=== PATIENT | male | born 1995 | race Hispanic/Latino ===

== ENCOUNTER 2017-12-03 02:24 | Emergency (ER) | payer SELFPAY ==
[2017-12-03] MEDS ORDERED: NA CHLORIDE 0.9% 1,000 ML ONE (02:48)
[2017-12-03 03:31] LABS: BUN Blood Urea Nitrogen 12 mg/dL (7-18); Bicarbonate 27 mmol/L (21-32); Glucose Level 95 mg/dL (74-106); Potassium 3.5 mmol/L (3.5-5.1); Sodium Level 142 mmol/L (136-145)
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
[2017-12-03] MEDS ORDERED: KETOROLAC 30 MG/ML INJ ONE (04:22)
--- NOTE | 2017-12-03 08:15 | RAD REPORT ---
EXAM DESCRIPTION: CT - CTF CLINICAL HISTORY: FRACTURE COMPARISON: No comparisons TECHNIQUE: Axial 2 mm thick images of the face were obtained with sagittal and coronal reconstructio n images. All CT scans are performed using dose optimization technique as appropriate and may include automated exposure control or mA/KV adjustment according to patient size. FINDINGS: No acute facial bone fracture is seen.The mandible is intact. Hardware is noted in the man dible. The globes and orbital contents are grossly unremarkable.The paranasal sinuses and mastoids are clear . IMPRESSION: Negative for facial bone fracture.
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
== END 2017-12-03 04:30 | disposition home or self-care (01) ==
LOC: ER 02:24
DX: M62.830 Muscle spasm of back (principal); Y04.8XXA Assault by other bodily force, initial encounter; Y93.9 Activity, unspecified; Y92.89 Other specified places as the place of occurrence of the external cause; G40.909 Epilepsy, unspecified, not intractable, without status epilepticus
CPT/HCPCS: 36415; 70450; 70486; 71260; 72125; 74177; 80048; 96361; 96374; 99284; J7030; Q9967

== ENCOUNTER 2019-05-01 23:47 | Emergency (ER) | payer SELFPAY ==
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
--- OUTSIDE RECORDS SUMMARY | 2019-05-01 23:49 | XMS REPORT ---
:1995 Author Organization [facility] Address [address] [place] [address] [address] [place] [address] Care Team Providers Name Role Phone DR JEREMIAH FARIAS Unavailable Unavailable MARILOU, DR DOMINGUEZ Unavailable Unavailable MARILOU, DR SAMANTHA Gregorio Unavailable Unavailable CORDELIA, DR JENNIFER Bowden Unavailable Unavailable SATHISH, DR VALENTIN Persaud Unavailable Unavailable Problems This patient has no known problems. Allergies, Adverse Reactions, Alerts This patient has no known allergies or adverse reactions. Medications This patient has no known medications. Encounters Start End Encounter Admission Attending Care Care Encounter Date/Time Date/Time Type Type Clinicians Facility Department ID 2019-01-13 2019-01-13 Outpatient E [facility] [id number] 12:31:00 12:31:00 2019-01-07 2019-01-07 Emergency E JARRETT [facility] [id number] 18:35:00 19:29:00 JEREMIAH 2019-01-01 2019-01-01 Emergency E MARILOU [facility] [id number] 00:51:00 01:48:00 ALBERTO 2018-12-30 2018-12-30 Emergency E SAMANTHA ZAMARRIPA [facility] [id number] 10:33:00 12:10:00 2018-08-11 2018-08-11 Outpatient E CORDELIA [facility] [id number] 08:29:00 09:00:00 JENNIFER 2018-08-07 2018-08-07 Outpatient E SATHISH [facility] [id number] 07:58:00 10:05:00 VALENTIN Results Test Description Test Time Test Comments Text Results Atomic Results Result Comments XR ELBOW RIGHT COMPLETE 2019-01-07 19:16:48 LOCATION: [id number]: 23-year- old 3 VIEWS male who presents with right elbow pain.COMMENT:Frontal, oblique, and lateral radiographs of the right elbow are compared to aprior study of 01/01/19.There is orthopedic hardware along the proximal ulna. There is no radiographicevidence of hardware failure, and the distal humerus and proximal radius areintact. No effusion is seen within the elbow joint space.IMPRESSION:Postoperative changes are seen in this patient's proximal right humerus. Noacute findings seen. XR ELBOW RIGHT COMPLETE 2019-01-01 01:27:53 LOCATION: [id number]: 23-year- old 3 VIEWS male who presents with a trauma history to the rightelbow.COMMENT:Frontal, oblique, and lateral radiographs of the right elbow are compared to aprior study obtained 12/30/18.The prior study of the fiberglass cast is been removed.Again seen is a fracture involving the ulnar olecranon process of the elbow.The proximal part is mildly from the distal part approximately 3 mm.The relative positioning of this fragment is unchanged from earlier study.The distal humerus and proximal radius are intact.IMPRESSION:Again seen is a olecranon process fracture in this patient's proximal rightulna. The degree of separation 3 in the proximal and distal parts is notsignificantly changed from the study obtained one day ago. XR ELBOW RIGHT COMPLETE 2018-12-30 11:19:03 EXAMINATION: XR ELBOW RIGHT COMPLETE 3 VIEWS 3 VIEWS.LOCATION: D4.HISTORY: R elbow s/p fracture.COMPARISON: None.TECHNIQUE: AP, lateral, and oblique views of the right elbow were obtained.FINDINGS:There is an acute nondisplaced fracture of the olecranon with extension to thehumeroulnar joint. Soft tissue structures appear intact.IMPRESSION:Acute nondisplaced fracture of the olecranon with extension to the humeroulnarjoint.
[2019-05-02 00:13] LABS: Arterial Blood Carboxyhemoglob 0.6 % (0-1.5); Blood Gas Oxyhemoglobin 98.4 % (94-97); Blood O2 Saturation 99.8 % (92-98.5)
[2019-05-02] MEDS ORDERED: NA CHLORIDE 0.9% 1,000 ML ONE (00:25)
[2019-05-02] MEDS ORDERED: LORazepam 2 MG/ML VIAL ONE (00:25)
[2019-05-02] MEDS ORDERED: LEVETIRACETAM 500 MG/5 ML VIAL IV ONE (00:25)
[2019-05-02] MEDS ORDERED: NA CHLORIDE 0.9% 250 ML ONE (00:34)
[2019-05-02 01:04] LABS: Basophils % 0.4 % (0-1.3); Hematocrit 45.6 % (39.6-49.0); Lymphocytes % 17.4 % (15.3-44.8); RBC Red Blood Cell Count 5.08 M/uL (4.33-5.43)
[2019-05-02 01:05] LABS: Barbiturates NEGATIVE (NEGATIVE); Benzodiazepines NEGATIVE (NEGATIVE); Cocaine NEGATIVE (NEGATIVE); METHAMPHETAM NEGATIVE (NEGATIVE); Methadone NEGATIVE (NEGATIVE); Opiates NEGATIVE (NEGATIVE); Phencyclidine NEGATIVE (NEGATIVE); THC Cannibis NEGATIVE (NEGATIVE)
[2019-05-02 01:09] LABS: Urine Blood NEGATIVE (NEG); Urine Glucose NEGATIVE (NEG); Urine Protein NEGATIVE (NEG); Urine pH 5.5 (5.0-7.0)
[2019-05-02 01:10] LABS: Protime INR 0.99
[2019-05-02 01:22] LABS: ALT/SGPT 23 U/L (12-78); AST/SGOT 14 U/L (15-37); Albumin 3.6 g/dL (3.4-5.0); Alkaline Phosphatase 79 U/L (45-117); BUN Blood Urea Nitrogen 5 mg/dL (7-18); Bicarbonate 27 mmol/L (21-32); Bilirubin Direct 0.1 mg/dL (0-0.2); Bilirubin Total 0.3 mg/dL (0.2-1.0); Glucose Level 86 mg/dL (74-106); Magnesium 2.4 mg/dL (1.8-2.4); NT PRO-BNP 40 pg/mL (<125); Potassium 3.6 mmol/L (3.5-5.1); Protein, Total 7.3 g/dL (6.4-8.2); Sodium Level 139 mmol/L (136-145); Troponin (Emerg Dept Use Only) < 0.02 ng/mL (0.0-0.045)
--- NOTE | 2019-05-02 01:43 | ER ---
Nurse's Notes [facility] Name: Douglas Aguirre Age: 24 yrs Sex: Male : 1995 Arrival Date: 05/01/2019 Time: 23:51 Bed 4 Private MD: Diagnosis: Epilepsy and recurrent seizures;Fall due to bumping against object Presentation: 05/01 23:51 Presenting complaint: EMS states: Pt fell from a bench and began seizing, Has been jb4 posturing since. 23:51 Transition of care: patient was not received from another setting of care. Onset of jb4 symptoms was May 01, 2019. Risk Assessment: Do you want to hurt yourself or someone else? Patient reports no desire to harm self or others. Initial Sepsis Screen: Does the patient meet any 2 criteria? No. Patient's initial sepsis screen is negative. Does the patient have a suspected source of infection? No. Patient's initial sepsis screen is negative. Care prior to arrival: Oxygen administered. via a non-rebreather mask. 23:51 Method Of Arrival: EMS: [place] [id number] 23:51 Acuity: MARCELO 1 jb4 Historical: - Allergies: 23:51 No Known Allergies; jb4 - Home Meds: 23:51 None [Active]; jb4 - PMHx: 23:51 Seizures; jb4 - PSHx: 23:51 None; jb4 - Immunization history:: Adult Immunizations unknown. - Coronavirus screen:: The patient has NOT traveled to [place] in the past 14 days. Proceed with normal triage process as indicated. The patient HAS traveled to [place] in the past 14 days. The patient does NOT have a fever and/or cough. - Family history:: not pertinent. - Social history:: Smoking status: unknown. - Ebola Screening: : No symptoms or risks identified at this time. Screenin:51 Abuse screen: Denies threats or abuse. Nutritional screening: No deficits noted. jb4 Tuberculosis screening: No symptoms or risk factors identified. Fall Risk None identified. Assessment: 23:51 General: Appears Post ictal. Pain: Unable to use pain scale. Patient is disoriented. jb4 Neuro: Level of Consciousness is post ictal, Patients limbs are extended with hands curled inward. Pt with open his eyes to verbal stimuli, but is unable to respond. Pupils are dilated, equal, and reactive to light. Eyes appear to be bloodshot. . Cardiovascular: Patient's skin is warm and dry. Respiratory: Airway is patent Respiratory effort is even, unlabored, Respiratory pattern is regular, symmetrical. GI: No signs and/or symptoms were reported involving the gastrointestinal system. : No signs and/or symptoms were reported regarding the genitourinary system. EENT: No signs and/or symptoms were reported regarding the EENT system. Derm: Skin is intact, Skin is pink, warm \T\ dry. Musculoskeletal: Limbs are extended with hands curled inward. 05/02 01:00 Reassessment: Patient appears in no apparent distress at this time. Patient and/or jb4 family updated on plan of care and expected duration. Pain level reassessed. Patient is alert, oriented x 3, equal unlabored respirations, skin warm/dry/pink. Pt reports having a headache and is drowsy. Is able to move all extremities, answer questions appropriately. PERRLA is noted. Pt awakens easily to verbal stimuli. 02:00 Reassessment: Patient appears in no apparent distress at this time. Patient and/or jb4 family updated on plan of care and expected duration. Pain level reassessed. Patient is alert, oriented x 3, equal unlabored respirations, skin warm/dry/pink. D/c pending arrival of PT's transportation. PT given food and drink per request. 02:47 Reassessment: Patient appears in no apparent distress at this time. Patient and/or jb4 family updated on plan of care and expected duration. Pain level reassessed. Patient is alert, oriented x 3, equal unlabored respirations, skin warm/dry/pink. Pt assisted to police vehicle via wheelchair. Pt and lawn mower repairer verbalized understanding of d/c and follow up instructions. denies question or concerns. Vital Signs: 05/01 23:51 BP 134 / 92; Pulse 90; Resp 18 S; Temp 97.6(TE); Pulse Ox 100% on 100% Non-rebreather jb4 mask; Weight 72.57 kg (R); Height 5 ft. 8 in. (172.72 cm) (R); 05/02 01:00 BP 117 / 79; Pulse 86; Resp 13; Pulse Ox 99% on R/A; jb4 02:00 BP 119 / 88; Pulse 79; Resp 16; Pulse Ox 100% on R/A; jb4 05/01 23:51 Body Mass Index 24.33 (72.57 kg, 172.72 cm) jb4 [place] Coma Score: 05/01 23:51 Eye Response: to voice(3). Verbal Response: incomprehensible(2). Motor Response: jb4 withdraws from pain(4). Total: 9. 05/02 01:00 Eye Response: spontaneous(4). Verbal Response: oriented(5). Motor Response: obeys jb4 commands(6). Total: 15. ED Course: 05/01 23:51 Patient arrived in ED. kayleen 23:51 Kar Gonzales MD is Attending Physician. kayleen 23:51 Arm band placed on right wrist. jb4 23:51 Patient has correct armband on for positive identification. Bed in low position. Call jb4 light in reach. Side rails up X 1. cone machine feeder on. Pulse ox on. NIBP on. 23:51 Maintain EMS IV. Dressing intact. Good blood return noted. Site clean \T\ dry. Gauge \T\ noris 4 site: 20. 05/02 00:06 Blair Yang, RN is Primary Nurse. jb4 00:08 Triage completed. jb4 01:44 Nicanor Stewart MD is Referral Physician. [facility] 02:47 No provider procedures requiring assistance completed. IV discontinued, intact, jb4 bleeding controlled, No redness/swelling at site. Pressure dressing applied. 07:03 XRAY Chest (1 view) In Process Unspecified. EDMS 07:03 CT Head C Spine In Process Unspecified. EDMS Administered Medications: 00:25 Drug: NS 0.9% 1000 ml Route: IV; Rate: 1 bolus; Site: right antecubital; jb4 02:30 Follow up: Response: No adverse reaction; IV Status: Completed infusion jb4 00:25 Drug: Ativan 1 mg Route: IVP; Site: right antecubital; jb4 01:00 Follow up: Response: No adverse reaction jb4 00:37 Drug: Keppra 1000 mg Route: IV; Rate: per protocol; Site: right antecubital; jb4 01:07 Follow up: Response: No adverse reaction; IV Status: Completed infusion; IV Intake: jb4 250ml 01:38 Not Given (Physician Discretion): Ativan 1 mg IVP once jb4 Intake: 01:07 IV: 250ml; Total: 250ml. jb4 Outcome: 01:43 Discharge ordered by MD. beyer 02:47 Discharged to Law Enforcement jb4 02:47 Condition: stable 02:47 Discharge instructions given to patient, police, Instructed on discharge instructions, follow up and referral plans. medication usage, Demonstrated understanding of instructions, follow-up care, medications, Prescriptions given X 1. 02:51 Patient left the ED. jb4 Signatures: Dispatcher [employer] EDKar Brasher MD MD cha Bryson, James, RN RN jb4
--- NOTE | 2019-05-02 01:43 | EDPHYS ---
Physician Documentation [facility] Name: Douglas Aguirre Age: 24 yrs Sex: Male : 1995 Arrival Date: 05/01/2019 Time: 23:51 Bed 4 Private MD: ED Physician Kar Gonzales HPI: 05/01 23:53 This 24 yrs old Male presents to ER via Unassigned with complaints of seizure kayleen and nonresponsive. 23:53 The patient presents after having a single isolated seizure, the episode(s) was kayleen witnessed, by EMS personnel, by police. Character of seizure(s): Loss of consciousness: the patient experienced loss of consciousness, Motor activity: generalized, Incontinence: none, Apnea: the patient did not experience apnea, Circulation: the patient did not experience evidence of pulse disturbance. Seizure onset: 1.5 hour(s) ago. Context: the seizure(s) was witnessed, by EMS personnel, by police. Seizure Hx: Cause: unknown, Last seizure: The patient's last seizure is unknown. Associated injury: The patient did not suffer any apparent associated injury. The patient has experienced similar episodes in the past, a few times. Historical: - Allergies: 23:51 No Known Allergies; jb4 - Home Meds: 23:51 None [Active]; jb4 - PMHx: 23:51 Seizures; jb4 - PSHx: 23:51 None; jb4 - Immunization history:: Adult Immunizations unknown. - Coronavirus screen:: The patient has NOT traveled to [place] in the past 14 days. Proceed with normal triage process as indicated. The patient HAS traveled to [place] in the past 14 days. The patient does NOT have a fever and/or cough. - Family history:: not pertinent. - Social history:: Smoking status: unknown. - Ebola Screening: : No symptoms or risks identified at this time. ROS: 23:53 Constitutional: Negative for fever, chills, and weight loss, Eyes: Negative for injury, kayleen pain, redness, and discharge, ENT: Negative for injury, pain, and discharge, Neck: Negative for injury, pain, and swelling, Cardiovascular: Negative for chest pain, palpitations, and edema, Respiratory: Negative for shortness of breath, cough, wheezing, and pleuritic chest pain, Abdomen/GI: Negative for abdominal pain, nausea, vomiting, diarrhea, and constipation, Back: Negative for injury and pain, : Negative for injury, bleeding, discharge, and swelling, MS/Extremity: Negative for injury and deformity, Skin: Negative for injury, rash, and discoloration, Psych: Negative for depression, anxiety, suicide ideation, homicidal ideation, and hallucinations, Allergy/Immunology: Negative for hives, rash, and allergies, Endocrine: Negative for neck swelling, polydipsia, polyuria, polyphagia, and marked weight changes, Hematologic/Lymphatic: Negative for swollen nodes, abnormal bleeding, and unusual bruising. 23:53 Neuro: Positive for altered mental status, seizure activity. Exam: 23:53 Constitutional: This is a well developed, well nourished patient who is awake, alert, kayleen and in no acute distress. Head/Face: Normocephalic, atraumatic. Eyes: Pupils equal round and reactive to light, extra-ocular motions intact. Lids and lashes normal. Conjunctiva and sclera are non-icteric and not injected. Cornea within normal limits. Periorbital areas with no swelling, redness, or edema. ENT: Nares patent. No nasal discharge, no septal abnormalities noted. Tympanic membranes are normal and external auditory canals are clear. Oropharynx with no redness, swelling, or masses, exudates, or evidence of obstruction, uvula midline. Mucous membranes moist. Neck: Trachea midline, no thyromegaly or masses palpated, and no cervical lymphadenopathy. Supple, full range of motion without nuchal rigidity, or vertebral point tenderness. No Meningismus. Chest/axilla: Normal chest wall appearance and motion. Nontender with no deformity. No lesions are appreciated. Cardiovascular: Regular rate and rhythm with a normal S1 and S2. No gallops, murmurs, or rubs. Normal PMI, no JVD. No pulse deficits. Respiratory: Lungs have equal breath sounds bilaterally, clear to auscultation and percussion. No rales, rhonchi or wheezes noted. No increased work of breathing, no retractions or nasal flaring. Abdomen/GI: Soft, non-tender, with normal bowel sounds. No distension or tympany. No guarding or rebound. No evidence of tenderness throughout. Back: No spinal tenderness. No costovertebral tenderness. Full range of motion. Skin: Warm, dry with normal turgor. Normal color with no rashes, no lesions, and no evidence of cellulitis. MS/ Extremity: Pulses equal, no cyanosis. Neurovascular intact. Full, normal range of motion. Psych: Awake, alert, with orientation to person, place and time. Behavior, mood, and affect are within normal limits. 23:53 Neuro: Orientation: unable to test, Mentation: unable to test, Memory: unable to test, Cranial nerves: unable to test, Sensation: unable to test, Gait: not tested. seizure activity, grand mal type is displayed. Vital Signs: 23:51 BP 134 / 92; Pulse 90; Resp 18 S; Temp 97.6(TE); Pulse Ox 100% on 100% Non-rebreather jb4 mask; Weight 72.57 kg (R); Height 5 ft. 8 in. (172.72 cm) (R); 05/02 01:00 BP 117 / 79; Pulse 86; Resp 13; Pulse Ox 99% on R/A; jb4 02:00 BP 119 / 88; Pulse 79; Resp 16; Pulse Ox 100% on R/A; jb4 05/01 23:51 Body Mass Index 24.33 (72.57 kg, 172.72 cm) jb4 Onset Coma Score: 05/01 23:51 Eye Response: to voice(3). Verbal Response: incomprehensible(2). Motor Response: jb4 withdraws from pain(4). Total: 9. 05/02 01:00 Eye Response: spontaneous(4). Verbal Response: oriented(5). Motor Response: obeys jb4 commands(6). Total: 15. MDM: 05/01 23:51 Patient medically screened. [facility] 23:58 Data reviewed: vital signs, nurses notes, lab test result(s), EKG, radiologic studies, [facility] CT scan, plain films. 05/01 23:53 Order name: Basic Metabolic Panel [facility] 05/01 23:53 Order name: CBC with Diff [facility] 05/01 23:53 Order name: LFT's [facility] 05/01 23:53 Order name: Magnesium [facility] 05/01 23:53 Order name: NT PRO-BNP [facility] 05/01 23:53 Order name: PT-INR [facility] 05/01 23:53 Order name: Troponin (emerg Dept Use Only) [facility] 05/01 23:53 Order name: ABG [facility] 05/01 23:53 Order name: Acetaminophen [facility] 05/01 23:53 Order name: ETOH Level [facility] 05/01 23:53 Order name: Ptt, Activated [facility] 05/01 23:53 Order name: Salicylate [facility] 05/01 23:53 Order name: Urine Drug Screen [facility] 05/02 00:15 Order name: ABG Arterial Blood Gas; Complete Time: 01:41 [facility] 05/01 23:53 Order name: XRAY Chest (1 view) [facility] 05/01 23:53 Order name: CT Head C Spine [facility] 05/02 01:03 Order name: Urine Dipstick--Ancillary (enter results) sp 05/02 01:05 Order name: Urine Drug Screen; Complete Time: 01:41 [facility] 05/02 01:10 Order name: Urine Dipstick-Ancillary; Complete Time: 01:41 [facility] 05/02 01:12 Order name: CBC with Automated Diff; Complete Time: 01:41 [facility] 05/02 01:12 Order name: Protime (+INR); Complete Time: 01:41 [facility] 05/02 01:12 Order name: PTT, Activated Partial Thromb; Complete Time: 01:41 [facility] 05/02 01:22 Order name: Alcohol Serum/Plasma; Complete Time: 01:41 [facility] 05/02 01:22 Order name: Salicylates Level; Complete Time: 01:41 [facility] 05/02 01:23 Order name: Basic Metabolic Panel; Complete Time: 01:41 [facility] 05/02 01:23 Order name: Liver (Hepatic) Function; Complete Time: 01:41 [facility] 05/02 01:23 Order name: Troponin (Emerg Dept Use Only); Complete Time: 01:41 [facility] 05/02 01:23 Order name: NT PRO-BNP; Complete Time: 01:41 [facility] 05/02 01:23 Order name: Acetaminophen Level; Complete Time: 01:41 [facility] 05/02 01:23 Order name: Magnesium; Complete Time: 01:41 [facility] 05/01 23:53 Order name: EKG; Complete Time: 23:56 [facility] 05/01 23:53 Order name: Cardiac monitoring; Complete Time: 00:40 [facility] 05/01 23:53 Order name: EKG - Nurse/Tech; Complete Time: 00:40 [facility] 05/01 23:53 Order name: IV Saline Lock; Complete Time: 00:41 [facility] 05/01 23:53 Order name: Labs collected and sent; Complete Time: 00:56 [facility] 05/01 23:53 Order name: O2 Per Protocol; Complete Time: 00:41 [facility] 05/01 23:53 Order name: O2 Sat Monitoring; Complete Time: 00:41 [facility] 05/01 23:53 Order name: Urine Dipstick-Ancillary (obtain specimen); Complete Time: 00:40 [facility] Administered Medications: 05/02 00:25 Drug: NS 0.9% 1000 ml Route: IV; Rate: 1 bolus; Site: right antecubital; jb4 02:30 Follow up: Response: No adverse reaction; IV Status: Completed infusion jb4 00:25 Drug: Ativan 1 mg Route: IVP; Site: right antecubital; jb4 01:00 Follow up: Response: No adverse reaction jb4 00:37 Drug: Keppra 1000 mg Route: IV; Rate: per protocol; Site: right antecubital; jb4 01:07 Follow up: Response: No adverse reaction; IV Status: Completed infusion; IV Intake: jb4 250ml 01:38 Not Given (Physician Discretion): Ativan 1 mg IVP once jb4 Disposition: 05/02/19 01:43 Discharged to Home. Impression: Epilepsy and recurrent seizures, Fall due to bumping against object. - Condition is Stable. - Discharge Instructions: Seizure, Adult, Seizure, Adult, [id number]. - Prescriptions for Keppra 500 mg Oral Tablet - take 1 tablet by ORAL route every 12 hours; 20 tablet. - Medication Reconciliation Form, Thank You Letter, Antibiotic Education, Prescription Opioid Use form. - Follow up: Private Physician; When: 2 - 3 days; Reason: Recheck today's complaints, Continuance of care, Re-evaluation by your physician. Follow up: Nicanor Stewart MD; When: 2 - 3 days; Reason: Recheck today's complaints, Re-evaluation by your physician. - Problem is new. - Symptoms have improved. Signatures: Dispatcher [employer] Kar Sheppard MD MD cha Bryson, James, RN RN jb4 Corrections: (The following items were deleted from the chart) 01:44 01:43 05/02/2019 01:43 Discharged to Home. Impression: Epilepsy and recurrent seizures; kayleen Fall due to bumping against object. Condition is Stable. Forms are Medication Reconciliation Form, Thank You Letter, Antibiotic Education, Prescription Opioid Use. Follow up: Private Physician; When: 2 - 3 days; Reason: Recheck today's complaints, Continuance of care, Re-evaluation by your physician. Problem is new. Symptoms have improved. kayleen 02:51 01:44 05/02/2019 01:43 Discharged to Home. Impression: Epilepsy and recurrent seizures; jb4 Fall due to bumping against object. Condition is Stable. Discharge Instructions: Seizure, Adult, Seizure, Adult, [id number]. Prescriptions for Keppra 500 mg Oral Tablet - take 1 tablet by ORAL route every 12 hours; 20 tablet. and Forms are Medication Reconciliation Form, Thank You Letter, Antibiotic Education, Prescription Opioid Use. Follow up: Private Physician; When: 2 - 3 days; Reason: Recheck today's complaints, Continuance of care, Re-evaluation by your physician. Follow up: Nicanor Setwart; When: 2 - 3 days; Reason: Recheck today's complaints, Re-evaluation by your physician. Problem is new. Symptoms have improved. kayleen
[2019-05-02 03:07] VITALS: TEMP 97.6; O2SAT 100
[2019-05-02 03:09] VITALS: BP 119/88
--- NOTE | 2019-05-02 07:45 | EKG ---
Test Date: 2019-05-02 Test Time: 00:30:03 Environmental Specialist: MARLENY MEASUREMENT RESULTS: Intervals: Rate: 86 CO: 136 QRSD: 108 QT: 372 QTc: 445 Maple: P: 53 CO: 136 QRS: 84 T: 62 INTERPRETIVE STATEMENTS: Normal sinus rhythm Normal ECG Compared to ECG 03/16/2014 18:02:48 Sinus arrhythmia no longer present Electronically Signed On 05-02-19 07:44:24 TOOL INSPECTOR by Bakari Arndt
--- NOTE | 2019-05-02 09:56 | RAD REPORT ---
EXAM DESCRIPTION: Hannah Single View05/02/2019 12:28 am CLINICAL HISTORY: cough COMPARISON: none FINDINGS: The lungs appear clear of acute infiltrate. The heart is normal size IMPRESSION: No acute abnormalities displayed
--- NOTE | 2019-05-03 11:51 | RAD REPORT ---
EXAM DESCRIPTION: CT - Head C Spine Mpr Wo Con - 05/02/2019 4:27 am CLINICAL HISTORY: Pain. COMPARISON: CT head and cervical spine 12/03/2017 TECHNIQUE: Axial [address] imaging of the brain. Axial [address] imaging of the cervical spine. Reformatted coronal and sagittal images obtai rochelle. This examination was performed according to our departmental dose optimization program, which include s automated exposure control, adjustment of the mA and/or kV according to patient size and/or use of iterative reconstruction technique. FINDINGS: CT Head: Normal ventricle size and contour. Extra-axial fluid spaces appear normal. Gil-white matter differen tiation is preserved. There is no hemorrhage, mass, midline shift, or edema. Normal cerebellum and ve rmis. Midline fourth ventricle. No cerebellar tonsillar ectopia. Normal sella contents. Intraorbital contents appear normal. Clear paranasal sinuses. Mastoid air cells are clear. Intact sku ll base and calvarium. Normal scalp soft tissues. CT cervical spine: There is flattening of cervical lordosis. Vertebral body and intervertebral disc space height are wit hin normal limits. Preserved craniocervical and cervicothoracic junction alignment. No prevertebral e abdirahman. No spinal canal or foraminal stenosis. Intact posterior elements. Parapharyngeal soft tissues and mucosal spaces appear normal. Normal imaged portions of the thyroid. Nonenlarged scattered neck lymph nodes. Clear lung apices. IMPRESSION: 1. Negative CT brain. 2. Cervical spine muscle spasm. No acute traumatic finding. Electronically signed by: Berta Meade DO 05/02/2019 12:30 AM [employer] Due to temporary technical issues with the PACS/Fluency reporting system, reports are being signed by the in house radiologist as a courtesy to ensure prompt reporting. The interpreting radiologist is f radhamesly responsible for the content of the report.
== END 2019-05-02 02:51 | disposition home or self-care (01) ==
LOC: ER 23:47
DX: G40.802 Other epilepsy, not intractable, without status epilepticus (principal); W18.00XA Striking against unspecified object with subsequent fall, initial encounter; Y93.9 Activity, unspecified; Y92.9 Unspecified place or not applicable
CPT/HCPCS: 36415; 70450; 71045; 72125; 80048; 80076; 80307; 80320; 80329; 81003; 82805; 83735; 83880; 84484; 85025; 85610; 85730; 93005; 96361; 96365; 96375; 99292; J1953; J7030

== ENCOUNTER 2020-05-26 22:16 | Emergency (ER) | payer SELFPAY ==
--- OUTSIDE RECORDS SUMMARY | 2020-05-26 22:21 | XMS REPORT | Continuity of Care Document ---
:1995 Author Organization [facility] t Address [address] [place] [address] Care Team Providers Name Role Phone Issa Witt Attending Clinician Unavailable Rodas, Santhosh Attending Clinician Unavailable Root, Shayne Attending Clinician Unavailable Shayne León Attending Clinician Unavailable Grayson, A Attending Clinician Unavailable Grayson, A Attending Clinician Unavailable Jese, Lazaro Attending Clinician Unavailable Lazaro Sawant Attending Clinician Unavailable DR SETH Attending Clinician Unavailable DR AIME Attending Clinician Unavailable Doni TUCKER, M Attending Clinician DR Kristian FARIAS Attending Clinician Unavailable DR MARILOU Attending Clinician Unavailable DR Darline ZAMARRIPA Attending Clinician Unavailable DR Kal STOREY Attending Clinician Unavailable DR Hung BOWER Attending Clinician Unavailable Issa Witt Admitting Clinician Unavailable Clark, Santhosh Admitting Clinician Unavailable Shayne León Admitting Clinician Unavailable Lazaro Sawant Admitting Clinician Unavailable DR SETH Admitting Clinician Unavailable DR AIME Admitting Clinician Unavailable DR Kristian FARIAS Admitting Clinician Unavailable DR MARILOU Admitting Clinician Unavailable DR Darline ZAMARRIPA Admitting Clinician Unavailable DR Kal STOREY Admitting Clinician Unavailable DR Hung BOWER Admitting Clinician Unavailable Problems This patient has no known problems. Allergies, Adverse Reactions, Alerts This patient has no known allergies or adverse reactions. Social History Smoking Status Start Date Stop Date Source Current Every Day Smoker [facility] Medications This patient has no known medications. Vital Signs Vital Name Observation Time Observation Value Comments Source BP Diastolic 2019-03-16 00:00:00 80 mm[Hg] [facility] Height 2019-03-16 00:00:00 69 [in_i] [facility] BP Systolic 2019-03-16 00:00:00 120 mm[Hg] [facility] Procedures This patient has no known procedures. Encounters Start End Encounter Admission Attending Care Care Encounter Source Date/Time Date/Time Type Type Clinicians Facility Department ID 2019-10-11 Inpatient 2 Eduar [facility] ICU [id number] [facility] 03:00:00 Bhavik -[id number] [facility] 2019-10-09 Inpatient 2 Syed Rodas [facility] ICU [id number] [facility] 00:10:00 -[id number] 2019-10-12 Inpatient 2 Biju León [facility] MED 1 [id number] [facility] 02:15:00 13:19:00 Biju León 2019-10-11 2019-10-12 Inpatient 2 Eduar [facility] ICU [id number] [facility] 02:55:00 01:16:00 Bhavik [facility] 2019-10-10 2019-10-11 Inpatient 3 Biju León [facility] PSY 1 [id number] [facility] 12:00:00 02:41:00 Biju León 2019-10-08 2019-10-10 Inpatient 2 Grayson Td [facility] MED [id number] [facility] 22:00:00 12:50:00 Td Galicia 2019-10-04 2019-10-08 Inpatient 1 Jarrod Sawant [facility] PSY [id number] [facility] 22:58:00 23:36:00 Jarrod Sawant 2019-09-03 2019-09-07 Inpatient E [facility] [id number] 2019-08-31 2019-09-01 Emergency E BALDO SALOMON [facility] [id number] [facility] 19:52:00 00:25:00 [facility] 2019-06-29 2019-06-29 [facility] [id number] 11:39:09 23:59:00 Encounter Rafael PEREZ [id number] MEDICAL [id number] [place] [id number] 2019-06-09 2019-06-09 [facility] [id number] 15:26:07 23:59:00 Encounter Rafael PEREZ [id number] MEDICAL [id number] [place] [id number] 2019-03-16 2019-03-16 [facility] [place] - [id number] Kya zachary 00:00:00 00:00:00 Discovery sergey Castro MD: [address] [facility] - [address], [place] [address] , Ph. 2019-01-13 2019-01-13 Outpatient E [facility] MED [id number] [facility] 12:31:00 12:31:00 2019-01-07 2019-01-07 Emergency E JARRETT [facility] [id number] [facility] 18:35:00 19:29:00 [facility] 2019-01-01 2019-01-01 Emergency E MARILOU [facility] [id number] [facility] 00:51:00 01:48:00 [facility] 2018-12-30 2018-12-30 Emergency E SAMANTHA ZAMARRIPA [facility] [id number] [facility] 10:33:00 12:10:00 Medica [facility] 2018-08-11 2018-08-11 Outpatient E CORDELIA [facility] [id number] [facility] 08:29:00 09:00:00 [facility] 2018-08-07 2018-08-07 Outpatient E SATHISH [facility] [id number] [facility] 07:58:00 10:05:00 [facility] Results Test Description Test Time Test Comments Results Result Comments Source Urine DOA 9 2019-10-11 18:16:35 Test Item Value Reference Range Interpretation Comme nts Amphetamine Screen Ur (test code Negative Negative The specimen is presumptive = Amphetamine Screen Ur) pos itive if the analyte concentration i s equal to or greater than 10 00 ng/ml.If confirmation of positive result is desired, ple ase order Amphetamine Con firmation, Urine within 7 days. Barbiturate Screen Ur (test code Negative Negative The specimen is presumptive = Barbiturate Screen Ur) pos itive if the analyte concentration i s equal to or greater than 20 0 ng/ml.If confirmation of positive result is desired, ple ase order Barbiturate Con firmation, Urine within 7 days. Benzodiazepines Ur (test code = Negative Negative The specimen is presumptive Benzodiazepines Ur) positive if the analyte concentration i s equal to or greater than 20 0 ng/ml.If confirmation of positive result is desired, ple ase order Benzodiazephine Confirmation, Urine within 7 days. Cocaine Screen Ur (test code = Negative Negative The specimen is presumptive Cocaine Screen Ur) positive if the analyte concentration i s equal to or greater than 30 0 ng/ml.If confirmation of positive result is desired, ple ase order Cocaine Metabolite Conf irmation, Urine within 7 days. Opiate Screen Ur (test code = Negative Negative The specimen is presumptive Opiate Screen Ur) positive i f the analyte concentration i s equal to or greater than 20 00 ng/ml.If confirmation of positive result is desired, ple ase order Opiate Confirmation, U rine within 7 days. U PCP Scrn (test code = U PCP Negative Negative The specimen is presumptive Scrn) positive if the analyte concentration i s equal to or greater than 25 ng/ml.If confirmation of positive result is desired, ple ase order Phencyclidine Confirmation, Urine within 7 days. Cannabinoid Screen Ur (test code Negative Negative The specimen is presumptive = Cannabinoid Screen Ur) pos itive if the analyte concentration i s equal to or greater than 50 ng/ml.If confirmation of positive result is desired, ple ase order Cannabinoid (TH C) Confirmation, Urine within 7 days. U Methadone Scr (test code = U Negative Negative The specimen is presumptive Methadone Scr) positive if t he analyte concentration i s equal to or greater than 30 0 ng/ml.If confirmation of positive result is desired, ple ase order Methadone Conf irmation, Urine within 7 days. U Propoxyphene (test code = U Negative Negative The specimen is presumptive Propoxyphene) positive if th e analyte concentration i s equal to or greater than 30 0 ng/ml.If confirmation of positive result is desired, ple ase order Propoxyphene C onfirmation within 7 days. Valproic Acid [id number] 09:45:35 Test Item Value Reference Range Interpretation Comments Valproic Acid 67.9 mcg/mL N A therapeutic range of Level (test code = 50-100 ug /ml may Valproic Acid indicate effec tive Level) concentrations for many patients; howev er some individuals are best treated at concentrations outside this range. The physician must determine the appropriate therapeutic ran ge for each patient. Comprehensive Metabolic [id number] 06:27:22 Test Item Value Reference Range Interpretation Comments Sodium Level (test code = Sodium 142.0 mmol/L 136.0-145.0 Level) Potassium Level (test code = 3.90 mmol/L 3.50-5.10 Potassium Level) Chloride Level (test code = 107.0 mmol/L 98.0-107.0 Chloride Level) CO2 (test code = CO2) 25 mmol/L 20-31 Anion Gap (test code = Anion 10.1 mmol/L 5.0-15.0 Gap) BUN (test code = BUN) 13 mg/dL 9-23 Creatinine Level (test code = 0.65 mg/dL 0.70-1.30 L Creatinine Level) BUN/Creat Ratio (test code = 20.0 ratio 10.0-20.0 BUN/Creat Ratio) Glucose Level (test code = 89 mg/dL 74-106 Glucose Level) Calcium Level (test code = 8.2 mg/dL 8.3-10.6 L Calcium Level) Alk Phos (test code = Alk Phos) 81 U/L 46-116 Bilirubin Total (test code = 0.3 mg/dL 0.2-1.1 Bilirubin Total) Albumin Level (test code = 4.2 g/dL 3.2-4.8 Albumin Level) Protein Total (test code = 6.8 g/dL 5.7-8.2 Protein Total) ALT (test code = ALT) 34 U/L 10-49 AST (test code = AST) 27 U/L <=34 Globulin (test code = Globulin) 2.6 g/dL 2.3-3.5 A/G Ratio (test code = A/G 1.6 g/dL 0.8-2.0 Ratio) Hemolysis (test code = 0 g/dL 1-2 Hemolysis) Icterus (test code = Icterus) 0 g/dL 1-2 Lipemia (test code = Lipemia) 0 g/dL 1-2 Magnesium [id number] 06:27:22 Test Item Value Reference Range Interpretation Comments Magnesium Level (test code = 1.78 mg/dL 1.60-2.60 Magnesium Level) Comprehensive Metabolic [id number] 06:27:22 Test Item Value Reference Range Interpretation Comments Sodium Level (test 142.0 mmol/L 136.0-145.0 code = Sodium Level) Potassium Level 3.90 mmol/L 3.50-5.10 (test code = Potassium Level) Chloride Level (test 107.0 mmol/L 98.0-107.0 code = Chloride Level) CO2 (test code = 25 mmol/L 20-31 CO2) Anion Gap (test code 10.1 mmol/L 5.0-15.0 = Anion Gap) BUN (test code = 13 mg/dL 9-23 BUN) Creatinine Level 0.65 mg/dL 0.70-1.30 L (test code = Creatinine Level) BUN/Creat Ratio 20.0 ratio 10.0-20.0 (test code = BUN/Creat Ratio) Glucose Level (test 89 mg/dL 74-106 code = Glucose Level) Calcium Level (test 8.2 mg/dL 8.3-10.6 L code = Calcium Level) Alk Phos (test code 81 U/L 46-116 = Alk Phos) Bilirubin Total 0.3 mg/dL 0.2-1.1 (test code = Bilirubin Total) Albumin Level (test 4.2 g/dL 3.2-4.8 code = Albumin Level) Protein Total (test 6.8 g/dL 5.7-8.2 code = Protein Total) ALT (test code = 34 U/L 10-49 ALT) AST (test code = 27 U/L <=34 AST) Globulin (test code 2.6 g/dL 2.3-3.5 = Globulin) A/G Ratio (test code 1.6 g/dL 0.8-2.0 = A/G Ratio) eGFR AA (test code = >60 >=60 eGFR (e stimated eGFR AA) mL/min/1.73 m2 Glomerular Filtration Rate ) is an estimated va lue, calculated from the patient's serum creatinine usin g the MDRD equation. It is NOT the patient 's actual GFR. The eGFR provides a more clinically usef ul measure of kidn ey disease than se rum creatinine alone.This calculation ravi es sex and race in to account, if the information is provided. If th e race is not provided, and t he patient is -Caryn n, multiply by 1.2 12. If sex is not provided, and t he patient is fema le, multiply by 0.7 42. Results for pat ients <18 years of ag e have not been validated by th e MDRD study and should be interpreted wit h caution. eGFR R esult Interpretation: eGFR > or = 60 is in the Normal RangeeGF R < 60 may mean kid joce diseaseeGFR < 1 5 may mean kidney failure Rang es recommended by the National Kidney Foundation, http://nkdep.ni h.gov Hemolysis (test code 0 g/dL 1-2 = Hemolysis) Icterus (test code = 0 g/dL 1-2 Icterus) Lipemia (test code = 0 g/dL 1-2 Lipemia) Phosphorus [id number] 06:27:22 Test Item Value Reference Range Interpretation Comments Phosphorus Level (test code = 4.7 mg/dL 2.4-5.1 Phosphorus Level) Bilirubin [id number] 06:27:22 Test Item Value Reference Range Interpretation Comments Bilirubin Direct (test code = <0.1 mg/dL <=0.3 Bilirubin Direct) Comprehensive Metabolic [id number] 06:27:22 Test Item Value Reference Range Interpretation Comments Sodium Level (test 142.0 mmol/L 136.0-145.0 code = Sodium Level) Potassium Level 3.90 mmol/L 3.50-5.10 (test code = Potassium Level) Chloride Level (test 107.0 mmol/L 98.0-107.0 code = Chloride Level) CO2 (test code = 25 mmol/L 20-31 CO2) Anion Gap (test code 10.1 mmol/L 5.0-15.0 = Anion Gap) BUN (test code = 13 mg/dL 9-23 BUN) Creatinine Level 0.65 mg/dL 0.70-1.30 L (test code = Creatinine Level) BUN/Creat Ratio 20.0 ratio 10.0-20.0 (test code = BUN/Creat Ratio) Glucose Level (test 89 mg/dL 74-106 code = Glucose Level) Calcium Level (test 8.2 mg/dL 8.3-10.6 L code = Calcium Level) Alk Phos (test code 81 U/L 46-116 = Alk Phos) Bilirubin Total 0.3 mg/dL 0.2-1.1 (test code = Bilirubin Total) Albumin Level (test 4.2 g/dL 3.2-4.8 code = Albumin Level) Protein Total (test 6.8 g/dL 5.7-8.2 code = Protein Total) ALT (test code = 34 U/L 10-49 ALT) AST (test code = 27 U/L <=34 AST) Globulin (test code 2.6 g/dL 2.3-3.5 = Globulin) A/G Ratio (test code 1.6 g/dL 0.8-2.0 = A/G Ratio) eGFR AA (test code = >60 >=60 eGFR (e stimated eGFR AA) mL/min/1.73 m2 Glomerular Filtration Rate ) is an estimated va lue, calculated from the patient's serum creatinine usin g the MDRD equation. It is NOT the patient 's actual GFR. The eGFR provides a more clinically usef ul measure of kidn ey disease than se rum creatinine alone.This calculation ravi es sex and race in to account, if the information is provided. If th e race is not provided, and t he patient is -Caryn n, multiply by 1.2 12. If sex is not provided, and t he patient is fema le, multiply by 0.7 42. Results for pat ients <18 years of ag e have not been validated by th e MDRD study and should be interpreted wit h caution. eGFR R esult Interpretation: eGFR > or = 60 is in the Normal RangeeGF R < 60 may mean kid joce diseaseeGFR < 1 5 may mean kidney failure Rang es recommended by the National Kidney Foundation, http://nkdep.ni h.gov eGFR Non-AA (test >60.00 >=60.00 eGFR (courtney mated code = eGFR Non-AA) mL/min/1.73 m2 Glomer ular Filtration Rate ) is an estimated va lue, calculated from the patient's serum creatinine usin g the MDRD equation. It is NOT the patient 's actual GFR. The eGFR provides a more clinically usef ul measure of kidn ey disease than se rum creatinine alone.This calculation ravi es sex and race in to account, if the information is provided. If th e race is not provided, and t he patient is -Caryn n, multiply by 1.2 12. If sex is not provided, and t he patient is fema le, multiply by 0.7 42. Results for pat ients <18 years of ag e have not been validated by th e MDRD study and should be interpreted wit h caution. eGFR R esult Interpretation: eGFR > or = 60 is in the Normal RangeeGF R < 60 may mean kid joce diseaseeGFR < 1 5 may mean kidney failure Rang es recommended by the National Kidney Foundation, http://nkdep.ni h.gov Hemolysis (test code 0 g/dL 1-2 = Hemolysis) Icterus (test code = 0 g/dL 1-2 Icterus) Lipemia (test code = 0 g/dL 1-2 Lipemia) Lactic Acid, Plasma (Venous)2019-10-09 05:02:47 Test Item Value Reference Range Interpretation Comments Lactic Acid, Plasma (Venous) 1.40 mmol/L 0.50-2.00 (test code = Lactic Acid, Plasma (Venous)) IG [id number] 05:02:47 Test Item Value Reference Range Interpretation Comments IG (test code = IG) 1.3 % 0.0-5.0 IG Abs (test code = IG Abs) 0 x10 N Complete Blood Count with [id number] 05:02:46 Test Item Value Reference Range Interpretation Comments WBC (test code = WBC) 6.1 x10 4.4-10.5 RBC (test code = RBC) 4.72 x10 4.10-5.70 Hgb (test code = Hgb) 14.4 g/dL 13.4-17.4 Hct (test code = Hct) 43.6 % 38.7-52.0 MCV (test code = MCV) 92.40 fL 80.00-100.00 MCHC (test code = 33.00 g/dL 32.00-37.50 MCHC) RDW CV (test code = 12.4 % 11.5-14.5 RDW CV) MCH (test code = MCH) 30.5 pg 27.0-32.5 Platelets (test code = 212.0 x10 140.0-440.0 Platelets) MPV (test code = MPV) 10.2 fL N Slide Review (test Auto Auto Result cr eated by code = Slide Review) GL_SJM_ SLIDE_REV_AUTO nRBC (test code = 0 N nRBC) NRBC Abs (test code = 0.00 x10 N NRBC Abs) IPF (test code = IPF) 0 % N Automated [id number] 05:02:46 Test Item Value Reference Range Interpretation Comments Neutro Auto (test code = Neutro 45.8 % 36.0-70.0 Auto) Lymph Auto (test code = Lymph Auto) 40.1 % 12.0-44.0 [place] Auto (test code = [place] Auto) 8.3 % 0.0-11.0 Eos, Auto (test code = Eos, Auto) 3.8 % 0.0-7.0 Basophil Auto (test code = Basophil 0.7 % 0.0-2.0 Auto) Neutro Absolute (test code = Neutro 2.8 x10 1.6-7.4 Absolute) Lymph Absolute (test code = Lymph 2.45 x10 .50-4.60 Absolute) [place] Absolute (test code = [place] .51 x10 .00-1.20 Absolute) Eos Absolute (test code = Eos 0.23 x10 0.00-0.74 Absolute) Baso Absolute (test code = Baso 0.04 x10 0.00-0.21 Absolute) Valproic Acid [id number] 23:38:50 Test Item Value Reference Range Interpretation Comments Valproic Acid 79.5 mcg/mL N A therapeutic range of Level (test code = 50-100 ug /ml may Valproic Acid indicate effec tive Level) concentrations for many patients; howev er some individuals are best treated at concentrations outside this range. The physician must determine the appropriate therapeutic ran ge for each patient. Comprehensive Metabolic [id number] 23:38:49 Test Item Value Reference Range Interpretation Comments Sodium Level (test code = Sodium 141.0 mmol/L 136.0-145.0 Level) Potassium Level (test code = 4.10 mmol/L 3.50-5.10 Potassium Level) Chloride Level (test code = 104.0 mmol/L 98.0-107.0 Chloride Level) CO2 (test code = CO2) 26 mmol/L 20-31 Anion Gap (test code = Anion 11.5 mmol/L 5.0-15.0 Gap) BUN (test code = BUN) 17 mg/dL 9-23 Creatinine Level (test code = 0.79 mg/dL 0.70-1.30 Creatinine Level) BUN/Creat Ratio (test code = 21.5 ratio 10.0-20.0 H BUN/Creat Ratio) Glucose Level (test code = 133 mg/dL 74-106 H Glucose Level) Calcium Level (test code = 8.6 mg/dL 8.3-10.6 Calcium Level) Alk Phos (test code = Alk Phos) 101 U/L 46-116 Bilirubin Total (test code = 0.2 mg/dL 0.2-1.1 Bilirubin Total) Albumin Level (test code = 4.6 g/dL 3.2-4.8 Albumin Level) Protein Total (test code = 7.3 g/dL 5.7-8.2 Protein Total) ALT (test code = ALT) 38 U/L 10-49 AST (test code = AST) 35 U/L <=34 H Globulin (test code = Globulin) 2.7 g/dL 2.3-3.5 A/G Ratio (test code = A/G 1.7 g/dL 0.8-2.0 Ratio) Hemolysis (test code = 0 g/dL 1-2 Hemolysis) Icterus (test code = Icterus) 0 g/dL 1-2 Lipemia (test code = Lipemia) 0 g/dL 1-2 Creatine [id number] 23:38:49 Test Item Value Reference Range Interpretation Comments CK (test code = CK) 475 U/L 46-171 H Comprehensive Metabolic [id number] 23:38:49 Test Item Value Reference Range Interpretation Comments Sodium Level (test 141.0 mmol/L 136.0-145.0 code = Sodium Level) Potassium Level 4.10 mmol/L 3.50-5.10 (test code = Potassium Level) Chloride Level (test 104.0 mmol/L 98.0-107.0 code = Chloride Level) CO2 (test code = 26 mmol/L 20-31 CO2) Anion Gap (test code 11.5 mmol/L 5.0-15.0 = Anion Gap) BUN (test code = 17 mg/dL 9-23 BUN) Creatinine Level 0.79 mg/dL 0.70-1.30 (test code = Creatinine Level) BUN/Creat Ratio 21.5 ratio 10.0-20.0 H (test code = BUN/Creat Ratio) Glucose Level (test 133 mg/dL 74-106 H code = Glucose Level) Calcium Level (test 8.6 mg/dL 8.3-10.6 code = Calcium Level) Alk Phos (test code 101 U/L 46-116 = Alk Phos) Bilirubin Total 0.2 mg/dL 0.2-1.1 (test code = Bilirubin Total) Albumin Level (test 4.6 g/dL 3.2-4.8 code = Albumin Level) Protein Total (test 7.3 g/dL 5.7-8.2 code = Protein Total) ALT (test code = 38 U/L 10-49 ALT) AST (test code = 35 U/L <=34 H AST) Globulin (test code 2.7 g/dL 2.3-3.5 = Globulin) A/G Ratio (test code 1.7 g/dL 0.8-2.0 = A/G Ratio) eGFR AA (test code = >60 >=60 eGFR (e stimated eGFR AA) mL/min/1.73 m2 Glomerular Filtration Rate ) is an estimated va lue, calculated from the patient's serum creatinine usin g the MDRD equation. It is NOT the patient 's actual GFR. The eGFR provides a more clinically usef ul measure of kidn ey disease than se rum creatinine alone.This calculation ravi es sex and race in to account, if the information is provided. If th e race is not provided, and t he patient is -Caryn n, multiply by 1.2 12. If sex is not provided, and t he patient is fema le, multiply by 0.7 42. Results for pat ients <18 years of ag e have not been validated by th e MDRD study and should be interpreted wit h caution. eGFR R esult Interpretation: eGFR > or = 60 is in the Normal RangeeGF R < 60 may mean kid joce diseaseeGFR < 1 5 may mean kidney failure Rang es recommended by the National Kidney Foundation, http://nkdep.ni h.gov eGFR Non-AA (test >60.00 >=60.00 eGFR (courtney mated code = eGFR Non-AA) mL/min/1.73 m2 Glomer ular Filtration Rate ) is an estimated va lue, calculated from the patient's serum creatinine usin g the MDRD equation. It is NOT the patient 's actual GFR. The eGFR provides a more clinically usef ul measure of kidn ey disease than se rum creatinine alone.This calculation ravi es sex and race in to account, if the information is provided. If th e race is not provided, and t he patient is -Caryn n, multiply by 1.2 12. If sex is not provided, and t he patient is fema le, multiply by 0.7 42. Results for pat ients <18 years of ag e have not been validated by th e MDRD study and should be interpreted wit h caution. eGFR R esult Interpretation: eGFR > or = 60 is in the Normal RangeeGF R < 60 may mean kid joce diseaseeGFR < 1 5 may mean kidney failure Rang es recommended by the National Kidney Foundation, http://nkdep.ni h.gov Hemolysis (test code 0 g/dL 1-2 = Hemolysis) Icterus (test code = 0 g/dL 1-2 Icterus) Lipemia (test code = 0 g/dL 1-2 Lipemia) Magnesium [id number] 23:38:49 Test Item Value Reference Range Interpretation Comments Magnesium Level (test code = 1.81 mg/dL 1.60-2.60 Magnesium Level) Phosphorus [id number] 23:38:49 Test Item Value Reference Range Interpretation Comments Phosphorus Level (test code = 4.2 mg/dL 2.4-5.1 Phosphorus Level) [place] [id number] 23:38:49 Test Item Value Reference Range Interpretation Comments [place] Level (test <0.10 mmol/L N Therapeu tic range code = [place] 12-hour post- dose - Level) 1.0-1.2 mmol/LL evels higher than 1.5 mmol/L at 12-hour post dose indicate a sign ificant risk of intoxic ation. Comprehensive Metabolic [id number] 23:38:49 Test Item Value Reference Range Interpretation Comments Sodium Level (test 141.0 mmol/L 136.0-145.0 code = Sodium Level) Potassium Level 4.10 mmol/L 3.50-5.10 (test code = Potassium Level) Chloride Level (test 104.0 mmol/L 98.0-107.0 code = Chloride Level) CO2 (test code = 26 mmol/L 20-31 CO2) Anion Gap (test code 11.5 mmol/L 5.0-15.0 = Anion Gap) BUN (test code = 17 mg/dL 9-23 BUN) Creatinine Level 0.79 mg/dL 0.70-1.30 (test code = Creatinine Level) BUN/Creat Ratio 21.5 ratio 10.0-20.0 H (test code = BUN/Creat Ratio) Glucose Level (test 133 mg/dL 74-106 H code = Glucose Level) Calcium Level (test 8.6 mg/dL 8.3-10.6 code = Calcium Level) Alk Phos (test code 101 U/L 46-116 = Alk Phos) Bilirubin Total 0.2 mg/dL 0.2-1.1 (test code = Bilirubin Total) Albumin Level (test 4.6 g/dL 3.2-4.8 code = Albumin Level) Protein Total (test 7.3 g/dL 5.7-8.2 code = Protein Total) ALT (test code = 38 U/L 10-49 ALT) AST (test code = 35 U/L <=34 H AST) Globulin (test code 2.7 g/dL 2.3-3.5 = Globulin) A/G Ratio (test code 1.7 g/dL 0.8-2.0 = A/G Ratio) eGFR AA (test code = >60 >=60 eGFR (e stimated eGFR AA) mL/min/1.73 m2 Glomerular Filtration Rate ) is an estimated va lue, calculated from the patient's serum creatinine usin g the MDRD equation. It is NOT the patient 's actual GFR. The eGFR provides a more clinically usef ul measure of kidn ey disease than se rum creatinine alone.This calculation ravi es sex and race in to account, if the information is provided. If th e race is not provided, and t he patient is -Caryn n, multiply by 1.2 12. If sex is not provided, and t he patient is fema le, multiply by 0.7 42. Results for pat ients <18 years of ag e have not been validated by [facility] MDRD study and should be interpreted wit h caution. eGFR R esult Interpretation: eGFR > or = 60 is in the Normal RangeeGF R < 60 may mean kid joce diseaseeGFR < 1 5 may mean kidney failure Rang es recommended by the National Kidney Foundation, http://nkdep.ni h.gov eGFR Non-AA (test >60.00 >=60.00 eGFR (courtney mated code = eGFR Non-AA) mL/min/1.73 m2 Glomer ular Filtration Rate ) is an estimated va lue, calculated from the patient's serum creatinine usin g the MDRD equation. It is NOT the patient 's actual GFR. The eGFR provides a more clinically usef ul measure of kidn ey disease than se rum creatinine alone.This calculation ravi es sex and race in to account, if the information is provided. If th e race is not provided, and t he patient is -Caryn n, multiply by 1.2 12. If sex is not provided, and t he patient is fema le, multiply by 0.7 42. Results for pat ients <18 years of ag e have not been validated by [facility] MDRD study and should be interpreted wit h caution. eGFR R esult Interpretation: eGFR > or = 60 is in the Normal RangeeGF R < 60 may mean kid joce diseaseeGFR < 1 5 may mean kidney failure Rang es recommended by the National Kidney Foundation, http://nkdep.ni h.gov Hemolysis (test code 0 g/dL 1-2 = Hemolysis) Icterus (test code = 0 g/dL 1-2 Icterus) Lipemia (test code = 0 g/dL 1-2 Lipemia) Lactic Acid, Plasma (Venous)2019-10-08 23:25:56 Test Item Value Reference Range Interpretation Comments Lactic Acid, Plasma 3.70 mmol/L 0.50-2.00 Critical results (Venous) (test code called ron portillo at = Lactic Acid, 10/08/2019 23: 25:34 CDT Plasma (Venous)) by bm. Janet soto and verified? yes Complete Blood Count with [id number] 23:11:51 Test Item Value Reference Range Interpretation Comments WBC (test code = WBC) 6.0 x10 4.4-10.5 RBC (test code = RBC) 5.09 x10 4.10-5.70 Hgb (test code = Hgb) 15.0 g/dL 13.4-17.4 Hct (test code = Hct) 46.2 % 38.7-52.0 MCV (test code = MCV) 90.80 fL 80.00-100.00 MCHC (test code = 32.50 g/dL 32.00-37.50 MCHC) MCH (test code = MCH) 29.5 pg 27.0-32.5 RDW CV (test code = 12.3 % 11.5-14.5 RDW CV) Platelets (test code = 236.0 x10 140.0-440.0 Platelets) MPV (test code = MPV) 10.5 fL N Slide Review (test Auto Auto Result cr eated by code = Slide Review) GL_SJM_ SLIDE_REV_AUTO nRBC (test code = 0 N nRBC) NRBC Abs (test code = 0.00 x10 N NRBC Abs) IPF (test code = IPF) 0 % N Automated [id number] 23:11:51 Test Item Value Reference Range Interpretation Comments Neutro Auto (test code = Neutro 50.3 % 36.0-70.0 Auto) Lymph Auto (test code = Lymph Auto) 35.8 % 12.0-44.0 [place] Auto (test code = [place] Auto) 7.5 % 0.0-11.0 Eos, Auto (test code = Eos, Auto) 3.9 % 0.0-7.0 Basophil Auto (test code = Basophil 0.7 % 0.0-2.0 Auto) Neutro Absolute (test code = Neutro 3.0 x10 1.6-7.4 Absolute) Lymph Absolute (test code = Lymph 2.14 x10 .50-4.60 Absolute) [place] Absolute (test code = [place] .45 x10 .00-1.20 Absolute) Eos Absolute (test code = Eos 0.23 x10 0.00-0.74 Absolute) Baso Absolute (test code = Baso 0.04 x10 0.00-0.21 Absolute) IG [id number] 23:11:51 Test Item Value Reference Range Interpretation Comments IG (test code = IG) 1.8 % 0.0-5.0 IG Abs (test code = IG Abs) [address] Spine Cervical w/o [id number] 22:23:54Patient: SINA SYLVESTER Date/Time10/08/2019 22:16 CDTReason for ExamHead injuryReportEXAM: CT CERVICAL SPINE WITHOUT CONTRASTINDICATION: Head injuryCOMPARISON: None availableTECHNIQUE: Axial CT imaging of the cervical spine was obtained withoutintravenous contrast. Coronal and sagittal reformatted images were submitted for review. IV contrast: NoneDLP: 1330 mGy-cmDISCUSSION:No acute fracture or dislocation is identified. The atlantoaxial andatlantooccipital articulations are normal. The vertebral bodies are normal in height, alignment and density. The facet joints and spinous processes are normal in alignment. The intervertebral disc heights are normal.No spinal canal or neuroforaminal stenosis.The prevertebral and posterior paraspinal soft tissues are normal.IMPRESSION:No acute abnormality of the cervical spine.LOCATION: [id number] CT exam was performed according to our departmental dose optimization program, which includes automated exposure control, adjustment of the mA and/or kV according to the patient size and/or use of iterative reconstructive technique. Final Dictated by: MD Petersen Melanie CDictated DT/TM: 10/08/2019 10:22 pmSigned by: MD Petersen Melanie CSigned (Electronic Signature): 10/08/2019 10:23 pmCT Brain/Head w/o Contrast 2019-10-08 22:22:22Patient: SINA SYLVESTER Date/Time10/08/2019 22:16 CDTReason for ExamHead injuryReportEXAM: CT BRAIN WITHOUT CONTRASTINDICATION: Head injuryCOMPARISON: CT head dated October 05, 2019TECHNIQUE: Routine axial noncontrast CT images of the brain were obtained.IV contrast: None.DLP: 1330 mGy-cmFINDINGS:No intra-axial or extra-axial fluid collectionsare identified. No acute hemorrhage.There is normal differentiation of the paiz and white matter. The ventricles and sulci are normal in size and shape with no midline shift or mass effect. The basal ci sterns are patent. The posterior fossa and fourth ventricle are normal.The paranasal sinuses and mastoid air cells are clear. No calvarial lesions. Skull base is intact. Orbits and globes are unremarkable.IMPRESSION:No acute intracranial abnormality. No intracranial hemorrhage.LOCATION: [id number] CT exam was performed according to our departmental dose optimization program, which includes automated exposure control, adjustment of the mA and/or kV according to the patient size and/or use of iterative reconstructive technique. Final Dictated by: MD Petersen Melanie CDictated DT/TM: 10/08/2019 10:21 pmSigned by: MD Petersen Melanie CSigned (Electronic Signature): 10/08/2019 10:22 pmComprehensive Metabolic [id number] 08:47:42 Test Item Value Reference Range Interpretation Comments Sodium Level (test code = Sodium 141.0 mmol/L 136.0-145.0 Level) Potassium Level (test code = 4.10 mmol/L 3.50-5.10 Potassium Level) Chloride Level (test code = 104.0 mmol/L 98.0-107.0 Chloride Level) CO2 (test code = CO2) 27 mmol/L 20-31 Anion Gap (test code = Anion 9.9 mmol/L 5.0-15.0 Gap) BUN (test code = BUN) 14 mg/dL 9-23 Creatinine Level (test code = 0.81 mg/dL 0.70-1.30 Creatinine Level) BUN/Creat Ratio (test code = 17.3 ratio 10.0-20.0 BUN/Creat Ratio) Glucose Level (test code = 80 mg/dL 74-106 Glucose Level) Calcium Level (test code = 8.9 mg/dL 8.3-10.6 Calcium Level) Alk Phos (test code = Alk Phos) 71 U/L 46-116 Bilirubin Total (test code = 0.4 mg/dL 0.2-1.1 Bilirubin Total) Albumin Level (test code = 4.5 g/dL 3.2-4.8 Albumin Level) Protein Total (test code = 7.4 g/dL 5.7-8.2 Protein Total) ALT (test code = ALT) 37 U/L 10-49 AST (test code = AST) 33 U/L <=34 Globulin (test code = Globulin) 2.9 g/dL 2.3-3.5 A/G Ratio (test code = A/G 1.6 g/dL 0.8-2.0 Ratio) Hemolysis (test code = 0 g/dL 1-2 Hemolysis) Icterus (test code = Icterus) 0 g/dL 1-2 Lipemia (test code = Lipemia) 0 g/dL 1-2 Comprehensive Metabolic [id number] 08:47:42 Test Item Value Reference Range Interpretation Comments Sodium Level (test 141.0 mmol/L 136.0-145.0 code = Sodium Level) Potassium Level 4.10 mmol/L 3.50-5.10 (test code = Potassium Level) Chloride Level (test 104.0 mmol/L 98.0-107.0 code = Chloride Level) CO2 (test code = 27 mmol/L 20-31 CO2) Anion Gap (test code 9.9 mmol/L 5.0-15.0 = Anion Gap) BUN (test code = 14 mg/dL 9-23 BUN) Creatinine Level 0.81 mg/dL 0.70-1.30 (test code = Creatinine Level) BUN/Creat Ratio 17.3 ratio 10.0-20.0 (test code = BUN/Creat Ratio) Glucose Level (test 80 mg/dL 74-106 code = Glucose Level) Calcium Level (test 8.9 mg/dL 8.3-10.6 code = Calcium Level) Alk Phos (test code 71 U/L 46-116 = Alk Phos) Bilirubin Total 0.4 mg/dL 0.2-1.1 (test code = Bilirubin Total) Albumin Level (test 4.5 g/dL 3.2-4.8 code = Albumin Level) Protein Total (test 7.4 g/dL 5.7-8.2 code = Protein Total) ALT (test code = 37 U/L 10-49 ALT) AST (test code = 33 U/L <=34 AST) Globulin (test code 2.9 g/dL 2.3-3.5 = Globulin) A/G Ratio (test code 1.6 g/dL 0.8-2.0 = A/G Ratio) eGFR AA (test code = >60 >=60 eGFR (e stimated eGFR AA) mL/min/1.73 m2 Glomerular Filtration Rate ) is an estimated va lue, calculated from the patient's serum creatinine usin g the MDRD equation. It is NOT the patient 's actual GFR. The eGFR provides a more clinically usef ul measure of kidn ey disease than se rum creatinine alone.This calculation ravi es sex and race in to account, if the information is provided. If th e race is not provided, and t he patient is -Caryn n, multiply by 1.2 12. If sex is not provided, and t he patient is fema le, multiply by 0.7 42. Results for pat ients <18 years of ag e have not been validated by th e MDRD study and should be interpreted wit h caution. eGFR R esult Interpretation: eGFR > or = 60 is in the Normal RangeeGF R < 60 may mean kid joce diseaseeGFR < 1 5 may mean kidney failure Rang es recommended by the National Kidney Foundation, http://nkdep.ni h.gov Hemolysis (test code 0 g/dL 1-2 = Hemolysis) Icterus (test code = 0 g/dL 1-2 Icterus) Lipemia (test code = 0 g/dL 1-2 Lipemia) Comprehensive Metabolic [id number] 08:47:42 Test Item Value Reference Range Interpretation Comments Sodium Level (test 141.0 mmol/L 136.0-145.0 code = Sodium Level) Potassium Level 4.10 mmol/L 3.50-5.10 (test code = Potassium Level) Chloride Level (test 104.0 mmol/L 98.0-107.0 code = Chloride Level) CO2 (test code = 27 mmol/L 20-31 CO2) Anion Gap (test code 9.9 mmol/L 5.0-15.0 = Anion Gap) BUN (test code = 14 mg/dL 9-23 BUN) Creatinine Level 0.81 mg/dL 0.70-1.30 (test code = Creatinine Level) BUN/Creat Ratio 17.3 ratio 10.0-20.0 (test code = BUN/Creat Ratio) Glucose Level (test 80 mg/dL 74-106 code = Glucose Level) Calcium Level (test 8.9 mg/dL 8.3-10.6 code = Calcium Level) Alk Phos (test code 71 U/L 46-116 = Alk Phos) Bilirubin Total 0.4 mg/dL 0.2-1.1 (test code = Bilirubin Total) Albumin Level (test 4.5 g/dL 3.2-4.8 code = Albumin Level) Protein Total (test 7.4 g/dL 5.7-8.2 code = Protein Total) ALT (test code = 37 U/L 10-49 ALT) AST (test code = 33 U/L <=34 AST) Globulin (test code 2.9 g/dL 2.3-3.5 = Globulin) A/G Ratio (test code 1.6 g/dL 0.8-2.0 = A/G Ratio) eGFR AA (test code = >60 >=60 eGFR (e stimated eGFR AA) mL/min/1.73 m2 Glomerular Filtration Rate ) is an estimated va lue, calculated from the patient's serum creatinine usin g the MDRD equation. It is NOT the patient 's actual GFR. The eGFR provides a more clinically usef ul measure of kidn ey disease than se rum creatinine alone.This calculation ravi es sex and race in to account, if the information is provided. If th e race is not provided, and t he patient is -Caryn n, multiply by 1.2 12. If sex is not provided, and t he patient is fema le, multiply by 0.7 42. Results for pat ients <18 years of ag e have not been validated by th e MDRD study and should be interpreted wit h caution. eGFR R esult Interpretation: eGFR > or = 60 is in the Normal RangeeGF R < 60 may mean kid joce diseaseeGFR < 1 5 may mean kidney failure Rang es recommended by the National Kidney Foundation, http://nkdep.ni h.gov eGFR Non-AA (test >60.00 >=60.00 eGFR (courtney mated code = eGFR Non-AA) mL/min/1.73 m2 Glomer ular Filtration Rate ) is an estimated va lue, calculated from the patient's serum creatinine usin g the MDRD equation. It is NOT the patient 's actual GFR. The eGFR provides a more clinically usef ul measure of kidn ey disease than se rum creatinine alone.This calculation ravi es sex and race in to account, if the information is provided. If th e race is not provided, and t he patient is -Caryn n, multiply by 1.2 12. If sex is not provided, and t he patient is fema le, multiply by 0.7 42. Results for pat ients <18 years of ag e have not been validated by th e MDRD study and should be interpreted wit h caution. eGFR R esult Interpretation: eGFR > or = 60 is in the Normal RangeeGF R < 60 may mean kid joce diseaseeGFR < 1 5 may mean kidney failure Rang es recommended by the National Kidney Foundation, http://nkdep.ni h.gov Hemolysis (test code 0 g/dL 1-2 = Hemolysis) Icterus (test code = 0 g/dL 1-2 Icterus) Lipemia (test code = 0 g/dL 1-2 Lipemia) IG [id number] 08:42:00 Test Item Value Reference Range Interpretation Comments IG (test code = IG) 1.4 % 0.0-5.0 IG Abs (test code = IG Abs) 0 x10 N Complete Blood Count with [id number] 08:41:59 Test Item Value Reference Range Interpretation Comments WBC (test code = WBC) 5.8 x10 4.4-10.5 RBC (test code = RBC) 5.13 x10 4.10-5.70 Hgb (test code = Hgb) 15.1 g/dL 13.4-17.4 Hct (test code = Hct) 45.4 % 38.7-52.0 MCV (test code = MCV) 88.50 fL 80.00-100.00 MCHC (test code = 33.30 g/dL 32.00-37.50 MCHC) RDW CV (test code = 12.2 % 11.5-14.5 RDW CV) MCH (test code = MCH) 29.4 pg 27.0-32.5 Platelets (test code = 231.0 x10 140.0-440.0 Platelets) MPV (test code = MPV) 10.0 fL N Slide Review (test Auto Auto Result cr eated by code = Slide Review) GL_SJM_ SLIDE_REV_AUTO nRBC (test code = 0 N nRBC) NRBC Abs (test code = 0.00 x10 N NRBC Abs) IPF (test code = IPF) 0 % N Automated [id number] 08:41:59 Test Item Value Reference Range Interpretation Comments Neutro Auto (test code = Neutro 37.5 % 36.0-70.0 Auto) Lymph Auto (test code = Lymph Auto) 46.8 % 12.0-44.0 H [place] Auto (test code = [place] Auto) 7.9 % 0.0-11.0 Eos, Auto (test code = Eos, Auto) 5.5 % 0.0-7.0 Basophil Auto (test code = Basophil 0.9 % 0.0-2.0 Auto) Neutro Absolute (test code = Neutro 2.2 x10 1.6-7.4 Absolute) Lymph Absolute (test code = Lymph 2.73 x10 .50-4.60 Absolute) [place] Absolute (test code = [place] .46 x10 .00-1.20 Absolute) Eos Absolute (test code = Eos 0.32 x10 0.00-0.74 Absolute) Baso Absolute (test code = Baso 0.05 x10 0.00-0.21 Absolute) RPR [id number] 10:50:37 Test Item Value Reference Range Interpretation Comments RPR Qual (test code = RPR Qual) Non-Reactive Non-Reactive Reactive Control (test code = Reactive Reactive Control) Weak Reactive Control (test Weak Reactive code = Weak Reactive Control) Non-Reactive Control (test code Non-Reactive = Non-Reactive Control) Lot # (test code = Lot #) [id number] N Expiration Dt (test code = 12-07-2020 N Expiration Dt) POC [id number] 08:58:11 Test Item Value Reference Range Interpretation Comments Glucose POC (test 92 mg/dL 70-115 If you con methods specialist engineer your code = Glucose POC) patient critically ill, the Rosalinda-Accu Check Infrom II meter should not be used for Glucose determination. Draw a venous Glucose and send to the main Lab for analysis. Urine DOA [id number] 03:41:09 Test Item Value Reference Range Interpretation Comments Amphetamine Screen Ur Negative Negative The sp ecimen is (test code = presumptive pos itive Amphetamine Screen Ur) if th e analyte concentration i s equal to or greater t martins 1000 ng/ml.If confirmation of positive result is desired, please order Amphetamine Confirmation, U rine within 7 days. Barbiturate Screen Ur Negative Negative The sp ecimen is (test code = presumptive pos itive Barbiturate Screen Ur) if th e analyte concentration i s equal to or greater t martins 200 ng/ml.If confir mation of positive res ult is desired, please order Barbiturate Confirmation, U rine within 7 days. Benzodiazepines Ur Positive Negative A The speci men is (test code = presumptive pos itive Benzodiazepines Ur) if the a nalyte concentration i s equal to or greater t martins 200 ng/ml.If confir mation of positive res ult is desired, please order Benzodiazephine Confirmation, U rine within 7 days. Cocaine Screen Ur (test Negative Negative The specimen is code = Cocaine Screen presum ptive positive Ur) if the analyte concentration i s equal to or greater t martins 300 ng/ml.If confir mation of positive res ult is desired, please order Cocaine Metabol ite Confirmation, U rine within 7 days. Opiate Screen Ur (test Negative Negative The s pecimen is code = Opiate Screen presump tive positive Ur) if the analyte concentration i s equal to or greater t martins 2000 ng/ml.If confirmation of positive result is desired, please order Opiate Confirm ation, Urine within 7 days. U PCP Scrn (test code = Negative Negative The specimen is U PCP Scrn) presumptive pos itive if the analyte concentration i s equal to or greater t martins 25 ng/ml.If confir mation of positive res ult is desired, please order Phencyclidine Confirmation, U rine within 7 days. Cannabinoid Screen Ur Negative Negative The sp ecimen is (test code = presumptive pos itive Cannabinoid Screen Ur) if th e analyte concentration i s equal to or greater t martins 50 ng/ml.If confir mation of positive res ult is desired, please order Cannabinoid (TH C) Confirmation, U rine within 7 days. U Methadone Scr (test Negative Negative The sp ecimen is code = U Methadone Scr) pres umptive positive if the analyte concentration i s equal to or greater t martins 300 ng/ml.If confir mation of positive res ult is desired, please order Methadone Confirmation, U rine within 7 days. U Propoxyphene (test Negative Negative The spe cimen is code = U Propoxyphene) presu mptive positive if the analyte concentration i s equal to or greater t martins 300 ng/ml.If confir mation of positive res ult is desired, please order Propoxyphene Confirmation wi thin [address] Brain/Head w/o [id number] 03:34:48Patient: SINA SYLVESTER Date/Time10/05/2019 01:57 CDTReason for ExamStatus epilepticus;Other (please specify)ReportExam: CT head without contrast.Location: H 12HISTORY: Other (please specify);Status epilepticusTechnique: Unenhanced spiral slices were taken from the base of the skull, to the vertex. One or more of the following radiation dose reduction techniques was used: Automatic exposure control, adjustment of mA and/or KV according to the patient's size, and/or utilization of iterative reconstruction technique.Findings:No acute intracranial abnormality is identified. The brain parenchyma and the CSF spaces are normal. No mass, midline shift, hemorrhage, hydrocephalus or edema is seen. The bony calvarium is intact. The visualized paranasal sinuses are clear. The mastoid air cells are well pneumatized.Impression:1. No acute intracranial abnormality.2. Unremarkable exam. Final Dictated by: MD Dupont Francesco MDictated DT/TM: 10/05/2019 3:34 amSigned by: MD Dupont Francesco MSigned (Electronic Signature): 10/05/2019 3:34 amNovel Coronavirus SARS-CoV-2, [id number] 03:30:06 Test Item Value Reference Range Interpretation Comments SARS-CoV-2 PCR NEGATIVE Negative Positive resu lts are (test code = indicative of a ctive SARS-CoV-2 PCR) infection wi th SARS-CoV-2; clinical correl ation with patient history and other diagnostic info rmation is necessary to de termine patient infecti on status.Presumpt winter positive result s -INTERPRET WITH CAUTION: Resul t may not reflect if hernando ent is actually positi ve. Patient should be treat ed based on clinical suspic ions. Negative result s do not preclude SARS-C oV-2 infection and s hould not be used as the sole basis for treatment o r other patient managem ent decisions. Nega tive results must be combined with clinical observations, p atient history, and epidemiological information.The Xpert Xpress SARS-CoV -2 test is only for use un mia the Food and Drug Administration s Emergency Use Authorization." Urinalysis with Culture, if [id number] 02:30:49 Test Item Value Reference Range Interpretation Comments UA Color (test code = UA Color) YELLO Yellow UA Appear (test code = UA CLEAR Clear Appear) UA pH (test code = UA pH) 6.0 UA Spec Grav (test code = UA 1.030 1.001-1.035 Spec Grav) UA Glucose (test code = UA NEG Negative Glucose) UA Bili (test code = UA Bili) NEG Negative UA Ketones (test code = UA NEG Negative Ketones) UA Blood (test code = UA Blood) NEG Negative UA Protein (test code = UA NEG Negative Protein) UA Urobilinogen (test code = UA .2 mg/dL >0.2 Urobilinogen) UA Nitrite (test code = UA NEG Negative Nitrite) UA Leuk Est (test code = UA NEG Negative Leuk Est) UA Micro Ind? (test code = UA Not Indicated Not Indicated Micro Ind?) Urine DOA [id number] 00:58:05 Test Item Value Reference Range Interpretation Comments Amphetamine Screen Ur Negative Negative The sp ecimen is (test code = presumptive pos itive Amphetamine Screen Ur) if th e analyte concentration i s equal to or greater t martins 1000 ng/ml.If confirmation of positive result is desired, please order Amphetamine Confirmation, U rine within 7 days. Barbiturate Screen Ur Negative Negative The sp ecimen is (test code = presumptive pos itive Barbiturate Screen Ur) if th e analyte concentration i s equal to or greater t martins 200 ng/ml.If confir mation of positive res ult is desired, please order Barbiturate Confirmation, U rine within 7 days. Benzodiazepines Ur Positive Negative A The speci men is (test code = presumptive pos itive Benzodiazepines Ur) if the a nalyte concentration i s equal to or greater t martins 200 ng/ml.If confir mation of positive res ult is desired, please order Benzodiazephine Confirmation, U rine within 7 days. Cocaine Screen Ur (test Negative Negative The specimen is code = Cocaine Screen presum ptive positive Ur) if the analyte concentration i s equal to or greater t martins 300 ng/ml.If confir mation of positive res ult is desired, please order Cocaine Metabol ite Confirmation, U rine within 7 days. Opiate Screen Ur (test Negative Negative The s pecimen is code = Opiate Screen presump tive positive Ur) if the analyte concentration i s equal to or greater t martins 2000 ng/ml.If confirmation of positive result is desired, please order Opiate Confirm ation, Urine within 7 days. U PCP Scrn (test code = Negative Negative The specimen is U PCP Scrn) presumptive pos itive if the analyte concentration i s equal to or greater t martins 25 ng/ml.If confir mation of positive res ult is desired, please order Phencyclidine Confirmation, U rine within 7 days. Cannabinoid Screen Ur Negative Negative The sp ecimen is (test code = presumptive pos itive Cannabinoid Screen Ur) if th e analyte concentration i s equal to or greater t martins 50 ng/ml.If confir mation of positive res ult is desired, please order Cannabinoid (TH C) Confirmation, U rine within 7 days. U Methadone Scr (test Negative Negative The sp ecimen is code = U Methadone Scr) pres umptive positive if the analyte concentration i s equal to or greater t martins 300 ng/ml.If confir mation of positive res ult is desired, please order Methadone Confirmation, U rine within 7 days. U Propoxyphene (test Negative Negative The spe cimen is code = U Propoxyphene) presu mptive positive if the analyte concentration i s equal to or greater t martins 300 ng/ml.If confir mation of positive res ult is desired, please order Propoxyphene Confirmation wi thin 7 days. Urinalysis with Culture, if [id number] 00:47:49 Test Item Value Reference Range Interpretation Comments UA Color (test code = UA Color) YELLO Yellow UA Appear (test code = UA CLEAR Clear Appear) UA pH (test code = UA pH) 5.5 N UA Spec Grav (test code = UA 1.030 1.001-1.035 Spec Grav) UA Glucose (test code = UA NEG Negative Glucose) UA Bili (test code = UA Bili) NEG Negative UA Ketones (test code = UA NEG Negative Ketones) UA Blood (test code = UA Blood) NEG Negative UA Protein (test code = UA NEG Negative Protein) UA Urobilinogen (test code = UA .2 mg/dL >0.2 Urobilinogen) UA Nitrite (test code = UA NEG Negative Nitrite) UA Leuk Est (test code = UA NEG Negative Leuk Est) UA Micro Ind? (test code = UA Not Indicated Not Indicated Micro Ind?) Comprehensive Metabolic [id number] 00:39:04 Test Item Value Reference Range Interpretation Comments Sodium Level (test code = Sodium 142.0 mmol/L 136.0-145.0 Level) Potassium Level (test code = 4.20 mmol/L 3.50-5.10 Potassium Level) Chloride Level (test code = 105.0 mmol/L 98.0-107.0 Chloride Level) CO2 (test code = CO2) 25 mmol/L 20-31 Anion Gap (test code = Anion 12.3 mmol/L 5.0-15.0 Gap) BUN (test code = BUN) 15 mg/dL 9-23 Creatinine Level (test code = 0.83 mg/dL 0.70-1.30 Creatinine Level) BUN/Creat Ratio (test code = 18.1 ratio 10.0-20.0 BUN/Creat Ratio) Glucose Level (test code = 96 mg/dL 74-106 Glucose Level) Calcium Level (test code = 8.8 mg/dL 8.3-10.6 Calcium Level) Alk Phos (test code = Alk Phos) 72 U/L 46-116 Bilirubin Total (test code = 0.3 mg/dL 0.2-1.1 Bilirubin Total) Albumin Level (test code = 4.6 g/dL 3.2-4.8 Albumin Level) Protein Total (test code = 7.7 g/dL 5.7-8.2 Protein Total) ALT (test code = ALT) 47 U/L 10-49 AST (test code = AST) 41 U/L <=34 H Globulin (test code = Globulin) 3.1 g/dL 2.3-3.5 A/G Ratio (test code = A/G 1.5 g/dL 0.8-2.0 Ratio) Hemolysis (test code = 0 g/dL 1-2 Hemolysis) Icterus (test code = Icterus) 0 g/dL 1-2 Lipemia (test code = Lipemia) 0 g/dL 1-2 Comprehensive Metabolic [id number] 00:39:04 Test Item Value Reference Range Interpretation Comments Sodium Level (test 142.0 mmol/L 136.0-145.0 code = Sodium Level) Potassium Level 4.20 mmol/L 3.50-5.10 (test code = Potassium Level) Chloride Level (test 105.0 mmol/L 98.0-107.0 code = Chloride Level) CO2 (test code = 25 mmol/L 20-31 CO2) Anion Gap (test code 12.3 mmol/L 5.0-15.0 = Anion Gap) BUN (test code = 15 mg/dL 9-23 BUN) Creatinine Level 0.83 mg/dL 0.70-1.30 (test code = Creatinine Level) BUN/Creat Ratio 18.1 ratio 10.0-20.0 (test code = BUN/Creat Ratio) Glucose Level (test 96 mg/dL 74-106 code = Glucose Level) Calcium Level (test 8.8 mg/dL 8.3-10.6 code = Calcium Level) Alk Phos (test code 72 U/L 46-116 = Alk Phos) Bilirubin Total 0.3 mg/dL 0.2-1.1 (test code = Bilirubin Total) Albumin Level (test 4.6 g/dL 3.2-4.8 code = Albumin Level) Protein Total (test 7.7 g/dL 5.7-8.2 code = Protein Total) ALT (test code = 47 U/L 10-49 ALT) AST (test code = 41 U/L <=34 H AST) Globulin (test code 3.1 g/dL 2.3-3.5 = Globulin) A/G Ratio (test code 1.5 g/dL 0.8-2.0 = A/G Ratio) eGFR AA (test code = >60 >=60 eGFR (e stimated eGFR AA) mL/min/1.73 m2 Glomerular Filtration Rate ) is an estimated va lue, calculated from the patient's serum creatinine usin g the MDRD equation. It is NOT the patient 's actual GFR. The eGFR provides a more clinically usef ul measure of kidn ey disease than se rum creatinine alone.This calculation ravi es sex and race in to account, if the information is provided. If th e race is not provided, and t he patient is -Caryn n, multiply by 1.2 12. If sex is not provided, and t he patient is fema le, multiply by 0.7 42. Results for pat ients <18 years of ag e have not been validated by th e MDRD study and should be interpreted wit h caution. eGFR R esult Interpretation: eGFR > or = 60 is in the Normal RangeeGF R < 60 may mean kid joce diseaseeGFR < 1 5 may mean kidney failure Rang es recommended by the National Kidney Foundation, http://nkdep.ni h.gov Hemolysis (test code 0 g/dL 1-2 = Hemolysis) Icterus (test code = 0 g/dL 1-2 Icterus) Lipemia (test code = 0 g/dL 1-2 Lipemia) Alcohol [id number] 00:39:04 Test Item Value Reference Range Interpretation Comments Ethanol Level 13.0 mg/dL N The pharmacolo gical (test code = response to blo od alcohol Ethanol Level) levels may va ry from individual to i ndividual. The fatal leila ntration has been report ed to be >400 mg/dl. Comprehensive Metabolic [id number] 00:39:04 Test Item Value Reference Range Interpretation Comments Sodium Level (test 142.0 mmol/L 136.0-145.0 code = Sodium Level) Potassium Level 4.20 mmol/L 3.50-5.10 (test code = Potassium Level) Chloride Level (test 105.0 mmol/L 98.0-107.0 code = Chloride Level) CO2 (test code = 25 mmol/L 20-31 CO2) Anion Gap (test code 12.3 mmol/L 5.0-15.0 = Anion Gap) BUN (test code = 15 mg/dL 9-23 BUN) Creatinine Level 0.83 mg/dL 0.70-1.30 (test code = Creatinine Level) BUN/Creat Ratio 18.1 ratio 10.0-20.0 (test code = BUN/Creat Ratio) Glucose Level (test 96 mg/dL 74-106 code = Glucose Level) Calcium Level (test 8.8 mg/dL 8.3-10.6 code = Calcium Level) Alk Phos (test code 72 U/L 46-116 = Alk Phos) Bilirubin Total 0.3 mg/dL 0.2-1.1 (test code = Bilirubin Total) Albumin Level (test 4.6 g/dL 3.2-4.8 code = Albumin Level) Protein Total (test 7.7 g/dL 5.7-8.2 code = Protein Total) ALT (test code = 47 U/L 10-49 ALT) AST (test code = 41 U/L <=34 H AST) Globulin (test code 3.1 g/dL 2.3-3.5 = Globulin) A/G Ratio (test code 1.5 g/dL 0.8-2.0 = A/G Ratio) eGFR AA (test code = >60 >=60 eGFR (e stimated eGFR AA) mL/min/1.73 m2 Glomerular Filtration Rate ) is an estimated va lue, calculated from the patient's serum creatinine usin g the MDRD equation. It is NOT the patient 's actual GFR. The eGFR provides a more clinically usef ul measure of kidn ey disease than se rum creatinine alone.This calculation ravi es sex and race in to account, if the information is provided. If th e race is not provided, and t he patient is -Caryn n, multiply by 1.2 12. If sex is not provided, and t he patient is fema le, multiply by 0.7 42. Results for pat ients <18 years of ag e have not been validated by th e MDRD study and should be interpreted wit h caution. eGFR R esult Interpretation: eGFR > or = 60 is in the Normal RangeeGF R < 60 may mean kid joce diseaseeGFR < 1 5 may mean kidney failure Rang es recommended by the National Kidney Foundation, http://nkdep.ni h.gov eGFR Non-AA (test >60.00 >=60.00 eGFR (courtney mated code = eGFR Non-AA) mL/min/1.73 m2 Glomer ular Filtration Rate ) is an estimated va lue, calculated from the patient's serum creatinine usin g the MDRD equation. It is NOT the patient 's actual GFR. The eGFR provides a more clinically usef ul measure of kidn ey disease than se rum creatinine alone.This calculation ravi es sex and race in to account, if the information is provided. If th e race is not provided, and t he patient is -Caryn n, multiply by 1.2 12. If sex is not provided, and t he patient is fema le, multiply by 0.7 42. Results for pat ients <18 years of ag e have not been validated by th e MDRD study and should be interpreted wit h caution. eGFR R esult Interpretation: eGFR > or = 60 is in the Normal RangeeGF R < 60 may mean kid joce diseaseeGFR < 1 5 may mean kidney failure Rang es recommended by the National Kidney Foundation, http://nkdep.ni h.gov Hemolysis (test code 0 g/dL 1-2 = Hemolysis) Icterus (test code = 0 g/dL 1-2 Icterus) Lipemia (test code = 0 g/dL 1-2 Lipemia) IG [id number] 23:49:23 Test Item Value Reference Range Interpretation Comments IG (test code = IG) 2.0 % 0.0-5.0 IG Abs (test code = IG Abs) 0 x10 N Complete Blood Count with [id number] 23:49:22 Test Item Value Reference Range Interpretation Comments WBC (test code = WBC) 8.7 x10 4.4-10.5 RBC (test code = RBC) 5.11 x10 4.10-5.70 Hgb (test code = Hgb) 14.9 g/dL 13.4-17.4 MCV (test code = MCV) 90.40 fL 80.00-100.00 Hct (test code = Hct) 46.2 % 38.7-52.0 MCHC (test code = 32.30 g/dL 32.00-37.50 MCHC) RDW CV (test code = 12.3 % 11.5-14.5 RDW CV) MCH (test code = MCH) 29.2 pg 27.0-32.5 Platelets (test code = 205.0 x10 140.0-440.0 Platelets) MPV (test code = MPV) 10.6 fL N Slide Review (test Auto Auto Result cr eated by code = Slide Review) GL_SJM_ SLIDE_REV_AUTO nRBC (test code = 0 N nRBC) NRBC Abs (test code = 0.00 x10 N NRBC Abs) IPF (test code = IPF) 0 % N Automated [id number] 23:49:22 Test Item Value Reference Range Interpretation Comments Neutro Auto (test code = Neutro 69.1 % 36.0-70.0 Auto) Lymph Auto (test code = Lymph Auto) 19.2 % 12.0-44.0 [place] Auto (test code = [place] Auto) 7.7 % 0.0-11.0 Eos, Auto (test code = Eos, Auto) 1.5 % 0.0-7.0 Basophil Auto (test code = Basophil 0.5 % 0.0-2.0 Auto) Neutro Absolute (test code = Neutro 6.0 x10 1.6-7.4 Absolute) Lymph Absolute (test code = Lymph 1.67 x10 .50-4.60 Absolute) [place] Absolute (test code = [place] .67 x10 .00-1.20 Absolute) Eos Absolute (test code = Eos 0.13 x10 0.00-0.74 Absolute) Baso Absolute (test code = Baso 0.04 x10 0.00-0.21 Absolute) [id number] 12:48:00 Test Item Value Reference Range Interpretation Comments CPK (test code = 32A) 75 IU/L 39-308 BLOOD [id number] 05:56:00 Test Item Value Reference Range Interpretation Comments Culture Observations (test NO GROWTH AFTER 5 code = COB1) DAYS BLOOD [id number] 05:56:00 Test Item Value Reference Range Interpretation Comments Culture Observations (test NO GROWTH AFTER 5 code = COB1) DAYS COMPREHENSIVE METABOLIC [id number] 04:55:00 Test Item Value Reference Range Interpretation Comments GLUCOSE (test code = 90 mg/dL 75-100 06D) SODIUM (test code = 136 mmol/L 136-145 01A) POTASSIUM (test code = 3.7 mmol/L 3.6-5.1 01B) CHLORIDE (test code = 105 mmol/L 98-107 04A) CO2 (test code = 02A) 24 mmol/L 22-32 ANION GAP (test code = 10.7 mmol/L ANG) BUN (test code = 05D) 18 mg/dL 7-18 CREATININE (test code 0.8 mg/dL 0.7-1.3 = 03E) GFR (test code = GFR) 123 mL/min/1.73m\\S\\2 >=90 GFR 142 mL/min/1.73m\\S\\2 >=90 (test code = GFRAA) EGFR (test code = eGFR BY CKD-EPI EGFR) CALCULATION IS NOT RECOMMENDED FOR PATIENTS UNDER 18 YEARS OF AGE. BUN/CREA (test code = 23 12-20 H BCR) CALCIUM (test code = 8.4 mg/dL 8.3-9.5 09D) BILI TOTAL (test code 0.2 mg/dL 0.2-1.0 = 11A) PROTEIN (test code = 7.9 g/dL 6.4-8.2 07D) ALBUMIN (test code = 3.7 g/dL 3.5-4.8 08D) GLOBULIN (test code = 4.2 g/dL 1.5-3.8 H GLB) ALB/GLOB (test code = 0.9 1.0-2.6 L AGRR) ALK PHOS (test code = 83 IU/L 42-121 35A) AST (test code = 30A) 28 IU/L <=42 ALT (test code = 31A) 45 IU/L <=78 CBC (INCLUDES AUTOMATED DIFFERENTIAL)2019-09-07 04:25:00 Test Item Value Reference Range Interpretation Comments WBC (test code = WBC) 7.3 10\\S\\3/uL 4.5-11.0 RBC (test code = RBC) 5.24 10\\S\\6/uL 4.30-5.70 HGB (test code = HBG) 15.9 g/dL 14.0-18.0 HCT (test code = HCT) 46.0 % 35.0-46.0 MCV (test code = MCV) 87.8 fL 80.0-94.0 MCH (test code = MCH) 30.3 pg 27.0-31.0 MCHC (test code = MCHC) 34.6 g/dL 32.0-36.0 RDW (test code = RDW) 12.1 % 11.5-14.5 PLT (test code = PLT) 244 10\\S\\3/uL 130-400 MPV (test code = MPV) 10.0 fL 9.4-12.4 NEUTROP # (test code = NE#) 3.4 10\\S\\3/uL 2.0-8.0 LYMPH # (test code = LY#) 3.0 10\\S\\3/uL 1.2-4.0 MONOCYTE # (test code = MO#) 0.5 10\\S\\3/uL 0.0-1.1 EOSINOPH # (test code = EO#) 0.2 10\\S\\3/uL 0.0-0.7 BASOPHIL # (test code = BA#) 0.0 10\\S\\3/uL 0.0-0.3 IG # (test code = IG#) 0.10 10\\S\\3/uL 0.00-0.06 H NRBC # (test code = NRBC#) 0.00 10\\S\\3/uL 0.00-0.01 NEUTROPH % (test code = NE%) 47.2 % 35.0-73.0 LYMPH % (test code = LY%) 41.5 % 20.0-55.0 MONO % (test code = MO%) 6.3 % 2.5-10.0 EOSINOPH % (test code = EO%) 3.0 % 0.0-5.0 BASOPHIL % (test code = BA%) 0.6 % 0.0-2.0 IG % (test code = IG%) 1.4 % 0.0-0.8 H NRBC% (test code = NRBC%) 0.0 % 0.0-0.2 MANDIFF (test code = MDIFF) NO NO RBC MORPH (test code = RBCMOR) NORMAL COMPREHENSIVE METABOLIC [id number] 06:01:00 Test Item Value Reference Range Interpretation Comments GLUCOSE (test code = 84 mg/dL 75-100 06D) SODIUM (test code = 140 mmol/L 136-145 01A) POTASSIUM (test code = 3.9 mmol/L 3.6-5.1 01B) CHLORIDE (test code = 108 mmol/L 98-107 H 04A) CO2 (test code = 02A) 27 mmol/L 22-32 ANION GAP (test code = 8.9 mmol/L ANG) BUN (test code = 05D) 15 mg/dL 7-18 CREATININE (test code 0.8 mg/dL 0.7-1.3 = 03E) GFR (test code = GFR) 126 mL/min/1.73m\\S\\2 >=90 GFR 146 mL/min/1.73m\\S\\2 >=90 (test code = GFRAA) EGFR (test code = eGFR BY CKD-EPI EGFR) CALCULATION IS NOT RECOMMENDED FOR PATIENTS UNDER 18 YEARS OF AGE. BUN/CREA (test code = 20 12-20 BCR) CALCIUM (test code = 8.2 mg/dL 8.3-9.5 L 09D) BILI TOTAL (test code 0.3 mg/dL 0.2-1.0 = 11A) PROTEIN (test code = 7.4 g/dL 6.4-8.2 07D) ALBUMIN (test code = 3.6 g/dL 3.5-4.8 08D) GLOBULIN (test code = 3.8 g/dL 1.5-3.8 GLB) ALB/GLOB (test code = 0.9 1.0-2.6 L AGRR) ALK PHOS (test code = 68 IU/L 42-121 35A) AST (test code = 30A) 18 IU/L <=42 ALT (test code = 31A) 30 IU/L <=78 CBC (INCLUDES AUTOMATED DIFFERENTIAL)2019-09-06 05:46:00 Test Item Value Reference Range Interpretation Comments WBC (test code = WBC) 5.6 10\\S\\3/uL 4.5-11.0 RBC (test code = RBC) 5.13 10\\S\\6/uL 4.30-5.70 HGB (test code = HBG) 15.5 g/dL 14.0-18.0 HCT (test code = HCT) 44.3 % 35.0-46.0 MCV (test code = MCV) 86.4 fL 80.0-94.0 MCH (test code = MCH) 30.2 pg 27.0-31.0 MCHC (test code = MCHC) 35.0 g/dL 32.0-36.0 RDW (test code = RDW) 12.2 % 11.5-14.5 PLT (test code = PLT) 229 10\\S\\3/uL 130-400 MPV (test code = MPV) 10.0 fL 9.4-12.4 NEUTROP # (test code = NE#) 2.5 10\\S\\3/uL 2.0-8.0 LYMPH # (test code = LY#) 2.5 10\\S\\3/uL 1.2-4.0 MONOCYTE # (test code = MO#) 0.4 10\\S\\3/uL 0.0-1.1 EOSINOPH # (test code = EO#) 0.1 10\\S\\3/uL 0.0-0.7 BASOPHIL # (test code = BA#) 0.0 10\\S\\3/uL 0.0-0.3 IG # (test code = IG#) 0.04 10\\S\\3/uL 0.00-0.06 NRBC # (test code = NRBC#) 0.00 10\\S\\3/uL 0.00-0.01 NEUTROPH % (test code = NE%) 45.2 % 35.0-73.0 LYMPH % (test code = LY%) 44.0 % 20.0-55.0 MONO % (test code = MO%) 7.2 % 2.5-10.0 EOSINOPH % (test code = EO%) 2.5 % 0.0-5.0 BASOPHIL % (test code = BA%) 0.4 % 0.0-2.0 IG % (test code = IG%) 0.7 % 0.0-0.8 NRBC% (test code = NRBC%) 0.0 % 0.0-0.2 MANDIFF (test code = MDIFF) NO NO RBC MORPH (test code = RBCMOR) NORMAL DILANTIN (PHENYTOIN) [id number] 20:43:00 Test Item Value Reference Range Interpretation Comments PHENYTOIN (test code = 68C) 9.3 ug/mL 10.0-20.0 LL COMPREHENSIVE METABOLIC [id number] 03:45:00 Test Item Value Reference Range Interpretation Comments GLUCOSE (test code = 90 mg/dL 75-100 06D) SODIUM (test code = 139 mmol/L 136-145 01A) POTASSIUM (test code = 4.2 mmol/L 3.6-5.1 01B) CHLORIDE (test code = 103 mmol/L 98-107 04A) CO2 (test code = 02A) 28 mmol/L 22-32 ANION GAP (test code = 12.2 mmol/L ANG) BUN (test code = 05D) 15 mg/dL 7-18 CREATININE (test code 0.9 mg/dL 0.7-1.3 = 03E) GFR (test code = GFR) 117 mL/min/1.73m\\S\\2 >=90 GFR 136 mL/min/1.73m\\S\\2 >=90 (test code = GFRAA) EGFR (test code = eGFR BY CKD-EPI EGFR) CALCULATION IS NOT RECOMMENDED FOR PATIENTS UNDER 18 YEARS OF AGE. BUN/CREA (test code = 17 12-20 BCR) CALCIUM (test code = 8.8 mg/dL 8.3-9.5 09D) BILI TOTAL (test code 0.3 mg/dL 0.2-1.0 = 11A) PROTEIN (test code = 8.4 g/dL 6.4-8.2 H 07D) ALBUMIN (test code = 4.1 g/dL 3.5-4.8 08D) GLOBULIN (test code = 4.3 g/dL 1.5-3.8 H GLB) ALB/GLOB (test code = 1.0 1.0-2.6 AGRR) ALK PHOS (test code = 84 IU/L 42-121 35A) AST (test code = 30A) 16 IU/L <=42 ALT (test code = 31A) 38 IU/L <=78 [id number] 03:39:00 Test Item Value Reference Range Interpretation Comments MAGNESIUM (test code = 48A) 2.1 mg/dL 1.8-2.4 CBC (INCLUDES AUTOMATED DIFFERENTIAL)2019-09-05 03:32:00 Test Item Value Reference Range Interpretation Comments WBC (test code = WBC) 7.3 10\\S\\3/uL 4.5-11.0 RBC (test code = RBC) 5.40 10\\S\\6/uL 4.30-5.70 HGB (test code = HBG) 16.3 g/dL 14.0-18.0 HCT (test code = HCT) 46.9 % 35.0-46.0 H MCV (test code = MCV) 86.9 fL 80.0-94.0 MCH (test code = MCH) 30.2 pg 27.0-31.0 MCHC (test code = MCHC) 34.8 g/dL 32.0-36.0 RDW (test code = RDW) 12.4 % 11.5-14.5 PLT (test code = PLT) 257 10\\S\\3/uL 130-400 MPV (test code = MPV) 10.2 fL 9.4-12.4 NEUTROP # (test code = NE#) 3.4 10\\S\\3/uL 2.0-8.0 LYMPH # (test code = LY#) 3.2 10\\S\\3/uL 1.2-4.0 MONOCYTE # (test code = MO#) 0.5 10\\S\\3/uL 0.0-1.1 EOSINOPH # (test code = EO#) 0.2 10\\S\\3/uL 0.0-0.7 BASOPHIL # (test code = BA#) 0.0 10\\S\\3/uL 0.0-0.3 IG # (test code = IG#) 0.08 10\\S\\3/uL 0.00-0.06 H NRBC # (test code = NRBC#) 0.00 10\\S\\3/uL 0.00-0.01 NEUTROPH % (test code = NE%) 46.2 % 35.0-73.0 LYMPH % (test code = LY%) 43.2 % 20.0-55.0 MONO % (test code = MO%) 6.4 % 2.5-10.0 EOSINOPH % (test code = EO%) 2.6 % 0.0-5.0 BASOPHIL % (test code = BA%) 0.5 % 0.0-2.0 IG % (test code = IG%) 1.1 % 0.0-0.8 H NRBC% (test code = NRBC%) 0.0 % 0.0-0.2 MANDIFF (test code = MDIFF) NO NO RBC MORPH (test code = RBCMOR) NORMAL GLUCOMETER GLUCOSE- LAB USE [id number] 03:20:00 Test Item Value Reference Range Interpretation Comments GLUCOMETER (test code = 112 mg/dL 70-100 H Mete r ID: GMG) [id number] tor: [id number] SHYAM SAPP COMPREHENSIVE METABOLIC [id number] 06:49:00 Test Item Value Reference Range Interpretation Comments GLUCOSE (test code = 73 mg/dL 75-100 L 06D) SODIUM (test code = 138 mmol/L 136-145 01A) POTASSIUM (test code = 3.9 mmol/L 3.6-5.1 01B) CHLORIDE (test code = 106 mmol/L 98-107 04A) CO2 (test code = 02A) 25 mmol/L 22-32 ANION GAP (test code = 10.9 mmol/L ANG) BUN (test code = 05D) 16 mg/dL 7-18 CREATININE (test code 0.8 mg/dL 0.7-1.3 = 03E) GFR (test code = GFR) 125 mL/min/1.73m\\S\\2 >=90 GFR 145 mL/min/1.73m\\S\\2 >=90 (test code = GFRAA) EGFR (test code = eGFR BY CKD-EPI EGFR) CALCULATION IS NOT RECOMMENDED FOR PATIENTS UNDER 18 YEARS OF AGE. BUN/CREA (test code = 21 12-20 H BCR) CALCIUM (test code = 8.2 mg/dL 8.3-9.5 L 09D) BILI TOTAL (test code 0.4 mg/dL 0.2-1.0 = 11A) PROTEIN (test code = 7.6 g/dL 6.4-8.2 07D) ALBUMIN (test code = 3.6 g/dL 3.5-4.8 08D) GLOBULIN (test code = 4.0 g/dL 1.5-3.8 H GLB) ALB/GLOB (test code = 0.9 1.0-2.6 L AGRR) ALK PHOS (test code = 72 IU/L 42-121 35A) AST (test code = 30A) 18 IU/L <=42 ALT (test code = 31A) 33 IU/L <=78 CBC (INCLUDES AUTOMATED DIFFERENTIAL)2019-09-04 06:45:00 Test Item Value Reference Range Interpretation Comments WBC (test code = WBC) 7.0 10\\S\\3/uL 4.5-11.0 RBC (test code = RBC) 5.19 10\\S\\6/uL 4.30-5.70 HGB (test code = HBG) 15.5 g/dL 14.0-18.0 HCT (test code = HCT) 45.3 % 35.0-46.0 MCV (test code = MCV) 87.3 fL 80.0-94.0 MCH (test code = MCH) 29.9 pg 27.0-31.0 MCHC (test code = MCHC) 34.2 g/dL 32.0-36.0 RDW (test code = RDW) 12.5 % 11.5-14.5 PLT (test code = PLT) 242 10\\S\\3/uL 130-400 MPV (test code = MPV) 9.9 fL 9.4-12.4 NEUTROP # (test code = NE#) 2.6 10\\S\\3/uL 2.0-8.0 LYMPH # (test code = LY#) 3.5 10\\S\\3/uL 1.2-4.0 MONOCYTE # (test code = MO#) 0.6 10\\S\\3/uL 0.0-1.1 EOSINOPH # (test code = EO#) 0.2 10\\S\\3/uL 0.0-0.7 BASOPHIL # (test code = BA#) 0.1 10\\S\\3/uL 0.0-0.3 IG # (test code = IG#) 0.06 10\\S\\3/uL 0.00-0.06 NRBC # (test code = NRBC#) 0.00 10\\S\\3/uL 0.00-0.01 NEUTROPH % (test code = NE%) 37.2 % 35.0-73.0 LYMPH % (test code = LY%) 49.3 % 20.0-55.0 MONO % (test code = MO%) 9.0 % 2.5-10.0 EOSINOPH % (test code = EO%) 2.9 % 0.0-5.0 BASOPHIL % (test code = BA%) 0.7 % 0.0-2.0 IG % (test code = IG%) 0.9 % 0.0-0.8 H NRBC% (test code = NRBC%) 0.0 % 0.0-0.2 MANDIFF (test code = MDIFF) NO NO RBC MORPH (test code = RBCMOR) NORMAL COMPREHENSIVE METABOLIC [id number] 10:58:00 Test Item Value Reference Range Interpretation Comments GLUCOSE (test code = 91 mg/dL 75-100 06D) SODIUM (test code = 138 mmol/L 136-145 01A) POTASSIUM (test code = 3.9 mmol/L 3.6-5.1 01B) CHLORIDE (test code = 105 mmol/L 98-107 04A) CO2 (test code = 02A) 26 mmol/L 22-32 ANION GAP (test code = 10.9 mmol/L ANG) BUN (test code = 05D) 12 mg/dL 7-18 CREATININE (test code 0.9 mg/dL 0.7-1.3 = 03E) GFR (test code = GFR) 118 mL/min/1.73m\\S\\2 >=90 GFR 136 mL/min/1.73m\\S\\2 >=90 (test code = GFRAA) EGFR (test code = eGFR BY CKD-EPI EGFR) CALCULATION IS NOT RECOMMENDED FOR PATIENTS UNDER 18 YEARS OF AGE. BUN/CREA (test code = 14 12-20 BCR) CALCIUM (test code = 8.3 mg/dL 8.3-9.5 09D) BILI TOTAL (test code 0.3 mg/dL 0.2-1.0 = 11A) PROTEIN (test code = 7.8 g/dL 6.4-8.2 07D) ALBUMIN (test code = 3.8 g/dL 3.5-4.8 08D) GLOBULIN (test code = 4.0 g/dL 1.5-3.8 H GLB) ALB/GLOB (test code = 1.0 1.0-2.6 AGRR) ALK PHOS (test code = 66 IU/L 42-121 35A) AST (test code = 30A) 16 IU/L <=42 ALT (test code = 31A) 31 IU/L <=78 CBC (INCLUDES AUTOMATED DIFFERENTIAL)2019-09-03 10:44:00 Test Item Value Reference Range Interpretation Comments WBC (test code = WBC) 7.0 10\\S\\3/uL 4.5-11.0 RBC (test code = RBC) 5.08 10\\S\\6/uL 4.30-5.70 HGB (test code = HBG) 15.4 g/dL 14.0-18.0 HCT (test code = HCT) 43.8 % 35.0-46.0 MCV (test code = MCV) 86.2 fL 80.0-94.0 MCH (test code = MCH) 30.3 pg 27.0-31.0 MCHC (test code = MCHC) 35.2 g/dL 32.0-36.0 RDW (test code = RDW) 12.3 % 11.5-14.5 PLT (test code = PLT) 255 10\\S\\3/uL 130-400 MPV (test code = MPV) 10.1 fL 9.4-12.4 NEUTROP # (test code = NE#) 4.4 10\\S\\3/uL 2.0-8.0 LYMPH # (test code = LY#) 2.0 10\\S\\3/uL 1.2-4.0 MONOCYTE # (test code = MO#) 0.5 10\\S\\3/uL 0.0-1.1 EOSINOPH # (test code = EO#) 0.1 10\\S\\3/uL 0.0-0.7 BASOPHIL # (test code = BA#) 0.0 10\\S\\3/uL 0.0-0.3 IG # (test code = IG#) 0.05 10\\S\\3/uL 0.00-0.06 NRBC # (test code = NRBC#) 0.00 10\\S\\3/uL 0.00-0.01 NEUTROPH % (test code = NE%) 62.3 % 35.0-73.0 LYMPH % (test code = LY%) 28.1 % 20.0-55.0 MONO % (test code = MO%) 6.6 % 2.5-10.0 EOSINOPH % (test code = EO%) 1.7 % 0.0-5.0 BASOPHIL % (test code = BA%) 0.6 % 0.0-2.0 IG % (test code = IG%) 0.7 % 0.0-0.8 NRBC% (test code = NRBC%) 0.0 % 0.0-0.2 MANDIFF (test code = MDIFF) NO NO RBC MORPH (test code = RBCMOR) NORMAL BASIC METABOLIC [id number] 06:21:00 Test Item Value Reference Range Interpretation Comments GLUCOSE (test code = 81 mg/dL 75-100 06D) SODIUM (test code = 138 mmol/L 136-145 01A) POTASSIUM (test code = 4.8 mmol/L 3.6-5.1 01B) CHLORIDE (test code = 107 mmol/L 98-107 04A) CO2 (test code = 02A) 28 mmol/L 22-32 ANION GAP (test code = 7.8 mmol/L ANG) BUN (test code = 05D) 12 mg/dL 7-18 CREATININE (test code 0.8 mg/dL 0.7-1.3 = 03E) GFR (test code = GFR) 122 mL/min/1.73m\\S\\2 >=90 GFR 142 mL/min/1.73m\\S\\2 >=90 (test code = GFRAA) EGFR (test code = eGFR BY CKD-EPI EGFR) CALCULATION IS NOT RECOMMENDED FOR PATIENTS UNDER 18 YEARS OF AGE. BUN/CREA (test code = 15 12-20 BCR) CALCIUM (test code = 8.3 mg/dL 8.3-9.5 09D) CBC (INCLUDES AUTOMATED DIFFERENTIAL)2019-09-02 06:04:00 Test Item Value Reference Range Interpretation Comments WBC (test code = WBC) 6.7 10\\S\\3/uL 4.5-11.0 RBC (test code = RBC) 5.13 10\\S\\6/uL 4.30-5.70 HGB (test code = HBG) 15.4 g/dL 14.0-18.0 HCT (test code = HCT) 45.0 % 35.0-46.0 MCV (test code = MCV) 87.7 fL 80.0-94.0 MCH (test code = MCH) 30.0 pg 27.0-31.0 MCHC (test code = MCHC) 34.2 g/dL 32.0-36.0 RDW (test code = RDW) 12.6 % 11.5-14.5 PLT (test code = PLT) 248 10\\S\\3/uL 130-400 MPV (test code = MPV) 10.8 fL 9.4-12.4 NEUTROP # (test code = NE#) 2.9 10\\S\\3/uL 2.0-8.0 LYMPH # (test code = LY#) 2.9 10\\S\\3/uL 1.2-4.0 MONOCYTE # (test code = MO#) 0.5 10\\S\\3/uL 0.0-1.1 EOSINOPH # (test code = EO#) 0.3 10\\S\\3/uL 0.0-0.7 BASOPHIL # (test code = BA#) 0.0 10\\S\\3/uL 0.0-0.3 IG # (test code = IG#) 0.08 10\\S\\3/uL 0.00-0.06 H NRBC # (test code = NRBC#) 0.00 10\\S\\3/uL 0.00-0.01 NEUTROPH % (test code = NE%) 43.7 % 35.0-73.0 LYMPH % (test code = LY%) 42.8 % 20.0-55.0 MONO % (test code = MO%) 7.5 % 2.5-10.0 EOSINOPH % (test code = EO%) 4.2 % 0.0-5.0 BASOPHIL % (test code = BA%) 0.6 % 0.0-2.0 IG % (test code = IG%) 1.2 % 0.0-0.8 H NRBC% (test code = NRBC%) 0.0 % 0.0-0.2 MANDIFF (test code = MDIFF) NO NO RBC MORPH (test code = RBCMOR) NORMAL SARS-CoV (RAPID ANTIGEN)2019-09-01 22:37:00 Test Item Value Reference Range Interpretation Comments SARS-CoV (ANTIGEN) NEGATIVE NEGATIVE (test code = COVAG) COVID AG (test This test has been code = COVAGC) marketed under the FDA Emergency Use Authorization (EUA) to meet challenges of the COVID-19 pandemic. The validation standards normally enforced by the FDA and the [employer] (CAP) are more stringent than those required for this test. Therefore, the result should be interpreted with caution and close attention to other clinical and epidemiological data Venous Blood [id number] 21:46:00 Test Item Value Reference Range Interpretation Comments VpH (test code = 7.356 7.300-7.400 VPHRT) VpCO2 (test code = 50.3 mmHg 40.0-50.0 H [id number]) VpO2 (test code = 41.2 mmHg 30.0-40.0 H VPO2RT) HCO3? (test code = 27.5 mmol/L 22.0-26.0 H HCO3) VINH (test code = VINH) 1.6 mmol/L -3.0-3.0 tHb (test code = 15.1 g/dL 14.0-18.0 THBRT) vsO2 (test code = 73.6 % 55.0-75.0 VSO2RT) FO2Hb (test code = 72.5 % [id number]) FCOHb (test code = 0.8 % FCOHBRTV) FMetHb (test code = 0.6 % FMETHBRTV) ABGTEMP (test code = * Temp Corrected Values* ABGTEMP) ABGTEMP (test code = 37.0 ?C ABGTEMP.) pH (T) (test code = 7.356 7.300-7.400 PHTEMPV) pCO2 (T) (test code = 50.3 mmHg 40.0-50.0 H [id number]) pO2 (T) (test code = 41.2 mmHg 30.0-40.0 H [id number]) Device (test code = NASAL CANNULA DEVICE) FI02 (test code = 32.0 % FI02) Liter_flow (test code 3.00 = LF) VENPAR (test code = * Ventilator Parameters VENPAR) * SIMV (test code = SIMV) A/C (test code = A/C) CPAP (test code = CPAP) PEEP (test code = PEEP) PS (test code = PS) PIP (test code = PIP) I_Time (test code = ITIME) Vt (test code = VT) BIPAP INSP (test code = BIPAPINP) BIPAP EXP (test code = BIPAPEXP) SAMPLE SITE (test Vein code = SSITE) COMMENT (test code = CO) DILANTIN (PHENYTOIN) [id number] 21:20:00 Test Item Value Reference Range Interpretation Comments PHENYTOIN (test code = 68C) 4.6 ug/mL 10.0-20.0 LL [id number] 21:04:00 Test Item Value Reference Range Interpretation Comments COLOR (test code = COLU) YELLOW YELLOW CLARITY (test code = CLA) CLEAR CLEAR GLUCOSE UR (test code = UA GLUCOSE) NEGATIVE NEGATIVE BILI UR (test code = BILE) NEGATIVE NEGATIVE KETONES UR (test code = JUAN) NEGATIVE NEGATIVE SP GRAVITY (test code = SPGR) 1.016 1.005-1.030 PH UR (test code = PH) 6.5 4.5-8.0 PROTEIN UR (test code = PU) NEGATIVE NEGATIVE UROBIL UR (test code = UROQ) 0.2 EU/dL 0.2-1.0 NITRITE UR (test code = NITRITE) NEGATIVE NEGATIVE BLOOD UR (test code = UA BLOOD) NEGATIVE NEGATIVE LEUK ES UR (test code = LEUK) NEGATIVE NEGATIVE AUAM (test code = AUAM) NO NO [id number] 20:55:00 Test Item Value Reference Range Interpretation Comments MAGNESIUM (test code = 48A) 2.0 mg/dL 1.8-2.4 PRO TIME AND [id number] 20:24:00 Test Item Value Reference Range Interpretation Comments PT (test code = 10.8 s 9.8-13.6 TT) INR (test code = 0.9 INR) INRH (test code = SUGGESTED INRH) THERAPEUTIC RANGE FOR INR: 2.5 - 3.5 For Patients with Prosthetic Valves or Patients with recurrent Thromboembolic Events 2.0 - 3.0 For Most Other Applications PTT (test code = 29.3 s 20.2-38.0 PTT) PTTH (test code = To monitor the PTTH) effectiveness of heparin, we offer the Anti-Xa (Heparin Assay). It can be used for either unfractionated or LMW Heparin. Order Code is ANTI-XA [id number] 20:23:00 Test Item Value Reference Range Interpretation Comments D-DIMER DILUTED 360 ng/mL D-DU 0-234 H (test code = DDD) D-DIMER COMMENT *Level to rule (test code = out DVT or PE: DDCOM) <235 ng/mL D-DU* D-DIMER (test code <200 ng/mL D-DU 0-234 Previo usly reported = DDI) as: 111 On 09/01/2019 20:2 3 By [id number] reported as: 11 1 On 09/01/2019 20: 23 By MR25 [id number] 20:19:00 Test Item Value Reference Range Interpretation Comments CPK (test code = 32A) 199 IU/L 39-308 LDH-LACTIC [id number] 20:17:00 Test Item Value Reference Range Interpretation Comments LDH (test code = 33A) 187 IU/L 100-190 COMPREHENSIVE METABOLIC [id number] 20:17:00 Test Item Value Reference Range Interpretation Comments GLUCOSE (test code = 115 mg/dL 75-100 H 06D) SODIUM (test code = 138 mmol/L 136-145 01A) POTASSIUM (test code = 4.1 mmol/L 3.6-5.1 01B) CHLORIDE (test code = 107 mmol/L 98-107 04A) CO2 (test code = 02A) 25 mmol/L 22-32 ANION GAP (test code = 10.1 mmol/L ANG) BUN (test code = 05D) 12 mg/dL 7-18 CREATININE (test code 0.8 mg/dL 0.7-1.3 = 03E) GFR (test code = GFR) 122 mL/min/1.73m\\S\\2 >=90 GFR 142 mL/min/1.73m\\S\\2 >=90 (test code = GFRAA) EGFR (test code = eGFR BY CKD-EPI EGFR) CALCULATION IS NOT RECOMMENDED FOR PATIENTS UNDER 18 YEARS OF AGE. BUN/CREA (test code = 15 12-20 BCR) CALCIUM (test code = 8.4 mg/dL 8.3-9.5 09D) BILI TOTAL (test code <0.1 mg/dL 0.2-1.0 L = 11A) PROTEIN (test code = 7.7 g/dL 6.4-8.2 07D) ALBUMIN (test code = 3.9 g/dL 3.5-4.8 08D) GLOBULIN (test code = 3.8 g/dL 1.5-3.8 GLB) ALB/GLOB (test code = 1.0 1.0-2.6 AGRR) ALK PHOS (test code = 102 IU/L 42-121 35A) AST (test code = 30A) 20 IU/L <=42 ALT (test code = 31A) 37 IU/L <=78 [id number] 20:17:00 Test Item Value Reference Range Interpretation Comments FERRITIN (test code = A19) 58.7 ng/mL 26.0-388.0 LACTIC [id number] 20:17:00 Test Item Value Reference Range Interpretation Comments LACTIC ACD (test code = LA) 1.2 mmol/L 0.4-2.0 BRAIN NATRIURETIC [id number] 20:14:00 Test Item Value Reference Range Interpretation Comments proBNP (test code = PBNP) 14 pg/mL 0-125 TROPONIN [id number] 20:11:00 Test Item Value Reference Range Interpretation Comments TROPONIN I (test code = A84) <0.015 ng/mL 0.000-0.045 C-REACTIVE PROTEIN [id number] 20:11:00 Test Item Value Reference Range Interpretation Comments CRP (test code = CRP) NEGATIVE (<6MG/L) NEGATIVE (<6MG/L) AMYLASE AND [id number] 20:08:00 Test Item Value Reference Range Interpretation Comments AMYLASE (test code = 10A) 147 U/L 28-100 H LIPASE (test code = 60A) 230 IU/L 73-393 CBC (INCLUDES AUTOMATED DIFFERENTIAL)2019-09-01 19:54:00 Test Item Value Reference Range Interpretation Comments WBC (test code = WBC) 6.9 10\\S\\3/uL 4.5-11.0 RBC (test code = RBC) 5.45 10\\S\\6/uL 4.30-5.70 HGB (test code = HBG) 16.4 g/dL 14.0-18.0 HCT (test code = HCT) 47.1 % 35.0-46.0 H MCV (test code = MCV) 86.4 fL 80.0-94.0 MCH (test code = MCH) 30.1 pg 27.0-31.0 MCHC (test code = MCHC) 34.8 g/dL 32.0-36.0 RDW (test code = RDW) 12.3 % 11.5-14.5 PLT (test code = PLT) 237 10\\S\\3/uL 130-400 MPV (test code = MPV) 10.5 fL 9.4-12.4 NEUTROP # (test code = NE#) 3.4 10\\S\\3/uL 2.0-8.0 LYMPH # (test code = LY#) 2.6 10\\S\\3/uL 1.2-4.0 MONOCYTE # (test code = MO#) 0.5 10\\S\\3/uL 0.0-1.1 EOSINOPH # (test code = EO#) 0.3 10\\S\\3/uL 0.0-0.7 BASOPHIL # (test code = BA#) 0.0 10\\S\\3/uL 0.0-0.3 IG # (test code = IG#) 0.08 10\\S\\3/uL 0.00-0.06 H NRBC # (test code = NRBC#) 0.00 10\\S\\3/uL 0.00-0.01 NEUTROPH % (test code = NE%) 48.6 % 35.0-73.0 LYMPH % (test code = LY%) 37.8 % 20.0-55.0 MONO % (test code = MO%) 7.5 % 2.5-10.0 EOSINOPH % (test code = EO%) 4.5 % 0.0-5.0 BASOPHIL % (test code = BA%) 0.4 % 0.0-2.0 IG % (test code = IG%) 1.2 % 0.0-0.8 H NRBC% (test code = NRBC%) 0.0 % 0.0-0.2 MANDIFF (test code = MDIFF) NO NO RBC MORPH (test code = RBCMOR) NORMAL DILANTIN (PHENYTOIN) [id number] 23:35:00 Test Item Value Reference Range Interpretation Comments PHENYTOIN (test code = 68C) 4.5 ug/mL 10.0-20.0 LL DRUGS OF [id number] 21:41:00 Test Item Value Reference Range Interpretation Comments DRUG SCRN (test code URINE DRUG SCREEN = HDOA) This is an unconfirmed screening result and should not be used for non-medical purposes CANNABINOD (test code POSITIVE NEGATIVE A = 88C) AMPHETAMINE (test Negative NEGATIVE code = 84A) BENZODIAZP (test code POSITIVE NEGATIVE A = 86A) BARBITURAT (test code Negative NEGATIVE = 85A) OPIATES (test code = Negative NEGATIVE 92B) COCAINE (test code = Negative NEGATIVE 87A) PHENCYCLID (test code Negative NEGATIVE = 66A) METHADONE (test code Negative NEGATIVE = 64A) DOAH (test code = DOAH.) *URINE DRUG SCREEN Cut-off values are as follows: Cannabinoids 50 ng/mL Cocaine 300 ng/mL Amphetamines 1000 ng/mL Phencyclidine 25 ng/mL Benzodiazepines 200 ng.mL Methadone 300 ng/mL Barbiturates 200 ng/mL Opiates 2000 ng/mL [id number] 21:40:00 Test Item Value Reference Range Interpretation Comments CPK (test code = 32A) 88 IU/L 39-308 AMYLASE AND [id number] 21:40:00 Test Item Value Reference Range Interpretation Comments AMYLASE (test code = 10A) 133 U/L 28-100 H LIPASE (test code = 60A) 232 IU/L 73-393 COMPREHENSIVE METABOLIC [id number] 21:40:00 Test Item Value Reference Range Interpretation Comments GLUCOSE (test code = 105 mg/dL 75-100 H 06D) SODIUM (test code = 137 mmol/L 136-145 01A) POTASSIUM (test code = 3.8 mmol/L 3.6-5.1 01B) CHLORIDE (test code = 104 mmol/L 98-107 04A) CO2 (test code = 02A) 27 mmol/L 22-32 ANION GAP (test code = 9.8 mmol/L ANG) BUN (test code = 05D) 17 mg/dL 7-18 CREATININE (test code 0.8 mg/dL 0.7-1.3 = 03E) GFR (test code = GFR) 122 mL/min/1.73m\\S\\2 >=90 GFR 141 mL/min/1.73m\\S\\2 >=90 (test code = GFRAA) EGFR (test code = eGFR BY CKD-EPI EGFR) CALCULATION IS NOT RECOMMENDED FOR PATIENTS UNDER 18 YEARS OF AGE. BUN/CREA (test code = 21 12-20 H BCR) CALCIUM (test code = 8.6 mg/dL 8.3-9.5 09D) BILI TOTAL (test code 0.1 mg/dL 0.2-1.0 L = 11A) PROTEIN (test code = 7.8 g/dL 6.4-8.2 07D) ALBUMIN (test code = 3.8 g/dL 3.5-4.8 08D) GLOBULIN (test code = 4.0 g/dL 1.5-3.8 H GLB) ALB/GLOB (test code = 1.0 1.0-2.6 AGRR) ALK PHOS (test code = 100 IU/L 42-121 35A) AST (test code = 30A) 24 IU/L <=42 ALT (test code = 31A) 39 IU/L <=78 [id number] 21:40:00 Test Item Value Reference Range Interpretation Comments MAGNESIUM (test code = 48A) 2.0 mg/dL 1.8-2.4 PHOSPHORUS (P04)2019-08-31 21:40:00 Test Item Value Reference Range Interpretation Comments PHOSPHORUS (test code = 43D) 4.3 mg/dL 2.7-4.6 PRO TIME AND [id number] 21:24:00 Test Item Value Reference Range Interpretation Comments PT (test code = 11.7 s 9.8-13.6 TT) INR (test code = 1.0 INR) INRH (test code = SUGGESTED INRH) THERAPEUTIC RANGE FOR INR: 2.5 - 3.5 For Patients with Prosthetic Valves or Patients with recurrent Thromboembolic Events 2.0 - 3.0 For Most Other Applications PTT (test code = 34.8 s 20.2-38.0 PTT) PTTH (test code = To monitor the PTTH) effectiveness of heparin, we offer the Anti-Xa (Heparin Assay). It can be used for either unfractionated or LMW Heparin. Order Code is ANTI-XA TROPONIN [id number] 21:23:00 Test Item Value Reference Range Interpretation Comments TROPONIN I (test code = A84) <0.015 ng/mL 0.000-0.045 [id number] 21:15:00 Test Item Value Reference Range Interpretation Comments COLOR (test code = COLU) YELLOW YELLOW CLARITY (test code = CLA) CLEAR CLEAR GLUCOSE UR (test code = UA GLUCOSE) NEGATIVE NEGATIVE BILI UR (test code = BILE) NEGATIVE NEGATIVE KETONES UR (test code = JUAN) NEGATIVE NEGATIVE SP GRAVITY (test code = SPGR) 1.022 1.005-1.030 PH UR (test code = PH) 7.0 4.5-8.0 PROTEIN UR (test code = PU) NEGATIVE NEGATIVE UROBIL UR (test code = UROQ) 0.2 EU/dL 0.2-1.0 NITRITE UR (test code = NITRITE) NEGATIVE NEGATIVE BLOOD UR (test code = UA BLOOD) NEGATIVE NEGATIVE LEUK ES UR (test code = LEUK) NEGATIVE NEGATIVE CBC (INCLUDES AUTOMATED DIFFERENTIAL)2019-08-31 21:10:00 Test Item Value Reference Range Interpretation Comments WBC (test code = WBC) 7.2 10\\S\\3/uL 4.5-11.0 RBC (test code = RBC) 5.32 10\\S\\6/uL 4.30-5.70 HGB (test code = HBG) 16.1 g/dL 14.0-18.0 HCT (test code = HCT) 45.3 % 35.0-46.0 MCV (test code = MCV) 85.2 fL 80.0-94.0 MCH (test code = MCH) 30.3 pg 27.0-31.0 MCHC (test code = MCHC) 35.5 g/dL 32.0-36.0 RDW (test code = RDW) 12.4 % 11.5-14.5 PLT (test code = PLT) 252 10\\S\\3/uL 130-400 MPV (test code = MPV) 10.9 fL 9.4-12.4 NEUTROP # (test code = NE#) 3.7 10\\S\\3/uL 2.0-8.0 LYMPH # (test code = LY#) 2.5 10\\S\\3/uL 1.2-4.0 MONOCYTE # (test code = MO#) 0.6 10\\S\\3/uL 0.0-1.1 EOSINOPH # (test code = EO#) 0.3 10\\S\\3/uL 0.0-0.7 BASOPHIL # (test code = BA#) 0.0 10\\S\\3/uL 0.0-0.3 IG # (test code = IG#) 0.05 10\\S\\3/uL 0.00-0.06 NRBC # (test code = NRBC#) 0.00 10\\S\\3/uL 0.00-0.01 NEUTROPH % (test code = NE%) 51.3 % 35.0-73.0 LYMPH % (test code = LY%) 35.1 % 20.0-55.0 MONO % (test code = MO%) 7.7 % 2.5-10.0 EOSINOPH % (test code = EO%) 4.6 % 0.0-5.0 BASOPHIL % (test code = BA%) 0.6 % 0.0-2.0 IG % (test code = IG%) 0.7 % 0.0-0.8 NRBC% (test code = NRBC%) 0.0 % 0.0-0.2 MANDIFF (test code = MDIFF) NO NO Levetiracetam (Keppra), [id number] 14:11:5710.0This test was developed and its performance characteristicsdetermined by [facility]. It has not been cleared orapproved by the Food and Drug Administration.Performed At: [address] [id number] Pang MD Ph:[phone] [id number] 07:42:15 Test Item Value Reference Range Interpretation Comments Phenytoin Total (test code = 10.3 ug/mL(g) 10.0-20.0 Phenytoin Total) Valproic Acid [id number] 07:42:15 Test Item Value Reference Range Interpretation Comments Valproic Acid Level (test code 44.0 ug/mL(g) 50.0-100.0 L = Valproic Acid Level) Carbamazepine [id number] 07:42:15 Test Item Value Reference Range Interpretation Comments Carbamazepine Total (test code = 2.4 mcg/mL 8.0-12.0 L Carbamazepine Total) RPR [id number] 17:28:57 Test Item Value Reference Range Interpretation Comments RPR Qual (test code = RPR Qual) Non-Reactive Non-Reactive Reactive Control (test code = Reactive Reactive Control) Weak Reactive Control (test Weak Reactive code = Weak Reactive Control) Non-Reactive Control (test code Non-Reactive = Non-Reactive Control) Lot # (test code = Lot #) [id number] Expiration Dt (test code = 03-09-2020 N Expiration Dt) Basic Metabolic [id number] 06:14:48 Test Item Value Reference Range Interpretation Comments Sodium Level (test code = Sodium 139.0 mmol/L 135.0-145.0 Level) Potassium Level (test code = 4.4 mmol/L 3.5-5.1 Potassium Level) Chloride Level (test code = 98 mmol/L 98-105 Chloride Level) CO2 (test code = CO2) 26 mmol/L 22-29 Anion Gap (test code = Anion 15 mmol/L 7-16 Gap) BUN (test code = BUN) 16.80 mg/dL 6.00-20.00 Creatinine Level (test code = 0.80 mg/dL 0.70-1.20 Creatinine Level) BUN/Creat Ratio (test code = 21 N BUN/Creat Ratio) Glucose Level (test code = 92 mg/dL 70-115 Glucose Level) Calcium Level (test code = 9.2 mg/dL 8.3-10.5 Calcium Level) Phenytoin [id number] 06:14:48 Test Item Value Reference Range Interpretation Comments Phenytoin Total (test code = 11.1 ug/mL(g) 10.0-20.0 Phenytoin Total) Basic Metabolic [id number] 06:14:48 Test Item Value Reference Range Interpretation Comments Sodium Level (test 139.0 mmol/L 135.0-145.0 code = Sodium Level) Potassium Level 4.4 mmol/L 3.5-5.1 (test code = Potassium Level) Chloride Level (test 98 mmol/L 98-105 code = Chloride Level) CO2 (test code = 26 mmol/L 22-29 CO2) Anion Gap (test code 15 mmol/L 7-16 = Anion Gap) BUN (test code = 16.80 mg/dL 6.00-20.00 BUN) Creatinine Level 0.80 mg/dL 0.70-1.20 (test code = Creatinine Level) BUN/Creat Ratio 21 N (test code = BUN/Creat Ratio) Glucose Level (test 92 mg/dL 70-115 code = Glucose Level) Calcium Level (test 9.2 mg/dL 8.3-10.5 code = Calcium Level) eGFR AA (test code = >60 N eGFR (e stimated eGFR AA) mL/min/1.73 m2 Glomerular Filtration Rate ) is an estimated va lue, calculated from the patient's serum creatinine usin g the MDRD equation. It is NOT the patient 's actual GFR. The eGFR provides a more clinically usef ul measure of kidn ey disease than se rum creatinine alone.This calculation ravi es sex and race in to account, if the information is provided. If th e race is not provided, and t he patient is -Caryn n, multiply by 1.2 12. If sex is not provided, and t he patient is fema le, multiply by 0.7 42. Results for pat ients <18 years of ag e have not been validated by th e MDRD study and should be interpreted wit h caution. eGFR R esult Interpretation: eGFR > or = 60 is in the Normal RangeeGF R < 60 may mean kid joce diseaseeGFR < 1 5 may mean kidney failure Rang es recommended by the National Kidney Foundation, http://nkdep.ni h.gov Basic Metabolic [id number] 06:14:48 Test Item Value Reference Range Interpretation Comments Sodium Level (test 139.0 mmol/L 135.0-145.0 code = Sodium Level) Potassium Level 4.4 mmol/L 3.5-5.1 (test code = Potassium Level) Chloride Level (test 98 mmol/L 98-105 code = Chloride Level) CO2 (test code = 26 mmol/L 22-29 CO2) Anion Gap (test code 15 mmol/L 7-16 = Anion Gap) BUN (test code = 16.80 mg/dL 6.00-20.00 BUN) Creatinine Level 0.80 mg/dL 0.70-1.20 (test code = Creatinine Level) BUN/Creat Ratio 21 N (test code = BUN/Creat Ratio) Glucose Level (test 92 mg/dL 70-115 code = Glucose Level) Calcium Level (test 9.2 mg/dL 8.3-10.5 code = Calcium Level) eGFR AA (test code = >60 N eGFR (e stimated eGFR AA) mL/min/1.73 m2 Glomerular Filtration Rate ) is an estimated va lue, calculated from the patient's serum creatinine usin g the MDRD equation. It is NOT the patient 's actual GFR. The eGFR provides a more clinically usef ul measure of kidn ey disease than se rum creatinine alone.This calculation ravi es sex and race in to account, if the information is provided. If th e race is not provided, and t he patient is -Caryn n, multiply by 1.2 12. If sex is not provided, and t he patient is fema le, multiply by 0.7 42. Results for pat ients <18 years of ag e have not been validated by th e MDRD study and should be interpreted wit h caution. eGFR R esult Interpretation: eGFR > or = 60 is in the Normal RangeeGF R < 60 may mean kid joce diseaseeGFR < 1 5 may mean kidney failure Rang es recommended by the National Kidney Foundation, http://nkdep.ni h.gov eGFR Non-AA (test >60.00 N eGFR (courtney mated code = eGFR Non-AA) mL/min/1.73 m2 Glomer ular Filtration Rate ) is an estimated va lue, calculated from the patient's serum creatinine usin g the MDRD equation. It is NOT the patient 's actual GFR. The eGFR provides a more clinically usef ul measure of kidn ey disease than se rum creatinine alone.This calculation ravi es sex and race in to account, if the information is provided. If th e race is not provided, and t he patient is -Caryn n, multiply by 1.2 12. If sex is not provided, and t he patient is fema le, multiply by 0.7 42. Results for pat ients <18 years of ag e have not been validated by th e MDRD study and should be interpreted wit h caution. eGFR R esult Interpretation: eGFR > or = 60 is in the Normal RangeeGF R < 60 may mean kid joce diseaseeGFR < 1 5 may mean kidney failure Rang es recommended by the National Kidney Foundation, http://nkdep.ni h.gov Automated [id number] 05:29:38 Test Item Value Reference Range Interpretation Comments Neutro Auto (test code = Neutro 51.5 % 36.0-70.0 Auto) Lymph Auto (test code = Lymph Auto) 29.8 % 12.0-44.0 [place] Auto (test code = [place] Auto) 9.9 % 0.0-11.0 Eos, Auto (test code = Eos, Auto) 3.8 % 0.0-7.0 Basophil Auto (test code = Basophil 0.8 % 0.0-2.0 Auto) Neutro Absolute (test code = Neutro 3.9 x10 1.6-7.4 Absolute) Lymph Absolute (test code = Lymph 2.28 x10 .50-4.60 Absolute) [place] Absolute (test code = [place] .76 x10 .00-1.20 Absolute) Eos Absolute (test code = Eos 0.29 x10 0.00-0.74 Absolute) Baso Absolute (test code = Baso 0.06 x10 0.00-0.21 Absolute) IG [id number] 05:29:38 Test Item Value Reference Range Interpretation Comments IG (test code = IG) 4.2 % 0.0-5.0 IG Abs (test code = IG Abs) 0 x10 N Complete Blood Count with [id number] 05:29:37 Test Item Value Reference Range Interpretation Comments WBC (test code = WBC) 7.6 x10 4.4-10.5 RBC (test code = RBC) 4.65 x10 4.10-5.70 Hgb (test code = Hgb) 14.1 g/dL 13.4-17.4 Hct (test code = Hct) 41.5 % 38.7-52.0 MCV (test code = MCV) 89.20 fL 80.00-100.00 MCHC (test code = 34.00 g/dL 32.00-37.50 MCHC) RDW CV (test code = 12.6 % 11.5-14.5 RDW CV) MCH (test code = MCH) 30.3 pg 27.0-32.5 Platelets (test code = 261.0 x10 140.0-440.0 Platelets) MPV (test code = MPV) 10.6 fL N Slide Review (test Auto Auto Result cr eated by code = Slide Review) GL_SJM_ SLIDE_REV_AUTO nRBC (test code = 0 N nRBC) NRBC Abs (test code = 0.00 x10 N NRBC Abs) IPF (test code = IPF) 0 % N Phenytoin [id number] 05:57:17 Test Item Value Reference Range Interpretation Comments Phenytoin Total (test code = 7.9 ug/mL(g) 10.0-20.0 L Phenytoin Total) Phenytoin [id number] 06:09:17 Test Item Value Reference Range Interpretation Comments Phenytoin Total (test code = 9.4 ug/mL(g) 10.0-20.0 L Phenytoin Total) [id number] 01:59:42 Test Item Value Reference Range Interpretation Comments Prolactin (test code = 35.150 ng/mL 4.040-15.200 H Prolactin) Basic Metabolic [id number] 05:06:03 Test Item Value Reference Range Interpretation Comments Sodium Level (test 140.0 mmol/L 135.0-145.0 code = Sodium Level) Potassium Level 4.3 mmol/L 3.5-5.1 (test code = Potassium Level) Chloride Level (test 101 mmol/L 98-105 code = Chloride Level) CO2 (test code = 25 mmol/L 22-29 CO2) Anion Gap (test code 14 mmol/L 7-16 = Anion Gap) BUN (test code = 16.70 mg/dL 6.00-20.00 BUN) Creatinine Level 0.90 mg/dL 0.70-1.20 (test code = Creatinine Level) BUN/Creat Ratio 19 N (test code = BUN/Creat Ratio) Glucose Level (test 95 mg/dL 70-115 code = Glucose Level) Calcium Level (test 8.8 mg/dL 8.3-10.5 code = Calcium Level) eGFR AA (test code = >60 N eGFR (e stimated eGFR AA) mL/min/1.73 m2 Glomerular Filtration Rate ) is an estimated va lue, calculated from the patient's serum creatinine usin g the MDRD equation. It is NOT the patient 's actual GFR. The eGFR provides a more clinically usef ul measure of kidn ey disease than se rum creatinine alone.This calculation ravi es sex and race in to account, if the information is provided. If th e race is not provided, and t he patient is -Caryn n, multiply by 1.2 12. If sex is not provided, and t he patient is fema le, multiply by 0.7 42. Results for pat ients <18 years of ag e have not been validated by th e MDRD study and should be interpreted wit h caution. eGFR R esult Interpretation: eGFR > or = 60 is in the Normal RangeeGF R < 60 may mean kid joce diseaseeGFR < 1 5 may mean kidney failure Rang es recommended by the National Kidney Foundation, http://nkdep.ni h.gov Magnesium [id number] 05:06:03 Test Item Value Reference Range Interpretation Comments Magnesium Level (test code = 2.1 mg/dL 1.7-2.5 Magnesium Level) Basic Metabolic [id number] 05:06:03 Test Item Value Reference Range Interpretation Comments Sodium Level (test 140.0 mmol/L 135.0-145.0 code = Sodium Level) Potassium Level 4.3 mmol/L 3.5-5.1 (test code = Potassium Level) Chloride Level (test 101 mmol/L 98-105 code = Chloride Level) CO2 (test code = 25 mmol/L 22-29 CO2) Anion Gap (test code 14 mmol/L 7-16 = Anion Gap) BUN (test code = 16.70 mg/dL 6.00-20.00 BUN) Creatinine Level 0.90 mg/dL 0.70-1.20 (test code = Creatinine Level) BUN/Creat Ratio 19 N (test code = BUN/Creat Ratio) Glucose Level (test 95 mg/dL 70-115 code = Glucose Level) Calcium Level (test 8.8 mg/dL 8.3-10.5 code = Calcium Level) eGFR AA (test code = >60 N eGFR (e stimated eGFR AA) mL/min/1.73 m2 Glomerular Filtration Rate ) is an estimated va lue, calculated from the patient's serum creatinine usin g the MDRD equation. It is NOT the patient 's actual GFR. The eGFR provides a more clinically usef ul measure of kidn ey disease than se rum creatinine alone.This calculation ravi es sex and race in to account, if the information is provided. If th e race is not provided, and t he patient is -Caryn n, multiply by 1.2 12. If sex is not provided, and t he patient is fema le, multiply by 0.7 42. Results for pat ients <18 years of ag e have not been validated by [facility] MDRD study and should be interpreted wit h caution. eGFR R esult Interpretation: eGFR > or = 60 is in the Normal RangeeGF R < 60 may mean kid joce diseaseeGFR < 1 5 may mean kidney failure Rang es recommended by the National Kidney Foundation, http://nkdep.ni h.gov eGFR Non-AA (test >60.00 N eGFR (courtney mated code = eGFR Non-AA) mL/min/1.73 m2 Glomer ular Filtration Rate ) is an estimated va lue, calculated from the patient's serum creatinine usin g the MDRD equation. It is NOT the patient 's actual GFR. The eGFR provides a more clinically usef ul measure of kidn ey disease than se rum creatinine alone.This calculation ravi es sex and race in to account, if the information is provided. If th e race is not provided, and t he patient is -Caryn n, multiply by 1.2 12. If sex is not provided, and t he patient is fema le, multiply by 0.7 42. Results for pat ients <18 years of ag e have not been validated by [facility] MDRD study and should be interpreted wit h caution. eGFR R esult Interpretation: eGFR > or = 60 is in the Normal RangeeGF R < 60 may mean kid joce diseaseeGFR < 1 5 may mean kidney failure Rang es recommended by the [employer], http://nkdep.ni h.gov Phosphorus [id number] 05:06:03 Test Item Value Reference Range Interpretation Comments Phosphorus Level (test code = 5.50 mg/dL 2.70-4.50 H Phosphorus Level) Basic Metabolic [id number] 05:06:03 Test Item Value Reference Range Interpretation Comments Sodium Level (test 140.0 mmol/L 135.0-145.0 code = Sodium Level) Potassium Level 4.3 mmol/L 3.5-5.1 (test code = Potassium Level) Chloride Level (test 101 mmol/L 98-105 code = Chloride Level) CO2 (test code = 25 mmol/L 22-29 CO2) Anion Gap (test code 14 mmol/L 7-16 = Anion Gap) BUN (test code = 16.70 mg/dL 6.00-20.00 BUN) Creatinine Level 0.90 mg/dL 0.70-1.20 (test code = Creatinine Level) BUN/Creat Ratio 19 N (test code = BUN/Creat Ratio) Glucose Level (test 95 mg/dL 70-115 code = Glucose Level) Calcium Level (test 8.8 mg/dL 8.3-10.5 code = Calcium Level) eGFR AA (test code = >60 N eGFR (e stimated eGFR AA) mL/min/1.73 m2 Glomerular Filtration Rate ) is an estimated va lue, calculated from the patient's serum creatinine usin g the MDRD equation. It is NOT the patient 's actual GFR. The eGFR provides a more clinically usef ul measure of kidn ey disease than se rum creatinine alone.This calculation ravi es sex and race in to account, if the information is provided. If th e race is not provided, and t he patient is -Caryn n, multiply by 1.2 12. If sex is not provided, and t he patient is fema le, multiply by 0.7 42. Results for pat ients <18 years of ag e have not been validated by th e MDRD study and should be interpreted wit h caution. eGFR R esult Interpretation: eGFR > or = 60 is in the Normal RangeeGF R < 60 may mean kid joce diseaseeGFR < 1 5 may mean kidney failure Rang es recommended by the National Kidney Foundation, http://nkdep.ni h.gov eGFR Non-AA (test >60.00 N eGFR (courtney mated code = eGFR Non-AA) mL/min/1.73 m2 Glomer ular Filtration Rate ) is an estimated va lue, calculated from the patient's serum creatinine usin g the MDRD equation. It is NOT the patient 's actual GFR. The eGFR provides a more clinically usef ul measure of kidn ey disease than se rum creatinine alone.This calculation ravi es sex and race in to account, if the information is provided. If th e race is not provided, and t he patient is -Caryn n, multiply by 1.2 12. If sex is not provided, and t he patient is fema le, multiply by 0.7 42. Results for pat ients <18 years of ag e have not been validated by th e MDRD study and should be interpreted wit h caution. eGFR R esult Interpretation: eGFR > or = 60 is in the Normal RangeeGF R < 60 may mean kid joce diseaseeGFR < 1 5 may mean kidney failure Rang es recommended by the National Kidney Foundation, http://nkdep.ni h.gov Automated [id number] 04:17:38 Test Item Value Reference Range Interpretation Comments Neutro Auto (test code = Neutro 59.9 % 36.0-70.0 Auto) Lymph Auto (test code = Lymph Auto) 26.1 % 12.0-44.0 [place] Auto (test code = [place] Auto) 10.5 % 0.0-11.0 Eos, Auto (test code = Eos, Auto) 2.1 % 0.0-7.0 Basophil Auto (test code = Basophil 0.4 % 0.0-2.0 Auto) Neutro Absolute (test code = Neutro 4.8 x10 1.6-7.4 Absolute) Lymph Absolute (test code = Lymph 2.07 x10 .50-4.60 Absolute) [place] Absolute (test code = [place] .83 x10 .00-1.20 Absolute) Eos Absolute (test code = Eos 0.17 x10 0.00-0.74 Absolute) Baso Absolute (test code = Baso 0.03 x10 0.00-0.21 Absolute) IG [id number] 04:17:38 Test Item Value Reference Range Interpretation Comments IG (test code = IG) 1.0 % 0.0-5.0 IG Abs (test code = IG Abs) 0 x10 N Complete Blood Count with [id number] 04:17:37 Test Item Value Reference Range Interpretation Comments WBC (test code = WBC) 7.9 x10 4.4-10.5 RBC (test code = RBC) 4.47 x10 4.10-5.70 Hgb (test code = Hgb) 13.2 g/dL 13.4-17.4 L MCV (test code = MCV) 88.10 fL 80.00-100.00 Hct (test code = Hct) 39.4 % 38.7-52.0 MCHC (test code = 33.50 g/dL 32.00-37.50 MCHC) RDW CV (test code = 12.3 % 11.5-14.5 RDW CV) MCH (test code = MCH) 29.5 pg 27.0-32.5 Platelets (test code = 193.0 x10 140.0-440.0 Platelets) MPV (test code = MPV) 10.3 fL N Slide Review (test Auto Auto Result cr eated by code = Slide Review) GL_SJM_ SLIDE_REV_AUTO nRBC (test code = 0 N nRBC) NRBC Abs (test code = 0.00 x10 N NRBC Abs) IPF (test code = IPF) 0 % N XR Chest 1 View [id number] 15:59:18Patient: SINA SYLVESTER Date/Time06/24/2019 15:42 CDTReason for ExamCoughReportLOCATION: [id number] 1 VIEWINDICATION: CoughCOMPARISON: Chest radiograph from 07/19/2018FINDINGS: Cardiac silhouette appears prominent, unclear if this is due to to theportable AP technique. Additionally, there is prominence of the central pulmonary vasculature with mild prominence of the pulmonary interstitium suggesting mild edema. Left lower lobe/retrocardiac opac ity, question developing pneumonia or atelectasis. No sizable pleural effusion or pneumothorax.Osseous structures are unremarkable.IMPRESSION:1. Findings suggest cardiomegaly with mild central vascular congestion/interstitial edema.2. Left lower lobe/retrocardiac opacity, question developing pneumonia or atelectasis. Follow-up is recommended. Standard PA and lateral chest radiograph if feasible. Final Dictated by: MD Garcia Eniola FDictated DT/TM: 06/24/2019 3:56 pmSigned by: MD Garcia Eniola FSigned (Electronic Signature): 06/24/2019 3:59 pmPhenytoin [id number] 04:29:23 Test Item Value Reference Range Interpretation Comments Phenytoin Total (test code = 9.0 ug/mL(g) 10.0-20.0 L Phenytoin Total) Comprehensive Metabolic [id number] 04:19:20 Test Item Value Reference Range Interpretation Comments Sodium Level (test code = Sodium 138.0 mmol/L 135.0-145.0 Level) Potassium Level (test code = 4.1 mmol/L 3.5-5.1 Potassium Level) Chloride Level (test code = 97 mmol/L 98-105 L Chloride Level) CO2 (test code = CO2) 29 mmol/L 22-29 Anion Gap (test code = Anion 12 mmol/L 7-16 Gap) BUN (test code = BUN) 18.70 mg/dL 6.00-20.00 Creatinine Level (test code = 1.00 mg/dL 0.70-1.20 Creatinine Level) BUN/Creat Ratio (test code = 19 N BUN/Creat Ratio) Glucose Level (test code = 94 mg/dL 70-115 Glucose Level) Calcium Level (test code = 9.0 mg/dL 8.3-10.5 Calcium Level) Alk Phos (test code = Alk Phos) 65 U/L 40-129 Bilirubin Total (test code = 0.4 mg/dL 0.1-0.9 Bilirubin Total) Albumin Level (test code = 4.0 g/dL 3.5-5.2 Albumin Level) Protein Total (test code = 6.6 g/dL 6.4-8.3 Protein Total) ALT (test code = ALT) 80 U/L 1-41 H AST (test code = AST) 33 U/L 1-40 Globulin (test code = Globulin) 2.6 g/dL 2.9-3.1 L A/G Ratio (test code = A/G 1.5 ratio N Ratio) Magnesium [id number] 04:19:20 Test Item Value Reference Range Interpretation Comments Magnesium Level (test code = 2.2 mg/dL 1.7-2.5 Magnesium Level) Comprehensive Metabolic [id number] 04:19:20 Test Item Value Reference Range Interpretation Comments Sodium Level (test 138.0 mmol/L 135.0-145.0 code = Sodium Level) Potassium Level 4.1 mmol/L 3.5-5.1 (test code = Potassium Level) Chloride Level (test 97 mmol/L 98-105 L code = Chloride Level) CO2 (test code = 29 mmol/L 22-29 CO2) Anion Gap (test code 12 mmol/L 7-16 = Anion Gap) BUN (test code = 18.70 mg/dL 6.00-20.00 BUN) Creatinine Level 1.00 mg/dL 0.70-1.20 (test code = Creatinine Level) BUN/Creat Ratio 19 N (test code = BUN/Creat Ratio) Glucose Level (test 94 mg/dL 70-115 code = Glucose Level) Calcium Level (test 9.0 mg/dL 8.3-10.5 code = Calcium Level) Alk Phos (test code 65 U/L 40-129 = Alk Phos) Bilirubin Total 0.4 mg/dL 0.1-0.9 (test code = Bilirubin Total) Albumin Level (test 4.0 g/dL 3.5-5.2 code = Albumin Level) Protein Total (test 6.6 g/dL 6.4-8.3 code = Protein Total) ALT (test code = 80 U/L 1-41 H ALT) AST (test code = 33 U/L 1-40 AST) Globulin (test code 2.6 g/dL 2.9-3.1 L = Globulin) A/G Ratio (test code 1.5 ratio N = A/G Ratio) eGFR AA (test code = >60 N eGFR (e stimated eGFR AA) mL/min/1.73 m2 Glomerular Filtration Rate ) is an estimated va lue, calculated from the patient's serum creatinine usin g the MDRD equation. It is NOT the patient 's actual GFR. The eGFR provides a more clinically usef ul measure of kidn ey disease than se rum creatinine alone.This calculation ravi es sex and race in to account, if the information is provided. If th e race is not provided, and t he patient is -Caryn n, multiply by 1.2 12. If sex is not provided, and t he patient is fema le, multiply by 0.7 42. Results for pat ients <18 years of ag e have not been validated by th e MDRD study and should be interpreted wit h caution. eGFR R esult Interpretation: eGFR > or = 60 is in the Normal RangeeGF R < 60 may mean kid joce diseaseeGFR < 1 5 may mean kidney failure Rang es recommended by the National Kidney Foundation, http://nkdep.ni h.gov Phosphorus [id number] 04:19:20 Test Item Value Reference Range Interpretation Comments Phosphorus Level (test code = 5.00 mg/dL 2.70-4.50 H Phosphorus Level) Comprehensive Metabolic [id number] 04:19:20 Test Item Value Reference Range Interpretation Comments Sodium Level (test 138.0 mmol/L 135.0-145.0 code = Sodium Level) Potassium Level 4.1 mmol/L 3.5-5.1 (test code = Potassium Level) Chloride Level (test 97 mmol/L 98-105 L code = Chloride Level) CO2 (test code = 29 mmol/L 22-29 CO2) Anion Gap (test code 12 mmol/L 7-16 = Anion Gap) BUN (test code = 18.70 mg/dL 6.00-20.00 BUN) Creatinine Level 1.00 mg/dL 0.70-1.20 (test code = Creatinine Level) BUN/Creat Ratio 19 N (test code = BUN/Creat Ratio) Glucose Level (test 94 mg/dL 70-115 code = Glucose Level) Calcium Level (test 9.0 mg/dL 8.3-10.5 code = Calcium Level) Alk Phos (test code 65 U/L 40-129 = Alk Phos) Bilirubin Total 0.4 mg/dL 0.1-0.9 (test code = Bilirubin Total) Albumin Level (test 4.0 g/dL 3.5-5.2 code = Albumin Level) Protein Total (test 6.6 g/dL 6.4-8.3 code = Protein Total) ALT (test code = 80 U/L 1-41 H ALT) AST (test code = 33 U/L 1-40 AST) Globulin (test code 2.6 g/dL 2.9-3.1 L = Globulin) A/G Ratio (test code 1.5 ratio N = A/G Ratio) eGFR AA (test code = >60 N eGFR (e stimated eGFR AA) mL/min/1.73 m2 Glomerular Filtration Rate ) is an estimated va lue, calculated from the patient's serum creatinine usin g the MDRD equation. It is NOT the patient 's actual GFR. The eGFR provides a more clinically usef ul measure of kidn ey disease than se rum creatinine alone.This calculation ravi es sex and race in to account, if the information is provided. If th e race is not provided, and t he patient is -Caryn n, multiply by 1.2 12. If sex is not provided, and t he patient is fema le, multiply by 0.7 42. Results for pat ients <18 years of ag e have not been validated by th e MDRD study and should be interpreted wit h caution. eGFR R esult Interpretation: eGFR > or = 60 is in the Normal RangeeGF R < 60 may mean kid joce diseaseeGFR < 1 5 may mean kidney failure Rang es recommended by the National Kidney Foundation, http://nkdep.ni h.gov eGFR Non-AA (test >60.00 N eGFR (courtney mated code = eGFR Non-AA) mL/min/1.73 m2 Glomer ular Filtration Rate ) is an estimated va lue, calculated from the patient's serum creatinine usin g the MDRD equation. It is NOT the patient 's actual GFR. The eGFR provides a more clinically usef ul measure of kidn ey disease than se rum creatinine alone.This calculation ravi es sex and race in to account, if the information is provided. If th e race is not provided, and t he patient is -Caryn n, multiply by 1.2 12. If sex is not provided, and t he patient is fema le, multiply by 0.7 42. Results for pat ients <18 years of ag e have not been validated by th e MDRD study and should be interpreted wit h caution. eGFR R esult Interpretation: eGFR > or = 60 is in the Normal RangeeGF R < 60 may mean kid joce diseaseeGFR < 1 5 may mean kidney failure Rang es recommended by the National Kidney Foundation, http://nkdep.ni h.gov Automated [id number] 03:57:05 Test Item Value Reference Range Interpretation Comments Neutro Auto (test code = Neutro 63.3 % 36.0-70.0 Auto) Lymph Auto (test code = Lymph Auto) 26.5 % 12.0-44.0 [place] Auto (test code = [place] Auto) 7.8 % 0.0-11.0 Eos, Auto (test code = Eos, Auto) 1.2 % 0.0-7.0 Basophil Auto (test code = Basophil 0.3 % 0.0-2.0 Auto) Neutro Absolute (test code = Neutro 4.8 x10 1.6-7.4 Absolute) Lymph Absolute (test code = Lymph 2.03 x10 .50-4.60 Absolute) [place] Absolute (test code = [place] .60 x10 .00-1.20 Absolute) Eos Absolute (test code = Eos 0.09 x10 0.00-0.74 Absolute) Baso Absolute (test code = Baso 0.02 x10 0.00-0.21 Absolute) IG [id number] 03:57:05 Test Item Value Reference Range Interpretation Comments IG (test code = IG) 0.9 % 0.0-5.0 IG Abs (test code = IG Abs) 0 x10 N Complete Blood Count with [id number] 03:57:04 Test Item Value Reference Range Interpretation Comments WBC (test code = WBC) 7.6 x10 4.4-10.5 RBC (test code = RBC) 4.82 x10 4.10-5.70 Hgb (test code = Hgb) 14.3 g/dL 13.4-17.4 MCV (test code = MCV) 90.70 fL 80.00-100.00 Hct (test code = Hct) 43.7 % 38.7-52.0 MCHC (test code = 32.70 g/dL 32.00-37.50 MCHC) RDW CV (test code = 12.3 % 11.5-14.5 RDW CV) MCH (test code = MCH) 29.7 pg 27.0-32.5 Platelets (test code = 207.0 x10 140.0-440.0 Platelets) MPV (test code = MPV) 10.9 fL N Slide Review (test Auto Auto Result cr eated by code = Slide Review) GL_SJM_ SLIDE_REV_AUTO nRBC (test code = 0 N nRBC) NRBC Abs (test code = 0.00 x10 N NRBC Abs) IPF (test code = IPF) 0 % N [id number] 09:23:33 Test Item Value Reference Range Interpretation Comments Prolactin (test code = 32.330 ng/mL 4.040-15.200 H Prolactin) Basic Metabolic [id number] 05:57:35 Test Item Value Reference Range Interpretation Comments Sodium Level (test code = Sodium 138.0 mmol/L 135.0-145.0 Level) Potassium Level (test code = 4.4 mmol/L 3.5-5.1 Potassium Level) Chloride Level (test code = 100 mmol/L 98-105 Chloride Level) CO2 (test code = CO2) 25 mmol/L 22-29 Anion Gap (test code = Anion 13 mmol/L 7-16 Gap) BUN (test code = BUN) 14.40 mg/dL 6.00-20.00 Creatinine Level (test code = 0.80 mg/dL 0.70-1.20 Creatinine Level) BUN/Creat Ratio (test code = 18 N BUN/Creat Ratio) Glucose Level (test code = 90 mg/dL 70-115 Glucose Level) Calcium Level (test code = 9.2 mg/dL 8.3-10.5 Calcium Level) Magnesium [id number] 05:57:35 Test Item Value Reference Range Interpretation Comments Magnesium Level (test code = 2.0 mg/dL 1.7-2.5 Magnesium Level) Basic Metabolic [id number] 05:57:35 Test Item Value Reference Range Interpretation Comments Sodium Level (test 138.0 mmol/L 135.0-145.0 code = Sodium Level) Potassium Level 4.4 mmol/L 3.5-5.1 (test code = Potassium Level) Chloride Level (test 100 mmol/L 98-105 code = Chloride Level) CO2 (test code = 25 mmol/L 22-29 CO2) Anion Gap (test code 13 mmol/L 7-16 = Anion Gap) BUN (test code = 14.40 mg/dL 6.00-20.00 BUN) Creatinine Level 0.80 mg/dL 0.70-1.20 (test code = Creatinine Level) BUN/Creat Ratio 18 N (test code = BUN/Creat Ratio) Glucose Level (test 90 mg/dL 70-115 code = Glucose Level) Calcium Level (test 9.2 mg/dL 8.3-10.5 code = Calcium Level) eGFR AA (test code = >60 N eGFR (e stimated eGFR AA) mL/min/1.73 m2 Glomerular Filtration Rate ) is an estimated va lue, calculated from the patient's serum creatinine usin g the MDRD equation. It is NOT the patient 's actual GFR. The eGFR provides a more clinically usef ul measure of kidn ey disease than se rum creatinine alone.This calculation ravi es sex and race in to account, if the information is provided. If th e race is not provided, and t he patient is -Caryn n, multiply by 1.2 12. If sex is not provided, and t he patient is fema le, multiply by 0.7 42. Results for pat ients <18 years of ag e have not been validated by th e MDRD study and should be interpreted wit h caution. eGFR R esult Interpretation: eGFR > or = 60 is in the Normal RangeeGF R < 60 may mean kid ojce diseaseeGFR < 1 5 may mean kidney failure Rang es recommended by the National Kidney Foundation, http://nkdep.ni h.gov Phosphorus [id number] 05:57:35 Test Item Value Reference Range Interpretation Comments Phosphorus Level (test code = 5.30 mg/dL 2.70-4.50 H Phosphorus Level) Basic Metabolic [id number] 05:57:35 Test Item Value Reference Range Interpretation Comments Sodium Level (test 138.0 mmol/L 135.0-145.0 code = Sodium Level) Potassium Level 4.4 mmol/L 3.5-5.1 (test code = Potassium Level) Chloride Level (test 100 mmol/L 98-105 code = Chloride Level) CO2 (test code = 25 mmol/L 22-29 CO2) Anion Gap (test code 13 mmol/L 7-16 = Anion Gap) BUN (test code = 14.40 mg/dL 6.00-20.00 BUN) Creatinine Level 0.80 mg/dL 0.70-1.20 (test code = Creatinine Level) BUN/Creat Ratio 18 N (test code = BUN/Creat Ratio) Glucose Level (test 90 mg/dL 70-115 code = Glucose Level) Calcium Level (test 9.2 mg/dL 8.3-10.5 code = Calcium Level) eGFR AA (test code = >60 N eGFR (e stimated eGFR AA) mL/min/1.73 m2 Glomerular Filtration Rate ) is an estimated va lue, calculated from the patient's serum creatinine usin g the MDRD equation. It is NOT the patient 's actual GFR. The eGFR provides a more clinically usef ul measure of kidn ey disease than se rum creatinine alone.This calculation ravi es sex and race in to account, if the information is provided. If th e race is not provided, and t he patient is -Caryn n, multiply by 1.2 12. If sex is not provided, and t he patient is fema le, multiply by 0.7 42. Results for pat ients <18 years of ag e have not been validated by [facility] MDRD study and should be interpreted wit h caution. eGFR R esult Interpretation: eGFR > or = 60 is in the Normal RangeeGF R < 60 may mean kid joce diseaseeGFR < 1 5 may mean kidney failure Rang es recommended by the National Kidney Foundation, http://nkdep.ni h.gov eGFR Non-AA (test >60.00 N eGFR (courtney mated code = eGFR Non-AA) mL/min/1.73 m2 Glomer ular Filtration Rate ) is an estimated va lue, calculated from the patient's serum creatinine usin g the MDRD equation. It is NOT the patient 's actual GFR. The eGFR provides a more clinically usef ul measure of kidn ey disease than se rum creatinine alone.This calculation ravi es sex and race in to account, if the information is provided. If th e race is not provided, and t he patient is -Caryn n, multiply by 1.2 12. If sex is not provided, and t he patient is fema le, multiply by 0.7 42. Results for pat ients <18 years of ag e have not been validated by e MDRD study and should be interpreted wit h caution. eGFR R esult Interpretation: eGFR > or = 60 is in the Normal RangeeGF R < 60 may mean kid joce diseaseeGFR < 1 5 may mean kidney failure Rang es recommended by the National Kidney Foundation, http://nkdep.ni h.gov Complete Blood Count with [id number] 05:30:30 Test Item Value Reference Range Interpretation Comments WBC (test code = WBC) 8.2 x10 4.4-10.5 RBC (test code = RBC) 5.05 x10 4.10-5.70 Hgb (test code = Hgb) 14.9 g/dL 13.4-17.4 MCV (test code = MCV) 88.70 fL 80.00-100.00 Hct (test code = Hct) 44.8 % 38.7-52.0 MCHC (test code = 33.30 g/dL 32.00-37.50 MCHC) RDW CV (test code = 12.1 % 11.5-14.5 RDW CV) MCH (test code = MCH) 29.5 pg 27.0-32.5 Platelets (test code = 207.0 x10 140.0-440.0 Platelets) MPV (test code = MPV) 10.7 fL N Slide Review (test Auto Auto Result cr eated by code = Slide Review) GL_SJM_ SLIDE_REV_AUTO nRBC (test code = 0 N nRBC) NRBC Abs (test code = 0.00 x10 N NRBC Abs) IPF (test code = IPF) 0 % N Automated [id number] 05:30:30 Test Item Value Reference Range Interpretation Comments Neutro Auto (test code = Neutro 61.0 % 36.0-70.0 Auto) Lymph Auto (test code = Lymph Auto) 25.8 % 12.0-44.0 [place] Auto (test code = [place] Auto) 9.0 % 0.0-11.0 Eos, Auto (test code = Eos, Auto) 2.2 % 0.0-7.0 Basophil Auto (test code = Basophil 0.5 % 0.0-2.0 Auto) Neutro Absolute (test code = Neutro 5.0 x10 1.6-7.4 Absolute) Lymph Absolute (test code = Lymph 2.12 x10 .50-4.60 Absolute) [place] Absolute (test code = [place] .74 x10 .00-1.20 Absolute) Eos Absolute (test code = Eos 0.18 x10 0.00-0.74 Absolute) Baso Absolute (test code = Baso 0.04 x10 0.00-0.21 Absolute) IG [id number] 05:30:30 Test Item Value Reference Range Interpretation Comments IG (test code = IG) 1.5 % 0.0-5.0 IG Abs (test code = IG Abs) 0 x10 N MRI Brain w/ + w/o [id number] 11:05:00Patient: SINA SYLVESTER Date/Time06/21/2019 10:51 CDTReason for ExamSeizuresReportEXAM: MRI BRAIN WITH AND WITHOUT CONTRASTINDICATION: SeizuresCOMPARISON: CT head dated June 20, 2019TECHNIQUE: Multiplanar, multisequence MR imaging of the brainwas obtained with and without administration of intravenous contrast. IV contrast: 15 cc of M ultiHanceFINDINGS:No restricted diffusion to suggest acute ischemia.The brain parenchyma is normal in signal intensity. The ventricles and sulci are normal in size and shape with no midline shift or mass effect. The basal cisterns are patent. The posterior fossa and fourth ventricle are normal. No intracranial hemorrhage.Intracranial flow voids are normal.No abnormal enhancement seen on the postcontrast images. Intracranial vasculature enhances normally.The paranasal sinuses and mastoid air cells are clear. The skull base is intact. No calvarial lesions. The orbits and globes are unremarkable.IMPRESSION:1. No acute intracranial abnormality. No acute infarct or mass effect.2. No abnormal enhancement.LOCATION: R16 Final Dictated by: MD Petersen Melanie CDictated DT/TM: 06/21/2019 10:59 amSigned by: MD Petersen Melanie CSigned (Electronic Signature): 06/21/2019 11:05 amBasic Metabolic [id number] 06:05:55 Test Item Value Reference Range Interpretation Comments Sodium Level (test code = Sodium 137.0 mmol/L 135.0-145.0 Level) Potassium Level (test code = 4.2 mmol/L 3.5-5.1 Potassium Level) Chloride Level (test code = 100 mmol/L 98-105 Chloride Level) CO2 (test code = CO2) 25 mmol/L 22-29 Anion Gap (test code = Anion 12 mmol/L 7-16 Gap) BUN (test code = BUN) 20.10 mg/dL 6.00-20.00 H Creatinine Level (test code = 1.00 mg/dL 0.70-1.20 Creatinine Level) BUN/Creat Ratio (test code = 20 N BUN/Creat Ratio) Glucose Level (test code = 95 mg/dL 70-115 Glucose Level) Calcium Level (test code = 8.8 mg/dL 8.3-10.5 Calcium Level) Magnesium [id number] 06:05:55 Test Item Value Reference Range Interpretation Comments Magnesium Level (test code = 2.1 mg/dL 1.7-2.5 Magnesium Level) Basic Metabolic [id number] 06:05:55 Test Item Value Reference Range Interpretation Comments Sodium Level (test 137.0 mmol/L 135.0-145.0 code = Sodium Level) Potassium Level 4.2 mmol/L 3.5-5.1 (test code = Potassium Level) Chloride Level (test 100 mmol/L 98-105 code = Chloride Level) CO2 (test code = 25 mmol/L 22-29 CO2) Anion Gap (test code 12 mmol/L 7-16 = Anion Gap) BUN (test code = 20.10 mg/dL 6.00-20.00 H BUN) Creatinine Level 1.00 mg/dL 0.70-1.20 (test code = Creatinine Level) BUN/Creat Ratio 20 N (test code = BUN/Creat Ratio) Glucose Level (test 95 mg/dL 70-115 code = Glucose Level) Calcium Level (test 8.8 mg/dL 8.3-10.5 code = Calcium Level) eGFR AA (test code = >60 N eGFR (e stimated eGFR AA) mL/min/1.73 m2 Glomerular Filtration Rate ) is an estimated va lue, calculated from the patient's serum creatinine usin g the MDRD equation. It is NOT the patient 's actual GFR. The eGFR provides a more clinically usef ul measure of kidn ey disease than se rum creatinine alone.This calculation ravi es sex and race in to account, if the information is provided. If th e race is not provided, and t he patient is -Caryn n, multiply by 1.2 12. If sex is not provided, and t he patient is fema le, multiply by 0.7 42. Results for pat ients <18 years of ag e have not been validated by th e MDRD study and should be interpreted wit h caution. eGFR R esult Interpretation: eGFR > or = 60 is in the Normal RangeeGF R < 60 may mean kid joce diseaseeGFR < 1 5 may mean kidney failure Rang es recommended by the National Kidney Foundation, http://nkdep.ni h.gov Phosphorus [id number] 06:05:55 Test Item Value Reference Range Interpretation Comments Phosphorus Level (test code = 5.50 mg/dL 2.70-4.50 H Phosphorus Level) Basic Metabolic [id number] 06:05:55 Test Item Value Reference Range Interpretation Comments Sodium Level (test 137.0 mmol/L 135.0-145.0 code = Sodium Level) Potassium Level 4.2 mmol/L 3.5-5.1 (test code = Potassium Level) Chloride Level (test 100 mmol/L 98-105 code = Chloride Level) CO2 (test code = 25 mmol/L 22-29 CO2) Anion Gap (test code 12 mmol/L 7-16 = Anion Gap) BUN (test code = 20.10 mg/dL 6.00-20.00 H BUN) Creatinine Level 1.00 mg/dL 0.70-1.20 (test code = Creatinine Level) BUN/Creat Ratio 20 N (test code = BUN/Creat Ratio) Glucose Level (test 95 mg/dL 70-115 code = Glucose Level) Calcium Level (test 8.8 mg/dL 8.3-10.5 code = Calcium Level) eGFR AA (test code = >60 N eGFR (e stimated eGFR AA) mL/min/1.73 m2 Glomerular Filtration Rate ) is an estimated va lue, calculated from the patient's serum creatinine usin g the MDRD equation. It is NOT the patient 's actual GFR. The eGFR provides a more clinically usef ul measure of kidn ey disease than se rum creatinine alone.This calculation ravi es sex and race in to account, if the information is provided. If th e race is not provided, and t he patient is -Caryn n, multiply by 1.2 12. If sex is not provided, and t he patient is fema le, multiply by 0.7 42. Results for pat ients <18 years of ag e have not been validated by [facility] MDRD study and should be interpreted wit h caution. eGFR R esult Interpretation: eGFR > or = 60 is in the Normal RangeeGF R < 60 may mean kid joce diseaseeGFR < 1 5 may mean kidney failure Rang es recommended by the National Kidney Foundation, http://nkdep.ni h.gov eGFR Non-AA (test >60.00 N eGFR (courtney mated code = eGFR Non-AA) mL/min/1.73 m2 Glomer ular Filtration Rate ) is an estimated va lue, calculated from the patient's serum creatinine usin g the MDRD equation. It is NOT the patient 's actual GFR. The eGFR provides a more clinically usef ul measure of kidn ey disease than se rum creatinine alone.This calculation ravi es sex and race in to account, if the information is provided. If th e race is not provided, and t he patient is -Caryn n, multiply by 1.2 12. If sex is not provided, and t he patient is fema le, multiply by 0.7 42. Results for pat ients <18 years of ag e have not been validated by [facility] MDRD study and should be interpreted wit h caution. eGFR R esult Interpretation: eGFR > or = 60 is in the Normal RangeeGF R < 60 may mean kid joce diseaseeGFR < 1 5 may mean kidney failure Rang es recommended by the National Kidney Foundation, http://nkdep.ni h.gov Complete Blood Count with [id number] 05:36:08 Test Item Value Reference Range Interpretation Comments WBC (test code = WBC) 6.4 x10 4.4-10.5 RBC (test code = RBC) 5.11 x10 4.10-5.70 Hgb (test code = Hgb) 15.0 g/dL 13.4-17.4 MCV (test code = MCV) 89.60 fL 80.00-100.00 Hct (test code = Hct) 45.8 % 38.7-52.0 MCHC (test code = 32.80 g/dL 32.00-37.50 MCHC) RDW CV (test code = 12.4 % 11.5-14.5 RDW CV) MCH (test code = MCH) 29.4 pg 27.0-32.5 Platelets (test code = 211.0 x10 140.0-440.0 Platelets) MPV (test code = MPV) 10.5 fL N Slide Review (test Auto Auto Result cr eated by code = Slide Review) GL_SJM_ SLIDE_REV_AUTO nRBC (test code = 0 N nRBC) NRBC Abs (test code = 0.00 x10 N NRBC Abs) IPF (test code = IPF) 0 % N Automated [id number] 05:36:08 Test Item Value Reference Range Interpretation Comments Neutro Auto (test code = Neutro 49.6 % 36.0-70.0 Auto) Lymph Auto (test code = Lymph Auto) 33.4 % 12.0-44.0 [place] Auto (test code = [place] Auto) 10.8 % 0.0-11.0 Eos, Auto (test code = Eos, Auto) 3.6 % 0.0-7.0 Basophil Auto (test code = Basophil 0.6 % 0.0-2.0 Auto) Neutro Absolute (test code = Neutro 3.2 x10 1.6-7.4 Absolute) Lymph Absolute (test code = Lymph 2.14 x10 .50-4.60 Absolute) [place] Absolute (test code = [place] .69 x10 .00-1.20 Absolute) Eos Absolute (test code = Eos 0.23 x10 0.00-0.74 Absolute) Baso Absolute (test code = Baso 0.04 x10 0.00-0.21 Absolute) IG [id number] 05:36:08 Test Item Value Reference Range Interpretation Comments IG (test code = IG) 2.0 % 0.0-5.0 IG Abs (test code = IG Abs) 0 x10 N POC [id number] 14:37:15 Test Item Value Reference Range Interpretation Comments Glucose POC (test 94 mg/dL 70-115 If you con methods specialist engineer your code = Glucose POC) patient critically ill, the Rosalinda-Accu Check Infrom II meter should not be used for Glucose determination. Draw a venous Glucose and send to the main Lab for analysis. CT Brain/Head w/o [id number] 11:31:22Patient: SINA SYLVESTER Date/Time06/20/2019 10:22 CDTReason for Examseizures;Other (please specify)[id number] HEAD WITHOUT CONTRASTHISTORY: seizuresTECHNIQUE: Axial CT images from the skull base to the vertex without intravenous contrast. Coronal and sagittal reformatted images were created from the data set.One or more of the following dose reduction techniques were used: Automated exposure control, adjustment of the mA and/or kV according to patient size, and/or iterative reconstruction.COMPARISON: NoneFINDINGS:No abnormal brain parenchymal density. No evidence of acute infarction, intracranial hemorrhage, mass or mass effect, or abnormal extra- axial fluid collection.The ventricles are normal in size, shape and position.The density in the larger dural sinuses is grossly normal.The osseous structures and orbits have no significant abnormalities. The visualized paranasal sinuses and mastoid air cells are predominantly clear.IMPRESSION:No acute intracranial abnormality. Final Dictated by: MD Codi, Ayesha DT/TM: 0 06/20/2019 11:31 amSigned by: MD Codi, Viral (Electronic Signature): 06/20/2019 11:31 amBasic Metabolic [id number] 11:18:29 Test Item Value Reference Range Interpretation Comments Sodium Level (test code = Sodium 139.0 mmol/L 135.0-145.0 Level) Potassium Level (test code = 4.3 mmol/L 3.5-5.1 Potassium Level) Chloride Level (test code = 100 mmol/L 98-105 Chloride Level) CO2 (test code = CO2) 26 mmol/L 22-29 Anion Gap (test code = Anion 13 mmol/L 7-16 Gap) BUN (test code = BUN) 16.80 mg/dL 6.00-20.00 Creatinine Level (test code = 0.80 mg/dL 0.70-1.20 Creatinine Level) BUN/Creat Ratio (test code = 21 N BUN/Creat Ratio) Glucose Level (test code = 159 mg/dL 70-115 H Glucose Level) Calcium Level (test code = 8.9 mg/dL 8.3-10.5 Calcium Level) Magnesium [id number] 11:18:29 Test Item Value Reference Range Interpretation Comments Magnesium Level (test code = 1.9 mg/dL 1.7-2.5 Magnesium Level) Basic Metabolic [id number] 11:18:29 Test Item Value Reference Range Interpretation Comments Sodium Level (test 139.0 mmol/L 135.0-145.0 code = Sodium Level) Potassium Level 4.3 mmol/L 3.5-5.1 (test code = Potassium Level) Chloride Level (test 100 mmol/L 98-105 code = Chloride Level) CO2 (test code = 26 mmol/L 22-29 CO2) Anion Gap (test code 13 mmol/L 7-16 = Anion Gap) BUN (test code = 16.80 mg/dL 6.00-20.00 BUN) Creatinine Level 0.80 mg/dL 0.70-1.20 (test code = Creatinine Level) BUN/Creat Ratio 21 N (test code = BUN/Creat Ratio) Glucose Level (test 159 mg/dL 70-115 H code = Glucose Level) Calcium Level (test 8.9 mg/dL 8.3-10.5 code = Calcium Level) eGFR AA (test code = >60 N eGFR (e stimated eGFR AA) mL/min/1.73 m2 Glomerular Filtration Rate ) is an estimated va lue, calculated from the patient's serum creatinine usin g the MDRD equation. It is NOT the patient 's actual GFR. The eGFR provides a more clinically usef ul measure of kidn ey disease than se rum creatinine alone.This calculation ravi es sex and race in to account, if the information is provided. If th e race is not provided, and t he patient is -Caryn n, multiply by 1.2 12. If sex is not provided, and t he patient is fema le, multiply by 0.7 42. Results for pat ients <18 years of ag e have not been validated by th e MDRD study and should be interpreted wit h caution. eGFR R esult Interpretation: eGFR > or = 60 is in the Normal RangeeGF R < 60 may mean kid joce diseaseeGFR < 1 5 may mean kidney failure Rang es recommended by the National Kidney Foundation, http://nkdep.ni h.gov Phosphorus [id number] 11:18:29 Test Item Value Reference Range Interpretation Comments Phosphorus Level (test code = 3.10 mg/dL 2.70-4.50 Phosphorus Level) Valproic Acid [id number] 11:18:29 Test Item Value Reference Range Interpretation Comments Valproic Acid Level (test code 59.1 ug/mL(g) 50.0-100.0 = Valproic Acid Level) Basic Metabolic [id number] 11:18:29 Test Item Value Reference Range Interpretation Comments Sodium Level (test 139.0 mmol/L 135.0-145.0 code = Sodium Level) Potassium Level 4.3 mmol/L 3.5-5.1 (test code = Potassium Level) Chloride Level (test 100 mmol/L 98-105 code = Chloride Level) CO2 (test code = 26 mmol/L 22-29 CO2) Anion Gap (test code 13 mmol/L 7-16 = Anion Gap) BUN (test code = 16.80 mg/dL 6.00-20.00 BUN) Creatinine Level 0.80 mg/dL 0.70-1.20 (test code = Creatinine Level) BUN/Creat Ratio 21 N (test code = BUN/Creat Ratio) Glucose Level (test 159 mg/dL 70-115 H code = Glucose Level) Calcium Level (test 8.9 mg/dL 8.3-10.5 code = Calcium Level) eGFR AA (test code = >60 N eGFR (e stimated eGFR AA) mL/min/1.73 m2 Glomerular Filtration Rate ) is an estimated va lue, calculated from the patient's serum creatinine usin g the MDRD equation. It is NOT the patient 's actual GFR. The eGFR provides a more clinically usef ul measure of kidn ey disease than se rum creatinine alone.This calculation ravi es sex and race in to account, if the information is provided. If th e race is not provided, and t he patient is -Caryn n, multiply by 1.2 12. If sex is not provided, and t he patient is fema le, multiply by 0.7 42. Results for pat ients <18 years of ag e have not been validated by [facility] MDRD study and should be interpreted wit h caution. eGFR R esult Interpretation: eGFR > or = 60 is in the Normal RangeeGF R < 60 may mean kid ojce diseaseeGFR < 1 5 may mean kidney failure Rang es recommended by the National Kidney Foundation, http://nkdep.ni h.gov eGFR Non-AA (test >60.00 N eGFR (courtney mated code = eGFR Non-AA) mL/min/1.73 m2 Glomer ular Filtration Rate ) is an estimated va lue, calculated from the patient's serum creatinine usin g the MDRD equation. It is NOT the patient 's actual GFR. The eGFR provides a more clinically usef ul measure of kidn ey disease than se rum creatinine alone.This calculation ravi es sex and race in to account, if the information is provided. If e race is not provided, and t he patient is -Caryn n, multiply by 1.2 12. If sex is not provided, and t he patient is fema le, multiply by 0.7 42. Results for pat ients <18 years of ag e have not been validated by [facility] MDRD study and should be interpreted wit h caution. eGFR R esult Interpretation: eGFR > or = 60 is in the Normal RangeeGF R < 60 may mean kid joce diseaseeGFR < 1 5 may mean kidney failure Rang es recommended by the National Kidney Foundation, http://nkdep.ni h.gov Complete Blood Count with [id number] 10:46:00 Test Item Value Reference Range Interpretation Comments WBC (test code = WBC) 5.3 x10 4.4-10.5 RBC (test code = RBC) 4.80 x10 4.10-5.70 Hgb (test code = Hgb) 14.5 g/dL 13.4-17.4 Hct (test code = Hct) 43.6 % 38.7-52.0 MCV (test code = MCV) 90.80 fL 80.00-100.00 MCHC (test code = 33.30 g/dL 32.00-37.50 MCHC) RDW CV (test code = 12.6 % 11.5-14.5 RDW CV) MCH (test code = MCH) 30.2 pg 27.0-32.5 Platelets (test code = 186.0 x10 140.0-440.0 Platelets) MPV (test code = MPV) 10.9 fL N Slide Review (test Auto Auto Result cr eated by code = Slide Review) GL_SJM_ SLIDE_REV_AUTO nRBC (test code = 0 N nRBC) NRBC Abs (test code = 0.00 x10 N NRBC Abs) IPF (test code = IPF) 0 % N Automated [id number] 10:46:00 Test Item Value Reference Range Interpretation Comments Neutro Auto (test code = Neutro 56.1 % 36.0-70.0 Auto) Lymph Auto (test code = Lymph Auto) 27.8 % 12.0-44.0 [place] Auto (test code = [place] Auto) 10.2 % 0.0-11.0 Eos, Auto (test code = Eos, Auto) 2.8 % 0.0-7.0 Basophil Auto (test code = Basophil 0.6 % 0.0-2.0 Auto) Neutro Absolute (test code = Neutro 3.0 x10 1.6-7.4 Absolute) Lymph Absolute (test code = Lymph 1.47 x10 .50-4.60 Absolute) [place] Absolute (test code = [place] .54 x10 .00-1.20 Absolute) Eos Absolute (test code = Eos 0.15 x10 0.00-0.74 Absolute) Baso Absolute (test code = Baso 0.03 x10 0.00-0.21 Absolute) IG [id number] 10:46:00 Test Item Value Reference Range Interpretation Comments IG (test code = IG) 2.5 % 0.0-5.0 IG Abs (test code = IG Abs) 0 x10 N POC [id number] 07:48:18 Test Item Value Reference Range Interpretation Comments Glucose POC (test 87 mg/dL 70-115 If you con methods specialist engineer your code = Glucose POC) patient critically ill, the Rosalinda-Accu Check Infrom II meter should not be used for Glucose determination. Draw a venous Glucose and send to the main Lab for analysis. XR Elbow 2 Views [id number] 20:32:39Patient: SINA SYLVESTER Date/Time06/19/2019 19:45 CDTReason for ExamFall;InjuryReportDictation location [id number] elbow 3 viewsHISTORY: Pain following injury.COMMENT: No comparison. A metallic plate an multiple screws are seen along the olecranon and proximal ulna. There is no acute fracture or dislocation and no focal lesion or destructive process seen. There is no obvious hemarthrosis.IMPRESSION:1. Hardware in the proximal ulna.2. Otherwise no acute bony or soft tissue abnormality. Final Dictated by: MD Padron Phebe CDictated DT/TM: 06/19/2019 8:30 pmSigned by: MD Padron Phebe CSigned (Electronic Signature): 06/19/2019 8:32 pmValproic Acid [id number] 08:43:37 Test Item Value Reference Range Interpretation Comments Valproic Acid Level (test code 72.9 ug/mL(g) 50.0-100.0 = Valproic Acid Level) Valproic Acid [id number] 07:22:12 Test Item Value Reference Range Interpretation Comments Valproic Acid Level (test code 23.3 ug/mL(g) 50.0-100.0 L = Valproic Acid Level) Acute Hepatitis [id number] 10:44:23 Test Item Value Reference Range Interpretation Comments Hep A IgM (test code = Hep A IgM) Nonreactive Non Reactive Hep B Core Ab IgM (test code = Nonreactive Non Reactive Hep B Core Ab IgM) Hep Bs Ag (test code = Hep Bs Ag) Nonreactive Non Reactive Hep C Ab (test code = Hep C Ab) Nonreactive Non Reactive RPR [id number] 12:12:35 Test Item Value Reference Range Interpretation Comments RPR Qual (test code = RPR Qual) Non-Reactive Non-Reactive Reactive Control (test code = Reactive Reactive Control) Weak Reactive Control (test Weak Reactive code = Weak Reactive Control) Non-Reactive Control (test code Non-Reactive = Non-Reactive Control) Lot # (test code = Lot #) [id number] N Expiration Dt (test code = 12-31-20 N Expiration Dt) Lipid [id number] 04:13:36 Test Item Value Reference Range Interpretation Comments Cholesterol Total 288 mg/dL 0-200 H RISK OF HE ART (test code = DISEASEPublishe d by Cholesterol Total) [place] [employer] Rayna lyte Optimal Borderl ine Increased RiskC HOL <200 200-239 >2 40TRIG <150 150-199 >2 00HDL Male >60 <40H DL Female >60 <5 0LDL <100 130-159 >1 60LDL Near optimal is 100-129 Triglycerides (test 561 mg/dL 9-200 H code = Triglycerides) HDL (test code = HDL) 43 mg/dL 40-60 LDL (test code = LDL) 133 mg/dL 0-130 N LDL ca lculation is unreliable when Triglyceride is greater than 400. VLDL (test code = 112 mg/dL 5-40 N VLDL calcu lation is VLDL) unreliable when Triglyceride is greater than 400. Chol/HDL (test code = 6.7 ratio 0.0-5.0 H Chol/HDL) LDL/HDL Ratio (test 3 N LDL/HDL Ratio code = LDL/HDL Ratio) calcul ation is unreliable when Triglyceride is greater than 400. Thyroid Stimulating [id number] 04:13:36 Test Item Value Reference Range Interpretation Comments TSH (test code = TSH) 2.600 mIU/mL 0.270-4.200 Urine Drug [id number] 22:38:32 Test Item Value Reference Range Interpretation Comments Amphetamine Screen Ur Negative Negative (test code = Amphetamine Screen Ur) Barbiturate Screen Ur Negative Negative (test code = Barbiturate Screen Ur) Benzodiazepines Ur (test POSITIVE Negative A code = Benzodiazepines Ur) Cocaine Screen Ur (test Negative Negative code = Cocaine Screen Ur) U Methadone Scr (test Negative Negative code = U Methadone Scr) Opiate Screen Ur (test Negative Negative code = Opiate Screen Ur) U PCP Scrn (test code = Negative Negative U PCP Scrn) Cannabinoid Screen Ur Negative Negative (test code = Cannabinoid Screen Ur) U TCA (test code = U POSITIVE Negative A The res ults of all TCA) drug screen [place] ts are only preliminar y. Clinical consideration a nd professional ju dgment should be appli ed to any drug of abu se test result, particularly wh en preliminary pos itive results are obt ained. Please order a separate confir matory test if desired . Comprehensive Metabolic [id number] 22:31:18 Test Item Value Reference Range Interpretation Comments Sodium Level (test code = Sodium 138.0 mmol/L 135.0-145.0 Level) Potassium Level (test code = 4.2 mmol/L 3.5-5.1 Potassium Level) Chloride Level (test code = 98 mmol/L 98-105 Chloride Level) CO2 (test code = CO2) 24 mmol/L 22-29 Anion Gap (test code = Anion 16 mmol/L 7-16 Gap) BUN (test code = BUN) 18.60 mg/dL 6.00-20.00 Creatinine Level (test code = 1.00 mg/dL 0.70-1.20 Creatinine Level) BUN/Creat Ratio (test code = 19 N BUN/Creat Ratio) Glucose Level (test code = 117 mg/dL 70-115 H Glucose Level) Calcium Level (test code = 9.2 mg/dL 8.3-10.5 Calcium Level) Alk Phos (test code = Alk Phos) 128 U/L 40-129 Bilirubin Total (test code = 0.2 mg/dL 0.1-0.9 Bilirubin Total) Albumin Level (test code = 4.5 g/dL 3.5-5.2 Albumin Level) Protein Total (test code = 7.4 g/dL 6.4-8.3 Protein Total) ALT (test code = ALT) 158 U/L 1-41 H AST (test code = AST) 82 U/L 1-40 H Globulin (test code = Globulin) 2.9 g/dL 2.9-3.1 A/G Ratio (test code = A/G 1.6 ratio N Ratio) Comprehensive Metabolic [id number] 22:31:18 Test Item Value Reference Range Interpretation Comments Sodium Level (test 138.0 mmol/L 135.0-145.0 code = Sodium Level) Potassium Level 4.2 mmol/L 3.5-5.1 (test code = Potassium Level) Chloride Level (test 98 mmol/L 98-105 code = Chloride Level) CO2 (test code = 24 mmol/L 22-29 CO2) Anion Gap (test code 16 mmol/L 7-16 = Anion Gap) BUN (test code = 18.60 mg/dL 6.00-20.00 BUN) Creatinine Level 1.00 mg/dL 0.70-1.20 (test code = Creatinine Level) BUN/Creat Ratio 19 N (test code = BUN/Creat Ratio) Glucose Level (test 117 mg/dL 70-115 H code = Glucose Level) Calcium Level (test 9.2 mg/dL 8.3-10.5 code = Calcium Level) Alk Phos (test code 128 U/L 40-129 = Alk Phos) Bilirubin Total 0.2 mg/dL 0.1-0.9 (test code = Bilirubin Total) Albumin Level (test 4.5 g/dL 3.5-5.2 code = Albumin Level) Protein Total (test 7.4 g/dL 6.4-8.3 code = Protein Total) ALT (test code = 158 U/L 1-41 H ALT) AST (test code = 82 U/L 1-40 H AST) Globulin (test code 2.9 g/dL 2.9-3.1 = Globulin) A/G Ratio (test code 1.6 ratio N = A/G Ratio) eGFR AA (test code = >60 N eGFR (e stimated eGFR AA) mL/min/1.73 m2 Glomerular Filtration Rate ) is an estimated va lue, calculated from the patient's serum creatinine usin g the MDRD equation. It is NOT the patient 's actual GFR. The eGFR provides a more clinically usef ul measure of kidn ey disease than se rum creatinine alone.This calculation ravi es sex and race in to account, if the information is provided. If th e race is not provided, and t he patient is -Caryn n, multiply by 1.2 12. If sex is not provided, and t he patient is fema le, multiply by 0.7 42. Results for pat ients <18 years of ag e have not been validated by th e MDRD study and should be interpreted wit h caution. eGFR R esult Interpretation: eGFR > or = 60 is in the Normal RangeeGF R < 60 may mean kid joce diseaseeGFR < 1 5 may mean kidney failure Rang es recommended by the National Kidney Foundation, http://nkdep.ni h.gov Alcohol [id number] 22:31:18 Test Item Value Reference Range Interpretation Comments Ethanol Level (test <0.00 g/dL 0.00-0.01 Intoxica rosa 0.080 g/dL code = Ethanol or more Level) Ethanol Inst (test <0 N code = Ethanol Inst) Comprehensive Metabolic [id number] 22:31:18 Test Item Value Reference Range Interpretation Comments Sodium Level (test 138.0 mmol/L 135.0-145.0 code = Sodium Level) Potassium Level 4.2 mmol/L 3.5-5.1 (test code = Potassium Level) Chloride Level (test 98 mmol/L 98-105 code = Chloride Level) CO2 (test code = 24 mmol/L 22-29 CO2) Anion Gap (test code 16 mmol/L 7-16 = Anion Gap) BUN (test code = 18.60 mg/dL 6.00-20.00 BUN) Creatinine Level 1.00 mg/dL 0.70-1.20 (test code = Creatinine Level) BUN/Creat Ratio 19 N (test code = BUN/Creat Ratio) Glucose Level (test 117 mg/dL 70-115 H code = Glucose Level) Calcium Level (test 9.2 mg/dL 8.3-10.5 code = Calcium Level) Alk Phos (test code 128 U/L 40-129 = Alk Phos) Bilirubin Total 0.2 mg/dL 0.1-0.9 (test code = Bilirubin Total) Albumin Level (test 4.5 g/dL 3.5-5.2 code = Albumin Level) Protein Total (test 7.4 g/dL 6.4-8.3 code = Protein Total) ALT (test code = 158 U/L 1-41 H ALT) AST (test code = 82 U/L 1-40 H AST) Globulin (test code 2.9 g/dL 2.9-3.1 = Globulin) A/G Ratio (test code 1.6 ratio N = A/G Ratio) eGFR AA (test code = >60 N eGFR (e stimated eGFR AA) mL/min/1.73 m2 Glomerular Filtration Rate ) is an estimated va lue, calculated from the patient's serum creatinine usin g the MDRD equation. It is NOT the patient 's actual GFR. The eGFR provides a more clinically usef ul measure of kidn ey disease than se rum creatinine alone.This calculation ravi es sex and race in to account, if the information is provided. If th e race is not provided, and t he patient is -Caryn n, multiply by 1.2 12. If sex is not provided, and t he patient is fema le, multiply by 0.7 42. Results for pat ients <18 years of ag e have not been validated by [facility] MDRD study and should be interpreted wit h caution. eGFR R esult Interpretation: eGFR > or = 60 is in the Normal RangeeGF R < 60 may mean kid joce diseaseeGFR < 1 5 may mean kidney failure Rang es recommended by the National Kidney Foundation, http://nkdep.ni h.gov eGFR Non-AA (test >60.00 N eGFR (courtney mated code = eGFR Non-AA) mL/min/1.73 m2 Glomer ular Filtration Rate ) is an estimated va lue, calculated from the patient's serum creatinine usin g the MDRD equation. It is NOT the patient 's actual GFR. The eGFR provides a more clinically usef ul measure of kidn ey disease than se rum creatinine alone.This calculation ravi es sex and race in to account, if the information is provided. If th e race is not provided, and t he patient is -Caryn n, multiply by 1.2 12. If sex is not provided, and t he patient is fema le, multiply by 0.7 42. Results for pat ients <18 years of ag e have not been validated by [facility] MDRD study and should be interpreted wit h caution. eGFR R esult Interpretation: eGFR > or = 60 is in the Normal RangeeGF R < 60 may mean kid joce diseaseeGFR < 1 5 may mean kidney failure Rang es recommended by the National Kidney Foundation, http://nkdep.ni h.gov Urinalysis with Culture, if [id number] 22:23:40 Test Item Value Reference Range Interpretation Comments UA Color (test code = UA Color) YELLO Yellow UA Appear (test code = UA CLEAR Clear Appear) UA pH (test code = UA pH) 7.0 UA Spec Grav (test code = UA 1.025 1.001-1.035 Spec Grav) UA Glucose (test code = UA NEG Negative Glucose) UA Bili (test code = UA Bili) NEG Negative UA Ketones (test code = UA 5 mg/dL Negative Ketones) UA Blood (test code = UA Blood) NEG Negative UA Protein (test code = UA NEG Negative Protein) UA Urobilinogen (test code = UA .2 mg/dL >0.2 Urobilinogen) UA Nitrite (test code = UA NEG Negative Nitrite) UA Leuk Est (test code = UA NEG Negative Leuk Est) UA Micro Ind? (test code = UA Not Indicated Not Indicated Micro Ind?) Complete Blood Count with [id number] 22:22:09 Test Item Value Reference Range Interpretation Comments WBC (test code = WBC) 6.5 x10 4.4-10.5 RBC (test code = RBC) 5.27 x10 4.10-5.70 Hgb (test code = Hgb) 15.7 g/dL 13.4-17.4 MCV (test code = MCV) 89.90 fL 80.00-100.00 Hct (test code = Hct) 47.4 % 38.7-52.0 MCHC (test code = 33.10 g/dL 32.00-37.50 MCHC) RDW CV (test code = 12.1 % 11.5-14.5 RDW CV) MCH (test code = MCH) 29.8 pg 27.0-32.5 Platelets (test code = 212.0 x10 140.0-440.0 Platelets) MPV (test code = MPV) 11.0 fL N Slide Review (test Auto Auto Result cr eated by code = Slide Review) GL_SJM_ SLIDE_REV_AUTO nRBC (test code = 0 N nRBC) NRBC Abs (test code = 0.00 x10 N NRBC Abs) IPF (test code = IPF) 0 % N Automated [id number] 22:22:09 Test Item Value Reference Range Interpretation Comments Neutro Auto (test code = Neutro 50.2 % 36.0-70.0 Auto) Lymph Auto (test code = Lymph Auto) 35.5 % 12.0-44.0 [place] Auto (test code = [place] Auto) 8.0 % 0.0-11.0 Eos, Auto (test code = Eos, Auto) 4.3 % 0.0-7.0 Basophil Auto (test code = Basophil 0.5 % 0.0-2.0 Auto) Neutro Absolute (test code = Neutro 3.3 x10 1.6-7.4 Absolute) Lymph Absolute (test code = Lymph 2.32 x10 .50-4.60 Absolute) [place] Absolute (test code = [place] .52 x10 .00-1.20 Absolute) Eos Absolute (test code = Eos 0.28 x10 0.00-0.74 Absolute) Baso Absolute (test code = Baso 0.03 x10 0.00-0.21 Absolute) IG [id number] 22:22:09 Test Item Value Reference Range Interpretation Comments IG (test code = IG) 1.5 % 0.0-5.0 IG Abs (test code = IG Abs) 0 x10 N XR ELBOW RIGHT COMPLETE 3 [id number] 19:16:48LOCATION: [id number]: 23-year-old male who presents with right elbow pain.COMMENT:Frontal, oblique, a nd lateral radiographs of the right elbow are compared to aprior study of 01/01/19.There is orthopedic hardware along the proximal ulna. There is no radiographicevidence of hardware failure, and the distal humerus and proximal radius areintact. No effusion is seen within the elbow joint space.IMPRESSIO N:Postoperative changes are seen in this patient's proximal right humerus. Noacute findings seen.XR ELBOW RIGHT COMPLETE 3 [id number] 01:27:53 LOCATION: [id number]: 23-year-old male who presents with a trauma history [...] changed from the study obtained one day ago.XR ELBOW RIGHT COMPLETE 3 [id number] 11:19:03EXAMINATION: XR ELBOW RIGHT COMPLETE 3 VIEWS.LOCATION: D4.HISTORY: R elbow s/p fracture.COMPARISON:None.TECHNIQUE: AP, lateral, and oblique views of the right elbow were obtained.FINDINGS:There is an acute nondisplaced fracture of the olecranon with extension to thehumeroulnar joint. Soft tissue structures appear intact.IMPRESSION:Acute nondisplaced fracture of the olecranon with extension to the humeroulnarjoint.
[2020-05-26] MEDS ORDERED: LEVETIRACETAM 500 MG/5 ML VIAL IV ONE (23:19)
[2020-05-26] MEDS ORDERED: NA CHLORIDE 0.9% 100 ML ONE (23:21)
[2020-05-26 23:37] LABS: Absolute Lymphocytes (CBC) 2.2 K/uL (0.7-4.9); Basophils % 0.8 % (0-1.3); Lymphocytes % 30.1 % (15.3-44.8); MPV 9.4 fL (7.6-11.3); RBC Red Blood Cell Count 5.02 M/uL (4.33-5.43)
[2020-05-26] MEDS ORDERED: LORazepam 2 MG/ML VIAL ONE (23:53)
[2020-05-26 23:54] LABS: BUN Blood Urea Nitrogen 10 mg/dL (7-18); Bicarbonate 27 mmol/L (21-32); Glucose Level 97 mg/dL (74-106); Phenytoin (Dilantin) Level 0.8 ug/mL (10.0-20.0); Potassium 3.2 mmol/L (3.5-5.1); Sodium Level 140 mmol/L (136-145)
--- NOTE | 2020-05-27 01:32 | ER ---
Nurse's Notes [facility] Name: Douglas Aguirre Age: 25 yrs Sex: Male : 1995 Arrival Date: 05/26/2020 Time: 22:23 Bed 26 Private MD: Diagnosis: Epilepsy and recurrent seizures Presentation: 05/26 22:24 Chief complaint: EMS states: Pt called and stated had a seizure while asleep. Pt was vg1 able to ambulate to the EMS and was AOx4. Once placed on gurney pt began seizing. Coronavirus screen: Client denies travel out of the [place] in the last 14 days. Ebola Screen: Patient negative for fever greater than or equal to 101.5 degrees Fahrenheit, and additional compatible Ebola Virus Disease symptoms. Initial Sepsis Screen: Does the patient meet any 2 criteria? No. Patient's initial sepsis screen is negative. Does the patient have a suspected source of infection? No. Patient's initial sepsis screen is negative. Risk Assessment: Do you want to hurt yourself or someone else? Patient reports no desire to harm self or others. Onset of symptoms was May 26, 2020. 22:24 Method Of Arrival: EMS: [facility] vg1 22:24 Acuity: MARCELO 2 vg1 Triage Assessment: 05/27 00:45 General: Appears in no apparent distress. dm5 Historical: - Allergies: 05/26 22:27 No Known Allergies; vg1 - Home Meds: 22:27 Adderall XR Oral [Active]; Depakote Oral [Active]; Seroquel Oral [Active]; vg1 - PMHx: 22:27 Seizures; vg1 - Immunization history:: Adult Immunizations up to date. - Social history:: Smoking status: Reported history of juuling and/or vaping. Screenin:28 Abuse screen: Denies threats or abuse. Nutritional screening: No deficits noted. vg1 Tuberculosis screening: No symptoms or risk factors identified. Fall Risk No fall in past 12 months (0 pts). No secondary diagnosis (0 pts). IV access (20 points). Ambulatory Aid- None/Bed Rest/Nurse Assist (0 pts). Gait- Normal/Bed Rest/Wheelchair (0 pts) Mental Status- Oriented to own ability (0 pts). Total Torres Fall Scale indicates No Risk (0-24 pts). Assessment: 22:27 General: Appears in no apparent distress. uncomfortable, Behavior is calm, cooperative. vg1 Pain: Complains of pain in whole body Pain currently is 10 out of 10 on a pain scale. Pain began 1 hour ago. Neuro: Level of Consciousness is awake, alert, obeys commands, Oriented to person, place, time, situation. Cardiovascular: Patient's skin is warm and dry. Respiratory: Airway is patent Respiratory effort is even, unlabored, Respiratory pattern is regular, symmetrical. GI: Abdomen is flat. : No signs and/or symptoms were reported regarding the genitourinary system. EENT: No signs and/or symptoms were reported regarding the EENT system. Derm: Skin is intact, is healthy with good turgor. Musculoskeletal: Circulation, motion, and sensation intact. 23:21 Reassessment: Patient appears in no apparent distress at this time. Patient and/or vg1 family updated on plan of care and expected duration. Pain level reassessed. Patient is alert, oriented x 3, equal unlabored respirations, skin warm/dry/pink. 23:31 Reassessment: Pt is actively seizing. Provider notified. vg1 23:40 Reassessment: Received VO from DARWIN Ac to administer Ativan 2 mg IVP x1. vg1 05/27 02:00 Reassessment: Patient appears in no apparent distress at this time. Patient and/or dm5 family updated on plan of care and expected duration. Pain level reassessed. Patient is alert, oriented x 3, equal unlabored respirations, skin warm/dry/pink. pt appears to be resting comfortably. attempted to call family to come get the patient but there was no one available. 03:10 Reassessment: Patient appears in no apparent distress at this time. Patient and/or dm5 family updated on plan of care and expected duration. Pain level reassessed. Patient is alert, oriented x 3, equal unlabored respirations, skin warm/dry/pink. pt appears to be resting comfortably. Attempted to contact family with number provided by patient. Not a good number. 03:10 Reassessment: Patient appears in no apparent distress at this time. Patient and/or dm5 family updated on plan of care and expected duration. Pain level reassessed. Patient is alert, oriented x 3, equal unlabored respirations, skin warm/dry/pink. 07:00 Reassessment: Report received from Kayleen Boland RN. Pt is currently homeless, will let pt aa5 rest and d/c home later. . 07:15 Reassessment: Pt resting in bed with eyes closed, respirations even and unlabored. . aa5 08:20 Reassessment: Patient is alert, oriented x 3, equal unlabored respirations, skin aa5 warm/dry/pink. Pt given breakfast tray.. 09:00 Reassessment: Pt resting with eyes closed, easy to awake to verbal stimuli. Pt now aa5 sitting up in bed eating breakfast. Pt states he will contact ride home now but his phone is "", planer hand provided and phone charging at this time. . 09:10 Reassessment: Pt ambulatory with steady gait to restroom . aa5 09:50 Reassessment: Pt found lying on floor in prone position, pt's room close to nurse's aa5 station but fall was unwitnessed. Pt's arms and legs noted to be stiff, pt with eyes open and able to follow me with his eyes, O2 sat 97% RA, equal and unlabored respirations, episode lasted approximately 30 seconds, pt became alert and oriented x 4 right after episode. Pt was helped up from the floor and placed back in bed. Inspected for possible injuries but no injuries were noted. Pt now using his cell phone and calling ride home. Dr. Gonzales (ER doctor at this time) notified of episode.. 10:00 Reassessment: Patient is alert, oriented x 3, equal unlabored respirations, skin aa5 warm/dry/pink. Vital Signs: 05/26 22:24 BP 130 / 81; Pulse 95; Resp 20; Temp 97.9; Pulse Ox 100% ; Weight 77.11 kg; Height 5 vg1 ft. 6 in. (167.64 cm); Pain 10/10; 23:20 BP 119 / 75; Pulse 83; Resp 16; Pulse Ox 97% on R/A; vg1 05/27 03:05 BP 93 / 64; Pulse 70; Resp 18; Pulse Ox 94% ; dm5 07:00 BP 99 / 76; Pulse 69; Resp 16 S; Pulse Ox 96% on R/A; aa5 08:00 BP 108 / 61; Pulse 73; Resp 16 S; Pulse Ox 95% on R/A; aa5 10:00 BP 110 / 64; Pulse 75; Resp 18 S; Temp 98.2(TE); Pulse Ox 97% on R/A; aa5 05/26 22:24 Body Mass Index 27.44 (77.11 kg, 167.64 cm) vg1 [place] Coma Score: 05/26 22:29 Eye Response: spontaneous(4). Verbal Response: oriented(5). Motor Response: obeys vg1 commands(6). Total: 15. 05/27 00:45 Eye Response: spontaneous(4). Verbal Response: oriented(5). Motor Response: obeys dm5 commands(6). Total: 15. ED Course: 05/26 22:23 Patient arrived in ED. vg1 22:24 [facility] Pat[facility]C [facility]. kb 22:24 Tj Kwok MD is Attending Physician. kb 22:26 Triage completed. vg1 22:28 Fall risk band placed. Bed in low position. Call light in reach. Side rails up X2. vg1 Seizure precautions initiated. 22:29 Arm band placed on. vg1 22:59 Roslyn Abarca, RN is Primary Nurse. vg1 23:00 CT Head C Spine In Process Unspecified. EDMS 23:07 Inserted saline lock: 20 gauge in right forearm, using aseptic technique. Blood dh4 collected. 05/27 04:35 Kayleen Reyes, RN is Primary Nurse. dm5 10:00 No provider procedures requiring assistance completed. IV discontinued, intact, aa5 bleeding controlled, No redness/swelling at site. Pressure dressing applied. Administered Medications: 05/26 23:13 Drug: Keppra 1000 mg Route: IV; Rate: calculated rate; Site: right forearm; vg1 23:31 Follow up: IV Status: Completed infusion vg1 23:41 Drug: Ativan 2 mg Route: IVP; Site: right forearm; vg1 05/27 01:05 Follow up: Response: No adverse reaction vg1 Outcome: 00:59 Discharge ordered by . kb 10:00 Discharged to home ambulatory. aa5 10:00 Condition: stable 10:00 Discharge instructions given to patient, Instructed on discharge instructions, follow up and referral plans. medication usage, Demonstrated understanding of instructions, follow-up care, medications, Prescriptions given X 1. 10:10 Patient left the ED. aa5 Signatures: Dispatcher [employer] EDLorri Lara, CRUISE AGENT-C CRUISE AGENT-Kayleen Suresh, RN RN dm5 Sydnee Woods, RN RN aa5 Dejan Muñoz 4 Roslyn Abarca, RN RN vg1 Corrections: (The following items were deleted from the chart) 11:11 09:50 Reassessment: Pt found lying on floor in prone position, pt's room close to aa5 nurse's station but fall was unwitnessed. Pt's arms and legs noted to be stiff, pt with eyes open and able to follow me with his eyes, lasted approximately 30 seconds, pt became alert and oriented x 4 right after episode. Pt was helped up from the floor and placed back in bed. Inspected for possible injuries but no injuries were noted. Pt now using his cell phone and calling ride home. Dr. Gonzales (ER doctor at this time) notified of episode.. aa5
--- NOTE | 2020-05-27 01:33 | EDPHYS ---
Physician Documentation [facility] Name: Douglas Aguirre Age: 25 yrs Sex: Male : 1995 Arrival Date: 05/26/2020 Time: 22:23 Bed 26 Private MD: ED Physician Tj Kwok HPI: 05/26 23:05 This 25 yrs old Male presents to ER via EMS with complaints of Seizure. kb 23:05 The patient presents after having a single isolated seizure. Character of seizure(s): kb Loss of consciousness: the patient did not lose consciousness, Motor activity: blank stare, Incontinence: none, Apnea: the patient did not experience apnea, Circulation: the patient did not experience evidence of pulse disturbance, Eye movements: the eyes did not move. Seizure onset: just prior to arrival. Context: the seizure(s) was witnessed, by EMS personnel, occurred while the patient was lying down, Contributing factors: missed recent doses of medications. Seizure Hx: Original onset: 8 year(s) ago, Cause: synthetic marijuana, Last seizure: The patient's last seizure was approximately 2 month(s) ago, Seizure medications: Keppra, phenytoin. Associated injury: The patient did not suffer any apparent associated injury. Current symptoms: Currently, the patient is not experiencing any symptoms. The patient has not experienced similar symptoms in the past. The patient has not recently seen a physician. Pt has been out of his meds for 3 days, he felt like he was going to have a seizure so he called 911. Pt walked to the ambulance and then had a seizure that lasted until arrival at ER. Pt was reacting to stimuli in route per EMS, sats maintained at 97%, pt had blank stare. Pt came out of seizure and was able to answer all questions without any postictle period. Historical: - Allergies: 22:27 No Known Allergies; vg1 - Home Meds: 22:27 Adderall XR Oral [Active]; Depakote Oral [Active]; Seroquel Oral [Active]; vg1 - PMHx: 22:27 Seizures; vg1 - Immunization history:: Adult Immunizations up to date. - Social history:: Smoking status: Reported history of juuling and/or vaping. ROS: 23:04 Constitutional: Negative for fever, chills, and weight loss, Cardiovascular: Negative kb for chest pain, palpitations, and edema, Respiratory: Negative for shortness of breath, cough, wheezing, and pleuritic chest pain, Abdomen/GI: Negative for abdominal pain, nausea, vomiting, diarrhea, and constipation, MS/Extremity: Negative for injury and deformity, Skin: Negative for injury, rash, and discoloration. 23:04 Constitutional: Positive for body aches. 23:04 Neuro: Positive for seizure activity. Exam: 23:04 Constitutional: This is a well developed, well nourished patient who is awake, alert, kb and in no acute distress. Head/Face: Normocephalic, atraumatic. Cardiovascular: Regular rate and rhythm with a normal S1 and S2. No gallops, murmurs, or rubs. No pulse deficits. Respiratory: Respirations even and unlabored. No increased work of breathing, no retractions or nasal flaring. Abdomen/GI: Soft, non-tender. No distention Skin: Warm, dry with normal turgor. Normal color. MS/ Extremity: Pulses equal, no cyanosis. Neurovascular intact. Full, normal range of motion. Neuro: Awake and alert, GCS 15, oriented to person, place, time, and situation. Moves all extremities. Normal gait. Vital Signs: 22:24 BP 130 / 81; Pulse 95; Resp 20; Temp 97.9; Pulse Ox 100% ; Weight 77.11 kg; Height 5 vg1 ft. 6 in. (167.64 cm); Pain 10/10; 23:20 BP 119 / 75; Pulse 83; Resp 16; Pulse Ox 97% on R/A; vg1 05/27 03:05 BP 93 / 64; Pulse 70; Resp 18; Pulse Ox 94% ; dm5 07:00 BP 99 / 76; Pulse 69; Resp 16 S; Pulse Ox 96% on R/A; aa5 08:00 BP 108 / 61; Pulse 73; Resp 16 S; Pulse Ox 95% on R/A; aa5 10:00 BP 110 / 64; Pulse 75; Resp 18 S; Temp 98.2(TE); Pulse Ox 97% on R/A; aa5 05/26 22:24 Body Mass Index 27.44 (77.11 kg, 167.64 cm) vg1 [place] Coma Score: 05/26 22:29 Eye Response: spontaneous(4). Verbal Response: oriented(5). Motor Response: obeys vg1 commands(6). Total: 15. 05/27 00:45 Eye Response: spontaneous(4). Verbal Response: oriented(5). Motor Response: obeys dm5 commands(6). Total: 15. MDM: 05/26 22:24 Patient medically screened. kb 23:05 Data reviewed: vital signs, nurses notes. Data interpreted: Pulse oximetry: on room air kb is 100 %. Interpretation: normal. 05/27 00:49 Counseling: I had a detailed discussion with the patient and/or guardian regarding: the kb historical points, exam findings, and any diagnostic results supporting the discharge/admit diagnosis, lab results, radiology results, the need for outpatient follow up, a neurologist, to return to the emergency department if symptoms worsen or persist or if there are any questions or concerns that arise at home. 01:09 ED course: Pt states he is tired and needs some sleep. He will try to get a hold of kb someone to pick him up and will follow up with neuro next week. 05/26 22:25 Order name: CBC with Diff; Complete Time: 23:50 kb 05/26 22:25 Order name: Basic Metabolic Panel; Complete Time: 23:56 kb 05/26 22:25 Order name: Dilantin; Complete Time: 23:56 kb 05/26 22:25 Order name: CT Head C Spine kb 05/26 22:25 Order name: IV Start; Complete Time: 23:07 kb 05/26 23:04 Order name: Misc. Order: Call [facility] for pt home med list; Complete Time: 23:18 kb Administered Medications: 05/26 23:13 Drug: Keppra 1000 mg Route: IV; Rate: calculated rate; Site: right forearm; vg1 23:31 Follow up: IV Status: Completed infusion vg1 23:41 Drug: Ativan 2 mg Route: IVP; Site: right forearm; vg1 05/27 01:05 Follow up: Response: No adverse reaction vg1 Disposition: 23:21 Co-signature as Attending Physician, Tj Kwok MD. [email or web address] Disposition: 05/27/20 00:59 Discharged to Home. Impression: Epilepsy and recurrent seizures. - Condition is Stable. - Discharge Instructions: Seizure, Adult, [id number]. - Prescriptions for Keppra 500 mg Oral Tablet - take 1 tablet by ORAL route every 12 hours; 20 tablet. - Medication Reconciliation Form, Thank You Letter, Antibiotic Education, Prescription Opioid Use form. - Follow up: Emergency Department; When: As needed; Reason: Worsening of condition. Follow up: Private Physician; When: 2 - 3 days; Reason: Recheck today's complaints, Continuance of care, Re-evaluation by your physician. Signatures: Dispatcher [employer] EDLA Lorri Patel, ESTEBAN-C ESTEBAN-Sydnee Rowan, RN RN aa5 Roslyn Abarca RN RN vg1 Tj Kwok MD MD [email or web address] Corrections: (The following items were deleted from the chart) 10:10 00:59 05/27/2020 00:59 Discharged to Home. Impression: Epilepsy and recurrent seizures. aa5 Condition is Stable. Forms are Medication Reconciliation Form, Thank You Letter, Antibiotic Education, Prescription Opioid Use. Follow up: Emergency Department; When: As needed; Reason: Worsening of condition. Follow up: Private Physician; When: 2 - 3 days; Reason: Recheck today's complaints, Continuance of care, Re-evaluation by your physician. kb
[2020-05-27 10:16] VITALS: TEMP 97.9
[2020-05-27 10:21] VITALS: BP 108/61; O2SAT 95
--- NOTE | 2020-05-27 13:01 | RAD REPORT ---
EXAM DESCRIPTION: Head C Spine Mpr Wo Con 05/26/2020 11:05 PM CDT CLINICAL HISTORY: 25 years, Male, PAIN COMPARISON: 12/03/2017. FINDINGS: Multiple transaxial tomograms of the brain were obtained from the base of the skull to the vertex without contrast. 2-D multiplanar reformats and the coronal and sagittal plane were performed and reviewed. An individualized dose optimization technique, Automated Exposure Control, was utilized for the perfo rmed procedure. Brain parenchyma as well as the paiz and white matter differentiation demonstrate to be unremarkable. There is no midline shift and/or mass effect. There is no evidence for acute hemorrhage and/or infar ction. Lateral ventricles and cisterns displace normal appearance. No intra or extra axial fluid collections were seen. The calvarium is intact with no evidence for fracture. The visualized portions of the paranasal sinuses and orbits demonstrate to be clear. IMPRESSION: NO ACUTE INTRACRANIAL HEMORRHAGE. UNREMARKABLE CT SCAN OF THE HEAD WITHOUT CONTRAST. NO SIGNIFICANT INTERVAL CHANGE. Electronically signed by: Jacob Romero MD 05/26/2020 11:06 PM CDT Due to temporary technical issues with the PACS/Fluency reporting system, reports are being signed by the in house radiologist without review as a courtesy to ensure prompt reporting. The interpreting r adiologist is fully responsible for the content of the report.
== END 2020-05-27 10:10 | disposition home or self-care (01) ==
LOC: ER 22:16
DX: G40.802 Other epilepsy, not intractable, without status epilepticus (principal)
CPT/HCPCS: 36415; 70450; 72125; 80048; 80185; 85025; 96365; 96375; 99284; J1953

== ENCOUNTER 2021-12-31 13:47 | Emergency (ER) | payer SELFPAY ==
--- OUTSIDE RECORDS SUMMARY | 2021-12-31 14:07 | XMS REPORT | Continuity of Care Document ---
:1995 Author Organization [facility] t Address [address] [place] [address] Care Team Providers Name Role Phone Asked, No Pcp Primary Care Physician Unavailable Td Galicia Attending Clinician Unavailable Syed Rodas Attending Clinician Unavailable Bhavik Witt Attending Clinician Unavailable Rafael Marion Attending Clinician Unavailable Rafael Marion Attending Clinician Unavailable Aurelio Zamarripa Attending Clinician Unavailable Aurelio Zamarripa Attending Clinician Unavailable Aurelio Zamarripa Attending Clinician Unavailable Ian Kim Attending Clinician Unavailable Taras Costa Attending Clinician Unavailable Milagro Ingram Attending Clinician Unavailable Shine Nolan Attending Clinician SHINE NOLAN Attending Clinician Unavailable Micah Galvez Attending Clinician IMCAH GALVEZ Attending Clinician Unavailable Heather Morton Attending Clinician HEATHER MORTON Attending Clinician Unavailable Charles Kirkland Attending Clinician CHARLES KIRKLAND Attending Clinician Unavailable ONOFRE ANDREWS Attending Clinician Unavailable DORIAN HAYNES Attending Clinician Unavailable Dorian Haynes Attending Clinician AMBREENIVAN Attending Clinician Unavailable Josh Zavala Attending Clinician Rosamaria Peters Attending Clinician John Sue Attending Clinician Martin Roldan Attending Clinician Dk Pal Attending Clinician Biju León Attending Clinician Unavailable Biju León Attending Clinician Unavailable Td Galicia Attending Clinician Unavailable Td Galicia Attending Clinician Unavailable Jarrod Sawant Attending Clinician Unavailable Jarrod Sawant Attending Clinician Unavailable Jovan Jaquez Attending Clinician Hazel Valdez Attending Clinician MD REED SIFUENTES Attending Clinician Unavailable REED SIFUENTES Attending Clinician Unavailable DR DUNCAN ANN Attending Clinician Unavailable DR BALDO SALOMON Attending Clinician Unavailable Jeremias Hill Attending Clinician Unavailable Jeremias Hill Attending Clinician Unavailable Velma Attending Clinician Unavailable DR JEREMIAH FARIAS Attending Clinician Unavailable DR ALBERTO ZAMARRIPA Attending Clinician Unavailable DR SAMANTHA ZAMARRIPA Attending Clinician Unavailable DR JENNIFER STOREY Attending Clinician Unavailable DR VALENTIN BOWER Attending Clinician Unavailable Marcelle Reyes Admitting Clinician Unavailable Syed Rodas Admitting Clinician Unavailable Bhavik Witt Admitting Clinician Unavailable Rafael Marion Admitting Clinician Unavailable Aurelio Zamarripa Admitting Clinician Unavailable Physician, No Primary or Family Admitting Clinician UnavailAlexandrea Staley Admitting Clinician Unavailable Milagro Ingram Admitting Clinician Unavailable Shine Nolan Admitting Clinician SHINE NOLAN Admitting Clinician Unavailable Charles Kirkland Admitting Clinician CHARLES KIRKLAND Admitting Clinician Unavailable Onofre Andrews Admitting Clinician ONOFRE ANDREWS Admitting Clinician Unavailable THAOHANNAH Admitting Clinician Unavailable Biju León Admitting Clinician Unavailable Jarrod Sawant Admitting Clinician Unavailable MD REED SIFUENTES Admitting Clinician Unavailable DR DUNCAN ANN Admitting Clinician Unavailable SALOMON, DR BLAND Admitting Clinician Unavailable Jeremias Hill Admitting Clinician Unavailable Velma Admitting Clinician Unavailable DR JEREMIAH FARIAS Admitting Clinician Unavailable MARILOU, DR DOMINGUEZ Admitting Clinician Unavailable DR SAMANTHA ZAMARRIPA Admitting Clinician Unavailable DR JENNIFER STOREY Admitting Clinician Unavailable DR VALENTIN BOWER Admitting Clinician Unavailable Payers Payer Name Policy Type Policy Number Effective Date Expiration Date Teodoro VELASCO [id number] 2019 [employer] 00:00:00 00:00:00 Problems Condition Condition Condition Status Onset Resolution Last Treating Co mments Source Name Details Category Date Date Treatment Clinician Date SEIZURES SEIZURES Diagnosis Active 2020-08-21 Memoria Active 08-20 15:21:00 l 08/20/2020 00:00: Ferny orellana [address] SEIZURE SEIZURE Diagnosis Active 2020-08-29 Memoria Active 08-19 21:54:00 l 08/19/2020 00:00: Ferny orellana [address] STATUS STATUS Diagnosis Active 2020-08-24 Me moria EPILEPTICU EPILEPTICU 6- 21:43:00 l S S Active 00:00: Mario 08/17/[address] [place] [address] RECURRENT Diagnosis Active 2020-08-09 Memoria SEIZURES RECURRENT -21 21:43:00 l SEIZURES 00:00: Mario Active 00 07/28/2020 [facility] BREAKTHROU BREAKTHRO Diagnosis [facility] 4-14 21:56:00 l SEIZURE 00:00: [place] Active 00 06/21/2020 [facility] PSYCH PSYCH Diagnosis Active 2020-03-30 Mem oria SYMPTOMS SYMPTOMS 1-10 22:05:00 l Active 00:00: [place] 03/19/2020 00 [facility] Epilepsy Epilepsy Problem Resolve 2020-08-28 Memoria (disorder) (disorder) d 06:19:38 l Resolved Mario Problem 08/28/2020 [facility], [facility] Posttrauma Posttraum Problem Resolve 2020-08-28 Memoria tic stress atic d 06:19:38 l disorder stress Mario (disorder) disorder (disorder) Resolved Problem 08/28/2020 [facility], [facility] EPILEPSY, EPILEPSY, Diagnosis Active 2020-07-06 Memoria UNSP, UNSP, 21:56:00 l INTRACTABL INTRACTABL He rmann E, WITHOUT E, WITHOUT STA STA Active [facility] History of Past Illness Condition Condition Condition Status Onset Resolution Last Treating Co mments Source Name Details Category Date Date Treatment Clinician Date Altered Altered Problem 2020-08-22 2020-08-22 Memoria mental mental 08-20 22:03:38 22:03:38 l status, status, 17:00: [place]ola unspecifie unspecifie 00 d d 08/20/2020 08/22/2020 [facility] 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 08-19 21:02:53 21:02:53 l with with 17:00: Mario seizures seizures 00 or or convulsion convulsion s s 08/19/2020 [facility] Epilepsy, Epilepsy, Problem 2020-08-19 2020-08-19 Memoria unspecifie unspecifie 08-16 21:03:07 21:03:07 l d, not d, not 17:00: Mario intractabl intractabl 00 e, with e, with status status epilepticu epilepticu s s 08/16/2020 08/19/2020 [facility] Epilepsy, Epilepsy, Problem 2020-06-22 2020-06-22 Memoria unspecifie unspecifie 06-19 21:10:09 21:10:09 l d, not d, not 17:00: [place] intractabl intractabl 00 e, without e, without status status epilepticu epilepticu s s 06/19/2020 1 [facility], [facility] Unspecifie Unspecifi Problem 2020-03-23 2020-03-23 Memoria d ed 03-21 22:08:35 22:08:35 l convulsion convulsion 18:00: He rmann s s 00 03/21/2020 1 [facility], [facility] Epilepsy, Epilepsy, Problem 2020-03-20 2020-03-20 Memoria unspecifie unspecifie 03-18 23:20:55 23:20:55 l d, d, 18:00: Mario intractabl intractabl 00 e, without e, without status status epilepticu epilepticu s s 03/18/2020 03/20/2020 [facility] Dissociati Dissociat Problem 2019-11-01 2019-11-01 Memoria ve and winter and 10-29 22:13:02 22:13:02 l conversion conversion 17:00: He latoya disorder, disorder, 00 unspecifie unspecifie d d 10/30/2019 11/01/2019 [facility] Pneumonia, Pneumonia Problem 2019-10-05 2019-10-05 Memoria unspecifie , 10-01 21:01:16 21:01:16 l d organism unspecifie 17:00: He latoya d organism 00 10/02/2019 10/05/2019 [facility] Finding of Finding Problem 2019-10-03 2019-10-03 Memoria other of other 09-29 21:03:54 21:03:54 l specified specified 17:00: Herm salena substances substances 00 , not , not normally normally found in found in blood blood 09/30/2019 0 [facility] Allergies, Adverse Reactions, Alerts Allergy Allergy Status Severity Reaction(s) Onset Inactive Treating Comm ents Source Name Type Date Date Clinician peanut DA Active U Swelling of 2021-03 [facility] Lip/Tongue/T 0-18 hroat 00:00: 00 peanut DA Active U Swelling of 2021-03 [facility] Lip/Tongue/T 0-15 hroat 00:00: 00 peanut DA Active U Swelling of 2021-03 [facility] Lip/Tongue/T 0-13 hroat 00:00: 00 Unable DA Active U 2021-03 [facility] to 0-12 Assess 00:00: 00 No Known DA Active U 2021-03 [facility] Allergie 0-07 [facility] 00:00: [facility] 00 are [facility] No Known DA Active U [facility] Allergie 9-10 [facility] 00:[facility]: d 00 [facility] No Known DA Active U [facility] Allergie 9-10 [facility] 00:00: d 00 [facility] No Known DA Active Unknown [facility] Allergie 08-11 Medical s 00:00: Center 00 No Known Drug Active [facility] Social History Social Habit Start Date Stop Date Quantity Comments Source Social History 2016-05-27 2016-05-27 [facility] 11:13:36 11:13:36 Sex Assigned At [birth year] [facility] 00:00:00 00:00:00 Smoking Status Start Date Stop Date Source Current Every Day Smoker [facility] Tobacco smoking consumption unknown [facility] Medications Ordered Filled Start Stop Current Ordering Indication Dosage Frequency Signature Comments Components Source Medication Medication Date Date Medication? Clinician (SIG) Name Name quetiapine No Notes: Memor ia 6-15 (Same as: l 02:00: SEROquel) [place] 00 chlorhexidi No Notes: Daniel mariia ne 6-14 (Same As: l gluconate 14:00: Peridex) Herm salena 1.2 MG/ML 00 Mouthwash Saline No Notes: Memoria Flush 0.9% 6-14 (Same as: l 14:00: BD Mario Posiflush) Saline No Notes: Memoria Flush 0.9% 6-14 (Same as: l 04:09: BD Mario 00 Posiflush) Insulin No Notes: Memoria regular 6-14 (Same as: l 04:09: Humulin R) Mario 00 Roll in palms of hands gently; Do not shake vigorously . WASTE: F/P - Black; E - Municipal Trash Bin Stable for 31 days at room temperatur e Expires in days from ____Date D-50-W 2020-0 No 12.5 gm, Memoria 6-14 25 mL, l 04:09: Route: [place] IVP, Drug Form: INJ, Dosing Weight 86.364, kg, PRN, PRN Blood Glucose Results, Start date: 08/20/20 23:09:00 CDT, Duration: 30 day, Stop date: 09/19/20 23:08:00 CDT, 0 Glucagon 2020-0 No 1 mg, Memoria 6-14 Route: IM, l 04:09: Drug form: Mario PDR/INJ, PRN, Dosing Weight 86.364, kg, PRN Blood Glucose Results, Start date: 08/20/20 23:09:00 CDT, Duration: 30 day, Stop date: 09/19/20 23:08:00 CDT, 0 Saline 2020-0 No Notes: Memoria Flush 0.9% 6-13 (Same as: l 20:01: BD [place] 00 Posiflush) 24 HR No 1,500 mg, Memoria Divalproex 6-11 3 tab, l Sodium 500 02:00: Route: PO, H ermann MG Extended 00 Drug form: Release ERTAB, Tablet Bedtime, Dosing Weight 81.818, kg, Start date: 08/17/20 21:00:00 CDT, Duration: 30 day, Stop date: 09/15/20 21:00:00 CDT Seroquel 2020-0 No 100 mg, Memori a 6-11 Route: PO, l 02:00: Drug form: Mario 00 TAB, Bedtime, Start date: 08/17/20 21:00:00 CDT, Duration: 30 day, Stop date: 09/15/20 21:00:00 CDT, 0 QUEtiapine 2020-0 No 200 mg, Daniel mariia extended 6-10 Route: PO, l release 22:00: Drug form: Herm salena ERTAB, QPM, Start date: 08/17/20 17:00:00 CDT, Duration: 30 day, Stop date: 09/15/20 17:00:00 CDT [place] Yes 300 mg = 1 Daniel mariia Carbonate 6-10 tab, PO, l 300 MG Oral 21:46: BID, # 60 H ermann Tablet 00 tab, 1 Refill(s) quetiapine Yes 100 mg = 1 M emoria 100 MG Oral 6-10 tab, PO, l Tablet 21:46: BID, 0 Mario [Seroquel] 00 Refill(s) Hydroxyzine Yes 50 mg = 1 M emoria Hydrochlori 6-10 cap, PO, l de 50 MG 21:45: QID, PRN Latrice nn Oral 00 Anxiety, # Capsule 40 cap, 0 Refill(s) DULoxetine Yes 60 mg = 1 Me moria 60 mg oral 6-10 cap, PO, l delayed 21:45: Daily, # Ferny n release 00 30 cap, 0 capsule Refill(s) Levetiracet Yes 500 mg = 1 Memoria am 500 MG 6-10 tab, PO, l Oral Tablet 21:44: BID, # 60 H ermann [Keppra] 00 tab, 0 Refill(s) Divalproex No 1,000 mg, Me moria Sodium 500 6-10 2 tab, l MG Enteric 17:00: Route: PO, H ermann Coated 00 Drug form: Tablet ECTAB, Q12H, Dosing Weight 81.818, kg, Start date: 08/17/20 12:00:00 CDT, Duration: 30 day, Stop date: 09/16/20 9:00:00 CDT, 0 Divalproex Yes 1,000 mg = M emoria Sodium 500 6-10 2 tab, PO, l MG Enteric 16:36: BID, 0 Latrice nn Coated 00 Refill(s) Tablet QUEtiapine Yes 400 mg = 1 M emoria 400 mg oral 6-10 tab, PO, l tablet 16:35: Bedtime, 0 Latrice nn 00 Refill(s) sterile No Notes: For Daniel mariia water 6-10 reconstitu l 16:28: tion of [place] 00 drugs only Seroquel No Notes: Memoria 6-10 (Same as: l 14:00: SEROquel) chlorhexidi No Notes: Daniel mariia ne 6-10 (Same As: l gluconate 14:00: Peridex) Herm salena 1.2 MG/ML 00 Mouthwash Saline No Notes: Memoria Flush 0.9% 6-10 (Same as: l 14:00: BD Posiflush) Saline No Notes: Memoria Flush 0.9% 6-10 (Same as: l 10:16: BD Posiflush) Insulin No Notes: Memoria regular 6-10 (Same as: l 10:16: Humulin R) Roll in palms of hands gently; Do not shake vigorously . WASTE: F/P - Black; E - Municipal Trash Bin Stable for 31 days at room temperatur e Expires in days from ____Date Dextrose No 12.5 gm, Memor ia 50% Syringe 6-10 25 mL, l (D50W) 10:16: Route: IVP, Drug Form: INJ, Dosing Weight 81.818, kg, PRN, PRN Blood Glucose Results, Start date: 08/17/20 5:16:00 CDT, Duration: 30 day, Stop date: 09/16/20 5:15:00 CDT, 0 Glucagon No 1 mg, Memoria 6-10 Route: IM, l 10:16: Drug form: PDR/INJ, PRN, Dosing Weight 81.818, kg, PRN Blood Glucose Results, Start date: 08/17/20 5:16:00 CDT, Duration: 30 day, Stop date: 09/16/20 5:15:00 CDT, 0 Zyprexa No Notes: Memoria 6-10 (Same As: l 10:12: ZyPREXA IM). Reconstitu te with 2.1 ml sterile water for injection; use within 1 hour after reconstitu tion. For IM use only; do not administer IV or SUB-Q. Lorazepam No 2 mg, Memoria 6-10 Route: l 02:25: IVP, Drug [place] 00 form: INJ, ONCE, Dosing Weight 81.818, kg, Priority: STAT, Start date: 08/16/20 21:25:00 CDT, Stop date: 08/16/20 21:25:00 CDT Dopamine No = 65 mmHg, Mem oria 6-10 Max Dose: l 01:11: 20 [place] 00 microgram/ kg/min, Route: IV, Dosing Weight 81.818 kg, Total Volume: 250, Start date: 08/16/20 20:11:... Ativan No 1 mg, Memoria 6-10 Route: l 00:30: IVP, Drug Mario 00 form: INJ, ONCE, Dosing Weight 81.818, kg, Priority: STAT, Start date: 08/16/20 19:30:00 CDT, Stop date: 08/16/20 19:30:00 CDT Valproic No Notes: Memoria Acid 100 6-10 Dilute in l MG/ML 00:24: at least Mario Injectable 00 50ml D5W Solution or NS. Infusion rate = 20 mg/min (Same As: Depacon) Hazardous Drug Group 3:Reproduc tive risk Hazardous Drug -- Refer to safe handling procedure PPE Matrix Ativan No Notes: Memoria 6-10 (Same as: l 00:22: Ativan) Mario 00 Saline No Notes: Memoria Flush 0.9% 6-10 (Same as: l 00:22: BD [place] 00 Posiflush) Sodium No 1,000 mL, Memori a Chloride 6-10 1,000 l 0.9% 00:22: ml/hr, Leola (Bolus) IV 00 Infuse Over: 1 hr, Route: IV, ONCE, Priority: STAT, Dosing Weight 81.818 kg, Start date: 08/16/20 19:22:00 CDT, Stop date: 08/16/20 19:22:00 CDT 24 HR Yes 1,500 mg = Memori a Divalproex 5-24 3 tab, PO, l Sodium 500 18:56: Bedtime, # H ermann MG Extended 00 90 tab, 0 Release Refill(s) Tablet Acetaminoph No Notes: Do M emoria en 5-24 not exceed l 12:50: 4 gm/day. Leola 00 (Same as: Tylenol) Seroquel No Notes: Memoria 5-23 (Same as: l 16:42: SEROquel) quetiapine No Notes: Memor ia 5-23 (Same as: l 02:00: SEROquel) 24 HR No Notes: Memoria Divalproex 5-23 Hazardous l Sodium 500 02:00: Drug Group H ermann MG Extended 00 2:Non-anti Release neoplastic Tablet Hazardous Drug -- Refer to safe handling procedure PPE Matrix (Same as: Depakote ER) Once daily dosing; indicated for migraines. Divalproex sodium extended-r elease tab. Do not chew or crush. Sodium No 1,000 mL, Memori a Chloride - 1,000 l 0.9% 01:40: ml/hr, Mario (Bolus) IV 00 Infuse Over: 1 hr, Route: IV, 1,000, Drug form: INJ, ONCE, Priority: STAT, Dosing Weight 81.818 kg, Start date: 07/29/20 20:40:00 CDT, Stop date: 07/29/20 20:40:00 CDT, 0 Keppra No Notes: Memoria 5-23 Same as l 01:30: Keppra Mix with 100 mL NS, LR or D5W MEDICATION WASTE Product Size: 500 mg Product Wasted: ___ mg Zyprexa No Notes: Memoria 5-22 (Same As: l 14:51: ZyPREXA IM). Reconstitu te with 2.1 ml sterile water for injection; use within 1 hour after reconstitu tion. For IM use only; do not administer IV or SUB-Q. Valproic No Notes: Memoria Acid 100 5-22 Dilute in l MG/ML 14:36: at least Mario Injectable 00 50ml D5W Solution or NS. Infusion rate = 20 mg/min (Same As: Depacon) Hazardous Drug Group 3:Reproduc tive risk Hazardous Drug -- Refer to safe handling procedure PPE Matrix Valproate No Notes: Memori a 5-22 Dilute in l 14:01: at least 50ml D5W or NS. Infusion rate = 20 mg/min (Same As: Depacon) Hazardous Drug Group 3:Reproduc tive risk Hazardous Drug -- Refer to safe handling procedure PPE Matrix Levetiracet No Notes: Daniel mariia am 500 MG 5-22 (Same l Oral Tablet 14:00: as:Keppra) sennosides, No Notes: Daniel mariia FCI 5-22 (Same as: l 14:00: Senokot) Lorazepam No Notes: Memori a 5-22 (Same as: l 13:54: Ativan) Valproic No 1,636.36 Memor ia Acid 100 5-22 mg, Route: l MG/ML 13:51: IVPB, [place] Injectable 00 ONCE, Solution Dosing Weight 81.818, kg, Priority: STAT, Start date: 07/29/20 8:51:00 CDT, Stop date: 07/29/20 8:51:00 CDT heparin No Notes: Memoria 5-22 porcine l 13:00: heparin Lorazepam No Notes: Memori a 5-22 (Same as: l 09:09: Ativan) Levetiracet Yes 1,500 mg = Memoria am 500 MG 4-16 3 tab, PO, l Oral Tablet 17:26: Q12H, # Her [place] 00 180 tab, 0 Refill(s) 24 HR Yes 1,500 mg = Memori a Divalproex 4-16 3 tab, PO, l Sodium 500 17:25: Bedtime, # H ermann MG Extended 00 90 tab, 0 Release Refill(s) Tablet Depakote No Notes: Memoria 4-16 Hazardous l 02:00: Drug Group 2:Non-anti neoplastic Hazardous Drug -- Refer to safe handling procedure PPE Matrix (Same as: Depakote Delayed Release) Do not confuse with the extended-r elease tablet. Delayed absorption enteric coated tablet. Do not crush quetiapine No Notes: Memor ia 4-16 (Same as: l 02:00: SEROquel) Ativan No Notes: Memoria 4-15 (Same as: l 23:36: Ativan) Aluminum No 200 mg, Memori a Hydroxide 4-15 Route: PO, l 23:00: QID-After Meals, Dosing Weight 81.818, kg, Start date: 06/22/20 18:00:00 CDT, Duration: 30 day, Stop date: 07/22/20 13:00:00 CDT Hydroxyzine No Notes: Daniel mariia Hydrochlori 4-15 (Same as: l de 50 MG 22:00: Atarax) Ferny n Oral Tablet 00 Avoid alcohol. olanzapine No Notes: Memor ia 4-15 (Same as: l 22:00: ZyPREXA ) docusate No Notes: Memoria sodium 150 4-15 (Same as: l mg/15 mL 19:43: Colace) Ferny n oral liquid 00 (Do Not Crush) Keppra No Notes: Memoria 4-15 (Same l 16:39: as:Keppra) magnesium Yes 2.4 gm = Daniel mariia hydroxide 4-15 30 ml, PO, l 8% oral 06:40: ABXQ6H, [place] suspension 00 PRN for constipati on, # 300 ml, 0 Refill(s) OLANZapine Yes 10 mg = 1 Me moria 10 mg oral 4-15 tab, PO, l tablet 06:40: ABXQ6H, # Ferny n 00 30 tab, 0 Refill(s) Aluminum Yes 200 mg, Memori a Hydroxide 4-15 PO, l 06:39: QID-After Meals, 0 Refill(s) QUEtiapine Yes 200 mg = 1 M emoria 200 mg oral 4-15 tab, PO, l tablet 06:38: Bedtime, # Latrice nn 00 30 tab, 1 Refill(s) Acetaminoph Yes 650 mg = 2 Memoria en 325 MG 4-15 tab, PO, l Oral Tablet 06:38: Q4H, PRN He rmann 00 Pain, # 120 tab, 0 Refill(s) OLANZapine No 10 mg = 1 Me moria 10 mg oral 4-15 tab, PO, l tablet 06:37: TID, # 30 Ferny n 00 tab, 0 Refill(s) Levetiracet No 750 mg = 1 Memoria am 750 MG 4-15 tab, PO, l Oral Tablet 06:36: BID, # 60 H ermann 00 tab, 0 Refill(s) Hydroxyzine Yes 50 mg = 1 M emoria Hydrochlori 4-15 tab, PO, l de 50 MG 06:35: TID, 0 Mario Oral Tablet 00 Refill(s) 24 HR No 1,500 mg = Memori a Divalproex 4-15 3 tab, PO, l Sodium 500 06:34: Bedtime, # H ermann MG Extended 00 60 tab, 1 Release Refill(s) Tablet desvenlafax Yes 50 mg = 1 M emoria ine 50 mg 4-15 tab, PO, l oral 06:33: Daily, # Leola tablet, 00 30 tab, 0 extended Refill(s) release Keppra No Notes: Memoria 4-15 (Same l 03:34: as:Keppra) Lorazepam No Notes: Memori a 4-15 (Same as: l 02:55: Ativan) Dextrose No 12.5 gm, Memor ia 50% Syringe 4-15 25 mL, l (D50W) 02:55: Route: IVP, Drug Form: INJ, Dosing Weight 81.818, kg, PRN, PRN Blood Glucose Results, Start date: 06/21/20 21:55:00 CDT, Duration: 30 day, Stop date: 07/21/20 21:54:00 CDT, 0 Glucagon No 1 mg, Memoria 4-15 Route: IM, l 02:55: Drug form: Mario PDR/INJ, PRN, Dosing Weight 81.818, kg, PRN Blood Glucose Results, Start date: 06/21/20 21:55:00 CDT, Duration: 30 day, Stop date: 07/21/20 21:54:00 CDT, 0 Ondansetron No Notes: Daniel mariia 4-15 (Same as: l 02:55: Zofran) MEDICATION WASTE Product Size: 4 mg Product Wasted: ___ mg Melatonin No Notes: Memori a 4-15 (Same as: l 02:55: Melatonin) Acetaminoph No Notes: Do M emoria en 4-15 not exceed l 02:55: 4 gm/day. (Same as: Tylenol) Levetiracet Yes 750 mg = 1 Memoria am 750 MG 4-13 tab, PO, l Oral Tablet 04:33: BID, # 60 H ermann [Keppra] 00 tab, 0 Refill(s) Keppra No 1,000 mg, Memori a 4-13 100 mL, l 01:46: Route: Mario IVPB, Drug form: INJ, ONCE, Dosing Weight 74, kg, Priority: STAT, Start date: 06/19/20 20:46:00 CDT, Stop date: 06/19/20 20:46:00 CDT, 0 Saline No Notes: Memoria Flush 0.9% 4-13 Same as: l 01:45: BD Posiflush Sterile Sodium No 1,000 mL, Memori a Chloride 4-13 1,000 l 0.9% 01:45: ml/hr, Mario (Bolus) IV 00 Infuse Over: 1 hr, Route: IV, 1,000, Drug form: INJ, ONCE, Priority: STAT, Dosing Weight 74 kg, Start date: 06/19/20 20:45:00 CDT, Stop date: 06/19/20 20:45:00 CDT, 0 Saline No Notes: Memoria Flush 0.9% 4-13 Same as: l 01:33: BD Mario 00 Posiflush Sterile Sodium No 1,000 mL, Memori a Chloride 4-13 1,000 l 0.9% 01:33: ml/hr, Le[place] (Bolus) IV 00 Infuse Over: 1 hr, Route: IV, 1,000, Drug form: INJ, ONCE, Priority: STAT, Dosing Weight 74 kg, Start date: 06/19/20 20:33:00 CDT, Stop date: 06/19/20 20:33:00 CDT, 0 ketOROLAC No 4 days Memor ia 15 mg/mL 03-21 l injectable 05:46: MEDICATION H ermann solution 00 WASTE Product Size: 30 mg Product Wasted: 15 mg Flexeril No Notes: Memoria - (Same As: l 05:46: Flexeril) Leola Saline No Notes: Memoria Flush 0.9% 03-21 (Same as: l 05:26: BD [place] 00 Posiflush) Sodium No 1,000 mL, Memori a Chloride -12 1,000 l 0.9% 05:26: ml/hr, Mario (Bolus) IV 00 Infuse Over: 1 hr, Route: IV, 1,000, Drug form: INJ, ONCE, Priority: STAT, Dosing Weight 72.727 kg, 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: 03/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, Stop date: 03/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, 0 Keppra No Notes: Memoria 03-21 Same as l 05:26: Keppra Mix with 100 mL NS, LR or D5W MEDICATION WASTE Product Size: 500 mg Product Wasted: ___ mg Versed No 10 mg, Memoria 03-20 Route: IV, l 04:30: ONCE, [place] 00 Dosing Weight 86.364, kg, Start date: 03/19/20 22:30:00 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, Stop date: 03/19/20 22:30:00 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 Ativan No 2 mg, Memoria 03-20 Route: l 04:04: IVP, Drug form: INJ, ONCE, Dosing Weight 86.364, kg, Priority: STAT, Start date: 03/19/20 22:04:00 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, Stop date: 03/19/20 22:04:00 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 Keppra No 1,000 mg, Memori a 03-20 Route: l 03:32: IVPB, [place] 00 ONCE, Dosing Weight 86.364, kg, Priority: STAT, Start date: 03/19/20 21:32:00 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, Stop date: 03/19/20 21:32:00 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 Sodium 2020-0 No 1,000 mL, Memori a Chloride 03-20 Infuse l 0.9% 03:26: Over: 1 [place]ola (Bolus) IV 00 hr, Route: IV, ONCE, Priority: STAT, Dosing Weight 86.364 kg, Start date: 03/19/20 21:26:00 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, Stop date: 03/19/20 21:26:00 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 Ativan No 1 mg, Memoria 03-20 Route: l 03:26: IVP, Drug form: INJ, ONCE, Dosing Weight 86.364, kg, Priority: STAT, Start date: 03/19/20 21:26:00 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, Stop date: 03/19/20 21:26:00 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 Levetiracet Yes 750 mg = 1 Memoria am 750 MG 1-10 tab, PO, l Oral Tablet 03:45: BID, # 60 H ermann [Keppra] 00 tab, 2 Refill(s) Keppra No Notes: Memoria 1-10 Same as l 02:25: Keppra MEDICATION WASTE Product Size: 500 mg Product Wasted: ___ mg Dilantin No Notes: Memoria 8-24 Hazardous l 01:53: Drug Group 2:Non-anti neoplastic Hazardous Drug -- Refer to safe handling procedure PPE Matrix (Same as: Dilantin) Do not open, crush, or chew. Tylenol No Notes: Do Memor ia 10-30 not exceed l 00:30: 4 gm/day. Mario 00 (Same as: Tylenol) Saline No Notes: [facility] Flush 0.9% 10-29 Same as: l 23:46: BD Posiflush Sterile Levetiracet 2020-0 No 1,000 mg, Kya humphreys am 10-29 100 mL, l 23:46: Route: IVPB, Drug form: INJ, ONCE, Dosing Weight 86.364, kg, Priority: STAT, Start date: 10/30/19 18:46:00 CDT, Stop date: 10/30/19 18:46:00 CDT, 0 Amoxicillin 2020-0 Yes 875 mg = 1 [facility] 875 MG / 10-02 tab, PO, l Clavulanate 04:16: BID, X 7 He rmann 125 MG Oral 00 day, # 14 Tablet tab, 0 [Augmentin Refill(s) 875-mg] Azithromyci 2019-0 Yes See [facility]ori a n 5 Day 10-02 Instructio l Dose Pack 04:16: ns, Take 2 He rmann 250 mg oral 00 tablets by tablet mouth the first day then 1 tablet by mouth days 2-5., X 5 day, # 6 tab, 0 Refill(s) Levetiracet 2019-0 Yes 500 mg = 1 [facility] am 500 MG 10-02 tab, PO, l Oral Tablet 04:15: BID, # 60 H ermann [Keppra] 00 tab, 0 Refill(s) Ceftriaxone 2019-0 No Notes: Daniel mariia 10-02 (Same As: l 03:48: Rocephin). Use with 100 mL NS and infuse over 30 min MEDICATION WASTE Product Size: 1000 mg Product Wasted: ___ mg Keppra 2020-0 No 1,000 mg, Memori a 10-02 100 mL, l 01:45: Route: IVPB, Drug form: INJ, ONCE, Dosing Weight 81.006, kg, Priority: STAT, Start date: 10/02/19 20:45:00 CDT, Stop date: 10/02/19 20:45:00 CDT, 0 Amoxicillin 2020-0 Yes 875 mg = 1 [facility] 875 MG / 09-30 tab, PO, l Clavulanate 02:31: BID, X 10 H ermann 125 MG Oral day, # 20 Tablet tab, 0 [Augmentin Refill(s) 875-mg] Azithromyci 2020-0 Yes See Song a n 5 Day 09-30 Instructio l Dose Pack 02:31: ns, Take 2 He rmann 250 mg oral 00 tablets by tablet mouth the first day then 1 tablet by mouth days 2-5., X 5 day, # 6 tab, 0 Refill(s) Ativan No Notes: [facility] 09-30 (Same as: l 00:48: Ativan) Ativan No Notes: [facility] 09-26 (Same as: l 08:50: Ativan) Keppra No Notes: [facility] 09-26 (Same l 06:39: as:Keppra) Acetaminoph No Notes: Do M emoria en 09-26 not exceed l 06:39: 4 gm/day. (Same as: Tylenol) Immunizations Ordered Immunization Filled Immunization Date Status Commen ts Source Name Name influenza virus 2016-05-28 Completed [facility], inactivated 16:21:00 [facility] Vital Signs Vital Name Observation Time Observation Value Comments Source Height/Length 2019-10-08 23:31:33 Measured Height/Length 2019-10-11 03:34:08 Measured Height/Length 2021-03-27 10:26:49 176.7 cm Measured Weight Dosing 2021-03-27 10:26:49 88.60 kg Height/Length 2021-03-27 10:24:48 176.7 cm Measured Weight Dosing 2021-03-27 10:24:48 88.60 kg Height/Length 2021-03-27 10:14:06 176.7 cm Measured Weight Dosing 2021-03-27 10:14:06 88.60 kg Height/Length 2021-03-27 10:05:38 176.7 cm Measured Weight Dosing 2021-03-27 10:05:38 88.60 kg Height/Length 2021-03-27 10:05:18 176.7 cm Measured Weight Dosing 2021-03-27 10:05:18 88.60 kg Height/Length 2021-03-27 10:04:19 176.7 cm Measured Weight Dosing 2021-03-27 10:04:19 88.60 kg Height/Length 2021-03-27 10:04:09 176.7 cm Measured Weight Dosing 2021-03-27 10:04:09 88.60 kg Height/Length 2021-03-27 10:03:50 176.7 cm Measured Weight Dosing 2021-03-27 10:03:50 88.60 kg Height/Length 2021-03-27 10:03:48 176.7 cm Measured Weight Dosing 2021-03-27 10:03:48 88.60 kg Height/Length 2021-03-27 10:03:38 176.7 cm Measured Weight Dosing 2021-03-27 10:03:38 88.60 kg Height/Length 2021-03-27 10:03:37 176.7 cm Measured Weight Dosing 2021-03-27 10:03:37 88.60 kg Height/Length 2019-06-20 08:53:14 Measured Height/Length 2021-03-27 10:19:58 170.18 cm Measured Weight Dosing 2021-03-27 10:19:58 90.70 kg Height/Length 2021-03-27 10:16:06 170.18 cm Measured Weight Dosing 2021-03-27 10:16:06 90.70 kg Height/Length 2021-03-27 10:03:30 170.18 cm Measured Weight Dosing 2021-03-27 10:03:30 90.70 kg Height/Length 2021-03-27 10:03:11 170.18 cm Measured Weight Dosing 2021-03-27 10:03:11 90.70 kg Height/Length 2021-03-27 10:02:30 170.18 cm Measured Weight Dosing 2021-03-27 10:02:30 90.70 kg Height/Length 2021-03-27 10:01:58 170.18 cm Measured Weight Dosing 2021-03-27 10:01:58 90.70 kg Height/Length 2021-03-27 10:00:32 170.18 cm Measured Weight Dosing 2021-03-27 10:00:32 90.70 kg Height/Length 2021-03-27 10:00:23 170.18 cm Measured Weight Dosing 2021-03-27 10:00:23 90.70 kg Height/Length 2021-03-27 10:00:19 170.18 cm Measured Weight Dosing 2021-03-27 10:00:19 90.70 kg Height/Length 2021-03-27 09:59:52 170.18 cm Measured Weight Dosing 2021-03-27 09:59:52 90.70 kg Height/Length 2021-03-27 09:59:51 170.18 cm Measured Weight Dosing 2021-03-27 09:59:51 90.70 kg Height/Length 2021-03-27 09:59:23 170.18 cm Measured Weight Dosing 2021-03-27 09:59:23 90.70 kg Height/Length 2021-03-27 09:58:02 170.18 cm Measured Weight Dosing 2021-03-27 09:58:02 90.70 kg Height/Length 2021-03-27 09:57:52 170.18 cm Measured Weight Dosing 2021-03-27 09:57:52 90.70 kg Height/Length 2021-03-27 09:57:50 170.18 cm Measured Weight Dosing 2021-03-27 09:57:50 90.70 kg Height/Length 2021-03-27 09:56:55 170.18 cm Measured Weight Dosing 2021-03-27 09:56:55 90.70 kg Height/Length 2021-03-27 09:56:44 170.18 cm Measured Weight Dosing 2021-03-27 09:56:44 90.70 kg Height/Length 2021-03-27 09:56:43 170.18 cm Measured Weight Dosing 2021-03-27 09:56:43 90.70 kg Height/Length 2021-03-27 09:56:21 170.18 cm Measured Weight Dosing 2021-03-27 09:56:21 90.70 kg Height/Length 2021-03-27 09:56:08 170.18 cm Measured Weight Dosing 2021-03-27 09:56:08 90.70 kg Height/Length 2021-03-27 09:56:06 170.18 cm Measured Weight Dosing 2021-03-27 09:56:06 90.70 kg Height/Length 2021-03-27 09:56:03 170.18 cm Measured Weight Dosing 2021-03-27 09:56:03 90.70 kg Height/Length 2021-03-27 09:56:02 170.18 cm Measured Weight Dosing 2021-03-27 09:56:02 90.70 kg Height/Length 2021-03-27 11:45:19 167.64 cm Measured Weight Dosing 2021-03-27 11:45:19 90.00 kg Height/Length 2021-03-27 11:41:35 167.64 cm Measured Weight Dosing 2021-03-27 11:41:35 90.00 kg Height/Length 2021-03-27 11:41:34 167.64 cm Measured Weight Dosing 2021-03-27 11:41:34 90.00 kg Height/Length 2021-03-27 11:41:29 167.64 cm Measured Weight Dosing 2021-03-27 11:41:29 90.00 kg Height/Length 2021-03-27 11:41:25 167.64 cm Measured Weight Dosing 2021-03-27 11:41:25 90.00 kg Height/Length 2021-03-27 11:41:24 167.64 cm Measured Weight Dosing 2021-03-27 11:41:24 90.00 kg Height/Length 2021-03-27 11:40:48 167.64 cm Measured Weight Dosing 2021-03-27 11:40:48 90.00 kg Height/Length 2021-03-27 11:47:03 173 cm Measured Weight Dosing 2021-03-27 11:47:03 84.00 kg Height/Length 2021-03-27 11:45:06 173 cm Measured Weight Dosing 2021-03-27 11:45:06 84.00 kg Height/Length 2021-03-27 11:40:46 173 cm Measured Weight Dosing 2021-03-27 11:40:46 84.00 kg Height/Length 2021-03-27 11:40:34 173 cm Measured Weight Dosing 2021-03-27 11:40:34 84.00 kg Height/Length 2021-03-27 11:40:06 173 cm Measured Weight Dosing 2021-03-27 11:40:06 84.00 kg Height/Length 2021-03-27 11:39:45 173 cm Measured Weight Dosing 2021-03-27 11:39:45 84.00 kg Height/Length 2021-03-27 11:39:38 173 cm Measured Weight Dosing 2021-03-27 11:39:38 84.00 kg Height/Length 2021-03-27 11:42:25 170 cm Measured Weight Dosing 2021-03-27 11:42:25 92.50 kg Height/Length 2021-03-27 11:41:48 170 cm Measured Weight Dosing 2021-03-27 11:41:48 92.50 kg Height/Length 2021-03-27 11:41:24 170 cm Measured Weight Dosing 2021-03-27 11:41:24 92.50 kg Height/Length 2021-03-27 11:39:52 170 cm Measured Weight Dosing 2021-03-27 11:39:52 92.50 kg Height/Length 2021-03-27 11:39:31 170 cm Measured Weight Dosing 2021-03-27 11:39:31 92.50 kg Height/Length 2021-03-27 11:39:21 170 cm Measured Weight Dosing 2021-03-27 11:39:21 92.50 kg Height/Length 2021-03-27 11:47:03 174 cm Measured Weight Dosing 2021-03-27 11:47:03 95.00 kg Height/Length 2021-03-27 11:42:21 174 cm Measured Weight Dosing 2021-03-27 11:42:21 95.00 kg Height/Length 2021-03-27 11:39:45 174 cm Measured Weight Dosing 2021-03-27 11:39:45 95.00 kg Height/Length 2021-03-27 11:39:17 174 cm Measured Weight Dosing 2021-03-27 11:39:17 95.00 kg Height/Length 2021-03-27 11:39:00 174 cm Measured Weight Dosing 2021-03-27 11:39:00 95.00 kg Height/Length 2021-03-27 11:38:59 174 cm Measured Weight Dosing 2021-03-27 11:38:59 95.00 kg Height/Length 2021-03-27 11:38:57 174 cm Measured Weight Dosing 2021-03-27 11:38:57 95.00 kg Height/Length 2021-03-27 11:38:38 174 cm Measured Weight Dosing 2021-03-27 11:38:38 95.00 kg Height/Length 2021-03-27 11:41:23 170 cm Measured Weight Dosing 2021-03-27 11:41:23 90.26 kg Height/Length 2021-03-27 11:40:29 170 cm Measured Weight Dosing 2021-03-27 11:40:29 90.26 kg Height/Length 2021-03-27 11:39:58 170 cm Measured Weight Dosing 2021-03-27 11:39:58 90.26 kg Height/Length 2021-03-27 11:39:43 170 cm Measured Weight Dosing 2021-03-27 11:39:43 90.26 kg Height/Length 2021-03-27 11:38:37 170 cm Measured Weight Dosing 2021-03-27 11:38:37 90.26 kg Height/Length 2021-03-27 11:36:05 170 cm Measured Weight Dosing 2021-03-27 11:36:05 90.26 kg Height 2019-09-01 20:09:00 172.72 CM Weight 2019-09-01 20:09:00 72.57 KG Height 2019-08-31 19:52:00 167.64 CM Weight 2019-08-31 19:52:00 79.37 KG Height/Length 2019-10-05 05:48:55 Measured Height/Length 2021-03-27 10:18:26 170 cm Measured Weight Dosing 2021-03-27 10:18:26 80.00 kg Height/Length 2021-03-27 10:16:07 170 cm Measured Weight Dosing 2021-03-27 10:16:07 80.00 kg Height/Length 2021-03-27 09:56:01 170 cm Measured Weight Dosing 2021-03-27 09:56:01 80.00 kg Height/Length 2021-03-27 09:54:25 170 cm Measured Weight Dosing 2021-03-27 09:54:25 80.00 kg Height/Length 2021-03-27 09:51:19 170 cm Measured Weight Dosing 2021-03-27 09:51:19 80.00 kg Height/Length 2021-03-27 09:51:06 170 cm Measured Weight Dosing 2021-03-27 09:51:06 80.00 kg Height/Length 2021-03-27 09:49:43 170 cm Measured Weight Dosing 2021-03-27 09:49:43 80.00 kg Height/Length 2021-03-27 09:48:58 170 cm Measured Weight Dosing 2021-03-27 09:48:58 80.00 kg Height/Length 2021-03-27 09:48:41 170 cm Measured Weight Dosing 2021-03-27 09:48:41 80.00 kg Height/Length 2021-03-27 09:48:40 170 cm Measured Weight Dosing 2021-03-27 09:48:40 80.00 kg Height/Length 2021-03-27 09:48:38 170 cm Measured Weight Dosing 2021-03-27 09:48:38 80.00 kg Height/Length 2021-03-27 09:48:33 170 cm Measured Weight Dosing 2021-03-27 09:48:33 80.00 kg Height/Length 2021-03-27 09:48:32 170 cm Measured Weight Dosing 2021-03-27 09:48:32 80.00 kg Height/Length 2021-03-27 09:48:31 170 cm Measured Weight Dosing 2021-03-27 09:48:31 80.00 kg Height/Length 2019-06-09 21:36:35 Measured BP Diastolic 2019-03-16 00:00:00 80 mm[Hg] [facility] Height 2019-03-16 00:00:00 69 [in_i] [facility] BP Systolic 2019-03-16 00:00:00 120 mm[Hg] [facility] Temperature Oral (F) 2020-08-21 15:46:00 98.2 F [facility] Heart Rate 2020-08-21 15:46:00 [facility] Respitory Rate 2020-08-21 15:46:00 [facility] Systolic (mm Hg) 2020-08-21 15:46:00 Daniel rial [facility] Diastolic (mm Hg) 2020-08-21 15:46:00 Mem o[facility] Mario Temperature Oral (F) 2020-08-21 12:23:00 97.7 F [facility] Heart Rate 2020-08-21 12:23:00 [facility] Respitory Rate 2020-08-21 12:23:00 Mem[facility] al Mario Systolic (mm Hg) 2020-08-21 12:23:00 Daniel rial Leola Diastolic (mm Hg) 2020-08-21 12:23:00 Mem o[facility] Mario Temperature Oral (F) 2020-08-21 08:02:00 98.4 F [facility] Heart Rate 2020-08-21 08:02:00 [facility] Respitory Rate 2020-08-21 08:02:00 [facility] Systolic (mm Hg) 2020-08-21 08:02:00 Daniel rial Mario Diastolic (mm Hg) 2020-08-21 08:02:00 [facility] Height 2020-08-21 04:00:00 172.72 cm [facility] Weight 2020-08-21 04:00:00 [facility] BMI Calculated 2020-08-21 04:00:00 [facility] Systolic (mm Hg) 2020-08-21 02:40:00 Daniel rial Mario Diastolic (mm Hg) 2020-08-21 02:40:00 [facility] Respitory Rate 2020-08-21 02:40:00 Mem[facility] al Mario Systolic (mm Hg) 2020-08-21 02:00:00 Daniel rial Leola Diastolic (mm Hg) 2020-08-21 02:00:00 [facility] Respitory Rate 2020-08-21 02:00:00 Memori al Mario Systolic (mm Hg) 2020-08-21 01:00:00 Daniel rial [facility]ola Diastolic (mm Hg) 2020-08-21 01:00:00 [facility] Respitory Rate 2020-08-21 01:00:00 Mem[facility] al Mario Temperature Oral (F) 2020-08-21 00:00:00 96.8 F [facility] Height 2020-08-20 19:59:00 172.72 cm [facility] BMI Calculated 2020-08-20 19:59:00 [facility] Weight 2020-08-20 19:59:00 [facility] Heart Rate 2020-08-20 19:59:00 [facility] Temperature Oral (F) 2020-08-20 19:59:00 97.8 F [facility] Respitory Rate 2020-08-20 06:03:00 [facility] Systolic (mm Hg) 2020-08-20 06:03:00 Daniel rial Mario Diastolic (mm Hg) 2020-08-20 06:03:00 [facility] Heart Rate 2020-08-20 06:03:00 [facility] Temperature Oral (F) 2020-08-20 06:03:00 98.0 F [facility] Respitory Rate 2020-08-20 05:30:00 [facility] al Mario Systolic (mm Hg) 2020-08-20 05:30:00 Daniel rial [facility]ola Diastolic (mm Hg) 2020-08-20 05:30:00 [facility] o[facility] Mario Respitory Rate 2020-08-20 04:21:00 [facility] al Mario Systolic (mm Hg) 2020-08-20 04:21:00 Daniel rial [facility] Diastolic (mm Hg) 2020-08-20 04:21:00 [facility] Heart Rate 2020-08-20 04:21:00 [facility] Height 2020-08-20 02:29:00 172.72 cm [facility] BMI Calculated 2020-08-20 02:29:00 [facility] Weight 2020-08-20 02:29:00 [facility] Heart Rate 2020-08-20 02:29:00 [facility] Temperature Oral (F) 2020-08-20 02:29:00 98.0 F [facility] Temperature Oral (F) 2020-08-18 16:27:00 98.3 F [facility] Heart Rate 2020-08-18 16:27:00 [facility] Respitory Rate 2020-08-18 16:27:00 [facility] Mario Systolic (mm Hg) 2020-08-18 16:27:00 Daniel rial Mario Diastolic (mm Hg) 2020-08-18 16:27:00 [facility] Temperature Oral (F) 2020-08-18 12:50:00 98.1 F [facility] Heart Rate 2020-08-18 12:50:00 [facility] Respitory Rate 2020-08-18 12:50:00 [facility] Systolic (mm Hg) 2020-08-18 12:50:00 Daniel rial Mario Diastolic (mm Hg) 2020-08-18 12:50:00 Mem o[facility] Mario Temperature Oral (F) 2020-08-18 08:38:00 97.4 F [facility] Respitory Rate 2020-08-18 08:38:00 [facility] Systolic (mm Hg) 2020-08-18 08:38:00 Daniel rial Mario Diastolic (mm Hg) 2020-08-18 08:38:00 [facility] Heart Rate 2020-08-17 20:29:00 [facility] Height 2020-08-17 06:36:00 167.64 cm [facility] Weight 2020-08-17 06:36:00 [facility] BMI Calculated 2020-08-17 06:36:00 [facility] Respitory Rate 2020-08-17 05:15:00 [facility] Systolic (mm Hg) 2020-08-17 05:15:00 Daniel rial [facility] Diastolic (mm Hg) 2020-08-17 05:15:00 [facility] Mario Temperature Oral (F) 2020-08-17 05:15:00 98.6 F [facility] Respitory Rate 2020-08-17 02:13:00 [facility] Systolic (mm Hg) 2020-08-17 02:13:00 Daniel rial [facility] Diastolic (mm Hg) 2020-08-17 02:13:00 Mem o[facility] Mario Respitory Rate 2020-08-17 00:45:00 [facility] al Mario Systolic (mm Hg) 2020-08-17 00:45:00 Daniel rial Mario Diastolic (mm Hg) 2020-08-17 00:45:00 [facility] Heart Rate 2020-08-17 00:27:00 [facility] Heart Rate 2020-08-17 00:23:00 [facility] Temperature Oral (F) 2020-08-17 00:23:00 97.8 F [facility] Respitory Rate 2020-07-31 23:00:00 [facility] al Mario Systolic (mm Hg) 2020-07-31 23:00:00 Daniel rial Mario Diastolic (mm Hg) 2020-07-31 23:00:00 [facility] Temperature Oral (F) 2020-07-31 23:00:00 98 F [facility] Respitory Rate 2020-07-31 21:00:00 [facility] al Mario Systolic (mm Hg) 2020-07-31 21:00:00 Daniel rial Mario Diastolic (mm Hg) 2020-07-31 21:00:00 [facility] Respitory Rate 2020-07-31 20:00:00 [facility] Systolic (mm Hg) 2020-07-31 20:00:00 Daniel [facility] Diastolic (mm Hg) 2020-07-31 20:00:00 [facility] Temperature Oral (F) 2020-07-31 18:00:00 96 F [facility] Temperature Oral (F) 2020-07-30 12:10:00 98.0 F [facility] Height 2020-07-29 14:54:00 172.72 cm [facility] Weight 2020-07-29 14:54:00 [facility] BMI Calculated 2020-07-29 14:54:00 [facility] Temperature Oral (F) 2020-06-23 13:00:00 97.7 F [facility] Heart Rate 2020-06-23 13:00:00 [facility] Respitory Rate 2020-06-23 13:00:00 [facility] Systolic (mm Hg) 2020-06-23 13:00:00 Daniel rial Mario Diastolic (mm Hg) 2020-06-23 13:00:00 [facility] Temperature Oral (F) 2020-06-23 09:00:00 97.6 F [facility] Heart Rate 2020-06-23 09:00:00 [facility] Respitory Rate 2020-06-23 09:00:00 [facility] Systolic (mm Hg) 2020-06-23 09:00:00 Daniel rial Mario Diastolic (mm Hg) 2020-06-23 09:00:00 [facility] Temperature Oral (F) 2020-06-23 05:00:00 97.7 F [facility] Heart Rate 2020-06-23 05:00:00 [facility] Respitory Rate 2020-06-23 05:00:00 [facility] Systolic (mm Hg) 2020-06-23 05:00:00 Daniel [facility] Diastolic (mm Hg) 2020-06-23 05:00:00 [facility] Height 2020-06-22 05:58:00 172.72 cm [facility] Weight 2020-06-22 05:58:00 [facility] BMI Calculated 2020-06-22 05:58:00 [facility] Height 2020-06-22 01:18:00 172.72 cm [facility] BMI Calculated 2020-06-22 01:18:00 [facility] Weight 2020-06-22 01:18:00 [facility] Temperature Oral (F) 2020-06-20 08:20:00 98.3 F [facility] Systolic (mm Hg) 2020-06-20 08:20:00 Daniel rial Mario Diastolic (mm Hg) 2020-06-20 08:20:00 [facility] Heart Rate 2020-06-20 08:20:00 [facility] Respitory Rate 2020-06-20 08:20:00 [facility] Systolic (mm Hg) 2020-06-20 02:47:00 Daniel [facility] Diastolic (mm Hg) 2020-06-20 02:47:00 Mem o[facility] Respitory Rate 2020-06-20 02:47:00 [facility] Heart Rate 2020-06-20 02:47:00 [facility] Weight 2020-06-20 00:50:00 [facility] Systolic (mm Hg) 2020-06-20 00:50:00 [facility] Diastolic (mm Hg) 2020-06-20 00:50:00 [facility] Heart Rate 2020-06-20 00:50:00 [facility] Respitory Rate 2020-06-20 00:50:00 [facility] Temperature Oral (F) 2020-06-20 00:50:00 98.1 F [facility] Respitory Rate 2020-03-21 11:48:00 [facility] Systolic (mm Hg) 2020-03-21 11:48:00 Daniel rial [facility] Diastolic (mm Hg) 2020-03-21 11:48:00 [facility] Temperature Oral (F) 2020-03-21 11:48:00 98.6 F [facility] Respitory Rate 2020-03-21 11:18:00 [facility] Systolic (mm Hg) 2020-03-21 11:18:00 Daniel rial [facility] Diastolic (mm Hg) 2020-03-21 11:18:00 [facility] Respitory Rate 2020-03-21 10:00:00 [facility] Systolic (mm Hg) 2020-03-21 10:00:00 [facility] Diastolic (mm Hg) 2020-03-21 10:00:00 [facility] Temperature Oral (F) 2020-03-21 05:10:00 98.7 F [facility] Heart Rate 2020-03-21 05:10:00 [facility] Weight 2020-03-21 03:53:00 [facility] Heart Rate 2020-03-21 03:53:00 [facility] Temperature Oral (F) 2020-03-21 03:53:00 97.7 F [facility] Systolic (mm Hg) 2020-03-20 09:00:00 Daniel rial [facility] Diastolic (mm Hg) 2020-03-20 09:00:00 [facility] Respitory Rate 2020-03-20 09:00:00 [facility] Heart Rate 2020-03-20 09:00:00 [facility] Temperature Oral (F) 2020-03-20 09:00:00 98.5 F [facility] Systolic (mm Hg) 2020-03-20 07:00:00 Daniel [facility] Diastolic (mm Hg) 2020-03-20 07:00:00 [facility] Respitory Rate 2020-03-20 07:00:00 [facility] Heart Rate 2020-03-20 07:00:00 [facility] Systolic (mm Hg) 2020-03-20 06:23:00 [facility] Diastolic (mm Hg) 2020-03-20 06:23:00 [facility] Respitory Rate 2020-03-20 06:23:00 [facility] Heart Rate 2020-03-20 06:23:00 [facility] Height 2020-03-20 03:14:00 172.72 cm [facility] BMI Calculated 2020-03-20 03:14:00 [facility] Weight 2020-03-20 03:14:00 [facility] Temperature Oral (F) 2020-03-20 03:14:00 98.6 F [facility] Respitory Rate 2020-03-19 05:20:00 [facility] Systolic (mm Hg) 2020-03-19 05:20:00 Daniel [facility] Diastolic (mm Hg) 2020-03-19 05:20:00 [facility] Temperature Oral (F) 2020-03-19 05:20:00 98.7 F [facility] Respitory Rate 2020-03-19 02:35:00 [facility] Systolic (mm Hg) 2020-03-19 02:35:00 [facility] Diastolic (mm Hg) 2020-03-19 02:35:00 [facility] Systolic (mm Hg) 2020-03-19 01:42:00 Daniel [facility] Diastolic (mm Hg) 2020-03-19 01:42:00 [facility] Heart Rate 2020-03-19 01:42:00 [facility] Respitory Rate 2020-03-19 01:42:00 [facility] Temperature Oral (F) 2020-03-19 01:42:00 98.9 F [facility] Temperature Oral (F) 2019-11-01 03:38:00 97.9 F [facility] Heart Rate 2019-11-01 03:38:00 [facility] Respitory Rate 2019-11-01 03:38:00 [facility] Systolic (mm Hg) 2019-11-01 03:38:00 [facility] Diastolic (mm Hg) 2019-11-01 03:38:00 [facility] Heart Rate 2019-11-01 02:21:00 [facility] Respitory Rate 2019-11-01 02:21:00 [facility] Systolic (mm Hg) 2019-11-01 02:21:00 Daniel [facility] Diastolic (mm Hg) 2019-11-01 02:21:00 [facility] Heart Rate 2019-11-01 00:40:00 [facility] Respitory Rate 2019-11-01 00:40:00 [facility] Systolic (mm Hg) 2019-11-01 00:40:00 Daniel [facility] Diastolic (mm Hg) 2019-11-01 00:40:00 [facility] Weight 2019-10-31 23:26:00 [facility] Temperature Oral (F) 2019-10-31 23:26:00 97.6 F [facility] Heart Rate 2019-10-31 03:30:00 [facility] Respitory Rate 2019-10-31 03:30:00 [facility] Systolic (mm Hg) 2019-10-31 03:30:00 [facility] Diastolic (mm Hg) 2019-10-31 03:30:00 [facility] Heart Rate 2019-10-31 03:00:00 [facility] Respitory Rate 2019-10-31 03:00:00 [facility] Systolic (mm Hg) 2019-10-31 03:00:00 [facility] Diastolic (mm Hg) 2019-10-31 03:00:00 [facility] Temperature Oral (F) 2019-10-31 03:00:00 97.8 F [facility] Heart Rate 2019-10-31 01:00:00 [facility] Respitory Rate 2019-10-31 01:00:00 [facility] Systolic (mm Hg) 2019-10-31 01:00:00 Daniel [facility] Diastolic (mm Hg) 2019-10-31 01:00:00 [facility] Weight 2019-10-30 23:34:00 [facility] Temperature Oral (F) 2019-10-30 23:34:00 97.5 F [facility] Temperature Oral (F) 2019-10-03 01:38:00 99.4 F [facility] Systolic (mm Hg) 2019-10-03 01:30:00 Daniel [facility] Diastolic (mm Hg) 2019-10-03 01:30:00 [facility] Heart Rate 2019-10-03 01:30:00 [facility] Respitory Rate 2019-10-03 01:30:00 [facility] Systolic (mm Hg) 2019-10-01 04:54:00 Daniel [facility] Diastolic (mm Hg) 2019-10-01 04:54:00 [facility] Respitory Rate 2019-10-01 04:54:00 [facility] Heart Rate 2019-10-01 04:54:00 [facility] Temperature Oral (F) 2019-10-01 02:44:00 98 F [facility] Heart Rate 2019-10-01 02:44:00 [facility] Respitory Rate 2019-10-01 02:44:00 [facility] Systolic (mm Hg) 2019-10-01 02:44:00 Daniel [facility] Diastolic (mm Hg) 2019-10-01 02:44:00 [facility] Systolic (mm Hg) 2019-10-01 00:28:00 [facility] Diastolic (mm Hg) 2019-10-01 00:28:00 [facility] Heart Rate 2019-10-01 00:28:00 [facility] Respitory Rate 2019-10-01 00:28:00 [facility] Temperature Oral (F) 2019-10-01 00:28:00 98.2 F [facility] Respitory Rate 2019-09-27 12:20:00 [facility] Systolic (mm Hg) 2019-09-27 12:20:00 [facility] Diastolic (mm Hg) 2019-09-27 12:20:00 [facility] Respitory Rate 2019-09-27 09:32:00 [facility] Systolic (mm Hg) 2019-09-27 09:32:00 [facility] Diastolic (mm Hg) 2019-09-27 09:32:00 [facility] Respitory Rate 2019-09-27 08:30:00 [facility] Systolic (mm Hg) 2019-09-27 08:30:00 [facility] Diastolic (mm Hg) 2019-09-27 08:30:00 [facility] Heart Rate 2019-09-27 05:34:00 [facility] Procedures Procedure Date / Time Performed Performing Clinician Sourc e Appendectomy [facility] Plan of Care Planned Activity Planned Date Details Comments Source Future Scheduled 2021-12-31 [facility] 13:49:56 VACCINES (1 of 3 - 3-dose series) [code = HEPATITIS B VACCINES (1 of 3 - 3-dose series)] Future Scheduled 2021-12-31 COVID-[address] [facility] 13:49:56 (#1) [code = COVID-19 VACCINE (#1)] Future Scheduled 2021-12-31 [facility] 13:49:56 screening (procedure) [code = [id number]] Future Scheduled 2021-12-31 [facility]ZA [facility]ACCINE [facility] 13:49:56 [code = INFLUENZA VACCINE] Future Scheduled 2021-01-11 COVID-19 [facility]ACCINE [facility] Test 05:08:25 (1) [code = COVID-19 VACCINE (1)] Future Scheduled 2021-01-11 [facility] 05:08:25 screening (procedure) [code = [id number]] Future Scheduled 2021-01-11 INFLUENZA VACCINE [facility] 05:08:25 [code = INFLUENZA VACCINE] Encounters Start End Encounter Admission Attending Care Care Encounter Source Date/Time Date/Time Type Type Clinicians Facility Department ID 2021-12-25 [id number] 04:08:00 Mobin Service 37 2021-03-27 Inpatient 2 Syed Rodas [facility] ICU [id number] St. 11:38:37 -[id number] [facility] 2019-10-11 Inpatient 2 Eduar [facility] ICU [id number] St. 03:00:00 Gutierres -[id number] [facility] 2019-10-09 Inpatient 2 Syed Rodas [facility] ICU [id number] [address] 00:10:00 -[id number] [facility] 2019-06-29 Inpatient 3 Rafael Marion [facility] PSY [id number] 15:49:00 Rafael Marion [facility] 2019-06-20 Inpatient 3 Marilou Aurelio [facility] ICU [id number] 08:53:00 Aurelio Zamarripa -[id number] Hyacinth [facility] 2019-06-20 Inpatient 3 Zamarripa, Aurelio [facility] ICU [id number] 08:45:00 [id number] 18:39:[address] [place] [address] 2021-12-25 2021-12-30 Inpatient Urgent Grayson, [facility] [id number] [facility] 04:08:00 13:30:00 Mobin Service 37 2021-12-20 2021-12-23 Inpatient Emergency Badar, [facility] [id number] [facility] 04:00:00 00:01:00 Ian Service 05 2021-12-20 2021-12-20 Inpatient Emergency Badar, [facility] [id number] [facility] 04:00:00 04:00:00 Ian Service 05 2021-12-19 2021-12-20 Emergency Emergency Thestrup, [facility] [id number] [facility] 22:11:00 02:46:00 Lars 23 2021-12-19 2021-12-19 Emergency Emergency Thestrup, [facility] [id number] [facility] 22:11:00 22:11:00 Lars 23 2021-12-14 2021-12-18 Inpatient EM NatalyMilagro [facility] [id number] [facility] 14:47:00 18:13:00 72 [facility] 2020-08-21 2020-08-21 Observatio [facility] [id number] Memoria 04:09:00 20:01:00 reyna Martin [address] [place] [address] 2020-08-20 2020-08-21 Outpatient Smart, [facility] [id number] 23:09:00 15:01:00 Shine Raymundor 2020-08-20 2020-08-21 Outpatient Smart, [facility] [id number] 23:09:00 15:01:00 Shine 64 Gerardo 2020-08-20 2020-08-21 Outpatient U SMART, [facility] [address] [facility] 23:09:00 15:01:00 SHINE 2020-08-20 2020-08-21 Emergency nullFlavo [facility] [id number] Memoria 19:54:35 02:44:[address] 2020-08-20 2020-08-20 Outpatient Lenny, 9 [facility] [id number] 14:54:35 21:44:00 Olarelisteagan 12 2020-08-20 2020-08-20 Emergency E LENNY SHIN [facility] 7512 Memoria 14:54:00 21:44:00 KENDELLDU Genao Memoria l 2020-08-20 2020-08-20 [facility] [id number] Memoria 02:24:30 06:11:[address] [facility] 2020-08-19 2020-08-20 Outpatient Heather Morton CARA MH9 [id number] 21:24:30 01:11:00 Gustavo 11 2020-08-19 2020-08-20 Emergency [facility] Memoria 21:24:00 01:11:00 miranda Genao Matthieu 2020-08-17 2020-08-18 [facility] [id number] Mem[facility] 06:31:00 21:35:00 rahul Martin 61 l [facility] 2020-08-17 2020-08-18 Outpatient Marita [facility] [id number] 01:31:00 16:35:00 Charles Sue 61 2020-08-17 2020-08-18 Inpatient U MARITA [facility] [address] [facility] 01:31:00 16:35:00 CHARLES 2020-08-17 2020-08-17 Emergency [facility] [id number] Memoria 00:20:25 06:00:00 rahul Martin 10 l [facility] 2020-08-16 2020-08-17 Outpatient Heather Morton MH9 [id number] 19:20:25 01:00:00 Gustavo 10 2020-08-16 2020-08-17 Emergency [facility]10 Memoria 19:20:00 01:00:00 miranda Mariosalena Genao Matthieu 2020-07-29 2020-08-01 Inpatient nullFlavo [facility] [id number] Memoria 07:05:00 01:43:00 rahul Martin 41 l [facility] 2020-07-29 2020-07-31 Outpatient Marita [facility] [id number] 02:05:00 20:43:00 Charles Ali 41 2020-07-29 2020-07-31 Inpatient U MARITA [facility] [address] [facility] 02:05:00 20:43:00 CHARLES 2020-06-22 2020-06-23 Observatio [facility]Fl[facility] [id number] Memoria 01:16:52 20:17:00 n rahul Matrin 09 l [facility] 2020-06-21 2020-06-23 Outpatient [facility] [id number] 20:16:52 15:17:00 09 2020-06-21 2020-06-23 Outpatient [facility] [id number] 20:16:52 15:17:00 09 2020-06-21 2020-06-23 Outpatient Kal JULIANAONOFRE [facility] [id number] [facility] 20:16:00 15:17:00 2020-06-20 2020-06-20 Emergency nullFlavo [facility] [id number] Memoria 00:47:00 08:28:00 rahul Martin 08 [facility] 2020-06-19 2020-06-20 Emergency E [facility] [address] [facility] 19:47:00 03:28:00 DORIAN 2020-06-19 2020-06-20 Outpatient Ivy [facility] [id number] 19:47:00 03:28:00 Dorian Ivy 2020-03-23 2020-03-23 [facility] [id number] [place] 11:37:00 11:37:00 DANA 0114 da [facility] 2020-03-21 2020-03-21 Emergency nullFlavo [facility] [id number] Memoria 03:30:16 11:52:00 rahul jean [facility] 2020-03-20 2020-03-21 Outpatient Sally [facility] [id number] 21:30:16 05:52:00 Joshtrue Young 2020-03-20 2020-03-20 Emergency nullFlavo [facility] [id number] Memoria 03:10:01 10:29:00 r Leola 06 l [facility] 2020-03-19 2020-03-20 Outpatient HARSHA Peters [facility] [id number] 21:10:01 04:29:00 Rosamaria Bella 2020-03-19 2020-03-19 Emergency [facility]Flavo [facility] [id number] Memoria 01:30:11 05:25:00 r Mario 05 l [facility] 2020-03-18 2020-03-18 Outpatient John Sue [facility] [id number] 19:30:11 23:25:00 Jose 05 2019-10-31 2019-11-01 Emergency [facility]Flavo [facility] [id number] Memoria 23:13:48 04:10:00 r Mario 04 l [facility] 2019-10-31 2019-10-31 Outpatient Jamar Martin [facility] [id number] 18:13:48 23:10:00 2019-10-30 2019-10-31 Emergency nullFlavo [facility] [id number] Memoria 23:25:22 04:19:00 r Leola 03 l [facility] 2019-10-30 2019-10-30 Outpatient Demarco, [facility] [id number] 18:25:22 23:19:00 Dk 03 Jay 2019-10-12 2019-10-12 Inpatient 2 Biju León [facility] MED [id number] 02:15:00 13:19:00 [facility] 2019-10-11 2019-10-12 Inpatient 2 Eduar [facility] ICU [id number] St[address] 02:55:00 01:16:00 Bhavik Liu [facility] 2019-10-10 2019-10-11 Inpatient 3 Biju León [facility] PSY [id number] 12:00:00 02:41:00 Romelia [facility] 2019-10-08 2019-10-10 Inpatient 2 Td Galicia [facility] MED [id number] 22:00:00 12:50:00 [facility]-10-[facility] 2019-10-08 Inpatient 1 Jarrod Sawant [facility] PSY [id number] St. 22:58:00 23:36:00 Jarrod Sawant [facility] 2019-10-03 2019-10-03 Emergency nullFlavo [facility] [id number] Memoria 01:27:37 05:39:00 rahul Martin l [facility] 2019-10-02 2019-10-03 Outpatient Jaquez, [facility] [id number] 20:27:37 00:39:00 Jovan Syed 2019-10-02 2019-10-03 Outpatient Jaquez, [facility] [id number] 20:27:37 00:39:00 Jovan Syed 2019-10-01 2019-10-01 Emergency nullFlavo [facility] [id number] Memoria 00:23:39 07:11:00 rahul Martin l [facility] 2019-09-30 2019-10-01 Outpatient Jaquez, [facility] [id number] 19:23:39 02:11:00 Jovan Lynch 2019-09-29 2019-09-29 Outpatient COH [facility] PDPFEFG IVV COH 00:00:00 00:00:00 [id number] 2019-09-27 2019-09-27 Emergency nullFlavo [facility] [id number] Memoria 05:34:04 12:27:00 rahul Martin 00 l [facility] 2019-09-27 2019-09-27 Outpatient [facility] [id number] 00:34:04 07:27:00 Hazel Y 00 2019-09-08 2019-09-08 Emergency [facility] [id number] [place] 00:00:00 00:00:00 REED [place] [facility] 2019-09-03 2019-09-07 Inpatient E ANN, [facility] MED [id number] [place] 15:08:00 18:01:00 DUNCAN Medic al [place] 2019-08-31 2019-09-01 Emergency E BALDO SALOMON [facility] ECC [id number] [place] 19:52:00 00:25:00 Medica l Center 2019-06-29 2019-07-01 Inpatient 3 Rafael Marion [facility] PSY [id number] 16:04:00 13:50:00 Rafael [id number] [facility] 2019-06-09 2019-06-09 Emergency [facility] RINA [id number] St[address] 21:23:00 21:23:00 [facility] 2019-06-09 2019-06-09 Emergency 1 Jeremias Hill [facility] RINA [id number] 21:23:00 21:23:00 Jeremias Hill -[id number] [facility] 2019-03-18 2019-03-18 [place] [id number] -[id number] [place] 06:52:00 06:52:00 0109 [facility] 2019-03-16 2019-03-16 [place] [id number] -[id number] [place] 02:42:00 02:42:00 0107 [facility] 2019-03-16 2019-03-16 Sundeep MM [place] - [id number] [place] 00:00:00 00:00:00 Discovery sergey Castro MD: [address] [facility] [address], [place] [address] , Ph. 2019-03-11 2019-03-11 Outpatient cMcDonald MMG [facility] [id number] -[id number] [place] 12:19:00 12:19:00 0102 [facility] 2019-01-13 2019-01-13 Outpatient E [facility] MED 7501 [facility] 12:31:00 12:31:00 2019-01-07 2019-01-07 Emergency E JARRETT [facility] ECC [id number] [place] 18:35:00 19:29:00 JEREMIAH [facility]ica [facility] [place] 2019-01-01 2019-01-01 Emergency E MARILOU [facility] ECC [id number] [place] 00:51:00 01:48:00 ALBERTO [facility]ica [facility] [place] 2018-12-30 2018-12-30 Emergency E SAMANTHA ZAMARRIPA [facility] ECC [id number] [place] 10:33:00 12:10:00 Medica l [place] 2018-08-11 2018-08-11 Outpatient E CORDELIA [facility] ECC [id number] [place] 08:29:00 09:00:00 JENNIFER [facility]ica [facility] [place] 2018-08-07 2018-08-07 Outpatient Kal BOWER, [facility] [id number] [place] 07:58:00 10:05:00 VALENTIN Cadena [facility] Results Test Description Test Time Test Comments Results Result Comments Source Complete Blood Count Auto Diff 2021-12-30 05:45:00 Test Item Value Reference Range Interpretation Comme nts White Blood Count (test code = WBCT) 7.8 x10 3/uL 4.4-10.5 N Red Blood Count (test code = RBC) 4.91 x10 6/uL 4.10-5.70 N Hemoglobin (test code = HGBT) 15.0 g/dL 13.4-17.4 N Hematocrit (test code = HCTT) 44.1 % 38.7-52.0 N Mean Corpuscular Volume (test code = MCV) 89.80 fL 80.00-100.00 N Mean Corpuscular Hemoglobin (test code = MCH) 30.5 pg 27.0-32. 5 N Mean Corpuscular HGB Conc (test code = MCHC) 34.00 g/dL 32.00-37. 50 N RDW Coefficient of Variation (test code = RDWCV) 12.3 % 11.5- 14.5 N Platelet Count (test code = PLTT) 229.0 x10 3/uL 140.0-440.0 N Mean Platelet Volume (test code = MPV) 10.8 fL Immature Granulocytes % (Auto) (test code = IMMGRAN%) 1.2 % 0.0-5.0 N Neutrophils % (Auto) (test code = NE%) 47.6 % 36.0-70.0 N Lymphocytes % (Auto) (test code = LY%) 38.4 % 12.0-44.0 N Monocytes % (Auto) (test code = MO%) 7.8 % 0.0-11.0 N Eosinophils % (Auto) (test code = EO%) 4.2 % 0.0-7.0 N Basophils % (Auto) (test code = BA%) 0.8 % 0.0-2.0 N Immature Granulocytes # (Auto) (test code = IMMGRAN#) 0.09 x10 3/uL Neutrophils # (Auto) (test code = NE#) 3.7 x10 3/uL 1.6-7.4 N Lymphocytes # (Auto) (test code = LY#) 2.99 x10 3/uL 0.50-4.60 N Monocytes # (Auto) (test code = MO#) 0.61 x10 3/uL 0.00-1.20 N Eosinophils # (Auto) (test code = EO#) 0.33 x10 3/uL 0.00-0.74 N Basophils # (Auto) (test code = BA#) 0.06 x10 3/uL 0.00-0.21 N nRBC Abs (test code = NRBCA) 0 nRBC Pct (test code = NRBCP) 0 % Basic Metabolic [id number] 05:45:00 Test Item Value Reference Range Interpretation Comments SODIUM (test code = NA) 139.0 mmol/L 136.0-145.0 N Potassium,K (test code = K) 3.9 mmol/L 3.0-5.1 N Chloride (test code = CL) 108 mmol/L 98-107 H Carbon Dioxide (test code = 22 mmol/L 20-31 N CO2) Anion Gap (test code = GAP) 9 mmol/L 5-15 N Blood Urea Nitrogen (test code 11 mg/dL 9-23 N = BUN) Creatinine (test code = CREATT) 0.80 mg/dL 0.55-1.02 N Creatinine Clr Calc Pharmacy 151.82 mL/min (test code = CRCLPHA) Estimated GFR ( Caryn > 60 mL/min/1.73m2 (test code = EGFRAA) Estimated GFR (Non Afr Caryn > 60 mL/min/1.73m2 (test code = EGFRNAA) BUN/Creatinine Ratio (test code 14 ratio 10-20 N = BCRATIO) Glucose (test code = GLU) 92 mg/dL 74-106 N Osmolality,Calculated (test 286.9 code = OSMOC) Calcium (test code = CA) 8.1 mg/dL 8.3-10.6 L [id number] 05:45:00 Test Item Value Reference Range Interpretation Comments Phosphorous (test code = PHOS) 5.6 mg/dL 2.4-5.9 N [id number] 05:45:00 Test Item Value Reference Range Interpretation Comments Magnesium (test code = MG) 1.9 mg/dL 1.6-2.6 N Complete Blood Count Auto [id number] 05:44:00 Test Item Value Reference Range Interpretation Comments White Blood Count (test code = 7.5 x10 3/uL 4.4-10.5 N WBCT) Red Blood Count (test code = 4.97 x10 6/uL 4.10-5.70 N RBC) Hemoglobin (test code = HGBT) 15.0 g/dL 13.4-17.4 N Hematocrit (test code = HCTT) 44.1 % 38.7-52.0 N Mean Corpuscular Volume (test 88.70 fL 80.00-100.00 N code = MCV) Mean Corpuscular Hemoglobin 30.2 pg 27.0-32.5 N (test code = MCH) Mean Corpuscular HGB Conc 34.00 g/dL 32.00-37.50 N (test code = MCHC) RDW Coefficient of Variation 12.2 % 11.5-14.5 N (test code = RDWCV) Platelet Count (test code = 238.0 x10 3/uL 140.0-440.0 N PLTT) Mean Platelet Volume (test 10.8 fL code = MPV) Immature Granulocytes % (Auto) 1.2 % 0.0-5.0 N (test code = IMMGRAN%) Neutrophils % (Auto) (test 43.6 % 36.0-70.0 N code = NE%) Lymphocytes % (Auto) (test 41.3 % 12.0-44.0 N code = LY%) Monocytes % (Auto) (test code 7.9 % 0.0-11.0 N = MO%) Eosinophils % (Auto) (test 5.1 % 0.0-7.0 N code = EO%) Basophils % (Auto) (test code 0.9 % 0.0-2.0 N = BA%) Immature Granulocytes # (Auto) 0.09 x10 3/uL (test code = IMMGRAN#) Neutrophils # (Auto) (test 3.3 x10 3/uL 1.6-7.4 N code = NE#) Lymphocytes # (Auto) (test 3.09 x10 3/uL 0.50-4.60 N code = LY#) Monocytes # (Auto) (test code 0.59 x10 3/uL 0.00-1.20 N = MO#) Eosinophils # (Auto) (test 0.38 x10 3/uL 0.00-0.74 N code = EO#) Basophils # (Auto) (test code 0.07 x10 3/uL 0.00-0.21 N = BA#) nRBC Abs (test code = NRBCA) 0 nRBC Pct (test code = NRBCP) 0 % Basic Metabolic [id number] 05:44:00 Test Item Value Reference Range Interpretation Comments SODIUM (test code = NA) 138.0 mmol/L 136.0-145.0 N Potassium,K (test code = K) 4.4 mmol/L 3.0-5.1 N Chloride (test code = CL) 106 mmol/L 98-107 N Carbon Dioxide (test code = 19 mmol/L 20-31 L CO2) Anion Gap (test code = GAP) 13 mmol/L 5-15 N Blood Urea Nitrogen (test code 15 mg/dL 9-23 N = BUN) Creatinine (test code = CREATT) 0.83 mg/dL 0.55-1.02 N Creatinine Clr Calc Pharmacy 146.33 mL/min (test code = CRCLPHA) Estimated GFR ( Caryn > 60 mL/min/1.73m2 (test code = EGFRAA) Estimated GFR (Non Afr Caryn > 60 mL/min/1.73m2 (test code = EGFRNAA) BUN/Creatinine Ratio (test code 18 ratio 10-20 N = BCRATIO) Glucose (test code = GLU) 87 mg/dL 74-106 N Osmolality,Calculated (test 285.3 code = OSMOC) Calcium (test code = CA) 8.5 mg/dL 8.3-10.6 N [id number] 05:44:00 Test Item Value Reference Range Interpretation Comments Phosphorous (test code = PHOS) 5.6 mg/dL 2.4-5.9 N [id number] 05:44:00 Test Item Value Reference Range Interpretation Comments Magnesium (test code = MG) 1.9 mg/dL 1.6-2.6 N Complete Blood Count Auto [id number] 06:46:00 Test Item Value Reference Range Interpretation Comments White Blood Count (test code = 6.9 x10 3/uL 4.4-10.5 N WBCT) Red Blood Count (test code = 5.17 x10 6/uL 4.10-5.70 N RBC) Hemoglobin (test code = HGBT) 15.6 g/dL 13.4-17.4 N Hematocrit (test code = HCTT) 45.7 % 38.7-52.0 N Mean Corpuscular Volume (test 88.40 fL 80.00-100.00 N code = MCV) Mean Corpuscular Hemoglobin 30.2 pg 27.0-32.5 N (test code = MCH) Mean Corpuscular HGB Conc 34.10 g/dL 32.00-37.50 N (test code = MCHC) RDW Coefficient of Variation 12.3 % 11.5-14.5 N (test code = RDWCV) Platelet Count (test code = 252.0 x10 3/uL 140.0-440.0 N PLTT) Mean Platelet Volume (test 10.7 fL code = MPV) Immature Granulocytes % (Auto) 0.9 % 0.0-5.0 N (test code = IMMGRAN%) Neutrophils % (Auto) (test 44.9 % 36.0-70.0 N code = NE%) Lymphocytes % (Auto) (test 39.9 % 12.0-44.0 N code = LY%) Monocytes % (Auto) (test code 8.6 % 0.0-11.0 N = MO%) Eosinophils % (Auto) (test 4.8 % 0.0-7.0 N code = EO%) Basophils % (Auto) (test code 0.9 % 0.0-2.0 N = BA%) Immature Granulocytes # (Auto) 0.06 x10 3/uL (test code = IMMGRAN#) Neutrophils # (Auto) (test 3.1 x10 3/uL 1.6-7.4 N code = NE#) Lymphocytes # (Auto) (test 2.77 x10 3/uL 0.50-4.60 N code = LY#) Monocytes # (Auto) (test code 0.60 x10 3/uL 0.00-1.20 N = MO#) Eosinophils # (Auto) (test 0.33 x10 3/uL 0.00-0.74 N code = EO#) Basophils # (Auto) (test code 0.06 x10 3/uL 0.00-0.21 N = BA#) nRBC Abs (test code = NRBCA) 0 nRBC Pct (test code = NRBCP) 0 % Basic Metabolic [id number] 06:46:00 Test Item Value Reference Range Interpretation Comments SODIUM (test code = NA) 139.0 mmol/L 136.0-145.0 N Potassium,K (test code = K) 4.2 mmol/L 3.0-5.1 N Chloride (test code = CL) 107 mmol/L 98-107 N Carbon Dioxide (test code = 20 mmol/L 20-31 N CO2) Anion Gap (test code = GAP) 12 mmol/L 5-15 N Blood Urea Nitrogen (test code 16 mg/dL 9-23 N = BUN) Creatinine (test code = CREATT) 0.80 mg/dL 0.55-1.02 N Creatinine Clr Calc Pharmacy 151.82 mL/min (test code = CRCLPHA) Estimated GFR ( Caryn > 60 mL/min/1.73m2 (test code = EGFRAA) Estimated GFR (Non Afr Caryn > 60 mL/min/1.73m2 (test code = EGFRNAA) BUN/Creatinine Ratio (test code 20 ratio 10-20 N = BCRATIO) Glucose (test code = GLU) 92 mg/dL 74-106 N Osmolality,Calculated (test 288.7 code = OSMOC) Calcium (test code = CA) 8.2 mg/dL 8.3-10.6 L [id number] 06:46:00 Test Item Value Reference Range Interpretation Comments Phosphorous (test code = PHOS) 5.8 mg/dL 2.4-5.9 N [id number] 06:46:00 Test Item Value Reference Range Interpretation Comments Magnesium (test code = MG) 2.0 mg/dL 1.6-2.6 N Complete Blood Count w/o [id number] 05:30:00 Test Item Value Reference Range Interpretation Comments White Blood Count (test code = 7.9 x10 3/uL 4.4-10.5 N WBCT) Red Blood Count (test code = 5.13 x10 6/uL 4.10-5.70 N RBC) Hemoglobin (test code = HGBT) 15.3 g/dL 13.4-17.4 N Hematocrit (test code = HCTT) 46.0 % 38.7-52.0 N Mean Corpuscular Volume (test 89.70 fL 80.00-100.00 N code = MCV) Mean Corpuscular Hemoglobin 29.8 pg 27.0-32.5 N (test code = MCH) Mean Corpuscular HGB Conc 33.30 g/dL 32.00-37.50 N (test code = MCHC) RDW Coefficient of Variation 12.2 % 11.5-14.5 N (test code = RDWCV) Platelet Count (test code = 253.0 x10 3/uL 140.0-440.0 N PLTT) Mean Platelet Volume (test 10.9 fL code = MPV) nRBC Abs (test code = NRBCA) 0 nRBC Pct (test code = NRBCP) 0 % Basic Metabolic [id number] 05:30:00 Test Item Value Reference Range Interpretation Comments SODIUM (test code = NA) 138.0 mmol/L 136.0-145.0 N Potassium,K (test code = K) 4.3 mmol/L 3.0-5.1 N Chloride (test code = CL) 108 mmol/L 98-107 H Carbon Dioxide (test code = 21 mmol/L 20-31 N CO2) Anion Gap (test code = GAP) 9 mmol/L 5-15 N Blood Urea Nitrogen (test code 16 mg/dL 9-23 N = BUN) Creatinine (test code = CREATT) 0.90 mg/dL 0.55-1.02 N Creatinine Clr Calc Pharmacy 134.95 mL/min (test code = CRCLPHA) Estimated GFR ( Caryn > 60 mL/min/1.73m2 (test code = EGFRAA) Estimated GFR (Non Afr Caryn > 60 mL/min/1.73m2 (test code = EGFRNAA) BUN/Creatinine Ratio (test code 18 ratio 10-20 N = BCRATIO) Glucose (test code = GLU) 81 mg/dL 74-106 N Osmolality,Calculated (test 285.7 code = OSMOC) Calcium (test code = CA) 8.3 mg/dL 8.3-10.6 N [id number] 05:30:00 Test Item Value Reference Range Interpretation Comments Phosphorous (test code = PHOS) 5.2 mg/dL 2.4-5.9 N [id number] 05:30:00 Test Item Value Reference Range Interpretation Comments Magnesium (test code = MG) 2.1 mg/dL 1.6-2.6 N Complete Blood Count w/o [id number] 05:30:00 Test Item Value Reference Range Interpretation Comments White Blood Count (test code = 7.5 x10 3/uL 4.4-10.5 N WBCT) Red Blood Count (test code = 5.26 x10 6/uL 4.10-5.70 N RBC) Hemoglobin (test code = HGBT) 15.8 g/dL 13.4-17.4 N Hematocrit (test code = HCTT) 46.2 % 38.7-52.0 N Mean Corpuscular Volume (test 87.80 fL 80.00-100.00 N code = MCV) Mean Corpuscular Hemoglobin 30.0 pg 27.0-32.5 N (test code = MCH) Mean Corpuscular HGB Conc 34.20 g/dL 32.00-37.50 N (test code = MCHC) RDW Coefficient of Variation 12.3 % 11.5-14.5 N (test code = RDWCV) Platelet Count (test code = 234.0 x10 3/uL 140.0-440.0 N PLTT) Mean Platelet Volume (test 11.2 fL code = MPV) nRBC Abs (test code = NRBCA) 0 nRBC Pct (test code = NRBCP) 0 % Basic Metabolic [id number] 05:30:00 Test Item Value Reference Range Interpretation Comments SODIUM (test code = NA) 140.0 mmol/L 136.0-145.0 N Potassium,K (test code = K) 4.0 mmol/L 3.0-5.1 N Chloride (test code = CL) 110 mmol/L 98-107 H Carbon Dioxide (test code = 21 mmol/L 20-31 N CO2) Anion Gap (test code = GAP) 9 mmol/L 5-15 N Blood Urea Nitrogen (test code 16 mg/dL 9-23 N = BUN) Creatinine (test code = CREATT) 0.84 mg/dL 0.55-1.02 N Creatinine Clr Calc Pharmacy 144.59 mL/min (test code = CRCLPHA) Estimated GFR ( Caryn > 60 mL/min/1.73m2 (test code = EGFRAA) Estimated GFR (Non Afr Caryn > 60 mL/min/1.73m2 (test code = EGFRNAA) BUN/Creatinine Ratio (test code 19 ratio 10-20 N = BCRATIO) Glucose (test code = GLU) 79 mg/dL 74-106 N Osmolality,Calculated (test 289.7 code = OSMOC) Calcium (test code = CA) 7.9 mg/dL 8.3-10.6 L [id number] 05:30:00 Test Item Value Reference Range Interpretation Comments Phosphorous (test code = PHOS) 5.1 mg/dL 2.4-5.9 N [id number] 05:30:00 Test Item Value Reference Range Interpretation Comments Magnesium (test code = MG) 1.9 mg/dL 1.6-2.6 N ABG, Arterial Blood [id number] 21:03:00 Test Item Value Reference Range Interpretation Comments Sodium, Arterial 140 mmol/l 135-145 N (test code = ARTNa+) Potassium, Arterial 3.9 mmol/l 3.5-4.5 N (test code = ARTK+) Chloride, Arterial 108 mmol/l 98-105 H 83 S Valu e above (test code = ARTCl-) referen ce range Glucose Arterial 120 mg/dl 75-115 H 83 S Value above (test code = ARTGlu) referen ce range Hematocrit, ABG 50.2 % 37.5-50.0 N (test code = ARTHct) Arterial Hemoglobin 16.4 g/dL 12.2-17.4 N (test code = ARTtHb) ABG PH (test code = 7.42 7.35-7.45 N [facility] ART) [place] [facility] LaboratoryMoimchael Boland edical DirectorCLCLAIRE das [facility] [id number] ABG PCO2 (test code 34.0 mmHg 35.0-45.0 L [address] below = ARTpCO2) reference range ABG PO2 (test code = 76.6 mmHg 80-[address] ARTpO2) reference range ABG HCO3 (test code 21.9 mmol/l 22.0-26.0 LL notifie d at = ARTHCO3-) ABG Base Excess -1.8 mmol/l N (test code = ARTABE) ABG Oxygen 95.4 % 80.0-100.0 N Saturation (test code = ARTsO2) ABG PH Corrected 7.417 7.35-7.45 N (test code = ARTpH(T)) ABG PCO2 Corrected 34.0 mmHg 35.0-45.0 N (test code = ARTpCO2(T)) ABG PO2 Corrected 76.6 mmHg 80-100 N (test code = ARTpO2(T)) O2HB, Arterial Blood 93.9 % 0-100 N Gas (test code = [id number]) A-aDO2 (test code = 35.6 mmHg N ARTAaDpO2) Methemoglobin (test 1.1 % 0-20 N code = ARTMetHb) Carboxyhemoglobin,Ar 0.5 % 0-20 N terial Bld (test code = ARTCOHb) Lactic Acid Art 1.0 mmol/l 0.5-2.2 N (test code = ARTLac) OID/SITE (test code Brachial. R = SITE) Ionized Calcium ABG 1.15 mmol/l 1.00-1.50 N (test code = ARTCa++) Source (test code = Arterial Sample type) Specimen Drawn By ebrown (test code = Drawn by) Sample Age (test 7 code = Sample Age) Liter Flow (test 3.0 code = Liter flow) ABG, Arterial Blood [id number] 17:52:00 Test Item Value Reference Range Interpretation Comments Sodium, Arterial 140 mmol/l 135-145 N (test code = ARTNa+) Potassium, Arterial 4.0 mmol/l 3.5-4.5 N (test code = ARTK+) Chloride, Arterial 108 mmol/l 98-105 H 83 S Valu e above (test code = ARTCl-) referen ce range Glucose Arterial 107 mg/dl 75-115 N (test code = ARTGlu) Hematocrit, ABG 51.0 % 37.5-50.0 N (test code = ARTHct) Arterial Hemoglobin 16.6 g/dL 12.2-17.4 N (test code = ARTtHb) ABG PH (test code = 7.44 7.35-7.45 N [facility] ARTpH) Center Blood Ga s LaboratoryWamichael Boland [facility] DirectorZAHRA das [facility] [id number] ABG PCO2 (test code 33.2 mmHg 35.0-45.0 [address] below = ARTpCO2) reference range ABG PO2 (test code = 65.6 mmHg 80-[address] ARTpO2) reference range ABG HCO3 (test code 22.3 mmol/l 22.0-26.0 N = ARTHCO3-) ABG Base Excess -1.1 mmol/l N (test code = ARTABE) ABG Oxygen 93.4 % 80.0-100.0 N Saturation (test code = ARTsO2) ABG PH Corrected 7.435 7.35-7.45 N (test code = ARTpH(T)) ABG PCO2 Corrected 33.2 mmHg 35.0-45.0 N (test code = ARTpCO2(T)) ABG PO2 Corrected 65.6 mmHg 80-100 N (test code = ARTpO2(T)) O2HB, Arterial Blood 92.0 % 0-100 N Gas (test code = [id number]) A-aDO2 (test code = 47.2 mmHg N ARTAaDpO2) Methemoglobin (test 1.0 % 0-20 N code = ARTMetHb) Carboxyhemoglobin,Ar 0.5 % 0-20 N terial Bld (test code = ARTCOHb) Lactic Acid Art 0.9 mmol/l 0.5-2.2 N (test code = ARTLac) Fractionated 21.0 % N Inspired Oxygen (test code = ARTFIO2) OID/SITE (test code Radial. R = SITE) Ionized Calcium ABG 1.16 mmol/l 1.00-1.50 N (test code = ARTCa++) Source (test code = Arterial Sample type) Specimen Drawn By bj (test code = Drawn by) Sample Age (test 3 code = Sample Age) [id number] 09:25:00 Test Item Value Reference Range Interpretation Comments Prolactin (test code = PRL) 48.260 ng/mL 4.040-15.200 H Complete Blood Count Auto [id number] 05:20:00 Test Item Value Reference Range Interpretation Comments White Blood Count (test code = 7.7 x10 3/uL 4.4-10.5 N WBCT) Red Blood Count (test code = 5.40 x10 6/uL 4.10-5.70 N RBC) Hemoglobin (test code = HGBT) 16.1 g/dL 13.4-17.4 N Hematocrit (test code = HCTT) 48.1 % 38.7-52.0 N Mean Corpuscular Volume (test 89.10 fL 80.00-100.00 N code = MCV) Mean Corpuscular Hemoglobin 29.8 pg 27.0-32.5 N (test code = MCH) Mean Corpuscular HGB Conc 33.50 g/dL 32.00-37.50 N (test code = MCHC) RDW Coefficient of Variation 12.3 % 11.5-14.5 N (test code = RDWCV) Platelet Count (test code = 245.0 x10 3/uL 140.0-440.0 N PLTT) Mean Platelet Volume (test 10.8 fL code = MPV) Immature Granulocytes % (Auto) 1.0 % 0.0-5.0 N (test code = IMMGRAN%) Neutrophils % (Auto) (test 49.8 % 36.0-70.0 N code = NE%) Lymphocytes % (Auto) (test 36.4 % 12.0-44.0 N code = LY%) Monocytes % (Auto) (test code 7.5 % 0.0-11.0 N = MO%) Eosinophils % (Auto) (test 4.7 % 0.0-7.0 N code = EO%) Basophils % (Auto) (test code 0.6 % 0.0-2.0 N = BA%) Immature Granulocytes # (Auto) 0.08 x10 3/uL (test code = IMMGRAN#) Neutrophils # (Auto) (test 3.8 x10 3/uL 1.6-7.4 N code = NE#) Lymphocytes # (Auto) (test 2.81 x10 3/uL 0.50-4.60 N code = LY#) Monocytes # (Auto) (test code 0.58 x10 3/uL 0.00-1.20 N = MO#) Eosinophils # (Auto) (test 0.36 x10 3/uL 0.00-0.74 N code = EO#) Basophils # (Auto) (test code 0.05 x10 3/uL 0.00-0.21 N = BA#) nRBC Abs (test code = NRBCA) 0 nRBC Pct (test code = NRBCP) 0 % Basic Metabolic [id number] 05:20:00 Test Item Value Reference Range Interpretation Comments SODIUM (test code = NA) 136.0 mmol/L 136.0-145.0 N Potassium,K (test code = K) 4.4 mmol/L 3.0-5.1 N Chloride (test code = CL) 107 mmol/L 98-107 N Carbon Dioxide (test code = 20 mmol/L 20-31 N CO2) Anion Gap (test code = GAP) 9 mmol/L 5-15 N Blood Urea Nitrogen (test code 16 mg/dL 9-23 N = BUN) Creatinine (test code = CREATT) 0.76 mg/dL 0.55-1.02 N Creatinine Clr Calc Pharmacy 159.81 mL/min (test code = CRCLPHA) Estimated GFR ( Caryn > 60 mL/min/1.73m2 (test code = EGFRAA) Estimated GFR (Non Afr Caryn > 60 mL/min/1.73m2 (test code = EGFRNAA) BUN/Creatinine Ratio (test code 21 ratio 10-20 H = BCRATIO) Glucose (test code = GLU) 92 mg/dL 74-106 N Osmolality,Calculated (test 282.7 code = OSMOC) Calcium (test code = CA) 9.0 mg/dL 8.3-10.6 N [id number] 05:20:00 Test Item Value Reference Range Interpretation Comments Phosphorous (test code = PHOS) 5.6 mg/dL 2.4-5.9 N [id number] 05:20:00 Test Item Value Reference Range Interpretation Comments Magnesium (test code = MG) 2.1 mg/dL 1.6-2.6 N Glucose [id number] 13:09:00 Test Item Value Reference Range Interpretation Comments Glucose Fingerstick 102 mg/dL 70-115 FINANCIAL ACCOUNTING MANAGER ROSA (test code = WGLUC) ERICK Todd RN or Complete Blood Count Auto [id number] 05:24:00 Test Item Value Reference Range Interpretation Comments White Blood Count (test code = 8.8 x10 3/uL 4.4-10.5 N WBCT) Red Blood Count (test code = 4.35 x10 6/uL 4.10-5.70 N RBC) Hemoglobin (test code = HGBT) 13.2 g/dL 13.4-17.4 L Hematocrit (test code = HCTT) 38.6 % 38.7-52.0 L Mean Corpuscular Volume (test 88.70 fL 80.00-100.00 N code = MCV) Mean Corpuscular Hemoglobin 30.3 pg 27.0-32.5 N (test code = MCH) Mean Corpuscular HGB Conc 34.20 g/dL 32.00-37.50 N (test code = MCHC) RDW Coefficient of Variation 12.8 % 11.5-14.5 N (test code = RDWCV) Platelet Count (test code = 169.0 x10 3/uL 140.0-440.0 N PLTT) Mean Platelet Volume (test 11.0 fL code = MPV) Immature Granulocytes % (Auto) 2.8 % 0.0-5.0 N (test code = IMMGRAN%) Neutrophils % (Auto) (test 57.7 % 36.0-70.0 N code = NE%) Lymphocytes % (Auto) (test 27.0 % 12.0-44.0 N code = LY%) Monocytes % (Auto) (test code 10.3 % 0.0-11.0 N = MO%) Eosinophils % (Auto) (test 1.5 % 0.0-7.0 N code = EO%) Basophils % (Auto) (test code 0.7 % 0.0-2.0 N = BA%) Immature Granulocytes # (Auto) 0.25 x10 3/uL (test code = IMMGRAN#) Neutrophils # (Auto) (test 5.1 x10 3/uL 1.6-7.4 N code = NE#) Lymphocytes # (Auto) (test 2.38 x10 3/uL 0.50-4.60 N code = LY#) Monocytes # (Auto) (test code 0.91 x10 3/uL 0.00-1.20 N = MO#) Eosinophils # (Auto) (test 0.13 x10 3/uL 0.00-0.74 N code = EO#) Basophils # (Auto) (test code 0.06 x10 3/uL 0.00-0.21 N = BA#) nRBC Abs (test code = NRBCA) 0 nRBC Pct (test code = NRBCP) 0 % Comprehensive Metabolic [id number] 05:24:00 Test Item Value Reference Range Interpretation Comments SODIUM (test code = NA) 142.0 mmol/L 136.0-145.0 N Potassium,K (test code = 3.5 mmol/L 3.0-5.1 N K) Chloride (test code = 108 mmol/L 98-107 H CL) Carbon Dioxide (test 24 mmol/L 20-31 N code = CO2) Anion Gap (test code = 10 mmol/L 5-15 N GAP) Blood Urea Nitrogen 13 mg/dL 9-23 N (test code = BUN) Creatinine (test code = 0.71 mg/dL 0.55-1.02 N CREATT) Creatinine Clr Calc mL/min Unable t o Pharmacy (test code = Calcul ate CRCL,Ht CRCLPHA) and/or Wt johana ng Estimated GFR ( > 60 mL/min/1.73m2 Caryn (test code = EGFRAA) Estimated GFR (Non Afr > 60 mL/min/1.73m2 Caryn (test code = EGFRNAA) BUN/Creatinine Ratio 18 ratio 10-20 N (test code = BCRATIO) Glucose (test code = 101 mg/dL 74-106 N GLU) Osmolality,Calculated 293.6 (test code = OSMOC) Calcium (test code = CA) 7.9 mg/dL 8.3-10.6 L Bilirubin,Total (test 0.5 mg/dL 0.2-1.1 N code = BILIT) Aspartate Amino 50 U/L 0-34 H Transferase (test code = AST) Alanine Aminotransferase 69 U/L 10-49 H (test code = ALT) Total Protein (test code 6.4 g/dL 5.7-8.2 N = TP) Albumin Level (test code 4.0 g/dL 3.2-4.8 N = ALB) Globulin (test code = 2.4 mg/dL 2.3-3.5 N GLOB) Albumin/Globulin Ratio 1.7 ratio 0.8-2.0 N (test code = AGRATIO) Alkaline Phosphatase 63 U/L 46-116 N (test code = ALP) [id number] 05:24:00 Test Item Value Reference Range Interpretation Comments Phosphorous (test code = PHOS) 4.6 mg/dL 2.4-5.9 N [id number] 05:24:00 Test Item Value Reference Range Interpretation Comments Magnesium (test code = MG) 1.8 mg/dL 1.6-2.6 N Drug Screen,[id number] 04:27:00 Test Item Value Reference Range Interpretation Comments PCP Phencyclidine Screen,Urine (test Negative Negative code = PCPU) Amphetamine Screen,Urine (test code Negative Negative = AMPU) Methadone Screen,Urine (test code = Negative Negative METHU) Opiate Screen,Urine (test code = Negative Negative UOPIS) Barbituates Screen,Urine (test code Negative Negative = BARBU) Benzodiazepines Screen,Urine (test Positive Negative A code = UBENZS) Cocaine Screen,Urine (test code = Negative Negative UCOCS) Cannabinoid Screen,Urine (test code Negative Negative = UTHCS) Propoxyphene Screen, Urine (test Negative Negative code = UPROP) Coronavirus PCR, COVID19 [id number] 04:27:00 Test Item Value Reference Range Interpretation Comments Coronavirus PCR, For use under Emergency COVID19 Rapid (test Use Authorization (EUA) code = SARSCOV2) only. Coronavirus PCR, Reference Range: COVID19 Rapid (test Negative code = WOYTXUV55.1) SARS-CoV-2 PCR Result: Negative by RT-PCR (test code = SARS-CoV-2 PCR Result:) COVID-19 Status: [id number]-[id number] 04:01:00 Test Item Value Reference Range Interpretation Comments D-Dimer (test 0.29 ug/mlFEU < 0.50 The D-Dimer i s intended for code = DD) use in conjunct ion with clinicalpretest probability (PTP) assessmen t model to excludepulmonar y embolism (PE) and deep v enous thrombosis (DVT ) inoutpatients p resenting to the emergency o r ambulatorydepar tment with suspected PE or DVT.The cut off value is 0. 50 ug/mL FEUResults of t his test should always b e interpreted inconjunction w ith the patient s medical histor y, clinicalpresent ation and other findings. DVT clinical diagnosisshould not be based on the result o f the D-Dimer alone. Glucose [id number] 03:35:00 Test Item Value Reference Range Interpretation Comments Glucose Fingerstick 105 mg/dL 70-115 FINANCIAL ACCOUNTING MANAGER Luisreyna (test code = WGLUC) Louise Complete Blood Count Auto [id number] 23:04:00 Test Item Value Reference Range Interpretation Comments White Blood Count (test code = 10.8 x10 3/uL 4.4-10.5 H WBCT) Red Blood Count (test code = 4.77 x10 6/uL 4.10-5.70 N RBC) Hemoglobin (test code = HGBT) 14.0 g/dL 13.4-17.4 N Hematocrit (test code = HCTT) 42.6 % 38.7-52.0 N Mean Corpuscular Volume (test 89.30 fL 80.00-100.00 N code = MCV) Mean Corpuscular Hemoglobin 29.4 pg 27.0-32.5 N (test code = MCH) Mean Corpuscular HGB Conc 32.90 g/dL 32.00-37.50 N (test code = MCHC) RDW Coefficient of Variation 13.0 % 11.5-14.5 N (test code = RDWCV) Platelet Count (test code = 223.0 x10 3/uL 140.0-440.0 N PLTT) Mean Platelet Volume (test 11.3 fL code = MPV) Immature Granulocytes % (Auto) 2.3 % 0.0-5.0 N (test code = IMMGRAN%) Neutrophils % (Auto) (test 69.2 % 36.0-70.0 N code = NE%) Lymphocytes % (Auto) (test 16.3 % 12.0-44.0 N code = LY%) Monocytes % (Auto) (test code 11.0 % 0.0-11.0 N = MO%) Eosinophils % (Auto) (test 0.6 % 0.0-7.0 N code = EO%) Basophils % (Auto) (test code 0.6 % 0.0-2.0 N = BA%) Immature Granulocytes # (Auto) 0.25 x10 3/uL (test code = IMMGRAN#) Neutrophils # (Auto) (test 7.5 x10 3/uL 1.6-7.4 H code = NE#) Lymphocytes # (Auto) (test 1.76 x10 3/uL 0.50-4.60 N code = LY#) Monocytes # (Auto) (test code 1.19 x10 3/uL 0.00-1.20 N = MO#) Eosinophils # (Auto) (test 0.06 x10 3/uL 0.00-0.74 N code = EO#) Basophils # (Auto) (test code 0.06 x10 3/uL 0.00-0.21 N = BA#) nRBC Abs (test code = NRBCA) 0 nRBC Pct (test code = NRBCP) 0 % Comprehensive Metabolic [id number] 23:04:00 Test Item Value Reference Range Interpretation Comments SODIUM (test code = NA) 142.0 mmol/L 136.0-145.0 N Potassium,K (test code = K) 4.0 mmol/L 3.0-5.1 N Chloride (test code = CL) 110 mmol/L 98-107 H Carbon Dioxide (test code = 24 mmol/L 20-31 N CO2) Anion Gap (test code = GAP) 8 mmol/L 5-15 N Blood Urea Nitrogen (test code 17 mg/dL 9-23 N = BUN) Creatinine (test code = CREATT) 0.93 mg/dL 0.55-1.02 N Creatinine Clr Calc Pharmacy 129.34 mL/min (test code = CRCLPHA) Estimated GFR ( Caryn > 60 mL/min/1.73m2 (test code = EGFRAA) Estimated GFR (Non Afr Caryn > 60 mL/min/1.73m2 (test code = EGFRNAA) BUN/Creatinine Ratio (test code 18 ratio 10-20 N = BCRATIO) Glucose (test code = GLU) 109 mg/dL 74-106 H Osmolality,Calculated (test 296.0 code = OSMOC) Calcium (test code = CA) 9.1 mg/dL 8.3-10.6 N Bilirubin,Total (test code = 0.4 mg/dL 0.2-1.1 N BILIT) Aspartate Amino Transferase 41 U/L 0-34 H (test code = AST) Alanine Aminotransferase (test 68 U/L 10-49 H code = ALT) Total Protein (test code = TP) 7.1 g/dL 5.7-8.2 N Albumin Level (test code = ALB) 4.4 g/dL 3.2-4.8 N Globulin (test code = GLOB) 2.7 mg/dL 2.3-3.5 N Albumin/Globulin Ratio (test 1.6 ratio 0.8-2.0 N code = AGRATIO) Alkaline Phosphatase (test code 74 U/L 46-116 N = ALP) UA, Urinalysis Rflx Cult/[id number] 22:55:00 Test Item Value Reference Range Interpretation Comments Color,Urine (test code = UCOL) Yellow Yellow Clarity,Urine (test code = Clear Clear UCLAR) Ph, Urine (test code = UPH) 5.5 5.0-9.0 N Specific [place],Urine (test 1.025 1.005-1.030 N code = USG) Blood,Urine (test code = UBLD) Negative mg/dL Negative Protein,Urine (test code = Trace mg/dL Negative A UPRO) Glucose,Urine (UA) (test code Negative mg/dL Negative = UGLU) Ketones,Urine (test code = Trace mg/dL Negative A UKET) Nitrate,Urine (test code = Negative Negative UNIT) Bilirubin,Urine (test code = Negative mg/dL Negative UBIL) Urobilinogen,Urine (test code 1.0 E.U./dL Normal = UURO) Leukocyte Esterase,Urine (test Negative mg/dL Negative code = ULEU) Urine [id number] 22:55:00 Test Item Value Reference Range Interpretation Comments RBC,Urine (test code = URBC.OVERLOCK COLLAR SETTER) 3-5 /HPF 0-2 A WBC,Urine (test code = UWBC.OVERLOCK COLLAR SETTER) 6-10 /HPF 0-5 A Bacteria,Urine (test code = Rare /HPF None Seen UBACT.OVERLOCK COLLAR SETTER) Squamous Epithelial Cell,Urine 11-25 /HPF 0-5 A (test code = USQEPI.OVERLOCK COLLAR SETTER) Amorphous Crystals,Urine (test Few /HPF None Seen A code = UAMSE) Hyaline Casts,Urine (test code 0-5 /HPF None Seen A = UHYALC.XX) Mucus,Urine (test code = UMUC) Moderate /HPF None Seen - CTA CHEST FOR [id number] 12:36:00 [facility] 1995 Sex: MPatient Name: DOUGLAS SYLVESTER Unit No: [id number] EXAMS: CPT: [id number] [place] 42037 EXAM - CTA CHEST FOR PE HISTORY: rule out PE COMPARISON: Radiograph from yesterday Technique: Axial CTA images of the chest were obtained with IV contrast with 3D volume rendering images performed on 3D workstation. Sagittal and coronal reformatted images also obtained. CONTRAST: Isovue 300, 100 mL, IV DLP: 781.25 mGy*cm CT imaging was performed with iterative reconstruction technique and/or automated exposure control to reduce radiation dose. FINDINGS: No pulmonary emboli seen. Main pulmonary artery is enlarged 3.9 cm. Ascending aorta measures 2.6 cm with no dissection noted. No mediastinal, hilar, or axillary adenopathy seen. There is cardiomegaly with right atrial and ventricular enlargement. No pericardial effusion. Mild bibasilar atelectasis and/or scarring seen. No focal consolidation or groundglass infiltrates. No pleural effusion or pneumothorax. Diffuse fatty infiltration of the liver with focal sparing adjacent to the gallbladder. Adrenal glands are normal. Mild degenerative changes in the spine. IMPRESSION: Pulmonary arterial enlargement otherwise no pulmonary emboli. Bibasal atelectasis and/or scarring. Fatty liver. at 1236 Reported and signed by: Cecilia Schwab MD Name: DOUGLAS SYLVESTER [facility] Phys: Milagro Mauro MD [address] 1995 Age: 26 Sex: M [place], [place] [address] Loc: [id number] 1 Exam Date: 12/18/2021 Status: ADM IN PH: FAX: PAGE 1 Signed Report (CONTINUED) Patient Name: DOUGLAS SYLVESTER Unit No: [id number] EXAMS: CPT: [id number] [place] [address] (Continued) CC: Milagro Ingram MD Technologist: Chelsea Tao CTDI: 18.27 DLP: 781.25 Trscr Dt/Tm: 12/18/2021 (1236) by:[email or web address] Orig Print D/T: S: 12/18/2021 (1239) BATCH NO: N/A Name: DOUGLAS SYLVESTER [facility] Phys: Milagro Mauro MD [address] [facility] :1995 Age: 26 Sex: M [place], [place] [address] Loc: N.[id number] 1 Exam Date: 12/18/2021 Status: ADM IN PH: FAX: PAGE 2 Signed Report- US ABDOMEN LTD 2021-12-18 08:49:00 [facility] : 1995 Sex: MPatient Name: DOUGLAS SYLVESTER Unit No: [id number] EXAMS: CPT: [id number] US ABDOMEN LTD 87095 LIMITED ABDOMINAL ULTRASOUND HISTORY: rule out liver disease COMPARISON: None available FINDINGS: Pancreas is mostly obscured by overlying bowel gas. The abdominal aorta and IVC where seen are unremarkable. The gallbladder is contracted limiting evaluation. Common duct is 2 mm. Liver is increased in echogenicity. Right hepatic lobe measures 20 cm. Right kidney measures 12 x 6 cm. No hydronephrosis. No free fluid within the right upper abdomen. IMPRESSION: Hepatomegaly and diffusely echogenic liver which can be seen with fatty infiltration. Contracted gallbladder limiting evaluation. at 0849 Reported and signed by: Cecilia Schwab MD CC: Milagro Ingram MD Technologist: Jose Tao Probe: Trscr Dt/Tm: 12/18/2021 (0849) by:[email or web address] Orig Print D/T: S: 12/18/2021 (0853) BATCH NO: N/A Name: DOUGLAS SYLVESTER [facility] Phys: Milagro Mauro MD [address] [facility] : 1995 Age: 26 Sex: M [place], [place] [address] Loc: N.[id number] 1 Exam Date: 12/18/2021 Status: ADM IN PH: FAX: PAGE 1 Signed Report COMPREHENSIVE METABOLIC [id number] 07:12:00 Test Item Value Reference Range Interpretation Comments SODIUM (test code = 137 mmol/L 135-145 N NA) POTASSIUM (test 3.6 mmol/L 3.6-5.0 N code = K) CHLORIDE (test code 105 mmol/L 101-111 N = CL) CARBON DIOXIDE 23 mmol/L 21-31 N (test code = CO2) GLUCOSE (test code 124 mg/dl 70-100 H = GLU) BLOOD UREA NITROGEN 11 mg/dl 6-20 N (test code = BUN) GLOMERULAR >=60 max >60 The estimated FILTRATION RATE estimate glomerular (test code = GFR) filtration rate is computed usingpatient ra ce, age (>18), sex, and serum creatinin e. If anyof the ne eded data elements a re missing the Laboratory patricia ot compute an estimation of t he glomerular filtration rate . CREATININE (test 0.86 mg/dL 0.64-1.27 N code = CREAT) TOTAL PROTEIN (test 6.8 g/dL 6.7-8.2 N code = PROT) ALBUMIN (test code 3.4 g/dL 3.2-5.5 N = ALB) CALCIUM (test code 8.8 mg/dL 8.5-10.5 N = CA) BILIRUBIN TOTAL 0.50 mg/dL 0.2-1.3 N (test code = BILT) SGOT/AST (test code 36 U/L 10-42 N = AST) SGPT/ALT (test code 58 U/L 10-60 N = ALT) ALKALINE 86 U/L 42-121 N PHOSPHATASE (test code = ALKP) - XR CHEST 1 [id number] 11:15:00 [facility] : 1995 Sex: MPatient Name: DOUGLAS SYLVESTER Unit No: [id number] EXAMS: CPT: [id number] XR CHEST 1 V 96816 EXAM: SINGLE VIEW OF THECHEST HISTORY: Hypoxia. COMPARISON: X-ray 12/14/2021. FINDINGS: Lines/tubes: None. Lungs/Pleura: Interval decrease in the patchy bibasilar opacities. The previously described pulmonary vascular congestion has also improved. No pleural effusion or pneumothorax. Heart/mediastinum: Cardiomediastinal silhouette is within normal limits. Bones/soft tissues: Within normal limits. IMPRESSION: Improving bibasilar opacities and pulmonary vascular congestion. at 1115 Reported and signed by: JANEY FREDERICK MD CC: Milagro Ingram MD Technologist: Kianna Ceballos Time: DAP (Gy m2): Air Kerma (mGy): Trscr Dt/Tm: 12/17/2021 (1115) by:[email or web address] Orig Print D/T: S:12/17/2021 (1119) BATCH NO: N/A Name: DOUGLAS SYLVESTER [facility] Phys: Milagro Mauro MD [address] : 1995 Age: 26 Sex: Kya [place], [place] [address] Loc: N.[id number] 1 Exam Date: 12/17/2021 Status: ADM IN PH: FAX: PAGE 1 Signed ReportCBC W/AUTO [id number] 10:22:00 Test Item Value Reference Range Interpretation Comments WHITE BLOOD CELL (test code = 7.2 x10 3/uL 3.2-11.5 N WBC) RED BLOOD CELL (test code = 5.36 x10(6)/m 4.20-5.70 N RBC) HEMOGLOBIN (test code = HGB) 16.0 g/dL 12.9-17.3 N HEMATOCRIT (test code = HCT) 45.8 % 38.7-51.0 N MEAN CELL VOLUME (test code = 85 fL 80-100 N MCV) MEAN CELL HGB (test code = MCH) 29.9 pg 26.7-33.3 N MEAN CELL HGB CONCENTRATION 34.9 g/dL 30.0-34.0 H (test code = MCHC) RED CELL DISTRIBUTION WIDTH 12.3 % 11.3-14.5 N (test code = RDW) PLATELET COUNT (test code = 249 x10 3/uL 130-408 N PLT) MEAN PLATELET VOLUME (test code 10.9 fL 8.6-12.6 N = MPV) WBC [id number] 10:22:00 Test Item Value Reference Range Interpretation Comments TOTAL CELLS COUNTED (test code = 100 #CELLS TCC) RBC MORPHOLOGY COMMENT (test Normal NORMAL code = MOC) PLATELET MORPHOLOGY (test code = Normal NORMAL PLTMORPH) SEGMENTED NEUTROPHILS (test code 50 % 43-65 N = SEG) BAND NEUTROPHIL (test code = 1 % 0-1 N BAND) LYMPHOCYTE (test code = LYMPH) 33 % 20.5-45.5 N MONOCYTE (test code = MON) 12 % 5.5-11.7 H EOSINOPHIL (test code = EOS) 2 % 0.9-2.9 N METAMYELOCYTE (test code = META) 2 % 0-0 H BAND ABSOLUTE (test code = 0.07 10 3/uL 0.00-0.70 N BAND#) NEUTROPHIL ABSOLUTE (test code = 3.60 10 3/uL 1.6-7.2 N SEG#) LYMPH ABSOLUTE (test code = 2.4 10 3/uL 1.1-4.8 N LYMPH#) ATYPICAL LYMPH ABSOLUTE (test 0.00 10 3/uL 0.00-0.00 N code = ALYMPH#) MONOCYTE ABSOLUTE (test code = 0.86 10 3/uL 0.3-0.8 H MON#) BASOPHIL ABSOLUTE (test code = 0.00 10 3/uL 0.00-0.1 N BASO#) EOSINOPHIL ABSOLUTE (test code = 0.14 10 3/uL 0.00-0.50 N EOS#) METAMYELOCYTE ABSOLUTE (test 0.14 10 3/uL 0.00-0.00 H code = META#) MYELOCYTE ABSOLUTE (test code = 0.00 10 3/uL 0.00-0.00 N MYELO#) PROMYELOCYTE ABSOLUTE (test code 0.00 10 3/uL 0.00-0.00 N = PROM#) BLASTS ABSOLUTE (test code = 0.00 10 3/uL 0.00-0.00 N BLAST#) OTHER CELLS ABSOLUTE (test code 0.00 10 3/uL 0.00-0.00 N = OCT#) BASIC METABOLIC [id number] 07:49:00 Test Item Value Reference Range Interpretation Comments SODIUM (test code 137 mmol/L 135-145 N = NA) POTASSIUM (test 3.6 mmol/L 3.6-5.0 N code = K) CHLORIDE (test 103 mmol/L 101-111 N code = CL) CARBON DIOXIDE 23 mmol/L 21-31 N (test code = CO2) GLUCOSE (test code 109 mg/dl 70-100 H = GLU) BLOOD UREA 10 mg/dl 6-20 N NITROGEN (test code = BUN) GLOMERULAR >=60 max >60 The estimated FILTRATION RATE estimate glomerular (test code = GFR) filtration rate is computed usingpatient ra ce, age (>18), sex, and serum creatinin e. If anyof the neede d data elements a re missing the Laboratory patricia ot compute an estimation of t he glomerular filtration rate . CREATININE (test 0.85 mg/dL 0.64-1.27 N code = CREAT) CALCIUM (test code 8.6 mg/dL 8.5-10.5 N = CA) [id number] 10:43:00 Test Item Value Reference Range Interpretation Comments AMMONIA (test code = AMM) 45 umol/L 11-35 H CBC W/AUTO [id number] 07:09:00 Test Item Value Reference Range Interpretation Comments WHITE BLOOD CELL (test code = 6.4 x10 3/uL 3.2-11.5 N WBC) RED BLOOD CELL (test code = 5.17 x10(6)/m 4.20-5.70 N RBC) HEMOGLOBIN (test code = HGB) 15.6 g/dL 12.9-17.3 N HEMATOCRIT (test code = HCT) 44.5 % 38.7-51.0 N MEAN CELL VOLUME (test code = 86 fL 80-100 N MCV) MEAN CELL HGB (test code = MCH) 30.2 pg 26.7-33.3 N MEAN CELL HGB CONCENTRATION 35.1 g/dL 30.0-34.0 H (test code = MCHC) RED CELL DISTRIBUTION WIDTH 12.2 % 11.3-14.5 N (test code = RDW) PLATELET COUNT (test code = 244 x10 3/uL 130-408 N PLT) MEAN PLATELET VOLUME (test code 10.5 fL 8.6-12.6 N = MPV) NEUTROPHIL % (test code = NT%) % 40.0-70.0 LYMPHOCYTE % (test code = LY%) % 20-40 MONOCYTE % (test code = MO%) % 1-10 EOSINOPHIL % (test code = EO%) % 0.0-5.0 BASOPHIL % (test code = BA%) % 0.0-1.0 NUCLEATED RBC % (test code = % 0.0-0.9 NRBC%) NEUTROPHIL # (test code = NT#) x10 3/uL 1.6-7.2 LYMPHOCYTE # (test code = LY#) x10 3/uL 1.1-2.7 MONOCYTE # (test code = MO#) x10 3/uL 0.3-0.8 EOSINOPHIL # (test code = EO#) x10 3/uL 0.0-0.5 WBC [id number] 07:09:00 Test Item Value Reference Range Interpretation Comments TOTAL CELLS COUNTED (test code = 100 #CELLS TCC) RBC MORPHOLOGY COMMENT (test Normal NORMAL code = MOC) PLATELET MORPHOLOGY (test code = Normal NORMAL PLTMORPH) SEGMENTED NEUTROPHILS (test code 51 % 43-65 N = SEG) LYMPHOCYTE (test code = LYMPH) 36 % 20.5-45.5 N MONOCYTE (test code = MON) 9 % 5.5-11.7 N EOSINOPHIL (test code = EOS) 2 % 0.9-2.9 N MYELOCYTE (test code = MYELO) 2 % 0-0 H BAND ABSOLUTE (test code = 0.00 10 3/uL 0.00-0.70 N BAND#) NEUTROPHIL ABSOLUTE (test code = 3.26 10 3/uL 1.6-7.2 N SEG#) LYMPH ABSOLUTE (test code = 2.3 10 3/uL 1.1-4.8 N LYMPH#) ATYPICAL LYMPH ABSOLUTE (test 0.00 10 3/uL 0.00-0.00 N code = ALYMPH#) MONOCYTE ABSOLUTE (test code = 0.57 10 3/uL 0.3-0.8 N MON#) BASOPHIL ABSOLUTE (test code = 0.00 10 3/uL 0.00-0.1 N BASO#) EOSINOPHIL ABSOLUTE (test code = 0.12 10 3/uL 0.00-0.50 N EOS#) METAMYELOCYTE ABSOLUTE (test 0.00 10 3/uL 0.00-0.00 N code = META#) MYELOCYTE ABSOLUTE (test code = 0.13 10 3/uL 0.00-0.00 H MYELO#) PROMYELOCYTE ABSOLUTE (test code 0.00 10 3/uL 0.00-0.00 N = PROM#) BLASTS ABSOLUTE (test code = 0.00 10 3/uL 0.00-0.00 N BLAST#) OTHER CELLS ABSOLUTE (test code 0.00 10 3/uL 0.00-0.00 N = OCT#) BASIC METABOLIC [id number] 06:02:00 Test Item Value Reference Range Interpretation Comments SODIUM (test code 132 mmol/L 135-145 L = NA) POTASSIUM (test 3.8 mmol/L 3.6-5.0 N code = K) CHLORIDE (test 103 mmol/L 101-111 N code = CL) CARBON DIOXIDE 21 mmol/L 21-31 N (test code = CO2) GLUCOSE (test code 107 mg/dl 70-100 H = GLU) BLOOD UREA 8 mg/dl 6-20 N NITROGEN (test code = BUN) GLOMERULAR >=60 max >60 The estimated FILTRATION RATE estimate glomerular (test code = GFR) filtration rate is computed usingpatient ra ce, age (>18), sex, and serum creatinin e. If anyof the neede d data elements a re missing the Laboratory patricia ot compute an estimation of t he glomerular filtration rate . CREATININE (test 0.72 mg/dL 0.64-1.27 N code = CREAT) CALCIUM (test code 8.6 mg/dL 8.5-10.5 N = CA) [id number] 16:07:00 Test Item Value Reference Range Interpretation Comments AMMONIA (test code = AMM) 104 umol/L 11-35 H UA RFLX MICR CULT IF [id number] 15:19:00 Test Item Value Reference Range Interpretation Comments UA COLOR (test code = YELLOW YELLOW COLU) UA APPEARANCE (test Clear CLEAR code = APPU) UA GLUCOSE DIPSTICK NEGATIVE NEGATIVE (test code = DGLUU) UA BILIRUBIN DIPSTICK NEGATIVE NEGATIVE (test code = BILU) UA KETONE DIPSTICK NEGATIVE NEGATIVE (test code = KETU) UA SPECIFIC GRAVITY 1.011 1.001-1.030 (test code = SGU) UA BLOOD DIPSTICK (test NEGATIVE NEGATIVE code = CATRACHITO) UA PH DIPSTICK (test 6.0 5.0-9.0 code = JEFF) UA PROTEIN DIPSTICK NEGATIVE NEGATIVE (test code = PROU) UA UROBILINOGEN NEGATIVE See_Comment [Automated message] DIPSTICK (test code = The sy stem which URO) generated this result transmitted ref erence range: <=1.0. T he reference range was not used to int erpret this result as normal/abnormal . UA NITRITE DIPSTICK NEGATIVE NEGATIVE (test code = SEDRICK) UA ASCORBIC ACID NEGATIVE DIPSTICK (test code = AAU) UA LEUKOCYTE ESTERASE NEGATIVE NEGATIVE DIPSTICK (test code = LEUU) UA WBC (test code = 0-5 /HPF 0-5 WBCUR) UA RBC (test code = None /HPF 0-5 RBCU) UA EPITHELIAL CELLS None /LPF NONE-FEW (test code = EPIU) UA BACTERIA (test code None /HPF NONE SEEN = BACU) Indication for culture: RiskForSepsis-no oth srcSpecimen Description: CLEAN CATCHCREATINE KINASE (CK)2021-12-15 12:34:00 Test Item Value Reference Range Interpretation Comments CREATINE KINASE (CK) 482 U/L 0-243 HH Critica l Value reported (test code = CK) Kathy Liu e:ETELVINA Last Name:GLODELTARochelle DENNY READ BACK AND PEDRO DalyLAB.KL, on 1 , @ 1234. VITAMIN [id number] 12:34:00 Test Item Value Reference Range Interpretation Comments VITAMIN B12 (test code = VITB12) 405 pg/ml 180-914 N THYROID REFLEX TO [id number] 12:34:00 Test Item Value Reference Range Interpretation Comments THYROID REFLEX TO FT4 (test code 2.947 uIU/ml 0.450-5.330 N = TSHREFLEX) CBC W/AUTO [id number] 06:57:00 Test Item Value Reference Range Interpretation Comments WHITE BLOOD CELL (test code = 7.9 x10 3/uL 3.2-11.5 N WBC) RED BLOOD CELL (test code = 5.22 x10(6)/m 4.20-5.70 N RBC) HEMOGLOBIN (test code = HGB) 15.6 g/dL 12.9-17.3 N HEMATOCRIT (test code = HCT) 44.8 % 38.7-51.0 N MEAN CELL VOLUME (test code = 86 fL 80-100 N MCV) MEAN CELL HGB (test code = MCH) 29.9 pg 26.7-33.3 N MEAN CELL HGB CONCENTRATION 34.8 g/dL 30.0-34.0 H (test code = MCHC) RED CELL DISTRIBUTION WIDTH 12.6 % 11.3-14.5 N (test code = RDW) PLATELET COUNT (test code = 261 x10 3/uL 130-408 N PLT) MEAN PLATELET VOLUME (test code 10.7 fL 8.6-12.6 N = MPV) WBC [id number] 06:57:00 Test Item Value Reference Range Interpretation Comments TOTAL CELLS COUNTED (test code = 100 #CELLS TCC) RBC MORPHOLOGY COMMENT (test Normal NORMAL code = MOC) PLATELET MORPHOLOGY (test code = Normal NORMAL PLTMORPH) SEGMENTED NEUTROPHILS (test code 46 % 43-65 N = SEG) BAND NEUTROPHIL (test code = 10 % 0-1 H BAND) LYMPHOCYTE (test code = LYMPH) 35 % 20.5-45.5 N MONOCYTE (test code = MON) 4 % 5.5-11.7 L EOSINOPHIL (test code = EOS) 2 % 0.9-2.9 N METAMYELOCYTE (test code = META) 2 % 0-0 H MYELOCYTE (test code = MYELO) 1 % 0-0 H BAND ABSOLUTE (test code = 0.79 10 3/uL 0.00-0.70 H BAND#) NEUTROPHIL ABSOLUTE (test code = 3.63 10 3/uL 1.6-7.2 N SEG#) LYMPH ABSOLUTE (test code = 2.8 10 3/uL 1.1-4.8 N LYMPH#) ATYPICAL LYMPH ABSOLUTE (test 0.00 10 3/uL 0.00-0.00 N code = ALYMPH#) MONOCYTE ABSOLUTE (test code = 0.31 10 3/uL 0.3-0.8 N MON#) BASOPHIL ABSOLUTE (test code = 0.00 10 3/uL 0.00-0.1 N BASO#) EOSINOPHIL ABSOLUTE (test code = 0.15 10 3/uL 0.00-0.50 N EOS#) METAMYELOCYTE ABSOLUTE (test 0.16 10 3/uL 0.00-0.00 H code = META#) MYELOCYTE ABSOLUTE (test code = 0.08 10 3/uL 0.00-0.00 H MYELO#) PROMYELOCYTE ABSOLUTE (test code 0.00 10 3/uL 0.00-0.00 N = PROM#) BLASTS ABSOLUTE (test code = 0.00 10 3/uL 0.00-0.00 N BLAST#) OTHER CELLS ABSOLUTE (test code 0.00 10 3/uL 0.00-0.00 N = OCT#) BASIC METABOLIC [id number] 06:12:00 Test Item Value Reference Range Interpretation Comments SODIUM (test code 131 mmol/L 135-145 L = NA) POTASSIUM (test 3.8 mmol/L 3.6-5.0 N code = K) CHLORIDE (test 101 mmol/L 101-111 N code = CL) CARBON DIOXIDE 21 mmol/L 21-31 N (test code = CO2) GLUCOSE (test code 99 mg/dl 70-100 N = GLU) BLOOD UREA 10 mg/dl 6-20 N NITROGEN (test code = BUN) GLOMERULAR >=60 max >60 The estimated FILTRATION RATE estimate glomerular (test code = GFR) filtration rate is computed usingpatient ra ce, age (>18), sex, and serum creatinin e. If anyof the neede d data elements a re missing the Laboratory patricia ot compute an estimation of t he glomerular filtration rate . CREATININE (test 0.76 mg/dL 0.64-1.27 N code = CREAT) CALCIUM (test code 8.8 mg/dL 8.5-10.5 N = CA) COVID 19 INHOUSE [id number] 15:17:00 Test Item Value Reference Range Interpretation Comments COVID 19 INHOUSE AG NEGATIVE Negative Negative results should be (test code = treated as pres umptive [id number]) andconfirmed wi th a molecular assay , if necessary for patientmanageme nt. Negative result s do not rule out COVID- 19 andshould not b e used as the sole basis for treatment orpat ient management deci sions, including infec tion controldecision s. 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 TECHNIQUE: Routine CT of the head and cervical spine without contrast. Soft tissues and bone windows were reviewed. FINDINGS: HEAD: There is no evidence of hemorrhage or extra-axial fluid collection. Zhang-white differentiation is maintained with no evidence of edema. There isno mass effect or shift of the intracranial structures. The ventricles and cortical sulci are normalin size and configuration for the patients stated age. Basilar cisterns are normal in size and configuration. The cerebellum and brainstem are unremarkable. The calvarium demonstrates no evidence of fracture or focal lesion. There is normal aeration of the visualized paranasal sinuses and mastoid air cells. The visualized portions of the orbits are normal. C- SPINE: No acute cervical fracture or subluxation. There is normal alignment of the spine. There is preservation of height of the vertebral bodies with normal bone density. The height of the intervertebral discs is maintained. There is no evidence of osseous spinal canal or neural foraminal stenosis. Name: NGADOUGLAS [facility] Phys: Melinda Davenport MD [address] [facility] : 1995 Age: 26 Sex: [place] [address] Loc: N.ERS Exam Date: 12/14/2021 Status: REG ER PH: FAX: PAGE 1 Signed Report (CONTINUED) P atient Name: DOUGLAS SYLVESTER Unit No: [id number] EXAMS: CPT: [id number] CT C-SPINE W/O CONT 38115 (Continued) IMPRESSION: No acute intracranial hemorrhage or mass effect. No acute cervical fracture or subluxation. at 1311 Reported and signed by: Debbie Moncada MD CC: Melinda Araujo MD Technologist: Sirena Jeffries CTDI: 18.45 DLP: 431.99 Trscr Dt/Tm: 12/14/2021 (1311) by:[email or web address] Orig Print D/T: S: 12/14/2021 (1314) BATCH NO: N/A Name: SYLVESTERDOUGLAS [facility] Phys: Melinda Davenport MD [address] : 1995 Age: 26 [place]: [place] [id number] Loc: N.TANA Exam Date: 12/14/2021 Status: REG ER PH: FAX: PAGE 2 Signed Report- CT HEAD/BRAIN W/O [id number] 13:11[facility]00 [facility] 1995 Sex: MPatient Name: DOUGLAS SYLVESTER Unit No: [id number] EXAMS: CPT: [id number] CT HEAD/BRAIN W/O CONT 63593 CLINICAL HISTORY: Seizure COMPARISON: None. TECHNIQUE: Routine CT of the head and cervical spine without contrast.Soft tissues and bone windows were reviewed. FINDINGS: HEAD: There is no evidence of hemorrhage or extra-axial fluid collection. Zhang-white differentiation is maintained with no evidence of edema. There is no mass effect or shift of the intracranial structures. The ventricles and cortical sulci are normal in size and configuration for the patients stated age. Basilar cisterns are normal in size and configuration. The cerebellum and brainstem are unremarkable. The calvarium demonstrates no evidence of fracture or focal lesion. There is normal aeration of the visualized paranasal sinuses and mastoid air cells. The visualized portions of the orbits are normal. C-SPINE: No acute cervical fracture orsubluxation. There is normal alignment of the spine. There is preservation of height of the vertebral bodies with normal bone density. The height of the intervertebral discs is maintained. There is no evidence of osseous spinal canal or neural foraminal stenosis. Name: DOUGLAS SYLVESTER [facility] Phys: Melinda Davenport MD [address] : 1995 Age: 26 [place]: [place] [id number] Loc: N.ERS Exam Date: 12/14/2021 Status: REG ER PH: FAX: PAGE 1 Signed Report (CONTINUED) Patient Name: DOUGLAS SYLVESTER Unit No: [id number] EXAMS: CPT: [id number] CT HEAD/BRAIN W/O CONT 91618 (Continued) IMPRESSION: No acute intracranial hemorrhage or mass effect. No acute cervical fracture or subluxation. at 1311 Reported and signed by: Debbie Moncada MD CC: Melinda Araujo MD Technologist: Sirena Jeffries CTDI: 45.22 DLP: 760.82 TrscrDt/Tm: 12/14/2021 (1311) by:[email or web address] Orig Print D/T: S: 12/14/2021 (4) BATCH NO: N/A Name: DOUGLAS QUINTEROS [facility] Phys: Melinda Davenport MD [address] : 1995 Age: 26 [place]: [place] [id number] Loc: N.ERS Exam Date: 12/14/2021 Status: REG ER PH: FAX: PAGE 2 Signed Report- XR CHEST 1 V 2021-12-14 13:02:00 [facility] 1995 Sex: MPatient Name: DOUGLAS SYLVESTER Unit No: [id number] EXAMS: CPT: [id number] XR CHEST 1 V 05633 EXAM: - XR CHEST 1 V 12/14/2021 1:02 PM HISTORY: Seizure TECHNIQUE: Single view of the chest. COMPARISON: No prior studies available for comparison. FINDINGS: The heart is enlarged. There is no pneumothorax or significant pleural effusion. There is pulmonary vascular congestion. There is patchy left retrocardiac opacity. Subsegmental atelectasis left lung base. No acute osseous or soft tissue abnormalities noted. IMPRESSION: Patchy bibasilar airspace disease, left greater than right. This may represent atelectasis or pneumonia. Cardiomegaly with pulmonary vascular congestion. at 1302 Reported and signed by: Margaret Lee MD CC: Melinda Araujo MD Technologist: Kianna Ceballos Time: DAP (Gy m2): Air Kerma (mGy): Trscr Dt/Tm: 12/14/2021 (1302) by:[email or web address] Orig Print D/T: S: 12/14/2021 (0856) BATCH NO: N/A Name: DOUGLAS SYLVESTER [facility] Phys: Melinda Davenport MD [address] [facility] : 1995 Age: 26 Sex: [place] [address] Loc: N.ERS Exam Date: 12/14/2021 Status: REG ER PH: FAX: PAGE 1 Signed ReportBASIC METABOLIC [id number] 12:50:00 Test Item Value Reference Range Interpretation Comments SODIUM (test code 137 mmol/L 135-145 N = NA) POTASSIUM (test 3.8 mmol/L 3.6-5.0 N code = K) CHLORIDE (test 106 mmol/L 101-111 N code = CL) CARBON DIOXIDE 21 mmol/L 21-31 N (test code = CO2) GLUCOSE (test code 104 mg/dl 70-100 H = GLU) BLOOD UREA 6 mg/dl 6-20 N NITROGEN (test code = BUN) GLOMERULAR >=60 max >60 The estimated FILTRATION RATE estimate glomerular (test code = GFR) filtration rate is computed usingpatient ra ce, age (>18), sex, and serum creatinin e. If anyof the neede d data elements a re missing the Laboratory patricia ot compute an estimation of t he glomerular filtration rate . CREATININE (test 0.64 mg/dL 0.64-1.27 N code = CREAT) CALCIUM (test code 9.0 mg/dL 8.5-10.5 N = CA) CBC W/AUTO [id number] 12:49:00 Test Item Value Reference Range Interpretation Comments WHITE BLOOD CELL (test code = 9.5 x10 3/uL 3.2-11.5 N WBC) RED BLOOD CELL (test code = 5.25 x10(6)/m 4.20-5.70 N RBC) HEMOGLOBIN (test code = HGB) 15.8 g/dL 12.9-17.3 N HEMATOCRIT (test code = HCT) 44.3 % 38.7-51.0 N MEAN CELL VOLUME (test code = 84 fL 80-100 N MCV) MEAN CELL HGB (test code = MCH) 30.1 pg 26.7-33.3 N MEAN CELL HGB CONCENTRATION 35.7 g/dL 30.0-34.0 H (test code = MCHC) RED CELL DISTRIBUTION WIDTH 12.5 % 11.3-14.5 N (test code = RDW) PLATELET COUNT (test code = 262 x10 3/uL 130-408 N PLT) MEAN PLATELET VOLUME (test code 10.6 fL 8.6-12.6 N = MPV) NEUTROPHIL % (test code = NT%) % 40.0-70.0 LYMPHOCYTE % (test code = LY%) % 20-40 MONOCYTE % (test code = MO%) % 1-10 EOSINOPHIL % (test code = EO%) % 0.0-5.0 BASOPHIL % (test code = BA%) % 0.0-1.0 NUCLEATED RBC % (test code = % 0.0-0.9 NRBC%) NEUTROPHIL # (test code = NT#) x10 3/uL 1.6-7.2 LYMPHOCYTE # (test code = LY#) x10 3/uL 1.1-2.7 MONOCYTE # (test code = MO#) x10 3/uL 0.3-0.8 EOSINOPHIL # (test code = EO#) x10 3/uL 0.0-0.5 WBC [id number] 12:49:00 Test Item Value Reference Range Interpretation Comments TOTAL CELLS COUNTED (test 100 #CELLS code = TCC) RBC MORPHOLOGY COMMENT Normal NORMAL (test code = MOC) PLATELET MORPHOLOGY (test LARGE PLATELETS SEEN NORMAL code = PLTMORPH) SEGMENTED NEUTROPHILS 65 % 43-65 N (test code = SEG) LYMPHOCYTE (test code = 19 % 20.5-45.5 L LYMPH) MONOCYTE (test code = 11 % 5.5-11.7 N MON) EOSINOPHIL (test code = 4 % 0.9-2.9 H EOS) BASOPHIL (test code = 1 % 0.2-1.0 N BASO) BAND ABSOLUTE (test code 0.00 10 3/uL 0.00-0.70 N = BAND#) NEUTROPHIL ABSOLUTE (test 6.18 10 3/uL 1.6-7.2 N code = SEG#) LYMPH ABSOLUTE (test code 1.8 10 3/uL 1.1-4.8 N = LYMPH#) ATYPICAL LYMPH ABSOLUTE 0.00 10 3/uL 0.00-0.00 N (test code = ALYMPH#) MONOCYTE ABSOLUTE (test 1.04 10 3/uL 0.3-0.8 H code = MON#) BASOPHIL ABSOLUTE (test 0.09 10 3/uL 0.00-0.1 N code = BASO#) EOSINOPHIL ABSOLUTE (test 0.38 10 3/uL 0.00-0.50 N code = EOS#) METAMYELOCYTE ABSOLUTE 0.00 10 3/uL 0.00-0.00 N (test code = META#) MYELOCYTE ABSOLUTE (test 0.00 10 3/uL 0.00-0.00 N code = MYELO#) PROMYELOCYTE ABSOLUTE 0.00 10 3/uL 0.00-0.00 N (test code = PROM#) BLASTS ABSOLUTE (test 0.00 10 3/uL 0.00-0.00 N code = BLAST#) OTHER CELLS ABSOLUTE 0.00 10 3/uL 0.00-0.00 N (test code = OCT#) BACTERIAL - [id number] 10:41:00 Test Item Value Reference Range Interpretation Comments MRSA by PCR (test Negative (08/21/20 5:41 code = MRSA by PCR) AM) [id number] 06:28:00 Test Item Value Reference Range Interpretation Comments WBC (test code = WBC) 7.3 3.7-10.4 [facility] [id number] 06:28:00 Test Item Value Reference Range Interpretation Comments RBC (test code = RBC) 4.91 4.70-6.10 [place] 514261-06-14 06:28:00 Test Item Value Reference Range Interpretation Comments Hgb (test code = Hgb) 14.9 14.0-18.0 [facility] [id number] 06:28:00 Test Item Value Reference Range Interpretation Comments Hct (test code = Hct) 43.6 42.0-54.0 [facility] [id number] 06:28:00 Test Item Value Reference Range Interpretation Comments MCV (test code = MCV) 88.8 80.0-94.0 [facility] CenterFivxoywYYFUICRPHL4843-18-39 06:28:00 Test Item Value Reference Range Interpretation Comments MCH (test code = MCH) 30.4 pg 27.0-31.0 [facility] [id number] 06:28:00 Test Item Value Reference Range Interpretation Comments MCHC (test code = MCHC) 34.3 32.0-36.0 [facility] CenterBdktlddPBQYQJPFTD0772-95-45 06:28:00 Test Item Value Reference Range Interpretation Comments RDW (test code = RDW) 13.8 11.5-14.5 [facility] CenterVkbvaooQKVJPOSBGX0419-97-34 06:28:00 Test Item Value Reference Range Interpretation Comments Platelet (test code = Platelet) 192 133-450 [facility] CenterUhqwitiJURVYBCBZT1531-22-91 06:28:00 Test Item Value Reference Range Interpretation Comments MPV (test code = MPV) 9.3 7.4-10.4 [facility] C[id number] 06:28:00 Test Item Value Reference Range Interpretation Comments PT (test code = PT) 12.5 s 12.0-14.7 [place] 514261-06-14 06:28:00 Test Item Value Reference Range Interpretation Comments INR (test code = INR) 0.94 1 0.85-1.17 [place] 514261-06-14 06:28:00 Test Item Value Reference Range Interpretation Comments PTT (test code = PTT) 33.1 s 22.9-35.8 [place] 514261-06-14 06:28:00 Test Item Value Reference Range Interpretation Comments Segs (test code = Segs) 49.0 45.0-75.0 [place] 514261-06-14 06:28:00 Test Item Value Reference Range Interpretation Comments Lymphocytes (test code = Lymphocytes) 36.3 20.0-40.0 [place] 514261-06-14 06:28:00 Test Item Value Reference Range Interpretation Comments Monocytes (test code = Monocytes) 8.7 2.0-12.0 [place] 514261-06-14 06:28:00 Test Item Value Reference Range Interpretation Comments Eosinophils (test code = 5.5 See_Comment [A utomated message] The Eosinophils) system which ge nerated this result tra nsmitted reference range : <=4.0. The reference r samantha was not used to int erpret this result as normal/abnormal . [place] 514261-06-14 06:28:00 Test Item Value Reference Range Interpretation Comments Basophils (test code = 0.5 See_Comment [Aut omated message] The Basophils) system which ge nerated this result tra nsmitted reference range : <=1.0. The reference r samantha was not used to int erpret this result as normal/abnormal . [facility] CenterNwpxlbnZXGWRYWQVH1279-50-55 06:28:00 Test Item Value Reference Range Interpretation Comments Neutrophils # (test code = Neutrophils 3.6 1.5-8.1 #) [place] 514261-06-14 06:28:00 Test Item Value Reference Range Interpretation Comments Lymphocytes # (test code = Lymphocytes 2.6 1.0-5.5 #) [place] 514261-06-14 06:28:00 Test Item Value Reference Range Interpretation Comments Monocytes # (test code 0.6 See_Comment [Aut omated message] The = Monocytes #) system which generated this result tra nsmitted reference range : <=0.8. The reference r samantha was not used to int erpret this result as normal/abnormal . [place] 514261-06-14 06:28:00 Test Item Value Reference Range Interpretation Comments Eosinophils # (test code 0.4 See_Comment [A utomated message] The = Eosinophils #) system whic h generated this result tra nsmitted reference range : <=0.5. The reference r samatnha was not used to int erpret this result as normal/abnormal . [facility] CenterOiysbumLDKAIURQJM2215-53-92 04:50:00 Test Item Value Reference Range Interpretation Comments Coronavirus (COVID-19) Not Detected (08/20/20 DENITA (test code = 11:50 PM) Coronavirus (COVID-19) DENITA) [facility] CenterCARDIAC [id number] 20:04:00 Test Item Value Reference Range Interpretation Comments Total CK (test code = Total CK) 135 12-191 [facility] [id number] 20:04:00 Test Item Value Reference Range Interpretation Comments Glucose Lvl (test code = Glucose Lvl) 128 70-99 [facility]2021-06-13 20:04:00 Test Item Value Reference Range Interpretation Comments BUN (test code = BUN) 11 7-22 [facility]2021-06-13 20:04:00 Test Item Value Reference Range Interpretation Comments Creatinine Lvl (test code = Creatinine 0.98 0.50-1.40 Lvl) [facility]2021-06-13 20:04:00 Test Item Value Reference Range Interpretation Comments Sodium Lvl (test code = Sodium Lvl) 138 135-145 [facility]2021-06-13 20:04:00 Test Item Value Reference Range Interpretation Comments Potassium Lvl (test code = Potassium 3.9 3.5-5.1 Lvl) [facility]2021-06-13 20:04:00 Test Item Value Reference Range Interpretation Comments Chloride Lvl (test code = Chloride Lvl) 107 95-109 [facility]2021-06-13 20:04:00 Test Item Value Reference Range Interpretation Comments CO2 (test code = CO2) 25 24-32 [facility]2021-06-13 20:04:00 Test Item Value Reference Range Interpretation Comments AGAP (test code = AGAP) 9.9 10.0-20.0 [facility]2021-06-13 20:04:00 Test Item Value Reference Range Interpretation Comments Calcium Lvl (test code = Calcium Lvl) 8.8 8.5-10.5 [facility]2021-06-13 20:04:00 Test Item Value Reference Range Interpretation Comments B/C Ratio (test code = B/C Ratio) 11 1 6-25 [facility] [id number] 20:04:00 Test Item Value Reference Range Interpretation Comments Total Protein (test code = Total 7.6 6.4-8.4 Protein) [facility] [id number] 20:04:00 Test Item Value Reference Range Interpretation Comments Albumin Lvl (test code = Albumin Lvl) 3.7 3.5-5.0 [facility] [id number] 20:04:00 Test Item Value Reference Range Interpretation Comments Globulin (test code = Globulin) 3.9 2.7-4.2 [facility] [id number] 20:04:00 Test Item Value Reference Range Interpretation Comments A/G Ratio (test code = A/G Ratio) 0.9 1 0.7-1.6 [facility] [id number] 20:04:00 Test Item Value Reference Range Interpretation Comments ALT (test code = ALT) 43 See_Comment [Auto mated message] The system which ge nerated this result transmit rosa reference range : <=65. The reference range was not used to interpr et this result as winter l/abnormal. [facility] [id number] 20:04:00 Test Item Value Reference Range Interpretation Comments AST (test code = AST) 24 See_Comment [Auto mated message] The system which ge nerated this result transmit rosa reference range : <=37. The reference range was not used to interpr et this result as winter l/abnormal. [employer]2021-06-13 20:04:00 Test Item Value Reference Range Interpretation Comments Alk Phos (test code = Alk Phos) 100 39-136 [facility] TUBE2021-06-13 20:04:00 Test Item Value Reference Range Interpretation Comments Bili Total (test code = Bili Total) 0.2 0.2-1.3 [facility] TUBE2021-06-13 20:04:00 Test Item Value Reference Range Interpretation Comments eGFR (test code = eGFR) 105 [facility] [employer]2021-06-13 20:04:00 Test Item Value Reference Range Interpretation Comments U Amph Scr (test code Negative *NA*(08/20/20 = U Amph Scr) 3:04 PM) [facility] [id number] 20:04:00 Test Item Value Reference Range Interpretation Comments U Silvina Scr (test code Negative *NA*(08/20/20 = U Silvina Scr) 3:04 PM) [facility] [id number] 20:04:00 Test Item Value Reference Range Interpretation Comments U Benzodiaz Scr (test Positive *ABN*(08/20/20 code = U Benzodiaz Scr) 3:04 PM) [facility] [id number] 20:04:00 Test Item Value Reference Range Interpretation Comments U Cocaine Scr (test Negative *NA*(08/20/20 code = U Cocaine Scr) 3:04 PM) [facility] [id number] 20:04:00 Test Item Value Reference Range Interpretation Comments U Cannab Scr (test Negative *NA*(08/20/20 code = U Cannab Scr) 3:04 PM) [facility] [id number] 20:04:00 Test Item Value Reference Range Interpretation Comments U Opiate Scr (test Negative *NA*(08/20/20 code = U Opiate Scr) 3:04 PM) [facility] [id number] 20:04:00 Test Item Value Reference Range Interpretation Comments U Phencyclidine Scr (test Negative code = U Phencyclidine *NA*(08/20/20 3:04 Scr) PM) [facility] [id number] 20:04:00 Test Item Value Reference Range Interpretation Comments UDS Note (test code = See Note (08/20/20 3:04 UDS Note) PM) [facility]woodObjmnpfRDPUTMRTAJ7196-78-65 20:04:00 Test Item Value Reference Range Interpretation Comments WBC (test code = WBC) 5.8 3.7-10.4 [facility]woodWauhsitVVDDCTQKFJ0579-88-21 20:04:00 Test Item Value Reference Range Interpretation Comments RBC (test code = RBC) 4.89 4.70-6.10 [facility] TxxwgtlDGMMLKNKCK9559-28-44 20:04:00 Test Item Value Reference Range Interpretation Comments Hgb (test code = Hgb) 14.5 14.0-18.0 [facility]woodLolozeiHDXXMKFYTW5607-94-58 20:04:00 Test Item Value Reference Range Interpretation Comments Hct (test code = Hct) 42.4 42.0-54.0 [facility] CenterEzljfjnCPWYEWODMQ8013-22-55 20:04:00 Test Item Value Reference Range Interpretation Comments MCV (test code = MCV) 86.7 80.0-94.0 [facility] CenterJilmghbPQOGYWLWGG7890-92-40 20:04:00 Test Item Value Reference Range Interpretation Comments MCH (test code = MCH) 29.6 pg 27.0-31.0 [facility] CenterVrruwlqLCSLMCBAZH5694-45-35 20:04:00 Test Item Value Reference Range Interpretation Comments MCHC (test code = MCHC) 34.2 32.0-36.0 [facility] CenterAwgesomBOIWGPSQKY0997-60-89 20:04:00 Test Item Value Reference Range Interpretation Comments RDW (test code = RDW) 14.3 11.5-14.5 [facility] CenterVhsnphuPNMCRINZEZ6544-85-63 20:04:00 Test Item Value Reference Range Interpretation Comments Platelet (test code = Platelet) 198 133-450 [facility] CenterJmgcmexIKMUDMWPOZ2267-53-36 20:04:00 Test Item Value Reference Range Interpretation Comments MPV (test code = MPV) 9.5 7.4-10.4 [facility] CenterZmssgvdNMTGDRXSGM6872-90-85 20:04:00 Test Item Value Reference Range Interpretation Comments PT (test code = PT) 13.2 s 12.0-14.7 [facility] CenterRmrtueqRQEQMXQCTA4637-93-48 20:04:00 Test Item Value Reference Range Interpretation Comments INR (test code = INR) 1.01 1 0.85-1.17 [facility] CenterHofdrabBDVJXBYLSK8101-95-57 20:04:00 Test Item Value Reference Range Interpretation Comments PTT (test code = PTT) 31.4 s 22.9-35.8 [place] 514261-06-13 20:04:00 Test Item Value Reference Range Interpretation Comments RBC Morph (test code = Normal (08/20/20 3:04 RBC Morph) PM) [facility] CenterSpgsvgjHXCBPGLJIN2659-54-36 20:04:00 Test Item Value Reference Range Interpretation Comments Plt Morph (test code = Normal (08/20/20 3:04 Plt Morph) PM) [facility] CenterVndimvzUUFIPNAJWR3092-09-85 20:04:00 Test Item Value Reference Range Interpretation Comments Segs (test code = Segs) 54.1 45.0-75.0 [facility] CenterUmaxdqpPLUEQEXUDK1864-20-23 20:04:00 Test Item Value Reference Range Interpretation Comments Lymphocytes (test code = Lymphocytes) 28.6 20.0-40.0 [facility] CenterXtkjmgrPZROZZTWFT4626-68-70 20:04:00 Test Item Value Reference Range Interpretation Comments Monocytes (test code = Monocytes) 10.4 2.0-12.0 [facility] CenterFadeztkBZMTLSSVWY4938-39-95 20:04:00 Test Item Value Reference Range Interpretation Comments Eosinophils (test code = 6.3 See_Comment [A utomated message] The Eosinophils) system which ge nerated this result tra nsmitted reference range : <=4.0. The reference r samantha was not used to int erpret this result as normal/abnormal . [facility] CenterTrwtmhiNZYBZHMKFB0074-51-72 20:04:00 Test Item Value Reference Range Interpretation Comments Basophils (test code = 0.6 See_Comment [Aut omated message] The Basophils) system which ge nerated this result tra nsmitted reference range : <=1.0. The reference r samantha was not used to int erpret this result as normal/abnormal . [facility] CenterBezubvwIHXMVDYHBK0986-74-56 20:04:00 Test Item Value Reference Range Interpretation Comments Neutrophils # (test code = Neutrophils 3.1 1.5-8.1 #) [facility] CenterGwjkhzhUOYEMUDMZA4156-96-55 20:04:00 Test Item Value Reference Range Interpretation Comments Lymphocytes # (test code = Lymphocytes 1.7 1.0-5.5 #) [facility] CenterElpcrjbCQKTCHRDLE0497-61-63 20:04:00 Test Item Value Reference Range Interpretation Comments Monocytes # (test code 0.6 See_Comment [Aut omated message] The = Monocytes #) system which generated this result tra nsmitted reference range : <=0.8. The reference r samantha was not used to int erpret this result as normal/abnormal . [facility] CenterMkhhilwRYDYIGMTLW4601-87-65 20:04:00 Test Item Value Reference Range Interpretation Comments Eosinophils # (test code 0.4 See_Comment [A utomated message] The = Eosinophils #) system whic h generated this result tra nsmitted reference range : <=0.5. The reference r samantha was not used to int erpret this result as normal/abnormal . [address]06-13 20:04:00 Test Item Value Reference Range Interpretation Comments Ethanol Lvl (test code = Ethanol Lvl) [facility] gt [facility]MwslfjdCXYPSOQZPE3501-13-28 20:04:00 Test Item Value Reference Range Interpretation Comments Etoh (%) (test code = Etoh (%)) no gt [facility] AND [id number] 20:04:00 Test Item Value Reference Range Interpretation Comments UA Turbidity (test code = Clear (08/20/20 3:04 UA Turbidity) PM) [facility] AND [id number] 20:04:00 Test Item Value Reference Range Interpretation Comments UA Spec Grav (test code = UA Spec 1.011 1 Grav) [facility] AND [id number] 20:04:00 Test Item Value Reference Range Interpretation Comments UA pH (test code = UA pH) 8.0 1 5.0-8.0 [facility] AND [id number] 20:04:00 Test Item Value Reference Range Interpretation Comments UA Protein (test code = UA Negative mg/dL Protein) [facility] AND [id number] 20:04:00 Test Item Value Reference Range Interpretation Comments UA Glucose (test code = UA Negative mg/dL Glucose) [facility] AND [id number] 20:04:00 Test Item Value Reference Range Interpretation Comments UA Ketones (test code = UA Negative mg/dL Ketones) [facility] AND [id number] 20:04:00 Test Item Value Reference Range Interpretation Comments UA Bili (test code = Negative *NA*(08/20/20 UA Bili) 3:04 PM) [facility] AND [id number] 20:04:00 Test Item Value Reference Range Interpretation Comments UA Blood (test code = Negative (08/20/20 3:04 UA Blood) PM) [facility] AND [id number] 20:04:00 Test Item Value Reference Range Interpretation Comments UA Nitrite (test code Negative (08/20/20 3:04 = UA Nitrite) PM) [facility] AND [id number] 20:04:00 Test Item Value Reference Range Interpretation Comments UA Leuk Est (test Negative (08/20/20 3:04 code = UA Leuk Est) PM) [facility] [id number] 20:04:00 Test Item Value Reference Range Interpretation Comments UA WBC (test code = no gt See_Comment [Automa rosa message] The UA WBC) system which ge nerated this result transmit rosa reference range : <=5. The reference range was not used to interpr et this result as winter l/abnormal. [facility] [id number] 20:04:00 Test Item Value Reference Range Interpretation Comments UA RBC (test code = 1 See_Comment [Automa rosa message] The UA RBC) system which ge nerated this result transmit rosa reference range : <=2. The reference range was not used to interpr et this result as winter l/abnormal. [facility] [id number] 20:04:00 Test Item Value Reference Range Interpretation Comments UA Sq Epi (test code = UA Sq Epi) None Seen [facility] [id number] 20:04:00 Test Item Value Reference Range Interpretation Comments UA Color (test code = UA Color) STRAW [facility] [id number] 20:04:00 Test Item Value Reference Range Interpretation Comments UA Urobilinogen (test code = UA <=1.0 mg/dL 0.1-1.0 Urobilinogen) [facility] [id number] 03:10:00 Test Item Value Reference Range Interpretation Comments U Amph Scr (test code Negative *NA*(08/19/20 = U Amph Scr) 10:10 PM) [facility] [id number] 03:10:00 Test Item Value Reference Range Interpretation Comments U Silvina Scr (test code Negative *NA*(08/19/20 = U Silvina Scr) 10:10 PM) [facility] [id number] 03:10:00 Test Item Value Reference Range Interpretation Comments U Benzodiaz Scr (test Positive *ABN*(08/19/20 code = U Benzodiaz Scr) 10:10 PM) [facility] [id number] 03:10:00 Test Item Value Reference Range Interpretation Comments U Cocaine Scr (test Negative *NA*(08/19/20 code = U Cocaine Scr) 10:10 PM) [facility] [id number] 03:10:00 Test Item Value Reference Range Interpretation Comments U Cannab Scr (test Negative *NA*(08/19/20 code = U Cannab Scr) 10:10 PM) [facility] [id number] 03:10:00 Test Item Value Reference Range Interpretation Comments U Opiate Scr (test Negative *NA*(08/19/20 code = U Opiate Scr) 10:10 PM) [facility] [id number] 03:10:00 Test Item Value Reference Range Interpretation Comments U Phencyclidine Scr (test Negative code = U Phencyclidine *NA*(08/19/20 10:10 Scr) PM) [facility] [id number] 03:10:00 Test Item Value Reference Range Interpretation Comments UDS Note (test code = See Note (08/19/20 10:10 UDS Note) PM) [facility] [id number] 03:10:00 Test Item Value Reference Range Interpretation Comments UA Color (test code = Yellow *NA*(08/19/20 UA Color) 10:10 PM) [facility] [id number] 03:10:00 Test Item Value Reference Range Interpretation Comments UA Turbidity (test code = Clear (08/19/20 10:10 UA Turbidity) PM) [facility] [id number] 03:10:00 Test Item Value Reference Range Interpretation Comments UA Spec Grav (test code = UA Spec 1.021 1 Grav) [facility] [id number] 03:10:00 Test Item Value Reference Range Interpretation Comments UA pH (test code = UA pH) 6.0 1 5.0-8.0 [facility] [id number] 03:10:00 Test Item Value Reference Range Interpretation Comments UA Protein (test code = UA Negative mg/dL Protein) [facility] [id number] 03:10:00 Test Item Value Reference Range Interpretation Comments UA Glucose (test code = UA Negative mg/dL Glucose) [facility] [id number] 03:10:00 Test Item Value Reference Range Interpretation Comments UA Ketones (test code = UA Negative mg/dL Ketones) [facility] [id number] 03:10:00 Test Item Value Reference Range Interpretation Comments UA Bili (test code = Negative *NA*(08/19/20 UA Bili) 10:10 PM) [facility] [id number] 03:10:00 Test Item Value Reference Range Interpretation Comments UA Blood (test code = Negative (08/19/20 10:10 UA Blood) PM) [facility] [id number] 03:10:00 Test Item Value Reference Range Interpretation Comments UA Nitrite (test code Negative (08/19/20 10:10 = UA Nitrite) PM) [facility] [id number] 03:10:00 Test Item Value Reference Range Interpretation Comments UA Leuk Est (test Negative (08/19/20 10:10 code = UA Leuk Est) PM) [facility] AND [id number] 03:10:00 Test Item Value Reference Range Interpretation Comments UA WBC (test code = no gt See_Comment [Automa rosa message] The UA WBC) system which ge nerated this result transmit rosa reference range : <=5. The reference range was not used to interpr et this result as winter l/abnormal. [facility] [id number] 03:10:00 Test Item Value Reference Range Interpretation Comments UA RBC (test code = 2 See_Comment [Automa rosa message] The UA RBC) system which ge nerated this result transmit rosa reference range : <=2. The reference range was not used to interpr et this result as winter l/abnormal. [facility] [id number] 03:10:00 Test Item Value Reference Range Interpretation Comments UA Mucus (test code = UA Mucus) Few /LPF [facility] [id number] 03:10:00 Test Item Value Reference Range Interpretation Comments UA Sq Epi (test code = UA Sq Epi) None Seen [facility] [id number] 03:10:00 Test Item Value Reference Range Interpretation Comments UA Urobilinogen (test code = UA <=1.0 mg/dL 0.1-1.0 Urobilinogen) [facility] [id number] 02:57:00 Test Item Value Reference Range Interpretation Comments Glucose Lvl (test code = Glucose Lvl) 128 70-99 [facility] [id number] 02:57:00 Test Item Value Reference Range Interpretation Comments BUN (test code = BUN) 14 7-22 [place] 801311-06-13 02:57:00 Test Item Value Reference Range Interpretation Comments Creatinine Lvl (test code = Creatinine 0.85 0.50-1.40 Lvl) [place] 801311-06-13 02:57:00 Test Item Value Reference Range Interpretation Comments Sodium Lvl (test code = Sodium Lvl) 138 135-145 [place] 801311-06-13 02:57:00 Test Item Value Reference Range Interpretation Comments Potassium Lvl (test code = Potassium 3.8 3.5-5.1 Lvl) [place] [address]-06-13 02:57:00 Test Item Value Reference Range Interpretation Comments Chloride Lvl (test code = Chloride Lvl) 107 95-109 [place] 801311-06-13 02:57:00 Test Item Value Reference Range Interpretation Comments CO2 (test code = CO2) 24 24-32 [place] 801311-06-13 02:57:00 Test Item Value Reference Range Interpretation Comments Calcium Lvl (test code = Calcium Lvl) 8.6 8.5-10.5 [place] 801311-06-13 02:57:00 Test Item Value Reference Range Interpretation Comments Total Protein (test code = Total 7.2 6.4-8.4 Protein) [place] 801311-06-13 02:57:00 Test Item Value Reference Range Interpretation Comments Albumin Lvl (test code = Albumin Lvl) 3.5 3.5-5.0 [place] 801311-06-13 02:57:00 Test Item Value Reference Range Interpretation Comments ALT (test code = ALT) 35 See_Comment [Auto mated message] The system which ge nerated this result transmit rosa reference range : <=65. The reference range was not used to interpr et this result as winter l/abnormal. [place] 801311-06-13 02:57:00 Test Item Value Reference Range Interpretation Comments AST (test code = AST) 22 See_Comment [Auto mated message] The system which ge nerated this result transmit rosa reference range : <=37. The reference range was not used to interpr et this result as winter l/abnormal. [address]06-13 02:57:00 Test Item Value Reference Range Interpretation Comments Alk Phos (test code = Alk Phos) 101 39-136 [place] 801311-06-13 02:57:00 Test Item Value Reference Range Interpretation Comments Bili Total (test code = Bili Total) 0.1 0.2-1.3 [place] 801311-06-13 02:57:00 Test Item Value Reference Range Interpretation Comments AGAP (test code = AGAP) 10.8 10.0-20.0 [place] 801311-06-13 02:57:00 Test Item Value Reference Range Interpretation Comments B/C Ratio (test code = B/C Ratio) 16 1 6-25 [place] [address]-06-13 02:57:00 Test Item Value Reference Range Interpretation Comments Globulin (test code = Globulin) 3.7 2.7-4.2 [place] 801311-06-13 02:57:00 Test Item Value Reference Range Interpretation Comments A/G Ratio (test code = A/G Ratio) 0.9 1 0.7-1.6 [place] 801311-06-13 02:57:00 Test Item Value Reference Range Interpretation Comments eGFR (test code = eGFR) 120 [place] 514261-06-13 02:57:00 Test Item Value Reference Range Interpretation Comments WBC (test code = WBC) 5.9 3.7-10.4 [place] 514261-06-13 02:57:00 Test Item Value Reference Range Interpretation Comments RBC (test code = RBC) 4.64 4.70-6.10 [place] 514261-06-13 02:57:00 Test Item Value Reference Range Interpretation Comments Hgb (test code = Hgb) 13.9 14.0-18.0 [place] [address]-06-13 02:57:00 Test Item Value Reference Range Interpretation Comments Hct (test code = Hct) 40.1 42.0-54.0 [place] [address]-06-13 02:57:00 Test Item Value Reference Range Interpretation Comments MCV (test code = MCV) 86.3 80.0-94.0 [place] [address]-06-13 02:57:00 Test Item Value Reference Range Interpretation Comments MCH (test code = MCH) 30.0 pg 27.0-31.0 [place] 514261-06-13 02:57:00 Test Item Value Reference Range Interpretation Comments MCHC (test code = MCHC) 34.7 32.0-36.0 [place] 514261-06-13 02:57:00 Test Item Value Reference Range Interpretation Comments RDW (test code = RDW) 14.1 11.5-14.5 [place] 514261-06-13 02:57:00 Test Item Value Reference Range Interpretation Comments Platelet (test code = Platelet) 182 133-450 [place] 514261-06-13 02:57:00 Test Item Value Reference Range Interpretation Comments MPV (test code = MPV) 8.8 7.4-10.4 [place] 514261-06-13 02:57:00 Test Item Value Reference Range Interpretation Comments RBC Morph (test code = Normal (08/19/20 9:57 RBC Morph) PM) [place] 514261-06-13 02:57:00 Test Item Value Reference Range Interpretation Comments Segs (test code = Segs) 48.1 45.0-75.0 [place] 514261-06-13 02:57:00 Test Item Value Reference Range Interpretation Comments Lymphocytes (test code = Lymphocytes) 33.6 20.0-40.0 [place] 514261-06-13 02:57:00 Test Item Value Reference Range Interpretation Comments Monocytes (test code = Monocytes) 10.8 2.0-12.0 [place] 514261-06-13 02:57:00 Test Item Value Reference Range Interpretation Comments Eosinophils (test code = 6.3 See_Comment [A utomated message] The Eosinophils) system which ge nerated this result tra nsmitted reference range : <=4.0. The reference r samantha was not used to int erpret this result as normal/abnormal . [place] 514261-06-13 02:57:00 Test Item Value Reference Range Interpretation Comments Basophils (test code = 1.2 See_Comment [Aut omated message] The Basophils) system which ge nerated this result tra nsmitted reference range : <=1.0. The reference r samantha was not used to int erpret this result as normal/abnormal . [place] 514261-06-13 02:57:00 Test Item Value Reference Range Interpretation Comments Neutrophils # (test code = Neutrophils 2.8 1.5-8.1 #) [facility] CenterErsdsgtXFKVWLDXBJ2410-25-44 02:57:00 Test Item Value Reference Range Interpretation Comments Lymphocytes # (test code = Lymphocytes 2.0 1.0-5.5 #) [place] 514261-06-13 02:57:00 Test Item Value Reference Range Interpretation Comments Monocytes # (test code 0.6 See_Comment [Aut omated message] The = Monocytes #) system which generated this result tra nsmitted reference range : <=0.8. The reference r samantha was not used to int erpret this result as normal/abnormal . [place] 514261-06-13 02:57:00 Test Item Value Reference Range Interpretation Comments Eosinophils # (test code 0.4 See_Comment [A utomated message] The = Eosinophils #) system whic h generated this result tra nsmitted reference range : <=0.5. The reference r samantha was not used to int erpret this result as normal/abnormal . [facility] CenterTaskuskDXROVQLWRF6398-32-46 02:57:00 Test Item Value Reference Range Interpretation Comments Basophils # (test code 0.1 See_Comment [Aut omated message] The = Basophils #) system which generated this result tra nsmitted reference range : <=0.2. The reference r samantha was not used to int erpret this result as normal/abnormal . [facility] CenterDmgckfyONBGYXWGYL3677-51-65 02:57:00 Test Item Value Reference Range Interpretation Comments Large Plt (test code = Large Plt) SLIGHT [facility] CenterPnhzbcvGJTUEGRKZE8732-47-80 02:57:00 Test Item Value Reference Range Interpretation Comments Valproic Acid Lvl (test code = Valproic 54 50-100 Acid Lvl) [facility] [id number] 06:43:00 Test Item Value Reference Range Interpretation Comments Phosphorus (test code = Phosphorus) 5.2 2.5-4.5 [place] 801311-06-11 06:43:00 Test Item Value Reference Range Interpretation Comments Glucose Lvl (test code = Glucose Lvl) 75 70-99 [place] 801311-06-11 06:43:00 Test Item Value Reference Range Interpretation Comments BUN (test code = BUN) 16 7-22 [place] 801311-06-11 06:43:00 Test Item Value Reference Range Interpretation Comments Creatinine Lvl (test code = Creatinine 0.99 0.50-1.40 Lvl) [place] 801311-06-11 06:43:00 Test Item Value Reference Range Interpretation Comments Sodium Lvl (test code = Sodium Lvl) 137 135-145 [place] 801311-06-11 06:43:00 Test Item Value Reference Range Interpretation Comments Potassium Lvl (test code = Potassium 3.9 3.5-5.1 Lvl) [place] 801311-06-11 06:43:00 Test Item Value Reference Range Interpretation Comments Chloride Lvl (test code = Chloride Lvl) 100 95-109 [place] 801311-06-11 06:43:00 Test Item Value Reference Range Interpretation Comments CO2 (test code = CO2) 27 24-32 [place] 801311-06-11 06:43:00 Test Item Value Reference Range Interpretation Comments AGAP (test code = AGAP) 13.9 10.0-20.0 [place] 801311-06-11 06:43:00 Test Item Value Reference Range Interpretation Comments Calcium Lvl (test code = Calcium Lvl) 8.9 8.5-10.5 [place] 801311-06-11 06:43:00 Test Item Value Reference Range Interpretation Comments eGFR (test code = eGFR) 104 [place] 801311-06-11 06:43:00 Test Item Value Reference Range Interpretation Comments Magnesium Lvl (test code = Magnesium 2.2 1.8-2.4 Lvl) [place] 514261-06-11 06:43:00 Test Item Value Reference Range Interpretation Comments WBC (test code = WBC) 6.7 3.7-10.4 [place] 514261-06-11 06:43:00 Test Item Value Reference Range Interpretation Comments RBC (test code = RBC) 5.28 4.70-6.10 [place] 514261-06-11 06:43:00 Test Item Value Reference Range Interpretation Comments Hgb (test code = Hgb) 16.2 14.0-18.0 [facility] CenterHoxelocBNJNRWOJEN8241-62-57 06:43:00 Test Item Value Reference Range Interpretation Comments Hct (test code = Hct) 47.0 42.0-54.0 [facility] CenterRlepughQHGNPBIIOH6952-19-19 06:43:00 Test Item Value Reference Range Interpretation Comments MCV (test code = MCV) 88.9 80.0-94.0 [facility] CenterNxkruhhDMEOEWRMIC9617-71-90 06:43:00 Test Item Value Reference Range Interpretation Comments MCH (test code = MCH) 30.7 pg 27.0-31.0 [facility] CenterHmuezcrHPUPVGCKQX0054-44-48 06:43:00 Test Item Value Reference Range Interpretation Comments MCHC (test code = MCHC) 34.5 32.0-36.0 [facility] CenterOfzzgnqZSGWKMKBKQ6918-64-22 06:43:00 Test Item Value Reference Range Interpretation Comments RDW (test code = RDW) 13.6 11.5-14.5 [facility] CenterUgqacqdPOOQCYFSZN9037-67-97 06:43:00 Test Item Value Reference Range Interpretation Comments Platelet (test code = Platelet) 234 133-450 [facility] CenterDtbdvroXJOLHOYTBA2164-16-72 06:43:00 Test Item Value Reference Range Interpretation Comments MPV (test code = MPV) 9.2 7.4-10.4 [facility] CenterPrknbnfFMGKKTKJMF6832-85-14 06:43:00 Test Item Value Reference Range Interpretation Comments Segs (test code = Segs) 45.1 45.0-75.0 [facility] CenterAgqwgxtAXWWARBAEZ5339-36-96 06:43:00 Test Item Value Reference Range Interpretation Comments Lymphocytes (test code = Lymphocytes) 36.9 20.0-40.0 [place] 514261-06-11 06:43:00 Test Item Value Reference Range Interpretation Comments Monocytes (test code = Monocytes) 7.2 2.0-12.0 [place] 514261-06-11 06:43:00 Test Item Value Reference Range Interpretation Comments Eosinophils (test code = 10.0 See_Comment [A utomated message] The Eosinophils) system which ge nerated this result tra nsmitted reference range : <=4.0. The reference r samantha was not used to int erpret this result as normal/abnormal . [place] [address]-06-11 06:43:00 Test Item Value Reference Range Interpretation Comments Basophils (test code = 0.8 See_Comment [Aut omated message] The Basophils) system which ge nerated this result tra nsmitted reference range : <=1.0. The reference r samantha was not used to int erpret this result as normal/abnormal . [facility] CenterWrbosssAQBAKGVNSC0325-48-08 06:43:00 Test Item Value Reference Range Interpretation Comments Neutrophils # (test code = Neutrophils 3.0 1.5-8.1 #) [facility] CenterNysysijWZESPCENVR6890-02-06 06:43:00 Test Item Value Reference Range Interpretation Comments Lymphocytes # (test code = Lymphocytes 2.5 1.0-5.5 #) [facility] CenterMglmyvhJIIRXVYLWX4484-28-39 06:43:00 Test Item Value Reference Range Interpretation Comments Monocytes # (test code 0.5 See_Comment [Aut omated message] The = Monocytes #) system which generated this result tra nsmitted reference range : <=0.8. The reference r samantha was not used to int erpret this result as normal/abnormal . [facility] CenterYrqpgxcNSHLJQNJJW6443-38-92 06:43:00 Test Item Value Reference Range Interpretation Comments Eosinophils # (test code 0.7 See_Comment [A utomated message] The = Eosinophils #) system whic h generated this result tra nsmitted reference range : <=0.5. The reference r samantha was not used to int erpret this result as normal/abnormal . [facility] CenterJuwryonYELLCSVPGT7748-32-68 06:43:00 Test Item Value Reference Range Interpretation Comments Basophils # (test code 0.1 See_Comment [Aut omated message] The = Basophils #) system which generated this result tra nsmitted reference range : <=0.2. The reference r samantha was not used to int erpret this result as normal/abnormal . [facility]ATHY[facility] OWMJPKK8982-99-31 06:43:00 Test Item Value Reference Range Interpretation Comments Ca Ion WB (test code = Ca Ion WB) 1.14 1.05-1.25 [facility] HospitalATHYROID OJGPTKO9900-06-64 06:43:00 Test Item Value Reference Range Interpretation Comments Ca Norm WB (test code = Ca Norm WB) 1.07 1.05-1.25 [place] 801311-06-10 14:22:00 Test Item Value Reference Range Interpretation Comments Glucose Lvl (test code = Glucose Lvl) 124 70-99 [place] 801311-06-10 14:22:00 Test Item Value Reference Range Interpretation Comments BUN (test code = BUN) 13 7-22 [place] 801311-06-10 14:22:00 Test Item Value Reference Range Interpretation Comments Creatinine Lvl (test code = Creatinine 0.76 0.50-1.40 Lvl) [facility]2021-06-10 14:22:00 Test Item Value Reference Range Interpretation Comments Sodium Lvl (test code = Sodium Lvl) 135 135-145 [place] 801311-06-10 14:22:00 Test Item Value Reference Range Interpretation Comments Potassium Lvl (test code = Potassium 3.6 3.5-5.1 Lvl) [place] 801311-06-10 14:22:00 Test Item Value Reference Range Interpretation Comments Chloride Lvl (test code = Chloride Lvl) 105 95-109 [place] 801311-06-10 14:22:00 Test Item Value Reference Range Interpretation Comments CO2 (test code = CO2) 26 24-32 [place] 801311-06-10 14:22:00 Test Item Value Reference Range Interpretation Comments AGAP (test code = AGAP) 7.6 10.0-20.0 [place] 801311-06-10 14:22:00 Test Item Value Reference Range Interpretation Comments Calcium Lvl (test code = Calcium Lvl) 8.1 8.5-10.5 [place] 801311-06-10 14:22:00 Test Item Value Reference Range Interpretation Comments B/C Ratio (test code = B/C Ratio) 17 1 6-25 [place] 801311-06-10 14:22:00 Test Item Value Reference Range Interpretation Comments Total Protein (test code = Total 7.4 6.4-8.4 Protein) [place] 801311-06-10 14:22:00 Test Item Value Reference Range Interpretation Comments Albumin Lvl (test code = Albumin Lvl) 3.4 3.5-5.0 [place] 801311-06-10 14:22:00 Test Item Value Reference Range Interpretation Comments Globulin (test code = Globulin) 4.0 2.7-4.2 [place] 801311-06-10 14:22:00 Test Item Value Reference Range Interpretation Comments A/G Ratio (test code = A/G Ratio) 0.8 1 0.7-1.6 [place] 801311-06-10 14:22:00 Test Item Value Reference Range Interpretation Comments ALT (test code = ALT) 31 See_Comment [Auto mated message] The system which ge nerated this result transmit rosa reference range : <=65. The reference range was not used to interpr et this result as winter l/abnormal. [place] 801311-06-10 14:22:00 Test Item Value Reference Range Interpretation Comments AST (test code = AST) 14 See_Comment [Auto mated message] The system which ge nerated this result transmit rosa reference range : <=37. The reference range was not used to interpr et this result as winter l/abnormal. [place] 801311-06-10 14:22:00 Test Item Value Reference Range Interpretation Comments Alk Phos (test code = Alk Phos) 66 39-136 [place] 801311-06-10 14:22:00 Test Item Value Reference Range Interpretation Comments Bili Total (test code = Bili Total) 0.5 0.2-1.3 [place] 801311-06-10 14:22:00 Test Item Value Reference Range Interpretation Comments eGFR (test code = eGFR) 125 [place] 514261-06-10 14:22:00 Test Item Value Reference Range Interpretation Comments Segs (test code = Segs) 54.3 45.0-75.0 [place] 514261-06-10 14:22:00 Test Item Value Reference Range Interpretation Comments Lymphocytes (test code = Lymphocytes) 33.2 20.0-40.0 [place] [address]-06-10 14:22:00 Test Item Value Reference Range Interpretation Comments Monocytes (test code = Monocytes) 4.1 2.0-12.0 [place] [address]-06-10 14:22:00 Test Item Value Reference Range Interpretation Comments Eosinophils (test code = 7.8 See_Comment [A utomated message] The Eosinophils) system which ge nerated this result tra nsmitted reference range : <=4.0. The reference r samantha was not used to int erpret this result as normal/abnormal . [facility] CenterPljtslsOPYBCXKPIN3051-83-00 14:22:00 Test Item Value Reference Range Interpretation Comments Basophils (test code = 0.6 See_Comment [Aut omated message] The Basophils) system which ge nerated this result tra nsmitted reference range : <=1.0. The reference r samantha was not used to int erpret this result as normal/abnormal . [facility] CenterAvbtohhWOPTXHNEMN5123-52-57 14:22:00 Test Item Value Reference Range Interpretation Comments Neutrophils # (test code = Neutrophils 2.9 1.5-8.1 #) [facility] CenterRauakfmCOHSEFAFFP6784-30-59 14:22:00 Test Item Value Reference Range Interpretation Comments Lymphocytes # (test code = Lymphocytes 1.8 1.0-5.5 #) [facility] CenterZbqokdgUEJXCTKCHO1661-80-40 14:22:00 Test Item Value Reference Range Interpretation Comments Monocytes # (test code 0.2 See_Comment [Aut omated message] The = Monocytes #) system which generated this result tra nsmitted reference range : <=0.8. The reference r samantha was not used to int erpret this result as normal/abnormal . [facility] CenterWwseqnkSTGGJSEVNQ4588-33-04 14:22:00 Test Item Value Reference Range Interpretation Comments Eosinophils # (test code 0.4 See_Comment [A utomated message] The = Eosinophils #) system whic h generated this result tra nsmitted reference range : <=0.5. The reference r samantha was not used to int erpret this result as normal/abnormal . [facility] CenterWnfhvvyBABJKQSGXS1935-77-40 14:22:00 Test Item Value Reference Range Interpretation Comments WBC (test code = WBC) 5.3 3.7-10.4 [facility] CenterChutkagVUXRMAKVJY2415-13-00 14:22:00 Test Item Value Reference Range Interpretation Comments RBC (test code = RBC) 4.89 4.70-6.10 [facility] CenterEzztkuhXXKRHRZJIM1376-52-93 14:22:00 Test Item Value Reference Range Interpretation Comments Hgb (test code = Hgb) 14.9 14.0-18.0 [place] 514261-06-10 14:22:00 Test Item Value Reference Range Interpretation Comments Hct (test code = Hct) 43.0 42.0-54.0 [facility]FXGRWSDKQ9508-45-93 14:22:00 Test Item Value Reference Range Interpretation Comments MCV (test code = MCV) 87.9 80.0-94.0 [facility] HealthOsqznpnKZUDWLIBWY6564-36-90 14:22:00 Test Item Value Reference Range Interpretation Comments MCH (test code = MCH) 30.5 pg 27.0-31.0 [facility] HealthCmptcknMEKREHVIBN1550-61-56 14:22:00 Test Item Value Reference Range Interpretation Comments MCHC (test code = MCHC) 34.7 32.0-36.0 [facility] HealthZbgekugNDEIDKJEOD8318-70-43 14:22:00 Test Item Value Reference Range Interpretation Comments RDW (test code = RDW) 13.6 11.5-14.5 [facility] HealthUcmvsazGDAKVXTOMN8620-87-68 14:22:00 Test Item Value Reference Range Interpretation Comments Platelet (test code = Platelet) 202 133-450 [facility] HealthXtlurrgPYETHYZJBG6258-17-30 14:22:00 Test Item Value Reference Range Interpretation Comments MPV (test code = MPV) 8.7 7.4-10.4 [facility] RRYCAHV8234-10-90 00:29:00 Test Item Value Reference Range Interpretation Comments Total CK (test code = Total CK) 71 12-191 [facility] [id number] 00:29:00 Test Item Value Reference Range Interpretation Comments Glucose Lvl (test code = Glucose Lvl) 105 70-99 [facility] [id number] 00:29:00 Test Item Value Reference Range Interpretation Comments BUN (test code = BUN) 18 7-22 [facility] [id number] 00:29:00 Test Item Value Reference Range Interpretation Comments Creatinine Lvl (test code = Creatinine 0.95 0.50-1.40 Lvl) [facility] [id number] 00:29:00 Test Item Value Reference Range Interpretation Comments Sodium Lvl (test code = Sodium Lvl) 139 135-145 [facility] [id number] 00:29:00 Test Item Value Reference Range Interpretation Comments Potassium Lvl (test code = Potassium 4.0 3.5-5.1 Lvl) [facility] [id number] 00:29:00 Test Item Value Reference Range Interpretation Comments Chloride Lvl (test code = Chloride Lvl) 106 95-109 [place] 801311-06-10 00:29:00 Test Item Value Reference Range Interpretation Comments CO2 (test code = CO2) 26 24-32 [facility]2021-06-10 00:29:00 Test Item Value Reference Range Interpretation Comments Calcium Lvl (test code = Calcium Lvl) 8.5 8.5-10.5 [facility]woodDesign2LaunchTON[place] [address]28JDBLK5486-64-26 00:29:00 Test Item Value Reference Range Interpretation Comments Total Protein (test code = Total 7.7 6.4-8.4 Protein) [facility]2021-06-10 00:29:00 Test Item Value Reference Range Interpretation Comments Albumin Lvl (test code = Albumin Lvl) 3.6 3.5-5.0 [facility] [id number] 00:29:00 Test Item Value Reference Range Interpretation Comments ALT (test code = ALT) 36 See_Comment [Auto mated message] The system which ge nerated this result transmit rosa reference range : <=65. The reference range was not used to interpr et this result as winter l/abnormal. [facility] [id number] 00:29:00 Test Item Value Reference Range Interpretation Comments AST (test code = AST) 20 See_Comment [Auto mated message] The system which ge nerated this result transmit rosa reference range : <=37. The reference range was not used to interpr et this result as winter l/abnormal. [facility] [id number] 00:29:00 Test Item Value Reference Range Interpretation Comments Alk Phos (test code = Alk Phos) 93 39-136 [facility] [id number] 00:29:00 Test Item Value Reference Range Interpretation Comments Bili Total (test code = Bili Total) 0.2 0.2-1.3 [facility] [id number] 00:29:00 Test Item Value Reference Range Interpretation Comments AGAP (test code = AGAP) 11.0 10.0-20.0 [facility] [id number] 00:29:00 Test Item Value Reference Range Interpretation Comments B/C Ratio (test code = B/C Ratio) 19 1 6-25 [facility] [id number] 00:29:00 Test Item Value Reference Range Interpretation Comments Globulin (test code = Globulin) 4.1 2.7-4.2 [facility] [id number] 00:29:00 Test Item Value Reference Range Interpretation Comments A/G Ratio (test code = A/G Ratio) 0.9 1 0.7-1.6 [facility] [id number] 00:29:00 Test Item Value Reference Range Interpretation Comments eGFR (test code = eGFR) 109 [facility] CenterVgtgqasBDATQBOBPM4468-53-70 00:29:00 Test Item Value Reference Range Interpretation Comments WBC (test code = WBC) 6.7 3.7-10.4 [facility] CenterSscmspwDPXMMUSQJP8668-54-41 00:29:00 Test Item Value Reference Range Interpretation Comments RBC (test code = RBC) 5.12 4.70-6.10 [facility] CenterPkwlippMFGTWEFVHY8102-60-53 00:29:00 Test Item Value Reference Range Interpretation Comments Hgb (test code = Hgb) 15.3 14.0-18.0 [place] 514261-06-10 00:29:00 Test Item Value Reference Range Interpretation Comments Hct (test code = Hct) 45.1 42.0-54.0 [facility] CenterHftidkcUWKFAGZSVA7899-13-14 00:29:00 Test Item Value Reference Range Interpretation Comments MCV (test code = MCV) 88.0 80.0-94.0 [place] 514261-06-10 00:29:00 Test Item Value Reference Range Interpretation Comments MCH (test code = MCH) 29.8 pg 27.0-31.0 [place] 514261-06-10 00:29:00 Test Item Value Reference Range Interpretation Comments MCHC (test code = MCHC) 33.9 32.0-36.0 [place] 514261-06-10 00:29:00 Test Item Value Reference Range Interpretation Comments RDW (test code = RDW) 13.9 11.5-14.5 [place] 514261-06-10 00:29:00 Test Item Value Reference Range Interpretation Comments Platelet (test code = Platelet) 224 133-450 [facility] CenterWtfrofpSTELRCLWIK4857-13-98 00:29:00 Test Item Value Reference Range Interpretation Comments MPV (test code = MPV) 8.6 7.4-10.4 [facility] CenterDfqfdstLZXIBPMVZU6463-06-02 00:29:00 Test Item Value Reference Range Interpretation Comments Segs (test code = Segs) 47.4 45.0-75.0 [facility] CenterSbxseiwGNQQLXHMLC6718-58-14 00:29:00 Test Item Value Reference Range Interpretation Comments Lymphocytes (test code = Lymphocytes) 35.4 20.0-40.0 [facility] CenterJiwneezFYGHMMHAEC0347-89-47 00:29:00 Test Item Value Reference Range Interpretation Comments Monocytes (test code = Monocytes) 7.1 2.0-12.0 [facility] CenterXdwmcxrTYEHVBRMBK2112-65-80 00:29:00 Test Item Value Reference Range Interpretation Comments Eosinophils (test code = 9.4 See_Comment [A utomated message] The Eosinophils) system which ge nerated this result tra nsmitted reference range : <=4.0. The reference r samantha was not used to int erpret this result as normal/abnormal . [facility] CenterXwtuhfdQIIURIEVVX4549-11-37 00:29:00 Test Item Value Reference Range Interpretation Comments Basophils (test code = 0.7 See_Comment [Aut omated message] The Basophils) system which ge nerated this result tra nsmitted reference range : <=1.0. The reference r samantha was not used to int erpret this result as normal/abnormal . [facility] CenterUpjlqtkXDZDNJHZOY5140-46-26 00:29:00 Test Item Value Reference Range Interpretation Comments Neutrophils # (test code = Neutrophils 3.2 1.5-8.1 #) [facility] CenterSsyahcoBFVCKMGUSL4600-92-00 00:29:00 Test Item Value Reference Range Interpretation Comments Lymphocytes # (test code = Lymphocytes 2.4 1.0-5.5 #) [facility] CenterPhnsdnnZDDXDDGHSU9226-10-96 00:29:00 Test Item Value Reference Range Interpretation Comments Monocytes # (test code 0.5 See_Comment [Aut omated message] The = Monocytes #) system which generated this result tra nsmitted reference range : <=0.8. The reference r samantha was not used to int erpret this result as normal/abnormal . [facility] CenterAkpnhaxQLZBOKUHHW9994-31-86 00:29:00 Test Item Value Reference Range Interpretation Comments Eosinophils # (test code 0.6 See_Comment [A utomated message] The = Eosinophils #) system whic h generated this result tra nsmitted reference range : <=0.5. The reference r samantha was not used to int erpret this result as normal/abnormal . [facility] CenterBqkxvzrVHFFAFCTKY3411-09-91 00:29:00 Test Item Value Reference Range Interpretation Comments Valproic Acid Lvl (test code = Valproic 78 50-100 Acid Lvl) [facility]2021-05-24 08:16:00 Test Item Value Reference Range Interpretation Comments Glucose Lvl (test code = Glucose Lvl) 73 70-99 [place] 801311-05-24 08:16:00 Test Item Value Reference Range Interpretation Comments BUN (test code = BUN) 10 7-22 [place] 801311-05-24 08:16:00 Test Item Value Reference Range Interpretation Comments Creatinine Lvl (test code = Creatinine 0.73 0.50-1.40 Lvl) [facility]2021-05-24 08:16:00 Test Item Value Reference Range Interpretation Comments Sodium Lvl (test code = Sodium Lvl) 138 135-145 [facility]2021-05-24 08:16:00 Test Item Value Reference Range Interpretation Comments Potassium Lvl (test code = Potassium 3.4 3.5-5.1 Lvl) [facility]2021-05-24 08:16:00 Test Item Value Reference Range Interpretation Comments Chloride Lvl (test code = Chloride Lvl) 105 95-109 [facility]2021-05-24 08:16:00 Test Item Value Reference Range Interpretation Comments CO2 (test code = CO2) 24 24-32 [place] 801311-05-24 08:16:00 Test Item Value Reference Range Interpretation Comments Calcium Lvl (test code = Calcium Lvl) 8.6 8.5-10.5 [place] 801311-05-24 08:16:00 Test Item Value Reference Range Interpretation Comments AGAP (test code = AGAP) 12.4 10.0-20.0 [place] 801311-05-24 08:16:00 Test Item Value Reference Range Interpretation Comments eGFR (test code = eGFR) 127 [facility]2021-05-24 08:16:00 Test Item Value Reference Range Interpretation Comments Magnesium Lvl (test code = Magnesium 2.3 1.8-2.4 Lvl) [facility]2021-05-24 08:16:00 Test Item Value Reference Range Interpretation Comments Phosphorus (test code = Phosphorus) 4.5 2.5-4.5 [facility] CenterGnywwoiKNQVGHZQTY7586-78-57 08:16:00 Test Item Value Reference Range Interpretation Comments WBC (test code = WBC) 5.0 3.7-10.4 [facility] CenterKsmowzqAFATSEIDYB8705-17-26 08:16:00 Test Item Value Reference Range Interpretation Comments RBC (test code = RBC) 5.07 4.70-6.10 [facility] CenterDkpmfugSGDMTGWMMY3868-89-64 08:16:00 Test Item Value Reference Range Interpretation Comments Hgb (test code = Hgb) 15.1 14.0-18.0 [place] 514261-05-24 08:16:00 Test Item Value Reference Range Interpretation Comments Hct (test code = Hct) 44.1 42.0-54.0 [facility] CenterXyevwldYIHFGFKSMF3493-93-36 08:16:00 Test Item Value Reference Range Interpretation Comments MCV (test code = MCV) 87.0 80.0-94.0 [facility] CenterOnoysbaQMJSUXHMRA1150-06-74 08:16:00 Test Item Value Reference Range Interpretation Comments MCH (test code = MCH) 29.8 pg 27.0-31.0 [facility] CenterRsrztgmSHAOELUMVQ3070-83-58 08:16:00 Test Item Value Reference Range Interpretation Comments MCHC (test code = MCHC) 34.3 32.0-36.0 [place] [address]-05-24 08:16:00 Test Item Value Reference Range Interpretation Comments RDW (test code = RDW) 13.2 11.5-14.5 [place] 514261-05-24 08:16:00 Test Item Value Reference Range Interpretation Comments Platelet (test code = Platelet) 160 133-450 [facility] CenterNdlyotdTGIZRZXSAK8005-17-37 08:16:00 Test Item Value Reference Range Interpretation Comments MPV (test code = MPV) 9.5 7.4-10.4 [place] [address]-05-24 08:16:00 Test Item Value Reference Range Interpretation Comments Segs (test code = Segs) 37.2 45.0-75.0 [place] 514261-05-24 08:16:00 Test Item Value Reference Range Interpretation Comments Lymphocytes (test code = Lymphocytes) 47.6 20.0-40.0 [place] [address]-05-24 08:16:00 Test Item Value Reference Range Interpretation Comments Monocytes (test code = Monocytes) 10.5 2.0-12.0 [place] [address]-05-24 08:16:00 Test Item Value Reference Range Interpretation Comments Eosinophils (test code = 4.3 See_Comment [A utomated message] The Eosinophils) system which ge nerated this result tra nsmitted reference range : <=4.0. The reference r samantha was not used to int erpret this result as normal/abnormal . [place] [address]-05-24 08:16:00 Test Item Value Reference Range Interpretation Comments Basophils (test code = 0.4 See_Comment [Aut omated message] The Basophils) system which ge nerated this result tra nsmitted reference range : <=1.0. The reference r samantha was not used to int erpret this result as normal/abnormal . [place] 514261-05-24 08:16:00 Test Item Value Reference Range Interpretation Comments Neutrophils # (test code = Neutrophils 1.9 1.5-8.1 #) [place] [address]-05-24 08:16:00 Test Item Value Reference Range Interpretation Comments Lymphocytes # (test code = Lymphocytes 2.4 1.0-5.5 #) [place] [address]-05-24 08:16:00 Test Item Value Reference Range Interpretation Comments Monocytes # (test code 0.5 See_Comment [Aut omated message] The = Monocytes #) system which generated this result tra nsmitted reference range : <=0.8. The reference r samantha was not used to int erpret this result as normal/abnormal . [place] [address]-05-24 08:16:00 Test Item Value Reference Range Interpretation Comments Eosinophils # (test code 0.2 See_Comment [A utomated message] The = Eosinophils #) system whic h generated this result tra nsmitted reference range : <=0.5. The reference r samantha was not used to int erpret this result as normal/abnormal . [facility] [id number] 18:28:00 Test Item Value Reference Range Interpretation Comments Lactic Acid Lvl (test code = Lactic 1.6 0.5-2.2 Acid Lvl) [facility]Att[facility] FoodsBAP[facility] [id number] 13:22:00 Test Item Value Reference Range Interpretation Comments Total CK (test code = Total CK) 75 12-191 [facility] [id number] 13:22:00 Test Item Value Reference Range Interpretation Comments Total CK (test code = Total CK) 75 12-191 [facility] [id number] 13:22:00 Test Item Value Reference Range Interpretation Comments Lactic Acid Lvl (test code = Lactic 3.1 0.5-2.2 Acid Lvl) [facility] [id number] 13:22:00 Test Item Value Reference Range Interpretation Comments Glucose Lvl (test code = Glucose Lvl) 89 70-99 [facility] [id number] 13:22:00 Test Item Value Reference Range Interpretation Comments BUN (test code = BUN) 9 7-22 [facility] [id number] 13:22:00 Test Item Value Reference Range Interpretation Comments Creatinine Lvl (test code = Creatinine 0.98 0.50-1.40 Lvl) [facility] [id number] 13:22:00 Test Item Value Reference Range Interpretation Comments Sodium Lvl (test code = Sodium Lvl) 138 135-145 [facility] [id number] 13:22:00 Test Item Value Reference Range Interpretation Comments Potassium Lvl (test code = Potassium 3.8 3.5-5.1 Lvl) [facility] [id number] 13:22:00 Test Item Value Reference Range Interpretation Comments Chloride Lvl (test code = Chloride Lvl) 109 95-109 [facility] [id number] 13:22:00 Test Item Value Reference Range Interpretation Comments CO2 (test code = CO2) 21 24-32 [facility] [id number] 13:22:00 Test Item Value Reference Range Interpretation Comments AGAP (test code = AGAP) 11.8 10.0-20.0 [address]05-23 13:22:00 Test Item Value Reference Range Interpretation Comments Calcium Lvl (test code = Calcium Lvl) 7.9 8.5-10.5 [place] [address]-05-23 13:22:00 Test Item Value Reference Range Interpretation Comments eGFR (test code = eGFR) 105 [place] [address]-05-23 13:22:00 Test Item Value Reference Range Interpretation Comments Magnesium Lvl (test code = Magnesium 2.0 1.8-2.4 Lvl) [address]05-23 13:22:00 Test Item Value Reference Range Interpretation Comments Phosphorus (test code = Phosphorus) 4.3 2.5-4.5 [place] [address]-05-23 13:22:00 Test Item Value Reference Range Interpretation Comments Procalcitonin Lvl (test no gt See_Comment [Au tomated message] code = Procalcitonin Lvl) Th e system which generated this result transmitted ref erence range: <=0.10. The reference range was not used to interpr et this result as normal/abnormal . [address]05-23 13:22:00 Test Item Value Reference Range Interpretation Comments Segs (test code = Segs) 38.4 45.0-75.[address]05-23 13:22:00 Test Item Value Reference Range Interpretation Comments Lymphocytes (test code = Lymphocytes) 51.8 20.0-40.0 [place] [address]-05-23 13:22:00 Test Item Value Reference Range Interpretation Comments Monocytes (test code = Monocytes) 6.2 2.0-12.0 [address]23 13:22:00 Test Item Value Reference Range Interpretation Comments Eosinophils (test code = 3.3 See_Comment [A utomated message] The Eosinophils) system which ge nerated this result tra nsmitted reference range : <=4.0. The reference r samantha was not used to int erpret this result as normal/abnormal . [address]05-23 13:22:00 Test Item Value Reference Range Interpretation Comments Basophils (test code = 0.3 See_Comment [Aut omated message] The Basophils) system which ge nerated this result tra nsmitted reference range : <=1.0. The reference r samantha was not used to int erpret this result as normal/abnormal . [place]261-05-23 13:22:00 Test Item Value Reference Range Interpretation Comments Neutrophils # (test code = Neutrophils 2.1 1.5-8.1 #) [facility] [id number] 13:22:00 Test Item Value Reference Range Interpretation Comments Lymphocytes # (test code = Lymphocytes 2.8 1.0-5.5 #) [place] 514261-05-23 13:22:00 Test Item Value Reference Range Interpretation Comments Monocytes # (test code 0.3 See_Comment [Aut omated message] The = Monocytes #) system which generated this result tra nsmitted reference range : <=0.8. The reference r samantha was not used to int erpret this result as normal/abnormal . [place] 514261-05-23 13:22:00 Test Item Value Reference Range Interpretation Comments Eosinophils # (test code 0.2 See_Comment [A utomated message] The = Eosinophils #) system whic h generated this result tra nsmitted reference range : <=0.5. The reference r samantha was not used to int erpret this result as normal/abnormal . [facility] [id number] 13:22:00 Test Item Value Reference Range Interpretation Comments WBC (test code = WBC) 5.5 3.7-10.4 [facility] [id number] 13:22:00 Test Item Value Reference Range Interpretation Comments RBC (test code = RBC) 5.01 4.70-6.10 [place] [address]-05-23 13:22:00 Test Item Value Reference Range Interpretation Comments Hgb (test code = Hgb) 15.2 14.0-18.0 [place] [address]-05-23 13:22:00 Test Item Value Reference Range Interpretation Comments Hct (test code = Hct) 43.7 42.0-54.0 [place] 514261-05-23 13:22:00 Test Item Value Reference Range Interpretation Comments MCV (test code = MCV) 87.3 80.0-94.0 [place] [address]-05-23 13:22:00 Test Item Value Reference Range Interpretation Comments MCH (test code = MCH) 30.3 pg 27.0-31.0 [place] 514261-05-23 13:22:00 Test Item Value Reference Range Interpretation Comments MCHC (test code = MCHC) 34.7 32.0-36.0 [place] 514261-05-23 13:22:00 Test Item Value Reference Range Interpretation Comments RDW (test code = RDW) 13.2 11.5-14.5 [place] 514261-05-23 13:22:00 Test Item Value Reference Range Interpretation Comments Platelet (test code = Platelet) 157 133-450 [place] 514261-05-23 13:22:00 Test Item Value Reference Range Interpretation Comments MPV (test code = MPV) 9.5 7.4-10.4 [place] 801311-05-23 05:06:00 Test Item Value Reference Range Interpretation Comments Phosphorus (test code = Phosphorus) 4.4 2.5-4.5 [facility]2021-05-23 05:06:00 Test Item Value Reference Range Interpretation Comments Glucose Lvl (test code = Glucose Lvl) 86 70-99 [facility]2021-05-23 05:06:00 Test Item Value Reference Range Interpretation Comments BUN (test code = BUN) 10 7-22 [place] 801311-05-23 05:06:00 Test Item Value Reference Range Interpretation Comments Creatinine Lvl (test code = Creatinine 0.74 0.50-1.40 Lvl) [place] 801311-05-23 05:06:00 Test Item Value Reference Range Interpretation Comments Sodium Lvl (test code = Sodium Lvl) 139 135-145 [place] 801311-05-23 05:06:00 Test Item Value Reference Range Interpretation Comments Potassium Lvl (test code = Potassium 3.6 3.5-5.1 Lvl) [facility]2021-05-23 05:06:00 Test Item Value Reference Range Interpretation Comments Chloride Lvl (test code = Chloride Lvl) 106 95-109 [place] 801311-05-23 05:06:00 Test Item Value Reference Range Interpretation Comments CO2 (test code = CO2) 24 24-32 [facility]2021-05-23 05:06:00 Test Item Value Reference Range Interpretation Comments Calcium Lvl (test code = Calcium Lvl) 8.5 8.5-10.5 [facility]2021-05-23 05:06:00 Test Item Value Reference Range Interpretation Comments AGAP (test code = AGAP) 12.6 10.0-20.0 [place] 801311-05-23 05:06:00 Test Item Value Reference Range Interpretation Comments eGFR (test code = eGFR) 126 [facility]2021-05-23 05:06:00 Test Item Value Reference Range Interpretation Comments Magnesium Lvl (test code = Magnesium 2.2 1.8-2.4 Lvl) [place] [address]261-05-23 05:06:00 Test Item Value Reference Range Interpretation Comments WBC (test code = WBC) 6.1 3.7-10.4 [place] 514261-05-23 05:06:00 Test Item Value Reference Range Interpretation Comments RBC (test code = RBC) 4.75 4.70-6.10 [place] 514261-05-23 05:06:00 Test Item Value Reference Range Interpretation Comments Hgb (test code = Hgb) 14.4 14.0-18.0 [facility] [id number] 05:06:00 Test Item Value Reference Range Interpretation Comments Hct (test code = Hct) 41.7 42.0-54.0 [place] 514261-05-23 05:06:00 Test Item Value Reference Range Interpretation Comments MCV (test code = MCV) 87.8 80.0-94.0 [place] 514261-05-23 05:06:00 Test Item Value Reference Range Interpretation Comments MCH (test code = MCH) 30.3 pg 27.0-31.0 [place] 514261-05-23 05:06:00 Test Item Value Reference Range Interpretation Comments MCHC (test code = MCHC) 34.6 32.0-36.0 [place] 514261-05-23 05:06:00 Test Item Value Reference Range Interpretation Comments RDW (test code = RDW) 13.1 11.5-14.5 [place] 514261-05-23 05:06:00 Test Item Value Reference Range Interpretation Comments Platelet (test code = Platelet) 161 133-450 [place] 514261-05-23 05:06:00 Test Item Value Reference Range Interpretation Comments MPV (test code = MPV) 9.6 7.4-10.4 [place] 514261-05-23 05:06:00 Test Item Value Reference Range Interpretation Comments Segs (test code = Segs) 53.8 45.0-75.0 [place] 514261-05-23 05:06:00 Test Item Value Reference Range Interpretation Comments Lymphocytes (test code = Lymphocytes) 33.2 20.0-40.0 [place] 514261-05-23 05:06:00 Test Item Value Reference Range Interpretation Comments Monocytes (test code = Monocytes) 9.8 2.0-12.0 [place] 514261-05-23 05:06:00 Test Item Value Reference Range Interpretation Comments Eosinophils (test code = 2.9 See_Comment [A utomated message] The Eosinophils) system which ge nerated this result tra nsmitted reference range : <=4.0. The reference r samantha was not used to int erpret this result as normal/abnormal . [facility] C[id number] 05:06:00 Test Item Value Reference Range Interpretation Comments Basophils (test code = 0.3 See_Comment [Aut omated message] The Basophils) system which ge nerated this result tra nsmitted reference range : <=1.0. The reference r samantha was not used to int erpret this result as normal/abnormal . [facility] CenterYjyyytyCYTDMYRIXH5650-28-74 05:06:00 Test Item Value Reference Range Interpretation Comments Neutrophils # (test code = Neutrophils 3.3 1.5-8.1 #) [facility] CenterJlauyptHQBSDXVONK0245-70-62 05:06:00 Test Item Value Reference Range Interpretation Comments Lymphocytes # (test code = Lymphocytes 2.0 1.0-5.5 #) [place] 514261-05-23 05:06:00 Test Item Value Reference Range Interpretation Comments Monocytes # (test code 0.6 See_Comment [Aut omated message] The = Monocytes #) system which generated this result tra nsmitted reference range : <=0.8. The reference r samantha was not used to int erpret this result as normal/abnormal . [facility] CenterRzsfcwxCUAUSTWHOV2296-11-67 05:06:00 Test Item Value Reference Range Interpretation Comments Eosinophils # (test code 0.2 See_Comment [A utomated message] The = Eosinophils #) system [employer] h generated this result tra nsmitted reference range : <=0.5. The reference r samantha was not used to int erpret this result as normal/abnormal . [facility]DR[facility] [id number] 11:04:00 Test Item Value Reference Range Interpretation Comments U Amph Scr (test code Negative *NA*(07/29/20 = U Amph Scr) 6:04 AM) [facility] [id number] 11:04:00 Test Item Value Reference Range Interpretation Comments U Silvina Scr (test code Negative *NA*(07/29/20 = U Silvina Scr) 6:04 AM) [facility] [id number] 11:04:00 Test Item Value Reference Range Interpretation Comments U Benzodiaz Scr (test Positive *ABN*(07/29/20 code = U Benzodiaz Scr) 6:04 AM) [facility] [id number] 11:04:00 Test Item Value Reference Range Interpretation Comments U Cocaine Scr (test Negative *NA*(07/29/20 code = U Cocaine Scr) 6:04 AM) [facility] [id number] 11:04:00 Test Item Value Reference Range Interpretation Comments U Cannab Scr (test Negative *NA*(07/29/20 code = U Cannab Scr) 6:04 AM) [facility] [id number] 11:04:00 Test Item Value Reference Range Interpretation Comments U Opiate Scr (test Negative *NA*(07/29/20 code = U Opiate Scr) 6:04 AM) [facility] [id number] 11:04:00 Test Item Value Reference Range Interpretation Comments U Phencyclidine Scr (test Negative code = U Phencyclidine *NA*(07/29/20 6:04 Scr) AM) [facility] [id number] 11:04:00 Test Item Value Reference Range Interpretation Comments U Methadone Scr (test Negative *NA*(07/29/20 code = U Methadone Scr) 6:04 AM) [facility] [id number] 11:04:00 Test Item Value Reference Range Interpretation Comments U Propoxyph Scr (test Negative *NA*(07/29/20 code = U Propoxyph Scr) 6:04 AM) [facility] [id number] 11:04:00 Test Item Value Reference Range Interpretation Comments UDS Note (test code = See Note (07/29/20 6:04 UDS Note) AM) [facility] [id number] 11:04:00 Test Item Value Reference Range Interpretation Comments UA Color (test code = Light Yellow UA Color) *NA*(07/29/20 6:04 AM) [facility] [id number] 11:04:00 Test Item Value Reference Range Interpretation Comments UA Turbidity (test code = Clear (07/29/20 6:04 UA Turbidity) AM) [facility] [id number] 11:04:00 Test Item Value Reference Range Interpretation Comments UA Spec Grav (test code = UA Spec 1.019 1 Grav) [facility] [id number] 11:04:00 Test Item Value Reference Range Interpretation Comments UA pH (test code = UA pH) 7.0 1 5.0-8.0 [facility] [id number] 11:04:00 Test Item Value Reference Range Interpretation Comments UA Protein (test code = UA Negative mg/dL Protein) [facility] [id number] 11:04:00 Test Item Value Reference Range Interpretation Comments UA Glucose (test code = UA Negative mg/dL Glucose) [facility] [id number] 11:04:00 Test Item Value Reference Range Interpretation Comments UA Ketones (test code = UA Negative mg/dL Ketones) [facility] [id number] 11:04:00 Test Item Value Reference Range Interpretation Comments UA Bili (test code = Negative *NA*(07/29/20 UA Bili) 6:04 AM) [facility] [id number] 11:04:00 Test Item Value Reference Range Interpretation Comments UA Blood (test code = Negative (07/29/20 6:04 UA Blood) AM) [facility] [id number] 11:04:00 Test Item Value Reference Range Interpretation Comments UA Urobilinogen (test code = UA no gt 0.1-1.0 Urobilinogen) [facility] AND [id number] 11:04:00 Test Item Value Reference Range Interpretation Comments UA Nitrite (test code Negative (07/29/20 6:04 = UA Nitrite) AM) [facility] AND [id number] 11:04:00 Test Item Value Reference Range Interpretation Comments UA Leuk Est (test Negative (07/29/20 6:04 code = UA Leuk Est) AM) [facility] AND [id number] 11:04:00 Test Item Value Reference Range Interpretation Comments UA WBC (test code = 1 See_Comment [Automa rosa message] The UA WBC) system which ge nerated this result transmit rosa reference range : <=5. The reference range was not used to interpr et this result as winter l/abnormal. [facility] AND [id number] 11:04:00 Test Item Value Reference Range Interpretation Comments UA Sq Epi (test code = UA Sq Epi) None Seen [facility]2021-05-22 10:45:00 Test Item Value Reference Range Interpretation Comments Total Protein (test code = Total 7.9 6.4-8.4 Protein) [facility]2021-05-22 10:45:00 Test Item Value Reference Range Interpretation Comments Albumin Lvl (test code = Albumin Lvl) 3.7 3.5-5.0 [facility]2021-05-22 10:45:00 Test Item Value Reference Range Interpretation Comments ALT (test code = ALT) 39 See_Comment [Auto mated message] The system which ge nerated this result transmit rosa reference range : <=65. The reference range was not used to interpr et this result as winter l/abnormal. [facility] [id number] 10:45:00 Test Item Value Reference Range Interpretation Comments AST (test code = AST) 20 See_Comment [Auto mated message] The system which ge nerated this result transmit rosa reference range : <=37. The reference range was not used to interpr et this result as winter l/abnormal. [facility] [id number] 10:45:00 Test Item Value Reference Range Interpretation Comments Alk Phos (test code = Alk Phos) 76 39-136 [facility] [id number] 10:45:00 Test Item Value Reference Range Interpretation Comments Bili Total (test code = Bili Total) 0.3 0.2-1.3 [facility] [id number] 10:45:00 Test Item Value Reference Range Interpretation Comments B/C Ratio (test code = B/C Ratio) 10 1 6-25 [facility] [id number] 10:45:00 Test Item Value Reference Range Interpretation Comments Globulin (test code = Globulin) 4.2 2.7-4.2 [facility] [id number] 10:45:00 Test Item Value Reference Range Interpretation Comments A/G Ratio (test code = A/G Ratio) 0.9 1 0.7-1.6 [facility] CenterCARDIAC [id number] 02:00:00 Test Item Value Reference Range Interpretation Comments Total CK (test code = Total CK) 225 12-191 [facility] [id number] 01:52:00 Test Item Value Reference Range Interpretation Comments Glucose Lvl (test code = Glucose Lvl) 99 70-99 [facility] [id number] 01:52:00 Test Item Value Reference Range Interpretation Comments BUN (test code = BUN) 13 7-22 [facility] [id number] 01:52:00 Test Item Value Reference Range Interpretation Comments Creatinine Lvl (test code = Creatinine 1.00 0.50-1.40 Lvl) [facility] [id number] 01:52:00 Test Item Value Reference Range Interpretation Comments Sodium Lvl (test code = Sodium Lvl) 139 135-145 [facility] [id number] 01:52:00 Test Item Value Reference Range Interpretation Comments Potassium Lvl (test code = Potassium 3.8 3.5-5.1 Lvl) [facility] [id number] 01:52:00 Test Item Value Reference Range Interpretation Comments Chloride Lvl (test code = Chloride Lvl) 106 95-109 [facility] [id number] 01:52:00 Test Item Value Reference Range Interpretation Comments CO2 (test code = CO2) 28 24-32 [facility]2021-04-15 01:52:00 Test Item Value Reference Range Interpretation Comments Calcium Lvl (test code = Calcium Lvl) 8.5 8.5-10.5 [facility]2021-04-15 01:52:00 Test Item Value Reference Range Interpretation Comments AGAP (test code = AGAP) 8.8 10.0-20.0 [place] 801311-04-15 01:52:00 Test Item Value Reference Range Interpretation Comments eGFR (test code = eGFR) 103 [facility] [id number] 01:52:00 Test Item Value Reference Range Interpretation Comments WBC (test code = WBC) 6.1 3.7-10.4 [place] 514261-04-15 01:52:00 Test Item Value Reference Range Interpretation Comments RBC (test code = RBC) 5.33 4.70-6.10 [facility] [id number] 01:52:00 Test Item Value Reference Range Interpretation Comments Hgb (test code = Hgb) 15.7 14.0-18.0 [facility] [id number] 01:52:00 Test Item Value Reference Range Interpretation Comments Hct (test code = Hct) 48.1 42.0-54.0 [facility] [id number] 01:52:00 Test Item Value Reference Range Interpretation Comments MCV (test code = MCV) 90.2 80.0-94.0 [facility] CenterQdbfcblBQJXNRSNKH9072-37-05 01:52:00 Test Item Value Reference Range Interpretation Comments MCH (test code = MCH) 29.4 pg 27.0-31.0 [facility] [id number] 01:52:00 Test Item Value Reference Range Interpretation Comments MCHC (test code = MCHC) 32.6 32.0-36.0 [place] 514261-04-15 01:52:00 Test Item Value Reference Range Interpretation Comments RDW (test code = RDW) 12.8 11.5-14.5 [facility] [id number] 01:52:00 Test Item Value Reference Range Interpretation Comments Platelet (test code = Platelet) 244 133-450 [facility] [id number] 01:52:00 Test Item Value Reference Range Interpretation Comments MPV (test code = MPV) 9.0 7.4-10.4 [place] [address]-04-15 01:52:00 Test Item Value Reference Range Interpretation Comments Segs (test code = Segs) 52.5 45.0-75.0 [place] 514261-04-15 01:52:00 Test Item Value Reference Range Interpretation Comments Lymphocytes (test code = Lymphocytes) 30.3 20.0-40.0 [place] [address]-04-15 01:52:00 Test Item Value Reference Range Interpretation Comments Monocytes (test code = Monocytes) 11.3 2.0-12.0 [place] [address]-04-15 01:52:00 Test Item Value Reference Range Interpretation Comments Eosinophils (test code = 5.4 See_Comment [A utomated message] The Eosinophils) system which ge nerated this result tra nsmitted reference range : <=4.0. The reference r samantha was not used to int erpret this result as normal/abnormal . [place] [address]-04-15 01:52:00 Test Item Value Reference Range Interpretation Comments Basophils (test code = 0.5 See_Comment [Aut omated message] The Basophils) system which ge nerated this result tra nsmitted reference range : <=1.0. The reference r samantha was not used to int erpret this result as normal/abnormal . [place] [address]-04-15 01:52:00 Test Item Value Reference Range Interpretation Comments Neutrophils # (test code = Neutrophils 3.2 1.5-8.1 #) [place] [address]-04-15 01:52:00 Test Item Value Reference Range Interpretation Comments Lymphocytes # (test code = Lymphocytes 1.9 1.0-5.5 #) [place] [address]-04-15 01:52:00 Test Item Value Reference Range Interpretation Comments Monocytes # (test code 0.7 See_Comment [Aut omated message] The = Monocytes #) system which generated this result tra nsmitted reference range : <=0.8. The reference r samantha was not used to int erpret this result as normal/abnormal . [place] 514261-04-15 01:52:00 Test Item Value Reference Range Interpretation Comments Eosinophils # (test code 0.3 See_Comment [A utomated message] The = Eosinophils #) system whic h generated this result tra nsmitted reference range : <=0.5. The reference r samantha was not used to int erpret this result as normal/abnormal . [facility] [id number] 01:52:00 Test Item Value Reference Range Interpretation Comments Basophils # (test code 0.0 See_Comment [Aut omated message] The = Basophils #) system which generated this result tra nsmitted reference range : <=0.2. The reference r samantha was not used to int erpret this result as normal/abnormal . [facility] [id number] 01:52:00 Test Item Value Reference Range Interpretation Comments Coronavirus (COVID-19) Not Detected (06/21/20 DENITA (test code = 8:52 PM) Coronavirus (COVID-19) DENITA) [facility] C[id number] 01:52:00 Test Item Value Reference Range Interpretation Comments Keppra Lvl (test code = Keppra Lvl) 6.2 [facility] [id number] 01:52:00 Test Item Value Reference Range Interpretation Comments Valproic Acid Lvl (test code = Valproic 92 50-100 Acid Lvl) [facility] [id number] 03:59:00 Test Item Value Reference Range Interpretation Comments U Amph Scr (test code Negative *NA*(06/19/20 = U Amph Scr) 10:59 PM) [facility] [id number] 03:59:00 Test Item Value Reference Range Interpretation Comments U Silvina Scr (test code Negative *NA*(06/19/20 = U Silvina Scr) 10:59 PM) [facility] [id number] 03:59:00 Test Item Value Reference Range Interpretation Comments U Benzodiaz Scr (test Negative *NA*(06/19/20 code = U Benzodiaz Scr) 10:59 PM) [facility] [id number] 03:59:00 Test Item Value Reference Range Interpretation Comments U Cannab Scr (test Positive *ABN*(06/19/20 code = U Cannab Scr) 10:59 PM) [facility] [id number] 03:59:00 Test Item Value Reference Range Interpretation Comments U Cocaine Scr (test Negative *NA*(06/19/20 code = U Cocaine Scr) 10:59 PM) [facility] [id number] 03:59:00 Test Item Value Reference Range Interpretation Comments U Opiate Scr (test Negative *NA*(06/19/20 code = U Opiate Scr) 10:59 PM) [facility] [id number] 03:59:00 Test Item Value Reference Range Interpretation Comments U Phencyclidine Scr (test Negative code = U Phencyclidine *NA*(06/19/20 10:59 Scr) PM) [facility] [id number] 03:59:00 Test Item Value Reference Range Interpretation Comments UDS Note (test code = See Note (06/19/20 10:59 UDS Note) PM) [facility] [id number] 03:59:00 Test Item Value Reference Range Interpretation Comments UA Color (test code = Light Yellow UA Color) *NA*(06/19/20 10:59 PM) [facility] [id number] 03:59:00 Test Item Value Reference Range Interpretation Comments UA Turbidity (test code = Clear (06/19/20 10:59 UA Turbidity) PM) [facility] [id number] 03:59:00 Test Item Value Reference Range Interpretation Comments UA Spec Grav (test code = UA Spec 1.016 1 Grav) [facility] [id number] 03:59:00 Test Item Value Reference Range Interpretation Comments UA pH (test code = UA pH) 7.0 1 5.0-8.0 [facility] [id number] 03:59:00 Test Item Value Reference Range Interpretation Comments UA Protein (test code = UA Negative mg/dL Protein) [facility] [id number] 03:59:00 Test Item Value Reference Range Interpretation Comments UA Glucose (test code = UA Negative mg/dL Glucose) [facility] [id number] 03:59:00 Test Item Value Reference Range Interpretation Comments UA Ketones (test code = UA Trace mg/dL Ketones) [facility] [id number] 03:59:00 Test Item Value Reference Range Interpretation Comments UA Bili (test code = Negative *NA*(06/19/20 UA Bili) 10:59 PM) [facility] [id number] 03:59:00 Test Item Value Reference Range Interpretation Comments UA Blood (test code = Negative (06/19/20 10:59 UA Blood) PM) [facility] Saleem AND [id number] 03:59:00 Test Item Value Reference Range Interpretation Comments UA Nitrite (test code Negative (06/19/20 10:59 = UA Nitrite) PM) [facility] [id number] 03:59:00 Test Item Value Reference Range Interpretation Comments UA Leuk Est (test Negative (06/19/20 10:59 code = UA Leuk Est) PM) [facility] [id number] 03:59:00 Test Item Value Reference Range Interpretation Comments UA RBC (test code = no gt See_Comment [Automa rosa message] The UA RBC) system which ge nerated this result transmit rosa reference range : <=2. The reference range was not used to interpr et this result as winter l/abnormal. [facility] Saleem AND [id number] 03:59:00 Test Item Value Reference Range Interpretation Comments UA Sq Epi (test code = UA Sq Epi) None Seen [facility] [id number] 03:59:00 Test Item Value Reference Range Interpretation Comments UA Urobilinogen (test code = UA <=1.0 mg/dL 0.1-1.0 Urobilinogen) [facility] [id number] 02:10:00 Test Item Value Reference Range Interpretation Comments Total CK (test code = Total CK) 139 12-191 [facility] [id number] 02:10:00 Test Item Value Reference Range Interpretation Comments Troponin-I (test code no gt See_Comment [Auto mated message] The = Troponin-I) system which g enerated this result transmit rosa reference range : <=0.40. The reference r samantha was not used to interpr et this result as winter l/abnormal. [facility] [id number] 02:10:00 Test Item Value Reference Range Interpretation Comments Glucose Lvl (test code = Glucose Lvl) 92 70-99 [facility] [id number] 02:10:00 Test Item Value Reference Range Interpretation Comments BUN (test code = BUN) 14 7-22 [place] 801311-04-13 02:10:00 Test Item Value Reference Range Interpretation Comments Creatinine Lvl (test code = Creatinine 1.20 0.50-1.40 Lvl) [place] 801311-04-13 02:10:00 Test Item Value Reference Range Interpretation Comments Sodium Lvl (test code = Sodium Lvl) 138 135-145 [place] 801311-04-13 02:10:00 Test Item Value Reference Range Interpretation Comments Potassium Lvl (test code = Potassium 4.0 3.5-5.1 Lvl) [place] 801311-04-13 02:10:00 Test Item Value Reference Range Interpretation Comments Chloride Lvl (test code = Chloride Lvl) 107 95-109 [place] 801311-04-13 02:10:00 Test Item Value Reference Range Interpretation Comments CO2 (test code = CO2) 26 24-32 [place] 801311-04-13 02:10:00 Test Item Value Reference Range Interpretation Comments Calcium Lvl (test code = Calcium Lvl) 8.4 8.5-10.5 [place] 801311-04-13 02:10:00 Test Item Value Reference Range Interpretation Comments Total Protein (test code = Total 8.0 6.4-8.4 Protein) [place] 801311-04-13 02:10:00 Test Item Value Reference Range Interpretation Comments Albumin Lvl (test code = Albumin Lvl) 3.7 3.5-5.0 [place] 801311-04-13 02:10:00 Test Item Value Reference Range Interpretation Comments ALT (test code = ALT) 72 See_Comment [Auto mated message] The system which ge nerated this result transmit rosa reference range : <=65. The reference range was not used to interpr et this result as winter l/abnormal. [place] 801311-04-13 02:10:00 Test Item Value Reference Range Interpretation Comments AST (test code = AST) 28 See_Comment [Auto mated message] The system which ge nerated this result transmit rosa reference range : <=37. The reference range was not used to interpr et this result as winter l/abnormal. [facility]2021-04-13 02:10:00 Test Item Value Reference Range Interpretation Comments Alk Phos (test code = Alk Phos) 87 39-136 [place] 801311-04-13 02:10:00 Test Item Value Reference Range Interpretation Comments Bili Total (test code = Bili Total) 0.2 0.2-1.3 [place] 801311-04-13 02:10:00 Test Item Value Reference Range Interpretation Comments AGAP (test code = AGAP) 9.0 10.0-20.0 [place] 801311-04-13 02:10:00 Test Item Value Reference Range Interpretation Comments B/C Ratio (test code = B/C Ratio) 12 1 6-25 [place] 801311-04-13 02:10:00 Test Item Value Reference Range Interpretation Comments Globulin (test code = Globulin) 4.3 2.7-4.2 [place] 801311-04-13 02:10:00 Test Item Value Reference Range Interpretation Comments A/G Ratio (test code = A/G Ratio) 0.9 1 0.7-1.6 [place] 801311-04-13 02:10:00 Test Item Value Reference Range Interpretation Comments eGFR (test code = eGFR) 82 [facility] [id number] 02:10:00 Test Item Value Reference Range Interpretation Comments WBC (test code = WBC) 6.2 3.7-10.4 [place] 514261-04-13 02:10:00 Test Item Value Reference Range Interpretation Comments RBC (test code = RBC) 5.55 4.70-6.10 [place] 514261-04-13 02:10:00 Test Item Value Reference Range Interpretation Comments Hgb (test code = Hgb) 16.3 14.0-18.0 [place] [address]-04-13 02:10:00 Test Item Value Reference Range Interpretation Comments Hct (test code = Hct) 49.8 42.0-54.0 [place] 514261-04-13 02:10:00 Test Item Value Reference Range Interpretation Comments MCV (test code = MCV) 89.8 80.0-94.0 [place] 514261-04-13 02:10:00 Test Item Value Reference Range Interpretation Comments MCH (test code = MCH) 29.4 pg 27.0-31.0 [facility] [id number] 02:10:00 Test Item Value Reference Range Interpretation Comments MCHC (test code = MCHC) 32.8 32.0-36.0 [facility] [id number] 02:10:00 Test Item Value Reference Range Interpretation Comments RDW (test code = RDW) 13.0 11.5-14.5 [facility] CenterRrlfnhvXKWYQPMKRJ0807-39-87 02:10:00 Test Item Value Reference Range Interpretation Comments Platelet (test code = Platelet) 271 133-450 [facility] [id number] 02:10:00 Test Item Value Reference Range Interpretation Comments MPV (test code = MPV) 9.1 7.4-10.4 [place] 514261-04-13 02:10:00 Test Item Value Reference Range Interpretation Comments PT (test code = PT) 12.8 s 12.0-14.7 [facility] [id number] 02:10:00 Test Item Value Reference Range Interpretation Comments INR (test code = INR) 0.97 1 0.85-1.17 [facility] [id number] 02:10:00 Test Item Value Reference Range Interpretation Comments Segs (test code = Segs) 48.9 45.0-75.0 [facility] CenterYrsuryeXCDDPVXFNT9642-82-64 02:10:00 Test Item Value Reference Range Interpretation Comments Lymphocytes (test code = Lymphocytes) 37.1 20.0-40.0 [facility] CenterLmdnknhLKCPUEUHCA3185-76-30 02:10:00 Test Item Value Reference Range Interpretation Comments Monocytes (test code = Monocytes) 7.3 2.0-12.0 [place] 514261-04-13 02:10:00 Test Item Value Reference Range Interpretation Comments Eosinophils (test code = 5.3 See_Comment [A utomated message] The Eosinophils) system which ge nerated this result tra nsmitted reference range : <=4.0. The reference r samantha was not used to int erpret this result as normal/abnormal . [facility] [id number] 02:10:00 Test Item Value Reference Range Interpretation Comments Basophils (test code = 1.4 See_Comment [Aut omated message] The Basophils) system which ge nerated this result tra nsmitted reference range : <=1.0. The reference r samantha was not used to int erpret this result as normal/abnormal . [facility] [id number] 02:10:00 Test Item Value Reference Range Interpretation Comments Neutrophils # (test code = Neutrophils 3.0 1.5-8.1 #) [facility] [id number] 02:10:00 Test Item Value Reference Range Interpretation Comments Lymphocytes # (test code = Lymphocytes 2.3 1.0-5.5 #) [facility] Cent[id number] 02:10:00 Test Item Value Reference Range Interpretation Comments Monocytes # (test code 0.5 See_Comment [Aut omated message] The = Monocytes #) system which generated this result tra nsmitted reference range : <=0.8. The reference r samantha was not used to int erpret this result as normal/abnormal . [facility] CenterHtgkqvjSGBCNRUUKU0500-89-44 02:10:00 Test Item Value Reference Range Interpretation Comments Eosinophils # (test code 0.3 See_Comment [A utomated message] The = Eosinophils #) system whic h generated this result tra nsmitted reference range : <=0.5. The reference r samantha was not used to int erpret this result as normal/abnormal . [facility] CenterZfbfnwbMQNPIQHNZE7904-34-86 02:10:00 Test Item Value Reference Range Interpretation Comments Basophils # (test code 0.1 See_Comment [Aut omated message] The = Basophils #) system which generated this result tra nsmitted reference range : <=0.2. The reference r samantha was not used to int erpret this result as normal/abnormal . [facility]RmivdeiXSCLGWNXFA1902-99-80 02:10:00 Test Item Value Reference Range Interpretation Comments Valproic Acid Lvl (test code = Valproic 97 50-100 Acid Lvl) [place] [id number] 02:10:00 Test Item Value Reference Range Interpretation Comments Ethanol Lvl (test code = Ethanol Lvl) no gt [place] [id number] 02:10:00 Test Item Value Reference Range Interpretation Comments Etoh (%) (test code = Etoh (%)) no gt [facility] CenterVgotydkMIUUVHTFUP8365-41-97 02:10:00 Test Item Value Reference Range Interpretation Comments Phenytoin Total (test code = Phenytoin 0.7 10.0-20.0 Total) [facility] CenterC[facility] [id number] 07:35:00 Test Item Value Reference Range Interpretation Comments Total CK (test code = Total CK) 429 12-191 [facility]2021-01-12 07:35:00 Test Item Value Reference Range Interpretation Comments Glucose Lvl (test code = Glucose Lvl) 93 70-99 [place] 801311-01-12 07:35:00 Test Item Value Reference Range Interpretation Comments BUN (test code = BUN) 8 7-22 [facility]2021-01-12 07:35:00 Test Item Value Reference Range Interpretation Comments Creatinine Lvl (test code = Creatinine 0.83 0.50-1.40 Lvl) [place] 801311-01-12 07:35:00 Test Item Value Reference Range Interpretation Comments Sodium Lvl (test code = Sodium Lvl) 139 135-145 [place] 801311-01-12 07:35:00 Test Item Value Reference Range Interpretation Comments Potassium Lvl (test code = Potassium 3.6 3.5-5.1 Lvl) [facility]2021-01-12 07:35:00 Test Item Value Reference Range Interpretation Comments Chloride Lvl (test code = Chloride Lvl) 107 95-109 [place] 801311-01-12 07:35:00 Test Item Value Reference Range Interpretation Comments CO2 (test code = CO2) 29 24-32 [facility]2021-01-12 07:35:00 Test Item Value Reference Range Interpretation Comments Calcium Lvl (test code = Calcium Lvl) 8.3 8.5-10.5 [place] 801311-01-12 07:35:00 Test Item Value Reference Range Interpretation Comments Total Protein (test code = Total 7.3 6.4-8.4 Protein) [facility]2021-01-12 07:35:00 Test Item Value Reference Range Interpretation Comments Albumin Lvl (test code = Albumin Lvl) 3.3 3.5-5.0 [place] 801311-01-12 07:35:00 Test Item Value Reference Range Interpretation Comments ALT (test code = ALT) 90 See_Comment [Auto mated message] The system which ge nerated this result transmit rosa reference range : <=65. The reference range was not used to interpr et this result as winter l/abnormal. [facility] CenterMy [facility] [id number] 07:35:00 Test Item Value Reference Range Interpretation Comments AST (test code = AST) 48 See_Comment [Auto mated message] The system which ge nerated this result transmit rosa reference range : <=37. The reference range was not used to interpr et this result as winter l/abnormal. [facility] [id number] 07:35:00 Test Item Value Reference Range Interpretation Comments Alk Phos (test code = Alk Phos) 106 39-136 [place] 801311-01-12 07:35:00 Test Item Value Reference Range Interpretation Comments Bili Total (test code = Bili Total) 0.3 0.2-1.3 [place] 801311-01-12 07:35:00 Test Item Value Reference Range Interpretation Comments AGAP (test code = AGAP) 6.6 10.0-20.0 [facility] [id number] 07:35:00 Test Item Value Reference Range Interpretation Comments B/C Ratio (test code = B/C Ratio) 10 1 6-25 [place] 84[address]-01-12 07:35:00 Test Item Value Reference Range Interpretation Comments Globulin (test code = Globulin) 4.0 2.7-4.2 [facility] [id number] 07:35:00 Test Item Value Reference Range Interpretation Comments A/G Ratio (test code = A/G Ratio) 0.8 1 0.7-1.6 [facility] [id number] 07:35:00 Test Item Value Reference Range Interpretation Comments eGFR (test code = eGFR) 121 [place] 514261-01-12 07:35:00 Test Item Value Reference Range Interpretation Comments WBC (test code = WBC) 6.0 3.7-10.4 [place] 514261-01-12 07:35:00 Test Item Value Reference Range Interpretation Comments RBC (test code = RBC) 5.36 4.70-6.10 [place] 514261-01-12 07:35:00 Test Item Value Reference Range Interpretation Comments Hgb (test code = Hgb) 16.0 14.0-18.0 [place] 514261-01-12 07:35:00 Test Item Value Reference Range Interpretation Comments Hct (test code = Hct) 47.3 42.0-54.0 [place] 514261-01-12 07:35:00 Test Item Value Reference Range Interpretation Comments MCV (test code = MCV) 88.4 80.0-94.0 [place] 514261-01-12 07:35:00 Test Item Value Reference Range Interpretation Comments MCH (test code = MCH) 29.8 pg 27.0-31.0 [place] 514261-01-12 07:35:00 Test Item Value Reference Range Interpretation Comments MCHC (test code = MCHC) 33.7 32.0-36.0 [place] 514261-01-12 07:35:00 Test Item Value Reference Range Interpretation Comments RDW (test code = RDW) 13.8 11.5-14.5 [facility] CenterNeduniiEZXFONAABE5068-20-39 07:35:00 Test Item Value Reference Range Interpretation Comments Platelet (test code = Platelet) 209 133-450 [facility] CenterNspcemfESRACPPBGP8701-91-91 07:35:00 Test Item Value Reference Range Interpretation Comments MPV (test code = MPV) 8.9 7.4-10.4 [place] 514261-01-12 07:35:00 Test Item Value Reference Range Interpretation Comments PT (test code = PT) 13.1 s 12.0-14.7 [place] 514261-01-12 07:35:00 Test Item Value Reference Range Interpretation Comments INR (test code = INR) 0.99 1 0.85-1.17 [place] 514261-01-12 07:35:00 Test Item Value Reference Range Interpretation Comments PTT (test code = PTT) 29.9 s 22.9-35.8 [place] 514261-01-12 07:35:00 Test Item Value Reference Range Interpretation Comments RBC Morph (test code = Normal (03/21/20 1:35 RBC Morph) AM) [place] 514261-01-12 07:35:00 Test Item Value Reference Range Interpretation Comments Plt Morph (test code = Normal (03/21/20 1:35 Plt Morph) AM) [place] 514261-01-12 07:35:00 Test Item Value Reference Range Interpretation Comments Segs (test code = Segs) 55.9 45.0-75.0 [place] 514261-01-12 07:35:00 Test Item Value Reference Range Interpretation Comments Lymphocytes (test code = Lymphocytes) 31.8 20.0-40.0 [place] 514261-01-12 07:35:00 Test Item Value Reference Range Interpretation Comments Monocytes (test code = Monocytes) 7.0 2.0-12.0 [place] 514261-01-12 07:35:00 Test Item Value Reference Range Interpretation Comments Eosinophils (test code = 4.5 See_Comment [A utomated message] The Eosinophils) system which ge nerated this result tra nsmitted reference range : <=4.0. The reference r samantha was not used to int erpret this result as normal/abnormal . [place] 514261-01-12 07:35:00 Test Item Value Reference Range Interpretation Comments Basophils (test code = 0.8 See_Comment [Aut omated message] The Basophils) system which ge nerated this result tra nsmitted reference range : <=1.0. The reference r samantha was not used to int erpret this result as normal/abnormal . [place] 514261-01-12 07:35:00 Test Item Value Reference Range Interpretation Comments Neutrophils # (test code = Neutrophils 3.3 1.5-8.1 #) [place] 514261-01-12 07:35:00 Test Item Value Reference Range Interpretation Comments Lymphocytes # (test code = Lymphocytes 1.9 1.0-5.5 #) [place] 514261-01-12 07:35:00 Test Item Value Reference Range Interpretation Comments Monocytes # (test code 0.4 See_Comment [Aut omated message] The = Monocytes #) system which generated this result tra nsmitted reference range : <=0.8. The reference r samantha was not used to int erpret this result as normal/abnormal . [place] 514261-01-12 07:35:00 Test Item Value Reference Range Interpretation Comments Eosinophils # (test code 0.3 See_Comment [A utomated message] The = Eosinophils #) system whic h generated this result tra nsmitted reference range : <=0.5. The reference r samantha was not used to int erpret this result as normal/abnormal . [facility] CenterFfrjrhsUVRMYGAWGG9215-53-71 07:35:00 Test Item Value Reference Range Interpretation Comments Valproic Acid Lvl (test code = Valproic 53 50-100 Acid Lvl) [facility] AND [id number] 07:35:00 Test Item Value Reference Range Interpretation Comments UA Color (test code = Yellow *NA*(03/21/20 UA Color) 1:35 AM) [facility] AND [id number] 07:35:00 Test Item Value Reference Range Interpretation Comments UA Turbidity (test code = Clear (03/21/20 1:35 UA Turbidity) AM) [facility] AND [id number] 07:35:00 Test Item Value Reference Range Interpretation Comments UA Spec Grav (test code = UA Spec 1.017 1 Grav) [facility] AND [id number] 07:35:00 Test Item Value Reference Range Interpretation Comments UA pH (test code = UA pH) 6.0 1 5.0-8.0 [facility] AND [id number] 07:35:00 Test Item Value Reference Range Interpretation Comments UA Protein (test code = UA Negative mg/dL Protein) [facility] AND [id number] 07:35:00 Test Item Value Reference Range Interpretation Comments UA Glucose (test code = UA Negative mg/dL Glucose) [facility] AND [id number] 07:35:00 Test Item Value Reference Range Interpretation Comments UA Bili (test code = Negative *NA*(03/21/20 UA Bili) 1:35 AM) [facility] AND [id number] 07:35:00 Test Item Value Reference Range Interpretation Comments UA Blood (test code = Negative (03/21/20 1:35 UA Blood) AM) [facility] AND [id number] 07:35:00 Test Item Value Reference Range Interpretation Comments UA Nitrite (test code Negative (03/21/20 1:35 = UA Nitrite) AM) [facility] ViannURINE AND [id number] 07:35:00 Test Item Value Reference Range Interpretation Comments UA Leuk Est (test Negative (03/21/20 1:35 code = UA Leuk Est) AM) [facility] AND [id number] 07:35:00 Test Item Value Reference Range Interpretation Comments UA WBC (test code = no gt See_Comment [Automa rosa message] The UA WBC) system which ge nerated this result transmit rosa reference range : <=5. The reference range was not used to interpr et this result as winter l/abnormal. [facility] ViannURINE AND [id number] 07:35:00 Test Item Value Reference Range Interpretation Comments UA RBC (test code = no gt See_Comment [Automa rosa message] The UA RBC) system which ge nerated this result transmit rosa reference range : <=2. The reference range was not used to interpr et this result as winter l/abnormal. [facility] AND [id number] 07:35:00 Test Item Value Reference Range Interpretation Comments UA Mucus (test code = UA Mucus) Few /LPF [facility] AND [id number] 07:35:00 Test Item Value Reference Range Interpretation Comments UA Sq Epi (test code = UA Sq Epi) None Seen [facility] AND [id number] 07:35:00 Test Item Value Reference Range Interpretation Comments UA Ketones (test code = UA Ketones) Negative [facility] AND [id number] 07:35:00 Test Item Value Reference Range Interpretation Comments UA Urobilinogen (test code = UA <=1.0 mg/dL 0.1-1.0 Urobilinogen) [facility] AND [id number] 03:49:00 Test Item Value Reference Range Interpretation Comments UA Color (test code = Yellow *NA*(03/19/20 UA Color) 9:49 PM) [facility] AND [id number] 03:49:00 Test Item Value Reference Range Interpretation Comments UA Turbidity (test code = Clear (03/19/20 9:49 UA Turbidity) PM) [facility] AND [id number] 03:49:00 Test Item Value Reference Range Interpretation Comments UA Spec Grav (test code = UA Spec 1.016 1 Grav) [facility] AND [id number] 03:49:00 Test Item Value Reference Range Interpretation Comments UA pH (test code = UA pH) 7.0 1 5.0-8.0 [facility] AND [id number] 03:49:00 Test Item Value Reference Range Interpretation Comments UA Protein (test code = UA Negative mg/dL Protein) [facility] AND [id number] 03:49:00 Test Item Value Reference Range Interpretation Comments UA Glucose (test code = UA Negative mg/dL Glucose) [facility] AND [id number] 03:49:00 Test Item Value Reference Range Interpretation Comments UA Ketones (test code = UA Negative mg/dL Ketones) [facility] AND [id number] 03:49:00 Test Item Value Reference Range Interpretation Comments UA Bili (test code = Negative *NA*(03/19/20 UA Bili) 9:49 PM) [facility] AND [id number] 03:49:00 Test Item Value Reference Range Interpretation Comments UA Blood (test code = Negative (03/19/20 9:49 UA Blood) PM) [facility] AND [id number] 03:49:00 Test Item Value Reference Range Interpretation Comments UA Nitrite (test code Negative (03/19/20 9:49 = UA Nitrite) PM) [facility] AND [id number] 03:49:00 Test Item Value Reference Range Interpretation Comments UA Leuk Est (test Negative (03/19/20 9:49 code = UA Leuk Est) PM) [facility] AND [id number] 03:49:00 Test Item Value Reference Range Interpretation Comments UA WBC (test code = 1 See_Comment [Automa rosa message] The UA WBC) system which ge nerated this result transmit rosa reference range : <=5. The reference range was not used to interpr et this result as winter l/abnormal. [facility] AND [id number] 03:49:00 Test Item Value Reference Range Interpretation Comments UA RBC (test code = no gt See_Comment [Automa rosa message] The UA RBC) system which ge nerated this result transmit rosa reference range : <=2. The reference range was not used to interpr et this result as winter l/abnormal. [facility] AND [id number] 03:49:00 Test Item Value Reference Range Interpretation Comments UA Mucus (test code = UA Mucus) Few /LPF [facility] AND [id number] 03:49:00 Test Item Value Reference Range Interpretation Comments UA Sq Epi (test code = UA Sq Epi) None Seen [facility] AND [id number] 03:49:00 Test Item Value Reference Range Interpretation Comments UA Urobilinogen (test code = UA <=1.0 mg/dL 0.1-1.0 Urobilinogen) [facility] [id number] 03:35:00 Test Item Value Reference Range Interpretation Comments Total CK (test code = Total CK) 313 12-191 [facility]2021-01-11 03:35:00 Test Item Value Reference Range Interpretation Comments Glucose Lvl (test code = Glucose Lvl) 92 70-99 [facility]2021-01-11 03:35:00 Test Item Value Reference Range Interpretation Comments BUN (test code = BUN) 7 7-22 [facility]2021-01-11 03:35:00 Test Item Value Reference Range Interpretation Comments Creatinine Lvl (test code = Creatinine 0.79 0.50-1.40 Lvl) [facility]2021-01-11 03:35:00 Test Item Value Reference Range Interpretation Comments Sodium Lvl (test code = Sodium Lvl) 138 135-145 [facility]2021-01-11 03:35:00 Test Item Value Reference Range Interpretation Comments Potassium Lvl (test code = Potassium 4.0 3.5-5.1 Lvl) [facility]2021-01-11 03:35:00 Test Item Value Reference Range Interpretation Comments Chloride Lvl (test code = Chloride Lvl) 107 95-109 [facility]2021-01-11 03:35:00 Test Item Value Reference Range Interpretation Comments CO2 (test code = CO2) 26 24-32 [facility]2021-01-11 03:35:00 Test Item Value Reference Range Interpretation Comments Calcium Lvl (test code = Calcium Lvl) 8.4 8.5-10.5 [facility]2021-01-11 03:35:00 Test Item Value Reference Range Interpretation Comments AGAP (test code = AGAP) 9.0 10.0-20.0 [facility]2021-01-11 03:35:00 Test Item Value Reference Range Interpretation Comments eGFR (test code = eGFR) 123 [place] 514261-01-11 03:35:00 Test Item Value Reference Range Interpretation Comments WBC (test code = WBC) 6.7 3.7-10.4 [place] 514261-01-11 03:35:00 Test Item Value Reference Range Interpretation Comments RBC (test code = RBC) 5.53 4.70-6.10 [place] 514261-01-11 03:35:00 Test Item Value Reference Range Interpretation Comments Hgb (test code = Hgb) 16.6 14.0-18.0 [place] 514261-01-11 03:35:00 Test Item Value Reference Range Interpretation Comments Hct (test code = Hct) 48.4 42.0-54.0 [place] 514261-01-11 03:35:00 Test Item Value Reference Range Interpretation Comments MCV (test code = MCV) 87.5 80.0-94.0 [place] 514261-01-11 03:35:00 Test Item Value Reference Range Interpretation Comments MCH (test code = MCH) 30.0 pg 27.0-31.0 [place] 514261-01-11 03:35:00 Test Item Value Reference Range Interpretation Comments MCHC (test code = MCHC) 34.3 32.0-36.0 [place] 514261-01-11 03:35:00 Test Item Value Reference Range Interpretation Comments RDW (test code = RDW) 13.9 11.5-14.5 [place] 514261-01-11 03:35:00 Test Item Value Reference Range Interpretation Comments Platelet (test code = Platelet) 241 133-450 [facility] [id number] 03:35:00 Test Item Value Reference Range Interpretation Comments MPV (test code = MPV) 8.8 7.4-10.4 [place] 514261-01-11 03:35:00 Test Item Value Reference Range Interpretation Comments Segs (test code = Segs) 57.7 45.0-75.0 [place] 514261-01-11 03:35:00 Test Item Value Reference Range Interpretation Comments Lymphocytes (test code = Lymphocytes) 29.5 20.0-40.0 [place] 514261-01-11 03:35:00 Test Item Value Reference Range Interpretation Comments Monocytes (test code = Monocytes) 7.9 2.0-12.0 [place] 514261-01-11 03:35:00 Test Item Value Reference Range Interpretation Comments Eosinophils (test code = 3.9 See_Comment [A utomated message] The Eosinophils) system which ge nerated this result tra nsmitted reference range : <=4.0. The reference r samantha was not used to int erpret this result as normal/abnormal . [place] 514261-01-11 03:35:00 Test Item Value Reference Range Interpretation Comments Basophils (test code = 1.0 See_Comment [Aut omated message] The Basophils) system which ge nerated this result tra nsmitted reference range : <=1.0. The reference r samantha was not used to int erpret this result as normal/abnormal . [place] 514261-01-11 03:35:00 Test Item Value Reference Range Interpretation Comments Neutrophils # (test code = Neutrophils 3.9 1.5-8.1 #) [place] 514261-01-11 03:35:00 Test Item Value Reference Range Interpretation Comments Lymphocytes # (test code = Lymphocytes 2.0 1.0-5.5 #) [place] 514261-01-11 03:35:00 Test Item Value Reference Range Interpretation Comments Monocytes # (test code 0.5 See_Comment [Aut omated message] The = Monocytes #) system which generated this result tra nsmitted reference range : <=0.8. The reference r samantha was not used to int erpret this result as normal/abnormal . [place] 514261-01-11 03:35:00 Test Item Value Reference Range Interpretation Comments Eosinophils # (test code 0.3 See_Comment [A utomated message] The = Eosinophils #) system ic h generated this result tra nsmitted reference range : <=0.5. The reference r samantha was not used to int erpret this result as normal/abnormal . [id number] 03:35:00 Test Item Value Reference Range Interpretation Comments Basophils # (test code 0.1 See_Comment [Aut omated message] The = Basophils #) system which generated this result tra nsmitted reference range : <=0.2. The reference r samantha was not used to int erpret this result as normal/abnormal . [facility] Cent[id number] 03:35:00 Test Item Value Reference Range Interpretation Comments Valproic Acid Lvl (test code = Valproic 59 50-100 Acid Lvl) [facility]2021-01-10 03:04:00 Test Item Value Reference Range Interpretation Comments Glucose Lvl (test code = Glucose Lvl) 105 70-99 [facility]2021-01-10 03:04:00 Test Item Value Reference Range Interpretation Comments BUN (test code = BUN) 6 7-22 [place] 801311-01-10 03:04:00 Test Item Value Reference Range Interpretation Comments Creatinine Lvl (test code = Creatinine 0.76 0.50-1.40 Lvl) [facility]2021-01-10 03:04:00 Test Item Value Reference Range Interpretation Comments Sodium Lvl (test code = Sodium Lvl) 141 135-145 [facility]2021-01-10 03:04:00 Test Item Value Reference Range Interpretation Comments Potassium Lvl (test code = Potassium 3.7 3.5-5.1 Lvl) [facility]2021-01-10 03:04:00 Test Item Value Reference Range Interpretation Comments Chloride Lvl (test code = Chloride Lvl) 108 95-109 [facility]2021-01-10 03:04:00 Test Item Value Reference Range Interpretation Comments CO2 (test code = CO2) 27 24-32 [facility] [id number] 03:04:00 Test Item Value Reference Range Interpretation Comments Calcium Lvl (test code = Calcium Lvl) 8.6 8.5-10.5 [facility]2021-01-10 03:04:00 Test Item Value Reference Range Interpretation Comments AGAP (test code = AGAP) 9.7 10.0-20.0 [facility] [id number] 03:04:00 Test Item Value Reference Range Interpretation Comments eGFR (test code = eGFR) 125 [facility] CenterMrxzcxbXZXIMUKKJJ1613-21-91 03:04:00 Test Item Value Reference Range Interpretation Comments WBC (test code = WBC) 6.3 3.7-10.4 [place] 514261-01-10 03:04:00 Test Item Value Reference Range Interpretation Comments RBC (test code = RBC) 5.26 4.70-6.10 [place] 514261-01-10 03:04:00 Test Item Value Reference Range Interpretation Comments Hgb (test code = Hgb) 15.7 14.0-18.0 [place] 514261-01-10 03:04:00 Test Item Value Reference Range Interpretation Comments Hct (test code = Hct) 45.8 42.0-54.0 [facility] CenterCxljavxLNVTWNUCWF4022-39-13 03:04:00 Test Item Value Reference Range Interpretation Comments MCV (test code = MCV) 87.1 80.0-94.0 [facility] CenterHdsfwblTJRGXFTEFG2129-57-01 03:04:00 Test Item Value Reference Range Interpretation Comments MCH (test code = MCH) 29.8 pg 27.0-31.0 [facility] CenterXiabbjqFMKEHMTPZE2365-18-71 03:04:00 Test Item Value Reference Range Interpretation Comments MCHC (test code = MCHC) 34.3 32.0-36.0 [facility] CenterFchbcjhQOETGJXGDP3512-61-97 03:04:00 Test Item Value Reference Range Interpretation Comments RDW (test code = RDW) 13.7 11.5-14.5 [facility] CenterLgtvyhrSIFEUBDVHF0959-56-90 03:04:00 Test Item Value Reference Range Interpretation Comments Platelet (test code = Platelet) 221 133-450 [facility] CenterAfprpfrXKRRCXGDJE1537-30-49 03:04:00 Test Item Value Reference Range Interpretation Comments MPV (test code = MPV) 8.8 7.4-10.4 [facility] CenterTazlniwTRHQAKSOUG1645-17-06 03:04:00 Test Item Value Reference Range Interpretation Comments Segs (test code = Segs) 55.0 45.0-75.0 [facility] CenterBaajixiUONHBDMSOG6817-15-21 03:04:00 Test Item Value Reference Range Interpretation Comments Lymphocytes (test code = Lymphocytes) 30.7 20.0-40.0 [place] 514261-01-10 03:04:00 Test Item Value Reference Range Interpretation Comments Monocytes (test code = Monocytes) 9.3 2.0-12.0 [place] 514261-01-10 03:04:00 Test Item Value Reference Range Interpretation Comments Eosinophils (test code = 4.6 See_Comment [A utomated message] The Eosinophils) system which ge nerated this result tra nsmitted reference range : <=4.0. The reference r samantha was not used to int erpret this result as normal/abnormal . [facility] CenterQglinykAEVCJLVLRE1756-10-45 03:04:00 Test Item Value Reference Range Interpretation Comments Basophils (test code = 0.4 See_Comment [Aut omated message] The Basophils) system which ge nerated this result tra nsmitted reference range : <=1.0. The reference r samantha was not used to int erpret this result as normal/abnormal . [place] 514261-01-10 03:04:00 Test Item Value Reference Range Interpretation Comments Neutrophils # (test code = Neutrophils 3.5 1.5-8.1 #) [facility] CenterKkzeojmOSZRONVLFM1879-12-27 03:04:00 Test Item Value Reference Range Interpretation Comments Lymphocytes # (test code = Lymphocytes 1.9 1.0-5.5 #) [facility] CenterZnhgtfaCWSNSEGQMX8655-12-30 03:04:00 Test Item Value Reference Range Interpretation Comments Monocytes # (test code 0.6 See_Comment [Aut omated message] The = Monocytes #) system which generated this result tra nsmitted reference range : <=0.8. The reference r samantha was not used to int erpret this result as normal/abnormal . [facility] CenterBrdcccvGRMEDSULAV6899-53-73 03:04:00 Test Item Value Reference Range Interpretation Comments Eosinophils # (test code 0.3 See_Comment [A utomated message] The = Eosinophils #) system whic h generated this result tra nsmitted reference range : <=0.5. The reference r samantha was not used to int erpret this result as normal/abnormal . [facility] CenterRoejymyZQLBGLJCAD0966-22-97 03:04:00 Test Item Value Reference Range Interpretation Comments Valproic Acid Lvl (test code = Valproic 42 50-100 Acid Lvl) [facility] AND [id number] 00:06:00 Test Item Value Reference Range Interpretation Comments UA Color (test code = Light Yellow UA Color) *NA*(10/31/19 7:06 PM) [facility] AND [id number] 00:06:00 Test Item Value Reference Range Interpretation Comments UA Turbidity (test code = Clear (10/31/19 7:06 UA Turbidity) PM) [facility] AND [id number] 00:06:00 Test Item Value Reference Range Interpretation Comments UA Spec Grav (test code = UA Spec 1.012 1 Grav) [facility] AND [id number] 00:06:00 Test Item Value Reference Range Interpretation Comments UA pH (test code = UA pH) 7.0 1 5.0-8.0 [facility] AND [id number] 00:06:00 Test Item Value Reference Range Interpretation Comments UA Protein (test code = UA Negative mg/dL Protein) [facility] AND [id number] 00:06:00 Test Item Value Reference Range Interpretation Comments UA Glucose (test code = UA Negative mg/dL Glucose) [facility] AND [id number] 00:06:00 Test Item Value Reference Range Interpretation Comments UA Ketones (test code = UA Negative mg/dL Ketones) [facility] AND [id number] 00:06:00 Test Item Value Reference Range Interpretation Comments UA Bili (test code = Negative *NA*(10/31/19 UA Bili) 7:06 PM) [facility] AND [id number] 00:06:00 Test Item Value Reference Range Interpretation Comments UA Blood (test code = Negative (10/31/19 7:06 UA Blood) PM) [facility] AND [id number] 00:06:00 Test Item Value Reference Range Interpretation Comments UA Nitrite (test code Negative (10/31/19 7:06 = UA Nitrite) PM) [facility] AND [id number] 00:06:00 Test Item Value Reference Range Interpretation Comments UA Leuk Est (test Negative (10/31/19 7:06 code = UA Leuk Est) PM) [facility] AND [id number] 00:06:00 Test Item Value Reference Range Interpretation Comments UA Sq Epi (test code = UA Sq Occasional /LPF Epi) [facility] [id number] 00:06:00 Test Item Value Reference Range Interpretation Comments UA WBC (test code = no gt See_Comment [Automa rosa message] The UA WBC) system which ge nerated this result transmit rosa reference range : <=5. The reference range was not used to interpr et this result as winter l/abnormal. [facility] [id number] 00:06:00 Test Item Value Reference Range Interpretation Comments UA RBC (test code = no gt See_Comment [Automa rosa message] The UA RBC) system which ge nerated this result transmit rosa reference range : <=2. The reference range was not used to interpr et this result as winter l/abnormal. [facility] [id number] 00:06:00 Test Item Value Reference Range Interpretation Comments UA Urobilinogen (test code = UA <=1.0 mg/dL 0.1-1.0 Urobilinogen) [facility]woodDesign2LaunchCARDIAC [id number] 23:58:00 Test Item Value Reference Range Interpretation Comments Total CK (test code = Total CK) 297 12-191 [facility] [id number] 23:58:00 Test Item Value Reference Range Interpretation Comments Glucose Lvl (test code = Glucose Lvl) 91 70-99 [facility] [id number] 23:58:00 Test Item Value Reference Range Interpretation Comments BUN (test code = BUN) 11 7-22 [facility] [id number] 23:58:00 Test Item Value Reference Range Interpretation Comments Creatinine Lvl (test code = Creatinine 0.90 0.50-1.40 Lvl) [facility] [id number] 23:58:00 Test Item Value Reference Range Interpretation Comments Sodium Lvl (test code = Sodium Lvl) 137 135-145 [facility] [id number] 23:58:00 Test Item Value Reference Range Interpretation Comments Potassium Lvl (test code = Potassium 5.2 3.5-5.1 Lvl) [facility] [id number] 23:58:00 Test Item Value Reference Range Interpretation Comments Chloride Lvl (test code = Chloride Lvl) 107 95-109 [facility] [id number] 23:58:00 Test Item Value Reference Range Interpretation Comments CO2 (test code = CO2) 25 24-32 [facility] [id number] 23:58:00 Test Item Value Reference Range Interpretation Comments AGAP (test code = AGAP) 10.2 10.0-20.0 [facility] [id number] 23:58:00 Test Item Value Reference Range Interpretation Comments Calcium Lvl (test code = Calcium Lvl) 9.3 8.5-10.5 [facility] [id number] 23:58:00 Test Item Value Reference Range Interpretation Comments eGFR (test code = eGFR) 117 [facility] [id number] 23:58:00 Test Item Value Reference Range Interpretation Comments Total Protein (test code = Total 8.0 6.4-8.4 Protein) [facility] [id number] 23:58:00 Test Item Value Reference Range Interpretation Comments Albumin Lvl (test code = Albumin Lvl) 3.8 3.5-5.0 [facility] [id number] 23:58:00 Test Item Value Reference Range Interpretation Comments Globulin (test code = Globulin) 4.2 2.7-4.2 [facility] [id number] 23:58:00 Test Item Value Reference Range Interpretation Comments A/G Ratio (test code = A/G Ratio) 0.9 1 0.7-1.6 [facility] [id number] 23:58:00 Test Item Value Reference Range Interpretation Comments ALT (test code = ALT) 35 See_Comment [Auto mated message] The system which ge nerated this result transmit rosa reference range : <=65. The reference range was not used to interpr et this result as winter l/abnormal. [facility] [id number] 23:58:00 Test Item Value Reference Range Interpretation Comments AST (test code = AST) 41 See_Comment [Auto mated message] The system which ge nerated this result transmit rosa reference range : <=37. The reference range was not used to interpr et this result as winter l/abnormal. [facility] [id number] 23:58:00 Test Item Value Reference Range Interpretation Comments Alk Phos (test code = Alk Phos) 81 39-136 [facility]2020-08-23 23:58:00 Test Item Value Reference Range Interpretation Comments Bili Total (test code = Bili Total) 0.2 0.2-1.3 [place] [id number] 23:58:00 Test Item Value Reference Range Interpretation Comments Bili Direct (test code no gt See_Comment [Aut omated message] The = Bili Direct) system which generated this result tra nsmitted reference range : <=0.3. The reference r samantha was not used to int erpret this result as winter l/abnormal. [facility] [id number] 23:58:00 Test Item Value Reference Range Interpretation Comments Bili Indirect Unable to See_Comment [Automated (test code = Bili Calculate message] T he system Indirect) which generated this result transmitted reference range : <=1.0. The reference range was not used to interpret this result as normal/abnormal . [facility] [id number] 23:58:00 Test Item Value Reference Range Interpretation Comments Magnesium Lvl (test code = Magnesium 2.1 1.8-2.4 Lvl) [place] [id number] 23:58:00 Test Item Value Reference Range Interpretation Comments WBC (test code = WBC) 6.1 3.7-10.4 [place] [address]-08-23 23:58:00 Test Item Value Reference Range Interpretation Comments RBC (test code = RBC) 5.29 4.70-6.10 [place] [address]-08-23 23:58:00 Test Item Value Reference Range Interpretation Comments Hgb (test code = Hgb) 16.0 14.0-18.0 [place] [address]-08-23 23:58:00 Test Item Value Reference Range Interpretation Comments Hct (test code = Hct) 47.5 42.0-54.0 [place] [address]-08-23 23:58:00 Test Item Value Reference Range Interpretation Comments MCV (test code = MCV) 89.7 80.0-94.0 [place] [address]-08-23 23:58:00 Test Item Value Reference Range Interpretation Comments MCH (test code = MCH) 30.3 pg 27.0-31.0 [facility] CenterHbdfzvvBECAUJDVQH8798-85-43 23:58:00 Test Item Value Reference Range Interpretation Comments MCHC (test code = MCHC) 33.7 32.0-36.0 [facility] CenterXatzbieTIWOKVDLKA5404-43-09 23:58:00 Test Item Value Reference Range Interpretation Comments RDW (test code = RDW) 13.2 11.5-14.5 [facility] [id number] 23:58:00 Test Item Value Reference Range Interpretation Comments Platelet (test code = Platelet) 234 133-450 [facility] CenterBiteewiDQCSPFXKGE0711-45-86 23:58:00 Test Item Value Reference Range Interpretation Comments MPV (test code = MPV) 8.6 7.4-10.4 [facility] CenterOshcccpCWXDWTGRNN9833-20-54 23:58:00 Test Item Value Reference Range Interpretation Comments Segs (test code = Segs) 59.8 45.0-75.0 [facility] CenterDfepwzjUREHMXJLTX0426-21-12 23:58:00 Test Item Value Reference Range Interpretation Comments Lymphocytes (test code = Lymphocytes) 27.6 20.0-40.0 [facility] Cent[id number] 23:58:00 Test Item Value Reference Range Interpretation Comments Monocytes (test code = Monocytes) 6.8 2.0-12.0 [facility] CenterRblzrxmLLPUHCJEKL7051-64-92 23:58:00 Test Item Value Reference Range Interpretation Comments Eosinophils (test code = 4.5 See_Comment [A utomated message] The Eosinophils) system which ge nerated this result tra nsmitted reference range : <=4.0. The reference r samantha was not used to int erpret this result as normal/abnormal . [facility] Cent[id number] 23:58:00 Test Item Value Reference Range Interpretation Comments Basophils (test code = 1.3 See_Comment [Aut omated message] The Basophils) system which ge nerated this result tra nsmitted reference range : <=1.0. The reference r samantha was not used to int erpret this result as normal/abnormal . [facility] Cent[id number] 23:58:00 Test Item Value Reference Range Interpretation Comments Neutrophils # (test code = Neutrophils 3.7 1.5-8.1 #) [place] [id number] 23:58:00 Test Item Value Reference Range Interpretation Comments Lymphocytes # (test code = Lymphocytes 1.7 1.0-5.5 #) [facility] Cent[id number] 23:58:00 Test Item Value Reference Range Interpretation Comments Monocytes # (test code 0.4 See_Comment [Aut omated message] The = Monocytes #) system which generated this result tra nsmitted reference range : <=0.8. The reference r samantha was not used to int erpret this result as normal/abnormal . [facility] Cent[id number] 23:58:00 Test Item Value Reference Range Interpretation Comments Eosinophils # (test code 0.3 See_Comment [A utomated message] The = Eosinophils #) system whic h generated this result tra nsmitted reference range : <=0.5. The reference r samantha was not used to int erpret this result as normal/abnormal . [facility] CenterRaehxhnCRARHWYWET8872-65-06 23:58:00 Test Item Value Reference Range Interpretation Comments Basophils # (test code 0.1 See_Comment [Aut omated message] The = Basophils #) system which generated this result tra nsmitted reference range : <=0.2. The reference r samantha was not used to int erpret this result as normal/abnormal . [facility] CenterIgwkcabAGGOZ1759-54-80 23:58:00 Test Item Value Reference Range Interpretation Comments [place] Lvl (test code = [place] Lvl) 0.20 0.50-1.50 [facility] Cent[id number] 23:58:00 Test Item Value Reference Range Interpretation Comments Phenytoin Free (test code = <0.10 ug/ml 1.00-2.00 Phenytoin Free) [facility]2020-08-23 01:35:00 Test Item Value Reference Range Interpretation Comments Glucose Lvl (test code = Glucose Lvl) 106 70-99 [place] 801310-08-23 01:35:00 Test Item Value Reference Range Interpretation Comments BUN (test code = BUN) 10 7-22 [place] 801310-08-23 01:35:00 Test Item Value Reference Range Interpretation Comments Creatinine Lvl (test code = Creatinine 0.70 0.50-1.40 Lvl) [place] 801310-08-23 01:35:00 Test Item Value Reference Range Interpretation Comments Sodium Lvl (test code = Sodium Lvl) 141 135-145 [facility] [id number] 01:35:00 Test Item Value Reference Range Interpretation Comments Potassium Lvl (test code = Potassium 3.8 3.5-5.1 Lvl) [facility]woodDesign2LaunchKAT[place] [id number] 01:35:00 Test Item Value Reference Range Interpretation Comments Chloride Lvl (test code = Chloride Lvl) 110 95-109 [facility] [id number] 01:35:00 Test Item Value Reference Range Interpretation Comments CO2 (test code = CO2) 25 24-32 [facility] [id number] 01:35:00 Test Item Value Reference Range Interpretation Comments Calcium Lvl (test code = Calcium Lvl) 8.8 8.5-10.5 [facility] [id number] 01:35:00 Test Item Value Reference Range Interpretation Comments Total Protein (test code = Total 7.1 6.4-8.4 Protein) [facility] Center[facility] [id number] 01:35:00 Test Item Value Reference Range Interpretation Comments Albumin Lvl (test code = Albumin Lvl) 3.5 3.5-5.0 [facility] [id number] 01:35:00 Test Item Value Reference Range Interpretation Comments ALT (test code = ALT) 26 See_Comment [Auto mated message] The system which ge nerated this result transmit rosa reference range : <=65. The reference range was not used to interpr et this result as winter l/abnormal. [facility] [id number] 01:35:00 Test Item Value Reference Range Interpretation Comments AST (test code = AST) 12 See_Comment [Auto mated message] The system which ge nerated this result transmit rosa reference range : <=37. The reference range was not used to interpr et this result as winter l/abnormal. [facility] [id number] 01:35:00 Test Item Value Reference Range Interpretation Comments Alk Phos (test code = Alk Phos) 82 39-136 [facility] [id number] 01:35:00 Test Item Value Reference Range Interpretation Comments Bili Total (test code = Bili Total) 0.1 0.2-1.3 [facility]2020-08-23 01:35:00 Test Item Value Reference Range Interpretation Comments AGAP (test code = AGAP) 9.8 10.0-20.0 [place] 801310-08-23 01:35:00 Test Item Value Reference Range Interpretation Comments B/C Ratio (test code = B/C Ratio) 14 1 6-25 [place] 801310-08-23 01:35:00 Test Item Value Reference Range Interpretation Comments Globulin (test code = Globulin) 3.6 2.7-4.2 [facility] [id number] 01:35:00 Test Item Value Reference Range Interpretation Comments A/G Ratio (test code = A/G Ratio) 1.0 1 0.7-1.6 [place] [address]-08-23 01:35:00 Test Item Value Reference Range Interpretation Comments eGFR (test code = eGFR) 130 [facility] HospitalSktugjxHNYZQ2968-22-27 00:14:41 Test Item Value Reference Range Interpretation Comments [place] Lvl (test code = [place] Lvl) 1.60 0.50-1.50 [facility]2020-08-23 00:02:00 Test Item Value Reference Range Interpretation Comments Magnesium Lvl (test code = Magnesium 2.4 1.8-2.4 Lvl) [facility] Cent[id number] 00:02:00 Test Item Value Reference Range Interpretation Comments WBC (test code = WBC) 5.0 3.7-10.4 [place] [id number] 00:02:00 Test Item Value Reference Range Interpretation Comments RBC (test code = RBC) 5.04 4.70-6.10 [place] [id number] 00:02:00 Test Item Value Reference Range Interpretation Comments Hgb (test code = Hgb) 15.4 14.0-18.0 [place] [address]-08-23 00:02:00 Test Item Value Reference Range Interpretation Comments Hct (test code = Hct) 45.7 42.0-54.0 [place] [address]-08-23 00:02:00 Test Item Value Reference Range Interpretation Comments MCV (test code = MCV) 90.6 80.0-94.0 [facility] CenterJnzogmwPHMTUQKMPC7749-78-81 00:02:00 Test Item Value Reference Range Interpretation Comments MCH (test code = MCH) 30.5 pg 27.0-31.0 [facility] CenterQewikauFIQEFITWFF2831-72-67 00:02:00 Test Item Value Reference Range Interpretation Comments MCHC (test code = MCHC) 33.7 32.0-36.0 [facility] CenterAnpoaojDFOGSHNGZF9633-21-87 00:02:00 Test Item Value Reference Range Interpretation Comments RDW (test code = RDW) 13.1 11.5-14.5 [facility] Cent[id number] 00:02:00 Test Item Value Reference Range Interpretation Comments Platelet (test code = Platelet) 233 133-450 [facility] CenterWbvjfliVGDYIFZKJW7138-09-31 00:02:00 Test Item Value Reference Range Interpretation Comments MPV (test code = MPV) 8.6 7.4-10.4 [facility] CenterNbypyxrFNPFSRBCYP6487-07-04 00:02:00 Test Item Value Reference Range Interpretation Comments Segs (test code = Segs) 52.7 45.0-75.0 [facility] CenterXfclhvoWPUOGOKAGC0651-93-29 00:02:00 Test Item Value Reference Range Interpretation Comments Lymphocytes (test code = Lymphocytes) 34.5 20.0-40.0 [facility] CenterDcfhejlKIMUZNXDYL2070-89-05 00:02:00 Test Item Value Reference Range Interpretation Comments Monocytes (test code = Monocytes) 7.2 2.0-12.0 [facility] CenterFadvaiyRPIWYRUGNI9318-18-39 00:02:00 Test Item Value Reference Range Interpretation Comments Eosinophils (test code = 5.1 See_Comment [A utomated message] The Eosinophils) system which ge nerated this result tra nsmitted reference range : <=4.0. The reference r samantha was not used to int erpret this result as normal/abnormal . [facility] CenterNzbzgtuBOHCEQLWMO3039-69-04 00:02:00 Test Item Value Reference Range Interpretation Comments Basophils (test code = 0.5 See_Comment [Aut omated message] The Basophils) system which ge nerated this result tra nsmitted reference range : <=1.0. The reference r samantha was not used to int erpret this result as normal/abnormal . [facility] CenterIutgzwxRDULNJTPLJ6665-68-02 00:02:00 Test Item Value Reference Range Interpretation Comments Neutrophils # (test code = Neutrophils 2.6 1.5-8.1 #) [facility] CenterUmzjbvpRJIOTCBOEP5391-25-61 00:02:00 Test Item Value Reference Range Interpretation Comments Lymphocytes # (test code = Lymphocytes 1.7 1.0-5.5 #) [facility] CenterAsvwzlcMTWNFLBERS8259-60-80 00:02:00 Test Item Value Reference Range Interpretation Comments Monocytes # (test code 0.4 See_Comment [Aut omated message] The = Monocytes #) system which generated this result tra nsmitted reference range : <=0.8. The reference r samantha was not used to int erpret this result as normal/abnormal . [facility] CenterEjumsjoQORDQJKLDL0124-44-77 00:02:00 Test Item Value Reference Range Interpretation Comments Eosinophils # (test code 0.3 See_Comment [A utomated message] The = Eosinophils #) system whic h generated this result tra nsmitted reference range : <=0.5. The reference r samantha was not used to int erpret this result as normal/abnormal . [facility] CenterXadmavxKPOIGSVKPS1720-96-92 00:02:00 Test Item Value Reference Range Interpretation Comments Basophils # (test code 0.0 See_Comment [Aut omated message] The = Basophils #) system which generated this result tra nsmitted reference range : <=0.2. The reference r samantha was not used to int erpret this result as normal/abnormal . [facility] [id number] 18:16:35 Test Item Value Reference Range Interpretation Comments [...] U rine within 7 days. Benzodiazepines Ur Negative Negative The speci men is (test code = [...] positive result is desired, please order Opiate Confirma tion, Urine within 7 days. U PCP Scrn [...] order Propoxyphene Confirmation wi thin 7 days. Valproic Acid [id number] 09:45:35 Test Item Value Reference Range Interpretation Comments Valproic Acid 67.9 mcg/mL N A therapeutic range of Level (test code = 50-100 ug /ml may Valproic Acid indicate effec tive Level) concentrations for many patients; howev er some individuals are best treated at concentrations outside this range. The physician must determine the appropriate therapeutic ran ge for each patient. [facility] Gkfzi1448-55-39 06:27:22 Test Item Value Reference Range Interpretation [...] code = Lipemia) 0 g/dL 1-2 Magnesium [id number] 06:27:22 Test Item Value Reference Range Interpretation Comments Magnesium Level (test code = 1.78 mg/dL 1.60-2.60 Magnesium Level) [facility] Bsjqh1110-07-01 06:27:22 Test Item Value Reference Range Interpretation [...] code = 0 g/dL 1-2 Lipemia) Phosphorus Wyiek2947-31-16 06:27:22 Test Item Value Reference Range Interpretation Comments Phosphorus Level (test code = 4.7 mg/dL 2.4-5.1 Phosphorus Level) Bilirubin [id number] 06:27:22 Test Item Value Reference Range Interpretation Comments Bilirubin Direct (test code = <0.1 mg/dL <=0.3 Bilirubin Direct) [facility] [id number] 06:27:22 Test Item Value Reference Range Interpretation [...] code = Lactic Acid, Plasma (Venous)) IG [id number] 05:02:47 Test Item Value Reference Range Interpretation Comments IG (test code = IG) 1.3 % 0.0-5.0 IG Abs (test code = IG Abs) 0 x10 N Complete Blood Count with Mbxgwinpgwxm5802-14-03 05:02:46 Test Item Value Reference Range Interpretation [...] code = IPF) 0 % N Automated Jzdpzsljfrly9957-77-58 05:02:46 Test Item Value Reference Range Interpretation Comments Neutro Auto (test code = Neutro 45.8 % 36.0-70.0 Auto) Lymph Auto (test code = Lymph Auto) 40.1 % 12.0-44.0 [place] Auto (test code = [place] Auto) 8.3 % 0.0-11.0 Eos, Auto (test code = Eos, Auto) 3.8 % 0.0-7.0 Basophil Auto (test code = Basophil 0.7 % 0.0-2.0 Auto) Neutro Absolute (test code = Neutro 2.8 x10 1.6-7.4 Absolute) Lymph Absolute (test code = Lymph 2.45 x10 .50-4.60 Absolute) [place] Absolute (test code = [place] .51 x10 .00-1.20 Absolute) Eos Absolute (test code = Eos 0.23 x10 0.00-0.74 Absolute) Baso Absolute (test code = Baso 0.04 x10 0.00-0.21 Absolute) Valproic Acid Zhyxg2325-20-19 23:38:50 Test Item Value Reference Range Interpretation Comments Valproic Acid 79.5 mcg/mL N A therapeutic range of Level (test code = 50-100 ug /ml may Valproic Acid indicate effec tive Level) concentrations for many patients; howev er some individuals are best treated at concentrations outside this range. The physician must determine the appropriate therapeutic ran ge for each patient. [facility] [id number] 23:38:49 Test Item Value Reference Range Interpretation Comments Sodium Level (test code = Sodium 141.0 mmol/L 136.0-145.0 Level) Potassium Level (test code = 4.10 mmol/L 3.50-5.10 Potassium Level) Chloride Level (test code = 104.0 mmol/L 98.0-107.0 Chloride Level) CO2 (test code = CO2) 26 mmol/L Anion Gap (test code = Anion 11.5 [...] code = Lipemia) 0 g/dL 1-2 Creatine [id number] 23:38:49 Test Item Value Reference Range Interpretation Comments CK (test code = CK) 475 U/L 46-171 H [facility] [id number] 23:38:49 Test Item Value Reference Range Interpretation [...] code = 0 g/dL 1-2 Lipemia) Magnesium [id number] 23:38:49 Test Item Value Reference Range Interpretation Comments Magnesium Level (test code = 1.81 mg/dL 1.60-2.60 Magnesium Level) Phosphorus Kdslf2295-84-82 23:38:49 Test Item Value Reference Range Interpretation Comments Phosphorus Level (test code = 4.2 mg/dL 2.4-5.1 Phosphorus Level) [place] Enzfr8968-51-02 23:38:49 Test Item Value Reference Range Interpretation Comments [place] Level (test <0.10 mmol/L N Therapeu tic range code = [place] 12-hour post- dose - Level) 1.0-1.2 mmol/LL evels higher than 1.5 mmol/L at 12-hour post dose indicate a sign ificant risk of intoxic ation. [facility] [id number] 23:38:49 Test Item Value Reference Range Interpretation [...] 23: 25:34 CDT Plasma (Venous)) by bm. Read back and verified? yes Complete Blood Count with Wnnxcdkihivy2003-64-03 23:11:51 Test Item Value Reference Range Interpretation [...] code = IPF) 0 % N Automated Qfkmueubqils0839-99-74 23:11:51 Test Item Value Reference Range Interpretation Comments Neutro Auto (test code = Neutro 50.3 % 36.0-70.0 Auto) Lymph Auto (test code = Lymph Auto) 35.8 % 12.0-44.0 [place] Auto (test code = [place] Auto) 7.5 % 0.0-11.0 Eos, Auto (test code = Eos, Auto) 3.9 % 0.0-7.0 Basophil Auto (test code = Basophil 0.7 % 0.0-2.0 Auto) Neutro Absolute (test code = Neutro 3.0 x10 1.6-7.4 Absolute) Lymph Absolute (test code = Lymph 2.14 x10 .50-4.60 Absolute) [place] Absolute (test code = [place] .45 x10 .00-1.20 Absolute) Eos Absolute (test code = Eos 0.23 x10 0.00-0.74 Absolute) Baso Absolute (test code = Baso 0.04 x10 0.00-0.21 Absolute) IG [id number] 23:11:51 Test Item Value Reference Range Interpretation Comments IG (test code = IG) 1.8 % 0.0-5.0 IG Abs (test code = IG Abs) [address] Spine Cervical w/o [id number] 22:23:54Patient: DOUGLAS SYLVESTER Date/Time10/08/2019 22:16 CDTReason for ExamHead injuryReportEXAM: CT CERVICAL SPINE WITHOUT CONTRASTINDICATION: Head injuryCOMPARISON: None availableTECHNIQUE: Axial CT imaging of the cervical spine was obtained without intravenous contrast. Coronal and sagittal reformatted images were submitted for review. IV contrast: NoneDLP: 1330 mGy-cmDISCUSSION:No acute fracture or dislocation is identified. The atlantoaxial and atlantooccipital articulations are normal. The vertebral bodies are normal in height, alignment and density. The facet joints and spinous processes are normal in alignment. The intervertebral disc heights are normal.No spinal canal or neuroforaminal stenosis.The prevertebral and posterior paraspinal soft tissues are normal.IMPRESSION:No acuteabnormality of the cervical spine.LOCATION: [id number] CT exam was performed according to our departmental dose optimization program, which includes automated exposure control, adjustment of the mA and/orkV according to the patient size and/or use of iterative reconstructive technique. Final Dictated by: MD Petersen Melanie CDictated DT/TM: 10/08/2019 10:22 pmSigned by: MD Petersen Melanie CSigned (Electronic Signature): 10/08/2019 10:23 pmCT Brain/Head w/o [id number] 22:22:22Patient: DOUGLAS SYLVESTER Date/Time10/08/2019 22:16 CDTReason for ExamHead injuryReportEXAM: CT BRAIN WITHOUT CONTRASTINDICATION: Head injuryCOMPARISON: CT head dated October 05, 2019TECHNIQUE: Routine axial noncontrast CT images of the brain were obtained.IV contrast: None.DLP: 1330 mGy-cmFINDINGS:No intra-axial or extra-axial fluid collections are identified. No acute hemorrhage.There is normal differentiation [...] unremarkable.IMPRESSION:No acute intracranial abnormality. No intracranial hemorrhage.LOCATION: [id number] CT exam was performed according to our departmental dose optimization program, which includes automated exposure control, adjustment of the mA and/or kV according to the patient size and/or use of iterative reconstructive technique. Final Dictated by: MD Petersen Melanie CDictated DT/TM: 10/08/2019 10:21 pmSigned by: MD Petersen Melanie CSigned (Electronic Signature): 10/08/2019 10:22 pm [facility] [id number] 08:47:42 Test Item Value Reference Range Interpretation [...] = Lipemia) 0 g/dL 1-2 [facility] [id number] 08:47:42 Test Item Value Reference Range Interpretation [...] = 0 g/dL 1-2 Lipemia) [facility] [id number] 08:47:42 Test Item Value Reference Range Interpretation [...] code = 0 g/dL 1-2 Lipemia) IG [id number] 08:42:00 Test Item Value Reference Range Interpretation Comments IG (test code = IG) 1.4 % 0.0-5.0 IG Abs (test code = IG Abs) 0 x10 N Complete Blood Count with Beuimgwevxxq6002-10-63 08:41:59 Test Item Value Reference Range Interpretation [...] code = IPF) 0 % N Automated Odwvjzehjplv1506-50-31 08:41:59 Test Item Value Reference Range Interpretation Comments Neutro Auto (test code = Neutro 37.5 % 36.0-70.0 Auto) Lymph Auto (test code = Lymph Auto) 46.8 % 12.0-44.0 H [place] Auto (test code = [place] Auto) 7.9 % 0.0-11.0 Eos, Auto (test code = Eos, Auto) 5.5 % 0.0-7.0 Basophil Auto (test code = Basophil 0.9 % 0.0-2.0 Auto) Neutro Absolute (test code = Neutro 2.2 x10 1.6-7.4 Absolute) Lymph Absolute (test code = Lymph 2.73 x10 .50-4.60 Absolute) [place] Absolute (test code = [place] .46 x10 .00-1.20 Absolute) Eos Absolute (test code = Eos 0.32 x10 0.00-0.74 Absolute) Baso Absolute (test code = Baso 0.05 x10 0.00-0.21 Absolute) RPR Eyxlzmekecb8045-04-73 10:50:37 Test Item Value Reference Range Interpretation Comments RPR Qual (test code = RPR Qual) Non-Reactive Non-Reactive Reactive Control (test code = Reactive Reactive Control) Weak Reactive Control (test Weak Reactive code = Weak Reactive Control) Non-Reactive Control (test code Non-Reactive = Non-Reactive Control) Lot # (test code = Lot #) [id number] N Expiration Dt (test code = 12-07-2020 N Expiration Dt) POC [id number] 08:58:11 Test Item Value Reference Range Interpretation Comments Glucose POC (test 92 mg/dL 70-115 If you con manager hematology your code = Glucose POC) patient critically ill, the Rosalinda-Accu Check Infrom II meter should not be used for Glucose determination. Draw a venous Glucose and send to the main Lab for analysis. Urine DOA 03:41:09 Test Item Value Reference Range Interpretation [...] positive result is desired, please order Opiate Confirma tion, Urine within 7 days. U PCP Scrn [...] days. U Propoxyphene (test Negative Negative The [facility] is code = U Propoxyphene) presu mptive positive if the analyte concentration i s equal to or greater t martins 300 ng/ml.If confir mation of positive res ult is desired, please order Propoxyphene Confirmation wi thin [address] Brain/Head w/o [id number] 03:34:48Patient: DOUGLAS SYLVESTER Date/Time10/05/2019 01:57 CDTReason for ExamStatus epilepticu s;Other (please specify)ReportExam: CT head without contrast.Location: H [...] (Electronic Signature): 10/05/2019 3:34 amNovel Coronavirus SARS-CoV-2, [id number] 03:30:06 Test Item Value Reference Range Interpretation [...] Emergency Use Authorization." Urinalysis with Culture, if ouwrjogqn0815-26-69 02:30:49 Test Item Value Reference Range Interpretation [...] Indicated Not Indicated Micro Ind?) Urine DOA [id number] 00:58:05 Test Item Value Reference Range Interpretation [...] positive result is desired, please order Opiate Confirma tion, Urine within 7 days. U PCP Scrn [...] thin 7 days. Urinalysis with Culture, if opmgzlzqp7396-05-13 00:47:49 Test Item Value Reference Range Interpretation [...] Indicated Not Indicated Micro Ind?) [facility] [id number] 00:39:04 Test Item Value Reference Range Interpretation [...] = Lipemia) 0 g/dL 1-2 [facility] Stjow8628-59-00 00:39:04 Test Item Value Reference Range Interpretation [...] code = 0 g/dL 1-2 Lipemia) Alcohol [id number] 00:39:04 Test Item Value Reference Range Interpretation Comments Ethanol Level 13.0 mg/dL N The pharmacolo gical (test code = response to blo od alcohol Ethanol Level) levels may va ry from individual to i ndividual. The fatal leila ntration has been report ed to be >400 mg/dl. [facility] Bzvho5074-84-29 00:39:04 Test Item Value Reference Range Interpretation [...] code = 0 g/dL 1-2 Lipemia) IG [id number] 23:49:23 Test Item Value Reference Range Interpretation Comments IG (test code = IG) 2.0 % 0.0-5.0 IG Abs (test code = IG Abs) 0 x10 N Complete Blood Count with [id number] 23:49:22 Test Item Value Reference Range Interpretation [...] code = IPF) 0 % N Automated Yzavttpjwrkq3512-72-04 23:49:22 Test Item Value Reference Range Interpretation Comments Neutro Auto (test code = Neutro 69.1 % 36.0-70.0 Auto) Lymph Auto (test code = Lymph Auto) 19.2 % 12.0-44.0 [place] Auto (test code = [place] Auto) 7.7 % 0.0-11.0 Eos, Auto (test code = Eos, Auto) 1.5 % 0.0-7.0 Basophil Auto (test code = Basophil 0.5 % 0.0-2.0 Auto) Neutro Absolute (test code = Neutro 6.0 x10 1.6-7.4 Absolute) Lymph Absolute (test code = Lymph 1.67 x10 .50-4.60 Absolute) [place] Absolute (test code = [place] .67 x10 .00-1.20 Absolute) Eos Absolute (test code = Eos 0.13 x10 0.00-0.74 Absolute) Baso Absolute (test code = Baso 0.04 x10 0.00-0.21 Absolute) URINE AND [id number] 02:55:00 Test Item Value Reference Range Interpretation Comments UA Color (test code = Light Yellow UA Color) *NA*(10/02/19 9:55 PM) [facility] AND [id number] 02:55:00 Test Item Value Reference Range Interpretation Comments UA Turbidity (test code = Clear (10/02/19 9:55 UA Turbidity) PM) [facility] AND [id number] 02:55:00 Test Item Value Reference Range Interpretation Comments UA Spec Grav (test code = UA Spec 1.015 1 Grav) [facility] AND [id number] 02:55:00 Test Item Value Reference Range Interpretation Comments UA pH (test code = UA pH) 7.0 1 5.0-8.0 [facility] [id number] 02:55:00 Test Item Value Reference Range Interpretation Comments UA Protein (test code = UA Negative mg/dL Protein) [facility] [id number] 02:55:00 Test Item Value Reference Range Interpretation Comments UA Glucose (test code = UA Negative mg/dL Glucose) [facility] AND [id number] 02:55:00 Test Item Value Reference Range Interpretation Comments UA Ketones (test code = UA Negative mg/dL Ketones) [facility] [id number] 02:55[facility]00 Test Item Value Reference Range Interpretation Comments UA Bili (test code = Negative *NA*(10/02/19 UA Bili) 9:55 PM) [facility] [id number] 02:55:00 Test Item Value Reference Range Interpretation Comments UA Blood (test code = Negative (10/02/19 9:55 UA Blood) PM) [facility] [id number] 02:55:00 Test Item Value Reference Range Interpretation Comments UA Nitrite (test code Negative (10/02/19 9:55 = UA Nitrite) PM) [facility] [id number] 02:55:00 Test Item Value Reference Range Interpretation Comments UA Leuk Est (test Negative (10/02/19 9:55 code = UA Leuk Est) PM) [facility] [id number] 02:55:00 Test Item Value Reference Range Interpretation Comments UA WBC (test code = no gt See_Comment [Automa rosa message] The UA WBC) system which ge nerated this result transmit rosa reference range : <=5. The reference range was not used to interpr et this result as winter l/abnormal. [facility] [id number] 02:55:00 Test Item Value Reference Range Interpretation Comments UA RBC (test code = 1 See_Comment [Automa rosa message] The UA RBC) system which ge nerated this result transmit rosa reference range : <=2. The reference range was not used to interpr et this result as winter l/abnormal. [facility] [id number] 02:55:00 Test Item Value Reference Range Interpretation Comments UA Mucus (test code = UA Mucus) Few /LPF [facility] [id number] 02:55:00 Test Item Value Reference Range Interpretation Comments UA Sq Epi (test code = UA Sq Epi) None Seen [facility] [id number] 02:55:00 Test Item Value Reference Range Interpretation Comments UA Urobilinogen (test code = UA <=1.0 mg/dL 0.1-1.0 Urobilinogen) [facility] [id number] 02:37:00 Test Item Value Reference Range Interpretation Comments Coronavirus (COVID-19) Not Detected (10/02/19 DENITA (test code = 9:37 PM) Coronavirus (COVID-19) DENITA) [facility] [id number] 01:45:00 Test Item Value Reference Range Interpretation Comments BNP (test code = BNP) 8 [facility] [id number] 01:45:00 Test Item Value Reference Range Interpretation Comments Troponin-I (test code no gt See_Comment [Auto mated message] The = Troponin-I) system which g enerated this result transmit rosa reference range : <=0.40. The reference r samantha was not used to interpr et this result as winter l/abnormal. [facility] [id number] 01:45:00 Test Item Value Reference Range Interpretation Comments Glucose Lvl (test code = Glucose Lvl) 102 70-99 [facility] [id number] 01:45:00 Test Item Value Reference Range Interpretation Comments BUN (test code = BUN) 10 - [facility] [id number] 01:45:00 Test Item Value Reference Range Interpretation Comments Creatinine Lvl (test code = Creatinine 0.90 0.50-1.40 Lvl) [facility] [id number] 01:45:00 Test Item Value Reference Range Interpretation Comments Sodium Lvl (test code = Sodium Lvl) 140 135-145 [facility] [id number] 01:45:00 Test Item Value Reference Range Interpretation Comments Potassium Lvl (test code = Potassium 4.2 3.5-5.1 Lvl) [facility] [id number] 01:45:00 Test Item Value Reference Range Interpretation Comments Chloride Lvl (test code = Chloride Lvl) 107 95-109 [facility] [id number] 01:45:00 Test Item Value Reference Range Interpretation Comments CO2 (test code = CO2) 24-32 [facility] [id number] 01:45:00 Test Item Value Reference Range Interpretation Comments Calcium Lvl (test code = Calcium Lvl) 8.5 8.5-10.5 [facility] [id number] 01:45:00 Test Item Value Reference Range Interpretation Comments AGAP (test code = AGAP) 11.2 10.0-20.0 [place] [address]-07-26 01:45:00 Test Item Value Reference Range Interpretation Comments eGFR (test code = eGFR) 117 [place] [address]-07-26 01:45:00 Test Item Value Reference Range Interpretation Comments Total Protein (test code = Total 7.8 6.4-8.4 Protein) [place] [address]-07-26 01:45:00 Test Item Value Reference Range Interpretation Comments Albumin Lvl (test code = Albumin Lvl) 3.7 3.5-5.0 [place] [address]-07-26 01:45:00 Test Item Value Reference Range Interpretation Comments Globulin (test code = Globulin) 4.1 2.7-4.2 [place] [address]-07-26 01:45:00 Test Item Value Reference Range Interpretation Comments A/G Ratio (test code = A/G Ratio) 0.9 1 0.7-1.6 [place] [address]-07-26 01:45:00 Test Item Value Reference Range Interpretation Comments ALT (test code = ALT) 50 See_Comment [Auto mated message] The system which ge nerated this result transmit rosa reference range : <=65. The reference range was not used to interpr et this result as winter l/abnormal. [place] [address]-07-26 01:45:00 Test Item Value Reference Range Interpretation Comments AST (test code = AST) 56 See_Comment [Auto mated message] The system which ge nerated this result transmit rosa reference range : <=37. The reference range was not used to interpr et this result as winter l/abnormal. [place] [address]-07-26 01:45:00 Test Item Value Reference Range Interpretation Comments Alk Phos (test code = Alk Phos) 108 39-136 [place] [address]-07-26 01:45:00 Test Item Value Reference Range Interpretation Comments Bili Total (test code = Bili Total) 0.2 0.2-1.3 [place] [address]-07-26 01:45:00 Test Item Value Reference Range Interpretation Comments Bili Direct (test code no gt See_Comment [Aut omated message] The = Bili Direct) system which generated this result tra nsmitted reference range : <=0.3. The reference r samantha was not used to int erpret this result as winter l/abnormal. [facility] [id number] 01:45:00 Test Item Value Reference Range Interpretation Comments Bili Indirect Unable to See_Comment [Automated (test code = Bili Calculate message] T he system Indirect) which generated this result transmitted reference range : <=1.0. The reference range was not used to interpret this result as normal/abnormal . [facility] [id number] 01:45:00 Test Item Value Reference Range Interpretation Comments Magnesium Lvl (test code = Magnesium 2.1 1.8-2.4 Lvl) [facility] [id number] 01:45:00 Test Item Value Reference Range Interpretation Comments Phosphorus (test code = Phosphorus) 3.2 2.5-4.5 [facility] [id number] 01:45:00 Test Item Value Reference Range Interpretation Comments Procalcitonin Lvl (test no gt See_Comment [Au tomated message] code = Procalcitonin Lvl) Th e system which generated this result transmitted ref erence range: <=0.10. The reference range was not used to interpr et this result as normal/abnormal . [facility] CenterAyfnhfxGNJCPCTGOL3834-09-21 01:45:00 Test Item Value Reference Range Interpretation Comments WBC (test code = WBC) 6.3 3.7-10.4 [facility] [id number] 01:45:00 Test Item Value Reference Range Interpretation Comments RBC (test code = RBC) 4.99 4.70-6.10 [facility] CenterAdyxvwoDKJQOBJXOV6608-12-17 01:45:00 Test Item Value Reference Range Interpretation Comments Hgb (test code = Hgb) 15.0 14.0-18.0 [facility] CenterMvtroanJTBDQSWTRN3197-00-31 01:45:00 Test Item Value Reference Range Interpretation Comments Hct (test code = Hct) 43.9 42.0-54.0 [facility] CenterZxnipjiJFZIWYPOMQ6829-28-33 01:45:00 Test Item Value Reference Range Interpretation Comments MCV (test code = MCV) 87.9 80.0-94.0 [place] 514260-07-26 01:45:00 Test Item Value Reference Range Interpretation Comments MCH (test code = MCH) 30.0 pg 27.0-31.0 [facility] C[id number] 01:45:00 Test Item Value Reference Range Interpretation Comments MCHC (test code = MCHC) 34.1 32.0-36.0 [place] 514260-07-26 01:45:00 Test Item Value Reference Range Interpretation Comments RDW (test code = RDW) 13.0 11.5-14.5 [place] 514260-07-26 01:45:00 Test Item Value Reference Range Interpretation Comments Platelet (test code = Platelet) 215 133-450 [facility] [id number] 01:45:00 Test Item Value Reference Range Interpretation Comments MPV (test code = MPV) 8.7 7.4-10.4 [place] 514260-07-26 01:45:00 Test Item Value Reference Range Interpretation Comments Segs (test code = Segs) 59.2 45.0-75.0 [place] 514260-07-26 01:45:00 Test Item Value Reference Range Interpretation Comments Lymphocytes (test code = Lymphocytes) 28.4 20.0-40.0 [place] 514260-07-26 01:45:00 Test Item Value Reference Range Interpretation Comments Monocytes (test code = Monocytes) 9.1 2.0-12.0 [place] 514260-07-26 01:45:00 Test Item Value Reference Range Interpretation Comments Eosinophils (test code = 2.8 See_Comment [A utomated message] The Eosinophils) system which ge nerated this result tra nsmitted reference range : <=4.0. The reference r samantha was not used to int erpret this result as normal/abnormal . [place] 514260-07-26 01:45:00 Test Item Value Reference Range Interpretation Comments Basophils (test code = 0.5 See_Comment [Aut omated message] The Basophils) system which ge nerated this result tra nsmitted reference range : <=1.0. The reference r samantha was not used to int erpret this result as normal/abnormal . [place] 514260-07-26 01:45:00 Test Item Value Reference Range Interpretation Comments Neutrophils # (test code = Neutrophils 3.8 1.5-8.1 #) [facility] C[id number] 01:45:00 Test Item Value Reference Range Interpretation Comments Lymphocytes # (test code = Lymphocytes 1.8 1.0-5.5 #) [facility] CenterKcrjgikZGJWCLULWO2781-25-13 01:45:00 Test Item Value Reference Range Interpretation Comments Monocytes # (test code 0.6 See_Comment [Aut omated message] The = Monocytes #) system which generated this result tra nsmitted reference range : <=0.8. The reference r samantha was not used to int erpret this result as normal/abnormal . [facility] CenterUwwgdsjRKCAVONAVQ5358-97-27 01:45:00 Test Item Value Reference Range Interpretation Comments Eosinophils # (test code 0.2 See_Comment [A utomated message] The = Eosinophils #) system whic h generated this result tra nsmitted reference range : <=0.5. The reference r samantha was not used to int erpret this result as normal/abnormal . [facility] CenterOtcrhwbZDZKTQMBQD0393-48-51 01:45:00 Test Item Value Reference Range Interpretation Comments Basophils # (test code 0.0 See_Comment [Aut omated message] The = Basophils #) system which generated this result tra nsmitted reference range : <=0.2. The reference r samantha was not used to int erpret this result as normal/abnormal . [facility] Cent[id number] 01:45:00 Test Item Value Reference Range Interpretation Comments Valproic Acid Lvl (test code = Valproic 57 50-100 Acid Lvl) [facility] CenterZhhreqbRAQMLZFYNF7328-36-28 01:14:00 Test Item Value Reference Range Interpretation Comments Neutrophils # (test code = Neutrophils 3.4 1.5-8.1 #) [facility] CenterVszsiibKOEMZOIXZP7084-26-20 01:14:00 Test Item Value Reference Range Interpretation Comments Lymphocytes # (test code = Lymphocytes 1.5 1.0-5.5 #) [facility] C[id number] 01:14:00 Test Item Value Reference Range Interpretation Comments Monocytes # (test code 0.4 See_Comment [Aut omated message] The = Monocytes #) system which generated this result tra nsmitted reference range : <=0.8. The reference r samantha was not used to int erpret this result as normal/abnormal . [facility] CenterObnvajzHRFFNSQXEQ6049-81-79 01:14:00 Test Item Value Reference Range Interpretation Comments Eosinophils # (test code 0.1 See_Comment [A utomated message] The = Eosinophils #) system whic h generated this result tra nsmitted reference range : <=0.5. The reference r samantha was not used to int erpret this result as normal/abnormal . [facility] CenterNcmjecbQKDYRAJMBC0689-98-96 01:14:00 Test Item Value Reference Range Interpretation Comments Basophils # (test code 0.0 See_Comment [Aut omated message] The = Basophils #) system which generated this result tra nsmitted reference range : <=0.2. The reference r samantha was not used to int erpret this result as normal/abnormal . [facility] CenterFvxixiuUORFMNDYLZ2518-99-41 01:14:00 Test Item Value Reference Range Interpretation Comments Valproic Acid Lvl (test code = Valproic 24 50-100 Acid Lvl) [facility] CenterApdyntmEJSUMOFAUG4478-21-15 01:14:00 Test Item Value Reference Range Interpretation Comments Phenytoin Total (test code = Phenytoin 1.0 10.0-20.0 Total) [facility] CenterCARDIAC [id number] 01:14:00 Test Item Value Reference Range Interpretation Comments Troponin-I (test code no gt See_Comment [Auto mated message] The = Troponin-I) system which g enerated this result transmit rosa reference range : <=0.40. The reference r samantha was not used to interpr et this result as winter l/abnormal. [facility] [id number] 01:14:00 Test Item Value Reference Range Interpretation Comments Glucose Lvl (test code = Glucose Lvl) 129 70-99 [facility] [id number] 01:14:00 Test Item Value Reference Range Interpretation Comments BUN (test code = BUN) 14 7-22 [facility] [id number] 01:14:00 Test Item Value Reference Range Interpretation Comments Creatinine Lvl (test code = Creatinine 1.20 0.50-1.40 Lvl) [facility] [id number] 01:14:00 Test Item Value Reference Range Interpretation Comments Sodium Lvl (test code = Sodium Lvl) 139 135-145 [place] 801310-07-24 01:14:00 Test Item Value Reference Range Interpretation Comments Potassium Lvl (test code = Potassium 3.9 3.5-5.1 Lvl) [place] 801310-07-24 01:14:00 Test Item Value Reference Range Interpretation Comments Chloride Lvl (test code = Chloride Lvl) 106 95-109 [place] 801310-07-24 01:14:00 Test Item Value Reference Range Interpretation Comments CO2 (test code = CO2) 28 24-32 [place] 801310-07-24 01:14:00 Test Item Value Reference Range Interpretation Comments Calcium Lvl (test code = Calcium Lvl) 8.0 8.5-10.5 [place] 801310-07-24 01:14:00 Test Item Value Reference Range Interpretation Comments AGAP (test code = AGAP) 8.9 10.0-20.0 [place] 801310-07-24 01:14:00 Test Item Value Reference Range Interpretation Comments eGFR (test code = eGFR) 83 [place] 801310-07-24 01:14:00 Test Item Value Reference Range Interpretation Comments Total Protein (test code = Total 7.5 6.4-8.4 Protein) [place] 801310-07-24 01:14:00 Test Item Value Reference Range Interpretation Comments Albumin Lvl (test code = Albumin Lvl) 3.6 3.5-5.0 [place] 801310-07-24 01:14:00 Test Item Value Reference Range Interpretation Comments Globulin (test code = Globulin) 3.9 2.7-4.2 [place] 801310-07-24 01:14:00 Test Item Value Reference Range Interpretation Comments A/G Ratio (test code = A/G Ratio) 0.9 1 0.7-1.6 [place] 801310-07-24 01:14:00 Test Item Value Reference Range Interpretation Comments ALT (test code = ALT) 52 See_Comment [Auto mated message] The system which ge nerated this result transmit rosa reference range : <=65. The reference range was not used to interpr et this result as winter l/abnormal. [place] 801310-07-24 01:14:00 Test Item Value Reference Range Interpretation Comments AST (test code = AST) 29 See_Comment [Auto mated message] The system which ge nerated this result transmit rosa reference range : <=37. The reference range was not used to interpr et this result as winter l/abnormal. [place] 801310-07-24 01:14:00 Test Item Value Reference Range Interpretation Comments Alk Phos (test code = Alk Phos) 105 39-136 [place] 801310-07-24 01:14:00 Test Item Value Reference Range Interpretation Comments Bili Total (test code = Bili Total) 0.3 0.2-1.3 [place] [address]-07-24 01:14:00 Test Item Value Reference Range Interpretation Comments Bili Direct (test code no gt See_Comment [Aut omated message] The = Bili Direct) system which generated this result tra nsmitted reference range : <=0.3. The reference r samantha was not used to int erpret this result as winter l/abnormal. [place] 801310-07-24 01:14:00 Test Item Value Reference Range Interpretation Comments Bili Indirect Unable to See_Comment [Automated (test code = Bili Calculate message] T he system Indirect) which generated this result transmitted reference range : <=1.0. The reference range was not used to interpret this result as normal/abnormal . [place] 801310-07-24 01:14:00 Test Item Value Reference Range Interpretation Comments Magnesium Lvl (test code = Magnesium 2.0 1.8-2.4 Lvl) [place] 801310-07-24 01:14:00 Test Item Value Reference Range Interpretation Comments Phosphorus (test code = Phosphorus) 3.9 2.5-4.5 [place] [address]-07-24 01:14:00 Test Item Value Reference Range Interpretation Comments WBC (test code = WBC) 5.4 3.7-10.4 [place] [address]-07-24 01:14:00 Test Item Value Reference Range Interpretation Comments RBC (test code = RBC) 4.88 4.70-6.10 [place] [address]-07-24 01:14:00 Test Item Value Reference Range Interpretation Comments Hgb (test code = Hgb) 14.9 14.0-18.0 [facility] CenterEexfixqZCPIWUBOAH6028-36-29 01:14:00 Test Item Value Reference Range Interpretation Comments Hct (test code = Hct) 43.6 42.0-54.0 [facility] CenterCbbdbqzVDSRSTDNZX0060-85-14 01:14:00 Test Item Value Reference Range Interpretation Comments MCV (test code = MCV) 89.4 80.0-94.0 [facility] CenterDurkntwDGETLXWUCI4956-01-82 01:14:00 Test Item Value Reference Range Interpretation Comments MCH (test code = MCH) 30.6 pg 27.0-31.0 [facility] CenterLybalipWTUFYQFJMZ2024-11-74 01:14:00 Test Item Value Reference Range Interpretation Comments MCHC (test code = MCHC) 34.2 32.0-36.0 [facility] CenterQhviollWDERAAVQTN3400-51-03 01:14:00 Test Item Value Reference Range Interpretation Comments RDW (test code = RDW) 13.3 11.5-14.5 [facility] CenterXefeaveFMEWEFFRDQ7807-67-36 01:14:00 Test Item Value Reference Range Interpretation Comments Platelet (test code = Platelet) 186 133-450 [facility] CenterQidbsybFRUDPFROYL6270-67-56 01:14:00 Test Item Value Reference Range Interpretation Comments MPV (test code = MPV) 8.4 7.4-10.4 [place] 514260-07-24 01:14:00 Test Item Value Reference Range Interpretation Comments PT (test code = PT) 12.3 s 12.0-14.7 [facility] CenterVflmzwpWZCZDCYPLH9179-82-08 01:14:00 Test Item Value Reference Range Interpretation Comments INR (test code = INR) 0.92 1 0.85-1.17 [facility] CenterWgcdtvvFTHYJKQETP9468-18-85 01:14:00 Test Item Value Reference Range Interpretation Comments PTT (test code = PTT) 35.0 s 22.9-35.8 [facility] CenterVjqzialNGKEBVVPIR8769-85-07 01:14:00 Test Item Value Reference Range Interpretation Comments Segs (test code = Segs) 62.0 45.0-75.0 [facility] CenterQcaoxmzRFHZXOBEZN9233-08-50 01:14:00 Test Item Value Reference Range Interpretation Comments Lymphocytes (test code = Lymphocytes) 28.2 20.0-40.0 [facility] CenterOziseyyKAMUJFBVQG0332-23-28 01:14:00 Test Item Value Reference Range Interpretation Comments Monocytes (test code = Monocytes) 6.8 2.0-12.0 [facility] CenterPlawedcOALQAVJLED5877-95-21 01:14:00 Test Item Value Reference Range Interpretation Comments Eosinophils (test code = 2.5 See_Comment [A utomated message] The Eosinophils) system which nerated this result tra nsmitted reference range : <=4.0. The reference r samantha was not used to int erpret this result as normal/abnormal . [facility] CenterBorzeajVYGADTWFKA4987-19-76 01:14:00 Test Item Value Reference Range Interpretation Comments Basophils (test code = 0.5 See_Comment [Aut omated message] The Basophils) system which ge nerated this result tra nsmitted reference range : <=1.0. The reference r samantha was not used to int erpret this result as normal/abnormal . [facility] CenterMfeypikZFHSQHILYB5816-61-19 06:33:00 Test Item Value Reference Range Interpretation Comments Valproic Acid Lvl (test code = Valproic 72 50-100 Acid Lvl) [facility]2020-07-20 06:09:00 Test Item Value Reference Range Interpretation Comments Glucose Lvl (test code = Glucose Lvl) 117 70-99 [facility]2020-07-20 06:09:00 Test Item Value Reference Range Interpretation Comments BUN (test code = BUN) 13 7-22 [facility]2020-07-20 06:09:00 Test Item Value Reference Range Interpretation Comments Creatinine Lvl (test code = Creatinine 1.11 0.50-1.40 Lvl) [facility]2020-07-20 06:09:00 Test Item Value Reference Range Interpretation Comments Sodium Lvl (test code = Sodium Lvl) 139 135-145 [facility]2020-07-20 06:09:00 Test Item Value Reference Range Interpretation Comments Potassium Lvl (test code = Potassium 3.9 3.5-5.1 Lvl) [facility]2020-07-20 06:09:00 Test Item Value Reference Range Interpretation Comments Chloride Lvl (test code = Chloride Lvl) 104 95-109 [facility]2020-07-20 06:09:00 Test Item Value Reference Range Interpretation Comments CO2 (test code = CO2) 26 24-32 [facility]2020-07-20 06:09:00 Test Item Value Reference Range Interpretation Comments Calcium Lvl (test code = Calcium Lvl) 8.6 8.5-10.5 [facility]2020-07-20 06:09:00 Test Item Value Reference Range Interpretation Comments AGAP (test code = AGAP) 12.9 10.0-20.0 [facility]2020-07-20 06:09:00 Test Item Value Reference Range Interpretation Comments eGFR (test code = eGFR) 91 [facility]2020-07-20 06:09:00 Test Item Value Reference Range Interpretation Comments Magnesium Lvl (test code = Magnesium 1.9 1.8-2.4 Lvl) [facility]2020-07-20 06:09:00 Test Item Value Reference Range Interpretation Comments Phosphorus (test code = Phosphorus) 3.5 2.5-4.5 [facility] coronavirus 2 RNA [Presence] in Respiratory specimen by DENITA with probe [id number] 16:52:44 Test Item Value Reference Range Interpretation Comments SARS coronavirus 2 RNA Not detected Not-Detected [Presence] in Respiratory specimen by DENITA with probe detection (test code = 32105-8) JOSH DUNHAMCPK2020-06-30 12:48:00 Test Item Value Reference Range Interpretation Comments CPK (test code = 32A) 75 IU/L 39-308 BLOOD [id number] 05:56:00 Test Item Value Reference Range Interpretation Comments Culture Observations (test NO GROWTH AFTER 5 code = COB1) DAYS BLOOD [id number] 05:56:00 Test Item Value Reference Range Interpretation Comments Culture Observations (test NO GROWTH AFTER 5 code = COB1) DAYS COMPREHENSIVE METABOLIC [id number] 04:55:00 Test Item Value Reference Range Interpretation [...] (test code = RBCMOR) NORMAL COMPREHENSIVE METABOLIC [id number] 06:01:00 Test Item Value Reference Range Interpretation [...] (test code = RBCMOR) NORMAL DILANTIN (PHENYTOIN) [id number] 20:43:00 Test Item Value Reference Range Interpretation Comments PHENYTOIN (test code = 68C) 9.3 ug/mL 10.0-20.0 LL COMPREHENSIVE METABOLIC [id number] 03:45:00 Test Item Value Reference Range Interpretation [...] (test code = 31A) 38 IU/L <=78 [id number] 03:39:00 Test Item Value Reference Range Interpretation [...] = RBCMOR) NORMAL GLUCOMETER GLUCOSE- LAB USE [id number] 03:20:00 Test Item Value Reference Range Interpretation Comments GLUCOMETER (test code = 112 mg/dL 70-100 H Mete r ID: GMG) [id number] tor: [address] [facility] METABOLIC [id number] 06:49:00 Test Item Value Reference Range Interpretation [...] (test code = RBCMOR) NORMAL COMPREHENSIVE METABOLIC [id number] 10:58:00 Test Item Value Reference Range Interpretation [...] (test code = RBCMOR) NORMAL BASIC METABOLIC [id number] 06:21:00 Test Item Value Reference Range Interpretation [...] normally enforced by the FDA and the [employer] (CAP) are more stringent than those required for this test. Therefore, the result should be interpreted with caution and close attention to other clinical and epidemiological data Venous Blood [id number] 21:46:00 Test Item Value Reference Range Interpretation Comments VpH (test code = 7.356 7.300-7.400 VPHRT) VpCO2 (test code = 50.3 mmHg 40.0-50.0 H DWAH4XC) VpO2 (test code = 41.2 mmHg 30.0-40.0 H VPO2RT) HCO3? (test code = 27.5 mmol/L 22.0-26.0 H HCO3) VINH (test code = VINH) 1.6 mmol/L -3.0-3.0 tHb (test code = 15.1 g/dL 14.0-18.0 THBRT) vsO2 (test code = 73.6 % 55.0-75.0 VSO2RT) FO2Hb (test code = 72.5 % WB7WDLVC) FCOHb (test code = 0.8 % FCOHBRTV) FMetHb (test code = 0.6 % FMETHBRTV) ABGTEMP (test code = * Temp Corrected Values* ABGTEMP) ABGTEMP (test code = 37.0 ?C ABGTEMP.) pH (T) (test code = 7.356 7.300-7.400 PHTEMPV) pCO2 (T) (test code = 50.3 mmHg 40.0-50.0 H EQY5RZCBN) pO2 (T) (test code = 41.2 mmHg 30.0-40.0 H NK8DPMEL) Device (test code = NASAL CANNULA DEVICE) [...] COMMENT (test code = CO) DILANTIN (PHENYTOIN) [id number] 21:20:00 Test Item Value Reference Range Interpretation Comments PHENYTOIN (test code = 68C) 4.6 ug/mL 10.0-20.0 LL [id number] 21:04:00 Test Item Value Reference Range Interpretation [...] AUAM (test code = AUAM) NO NO [id number] 20:55:00 Test Item Value Reference Range Interpretation Comments MAGNESIUM (test code = 48A) 2.0 mg/dL 1.8-2.4 PRO TIME AND [id number] 20:24:00 Test Item Value Reference Range Interpretation Comments PT (test code = 10.8 s 9.8-13.6 TT) INR (test code = 0.9 INR) INRH (test code = SUGGESTED THERAPEUTIC INRH) RANGE FOR INR: 2.5 - 3.5 For Patients with Prosthetic Valves or Patients with recurrent Thromboembolic Events 2.0 - 3.0 For Most Other Applications PTT (test code = 29.3 s 20.2-38.0 PTT) PTTH (test code = To monitor the PTTH) effectiveness of heparin, we offer the Anti-Xa (Heparin Assay). It can be used for either unfractionated or LMW Heparin. Order Code is ANTI-XA [id number] 20:23:00 Test Item Value Reference Range Interpretation Comments D-DIMER DILUTED 360 ng/mL D-DU 0-234 H (test code = DDD) D-DIMER COMMENT *Level to rule (test code = out DVT or PE: DDCOM) <235 ng/mL D-DU* D-DIMER (test code <200 ng/mL D-DU 0-234 Previo usly reported = DDI) as: 111 On 09/01/2019 20:2 3 By [id number] reported as: 11 1 On 09/01/2019 20:2 3 By MR25 [id number] 20:19:00 Test Item Value Reference Range Interpretation Comments CPK (test code = 32A) 199 IU/L 39-308 LDH-LACTIC [id number] 20:17:00 Test Item Value Reference Range Interpretation Comments LDH (test code = 33A) 187 IU/L 100-190 COMPREHENSIVE METABOLIC [id number] 20:17:00 Test Item Value Reference Range Interpretation [...] (test code = 31A) 37 IU/L <=78 [id number] 20:17:00 Test Item Value Reference Range Interpretation Comments FERRITIN (test code = A19) 58.7 ng/mL 26.0-388.0 LACTIC [id number] 20:17:00 Test Item Value Reference Range Interpretation Comments LACTIC ACD (test code = LA) 1.2 mmol/L 0.4-2.0 BRAIN NATRIURETIC [id number] 20:14:00 Test Item Value Reference Range Interpretation Comments proBNP (test code = PBNP) 14 pg/mL 0-125 TROPONIN [id number] 20:11:00 Test Item Value Reference Range Interpretation Comments TROPONIN I (test code = A84) <0.015 ng/mL 0.000-0.045 C-REACTIVE PROTEIN [id number] 20:11:00 Test Item Value Reference Range Interpretation Comments CRP (test code = CRP) NEGATIVE (<6MG/L) NEGATIVE (<6MG/L) AMYLASE AND [id number] 20:08:00 Test Item Value Reference Range Interpretation [...] (test code = RBCMOR) NORMAL DILANTIN (PHENYTOIN) [id number] 23:35:00 Test Item Value Reference Range Interpretation Comments PHENYTOIN (test code = 68C) 4.5 ug/mL 10.0-20.0 LL DRUGS OF [id number] 21:41:00 Test Item Value Reference Range Interpretation Comments DRUG SCRN (test code = URINE DRUG HDOA) SCREEN This is an unconfirmed screening result and should not be used for non-medical purposes CANNABINOD (test code POSITIVE NEGATIVE A = 88C) AMPHETAMINE (test code Negative NEGATIVE = 84A) BENZODIAZP (test code POSITIVE NEGATIVE A = 86A) BARBITURAT (test code Negative NEGATIVE = 85A) OPIATES (test code = Negative NEGATIVE 92B) COCAINE (test code = Negative NEGATIVE 87A) PHENCYCLID (test code Negative NEGATIVE = 66A) METHADONE (test code = Negative NEGATIVE 64A) DOAH (test code = DOAH.) URINE DRUG SCREEN Cut-off values are as follows: Cannabinoids 50 ng/mL Cocaine 300 ng/mL Amphetamines 1000 ng/mL Phencyclidine 25 ng/mL Benzodiazepines 200 ng.mL Methadone 300 ng/mL Barbiturates 200 ng/mL Opiates 2000 ng/mL [id number] 21:40:00 Test Item Value Reference Range Interpretation Comments CPK (test code = 32A) 88 IU/L 39-308 AMYLASE AND [id number] 21:40:00 Test Item Value Reference Range Interpretation Comments AMYLASE (test code = 10A) 133 U/L 28-100 H LIPASE (test code = 60A) 232 IU/L 73-393 COMPREHENSIVE METABOLIC [id number] 21:40:00 Test Item Value Reference Range Interpretation [...] (test code = 31A) 39 IU/L <=78 [id number] 21:40:00 Test Item Value Reference Range Interpretation Comments MAGNESIUM (test code = 48A) 2.0 mg/dL 1.8-2.4 PHOSPHORUS (P04)2019-08-31 21:40:00 Test Item Value Reference Range Interpretation Comments PHOSPHORUS (test code = 43D) 4.3 mg/dL 2.7-4.6 PRO TIME AND [id number] 21:24:00 Test Item Value Reference Range Interpretation Comments PT (test code = 11.7 s 9.8-13.6 TT) INR (test code = 1.0 INR) INRH (test code = SUGGESTED THERAPEUTIC INRH) RANGE FOR INR: 2.5 - 3.5 For [...] LMW Heparin. Order Code is ANTI-XA TROPONIN [id number] 21:23:00 Test Item Value Reference Range Interpretation Comments TROPONIN I (test code = A84) <0.015 ng/mL 0.000-0.045 [id number] 21:15:00 Test Item Value Reference Range Interpretation [...] code = MDIFF) NO NO Levetiracetam (Keppra), [id number] 14:11:5710.0This test was developed and its performance characteristicsdetermined by [facility]. It has not been cleared orapproved by the Food and Drug Administration.Performed At: [facility] [address] [place], [place] [id number] Pang MD Ph:[phone] [id number] 07:42:15 Test Item Value Reference Range Interpretation Comments Phenytoin Total (test code = 10.3 ug/mL(g) 10.0-20.0 Phenytoin Total) Valproic Acid [id number] 07:42:15 Test Item Value Reference Range Interpretation Comments Valproic Acid Level (test code 44.0 ug/mL(g) 50.0-100.0 L = Valproic Acid Level) Carbamazepine [id number] 07:42:15 Test Item Value Reference Range Interpretation Comments Carbamazepine Total (test code = 2.4 mcg/mL 8.0-12.0 L Carbamazepine Total) RPR [id number] 17:28:57 Test Item Value Reference Range Interpretation [...] = 03-09-2020 N Expiration Dt) Basic Metabolic [id number] 06:14:48 Test Item Value Reference Range Interpretation [...] = 9.2 mg/dL 8.3-10.5 Calcium Level) Phenytoin [id number] 06:14:48 Test Item Value Reference Range Interpretation Comments Phenytoin Total (test code = 11.1 ug/mL(g) 10.0-20.0 Phenytoin Total) Basic Metabolic [id number] 06:14:48 Test Item Value Reference Range Interpretation [...] National Kidney Foundation, http://nkdep.ni h.gov Basic Metabolic [id number] 06:14:48 Test Item Value Reference Range Interpretation [...] the National Kidney Foundation, http://nkdep.ni h.gov Automated Rshmmoenpnpa9701-59-97 05:29:38 Test Item Value Reference Range Interpretation Comments Neutro Auto (test code = Neutro 51.5 % 36.0-70.0 Auto) Lymph Auto (test code = Lymph Auto) 29.8 % 12.0-44.0 [place] Auto (test code = [place] Auto) 9.9 % 0.0-11.0 Eos, Auto (test code = Eos, Auto) 3.8 % 0.0-7.0 Basophil Auto (test code = Basophil 0.8 % 0.0-2.0 Auto) Neutro Absolute (test code = Neutro 3.9 x10 1.6-7.4 Absolute) Lymph Absolute (test code = Lymph 2.28 x10 .50-4.60 Absolute) [place] Absolute (test code = [place] .76 x10 .00-1.20 Absolute) Eos Absolute (test code = Eos 0.29 x10 0.00-0.74 Absolute) Baso Absolute (test code = Baso 0.06 x10 0.00-0.21 Absolute) IG [id number] 05:29:38 Test Item Value Reference Range Interpretation Comments IG (test code = IG) 4.2 % 0.0-5.0 IG Abs (test code = IG Abs) 0 x10 N Complete Blood Count with Potqufqhnsyz2301-20-99 05:29:37 Test Item Value Reference Range Interpretation [...] code = IPF) 0 % N Phenytoin [id number] 05:57:17 Test Item Value Reference Range Interpretation Comments Phenytoin Total (test code = 7.9 ug/mL(g) 10.0-20.0 L Phenytoin Total) Phenytoin [id number] 06:09:17 Test Item Value Reference Range Interpretation Comments Phenytoin Total (test code = 9.4 ug/mL(g) 10.0-20.0 L Phenytoin Total) [id number] 01:59:42 Test Item Value Reference Range Interpretation Comments Prolactin (test code = 35.150 ng/mL 4.040-15.200 H Prolactin) Basic Metabolic [id number] 05:06:03 Test Item Value Reference Range Interpretation [...] the National Kidney Foundation, http://nkdep.ni h.gov Magnesium Mysth0122-02-00 05:06:03 Test Item Value Reference Range Interpretation Comments Magnesium Level (test code = 2.1 mg/dL 1.7-2.5 Magnesium Level) Basic Metabolic [id number] 05:06:03 Test Item Value Reference Range Interpretation [...] ag e have not been validated by [facility] MDRD study and should be [...] ag e have not been validated by [facility] MDRD study and should be interpreted wit h caution. eGFR R esult Interpretation: eGFR > or = 60 is in the Normal RangeeGF R < 60 may mean kid joce diseaseeGFR < 1 5 may mean kidney failure Rang es recommended by the National Kidney Foundation, http://nkdep.ni h.gov Phosphorus [id number] 05:06:03 Test Item Value Reference Range Interpretation Comments Phosphorus Level (test code = 5.50 mg/dL 2.70-4.50 H Phosphorus Level) Basic Metabolic [id number] 05:06:03 Test Item Value Reference Range Interpretation [...] the National Kidney Foundation, http://nkdep.ni h.gov Automated Jfbppsodryhn2908-36-05 04:17:38 Test Item Value Reference Range Interpretation Comments Neutro Auto (test code = Neutro 59.9 % 36.0-70.0 Auto) Lymph Auto (test code = Lymph Auto) 26.1 % 12.0-44.0 [place] Auto (test code = [place] Auto) 10.5 % 0.0-11.0 Eos, Auto (test code = Eos, Auto) 2.1 % 0.0-7.0 Basophil Auto (test code = Basophil 0.4 % 0.0-2.0 Auto) Neutro Absolute (test code = Neutro 4.8 x10 1.6-7.4 Absolute) Lymph Absolute (test code = Lymph 2.07 x10 .50-4.60 Absolute) [place] Absolute (test code = [place] .83 x10 .00-1.20 Absolute) Eos Absolute (test code = Eos 0.17 x10 0.00-0.74 Absolute) Baso Absolute (test code = Baso 0.03 x10 0.00-0.21 Absolute) IG [id number] 04:17:38 Test Item Value Reference Range Interpretation Comments IG (test code = IG) 1.0 % 0.0-5.0 IG Abs (test code = IG Abs) 0 x10 N Complete Blood Count with [id number] 04:17:37 Test Item Value Reference Range Interpretation [...] 0 % N XR Chest 1 View [id number] 15:59:18Patient: DOUGLAS SYLVESTER Date/Time06/24/2019 15:42 CDTReason for ExamCoughReportLOCATION: [id number] 1 VIEWINDICATION: CoughCOMPARISON: Chest radiograph from 07/19/2018FINDINGS: Cardiac silhouette appears prominent, unclear if this is due to to the portable AP technique. Additionally, there is prominence of the central pulmonary vasculature with mild prominence of the pulmonary interstitium suggesting mild edema. Left lower lobe/retrocardiac opacity, question developing pneumonia or atelectasis. No sizable [...] Eniola FSigned (Electronic Signature): 06/24/2019 3:59 pmPhenytoin [id number] 04:29:23 Test Item Value Reference Range Interpretation Comments Phenytoin Total (test code = 9.0 ug/mL(g) 10.0-20.0 L Phenytoin Total) Comprehensive Metabolic [id number] 04:19:20 Test Item Value Reference Range Interpretation [...] = A/G 1.5 ratio N Ratio) Magnesium [id number] 04:19:20 Test Item Value Reference Range Interpretation Comments Magnesium Level (test code = 2.2 mg/dL 1.7-2.5 Magnesium Level) Comprehensive Metabolic [id number] 04:19:20 Test Item Value Reference Range Interpretation [...] the National Kidney Foundation, http://nkdep.ni h.gov Phosphorus [id number] 04:19:20 Test Item Value Reference Range Interpretation Comments Phosphorus Level (test code = 5.00 mg/dL 2.70-4.50 H Phosphorus Level) Comprehensive Metabolic [id number] 04:19:20 Test Item Value Reference Range Interpretation [...] ag e have not been validated by [facility] MDRD study and should be [...] ag e have not been validated by [facility] MDRD study and should be interpreted wit h caution. eGFR R esult Interpretation: eGFR > or = 60 is in the Normal RangeeGF R < 60 may mean kid joce diseaseeGFR < 1 5 may mean kidney failure Rang es recommended by the National Kidney Foundation, http://nkdep.ni h.gov Automated Sifpfzynhiqz8356-96-57 03:57:05 Test Item Value Reference Range Interpretation Comments Neutro Auto (test code = Neutro 63.3 % 36.0-70.0 Auto) Lymph Auto (test code = Lymph Auto) 26.5 % 12.0-44.0 [place] Auto (test code = [place] Auto) 7.8 % 0.0-11.0 Eos, Auto (test code = Eos, Auto) 1.2 % 0.0-7.0 Basophil Auto (test code = Basophil 0.3 % 0.0-2.0 Auto) Neutro Absolute (test code = Neutro 4.8 x10 1.6-7.4 Absolute) Lymph Absolute (test code = Lymph 2.03 x10 .50-4.60 Absolute) [place] Absolute (test code = [place] .60 x10 .00-1.20 Absolute) Eos Absolute (test code = Eos 0.09 x10 0.00-0.74 Absolute) Baso Absolute (test code = Baso 0.02 x10 0.00-0.21 Absolute) IG [id number] 03:57:05 Test Item Value Reference Range Interpretation Comments IG (test code = IG) 0.9 % 0.0-5.0 IG Abs (test code = IG Abs) 0 x10 N Complete Blood Count with Gsimhexzojig0082-31-31 03:57:04 Test Item Value Reference Range Interpretation [...] (test code = IPF) 0 % N [id number] 09:23:33 Test Item Value Reference Range Interpretation Comments Prolactin (test code = 32.330 ng/mL 4.040-15.200 H Prolactin) Basic Metabolic [id number] 05:57:35 Test Item Value Reference Range Interpretation [...] = 9.2 mg/dL 8.3-10.5 Calcium Level) Magnesium [id number] 05:57:35 Test Item Value Reference Range Interpretation Comments Magnesium Level (test code = 2.0 mg/dL 1.7-2.5 Magnesium Level) Basic Metabolic [id number] 05:57:35 Test Item Value Reference Range Interpretation [...] the National Kidney Foundation, http://nkdep.ni h.gov Phosphorus Okuvq8527-38-24 05:57:35 Test Item Value Reference Range Interpretation Comments Phosphorus Level (test code = 5.30 mg/dL 2.70-4.50 H Phosphorus Level) Basic Metabolic Bhinf7202-93-55 05:57:35 Test Item Value Reference Range Interpretation [...] Foundation, http://nkdep.ni h.gov Complete Blood Count with Zuxtubychlrj9358-34-48 05:30:30 Test Item Value Reference Range Interpretation [...] code = IPF) 0 % N Automated Xzfyahgtoqnp1285-28-59 05:30:30 Test Item Value Reference Range Interpretation Comments Neutro Auto (test code = Neutro 61.0 % 36.0-70.0 Auto) Lymph Auto (test code = Lymph Auto) 25.8 % 12.0-44.0 [place] Auto (test code = [place] Auto) 9.0 % 0.0-11.0 Eos, Auto (test code = Eos, Auto) 2.2 % 0.0-7.0 Basophil Auto (test code = Basophil 0.5 % 0.0-2.0 Auto) Neutro Absolute (test code = Neutro 5.0 x10 1.6-7.4 Absolute) Lymph Absolute (test code = Lymph 2.12 x10 .50-4.60 Absolute) [place] Absolute (test code = [place] .74 x10 .00-1.20 Absolute) Eos Absolute (test code = Eos 0.18 x10 0.00-0.74 Absolute) Baso Absolute (test code = Baso 0.04 x10 0.00-0.21 Absolute) IG [id number] 05:30:30 Test Item Value Reference Range Interpretation Comments IG (test code = IG) 1.5 % 0.0-5.0 IG Abs (test code = IG Abs) 0 x10 N MRI Brain w/ + w/o Sgnhqqhb9414-75-77 11:05:00Patient: DOUGLAS SYLVESTER Date/Time06/21/2019 10:51 CDTReason for ExamSeizuresReportEXAM: MRI BRAIN WITH AND WITHOUT CONTRASTINDICATION: SeizuresCOMPARISON: CT head dated June 20, 2019TECHNIQUE: Multiplanar, multisequence MR imaging of the brain was obtained with and without administration of intravenous contrast. IV contrast: 15 cc of MultiHanceFINDINGS:No restricted diffusion to suggest acute ischemia.The brain [...] CSigned (Electronic Signature): 06/21/2019 11:05 amBasic Metabolic [id number] 06:05:55 Test Item Value Reference Range Interpretation [...] = 8.8 mg/dL 8.3-10.5 Calcium Level) Magnesium Lciqw4107-50-20 06:05:55 Test Item Value Reference Range Interpretation Comments Magnesium Level (test code = 2.1 mg/dL 1.7-2.5 Magnesium Level) Basic Metabolic [id number] 06:05:55 Test Item Value Reference Range Interpretation [...] the National Kidney Foundation, http://nkdep.ni h.gov Phosphorus Tdcrq3308-37-95 06:05:55 Test Item Value Reference Range Interpretation Comments Phosphorus Level (test code = 5.50 mg/dL 2.70-4.50 H Phosphorus Level) Basic Metabolic [id number] 06:05:55 Test Item Value Reference Range Interpretation [...] ag e have not been validated by [facility] MDRD study and should be [...] ag e have not been validated by [facility] MDRD study and should be interpreted wit h caution. eGFR R esult Interpretation: eGFR > or = 60 is in the Normal RangeeGF R < 60 may mean kid joce diseaseeGFR < 1 5 may mean kidney failure Rang es recommended by the National Kidney Foundation, http://nkdep.ni h.gov Complete Blood Count with Fqczbezosrkm9108-10-65 05:36:08 Test Item Value Reference Range Interpretation [...] code = IPF) 0 % N Automated Btumbtpeussj3244-14-74 05:36:08 Test Item Value Reference Range Interpretation Comments Neutro Auto (test code = Neutro 49.6 % 36.0-70.0 Auto) Lymph Auto (test code = Lymph Auto) 33.4 % 12.0-44.0 [place] Auto (test code = [place] Auto) 10.8 % 0.0-11.0 Eos, Auto (test code = Eos, Auto) 3.6 % 0.0-7.0 Basophil Auto (test code = Basophil 0.6 % 0.0-2.0 Auto) Neutro Absolute (test code = Neutro 3.2 x10 1.6-7.4 Absolute) Lymph Absolute (test code = Lymph 2.14 x10 .50-4.60 Absolute) [place] Absolute (test code = [place] .69 x10 .00-1.20 Absolute) Eos Absolute (test code = Eos 0.23 x10 0.00-0.74 Absolute) Baso Absolute (test code = Baso 0.04 x10 0.00-0.21 Absolute) IG [id number] 05:36:08 Test Item Value Reference Range Interpretation Comments IG (test code = IG) 2.0 % 0.0-5.0 IG Abs (test code = IG Abs) 0 x10 N POC [id number] 14:37:15 Test Item Value Reference Range Interpretation Comments Glucose POC (test 94 mg/dL 70-115 If you con manager hematology your code = Glucose POC) patient critically ill, the Rosalinda-Accu Check Infrom II meter should not be used for Glucose determination. Draw a venous Glucose and send to the main Lab for analysis. CT Brain/Head w/o Qtxwmxjs3334-48-39 11:31:22Patient: DOUGLAS SYLVESTER Date/Time06/20/2019 10:22 CDTReason for Examseizures;Other (please specify)LijxzcI44VB HEAD WITHOUT CONTRASTHISTORY: seizuresTECHNIQUE: Axial CT images from theskull base to the vertex without intravenous contrast. Coronal and sagittal reformatted images were created from the data set.One or more of the following dose reduction techniques were used: Automatedexposure control, adjustment of the mA and/or kV according to patient size, and/or iterative reconstruction.COMPARISON: NoneFINDINGS:No abnormal brain parenchymal density. No evidence of acute infarction, intracranial hemorrhage, mass or mass effect, or abnormal extra-axial fluid collection.The ventricles are normal in size, shape and position.The density in the larger dural sinuses is grossly normal.The osseous structures and orbits have no significant abnormalities. The visualized paranasal sinuses and mastoid air cells are predominantly clear.IMPRESSION:No acute intracranial abnormality. Final Dictated by: MD Codi, BennettDictated DT/TM: 06/20/2019 11:31 amSigned by: MD Codi, BennettSigned (Electronic Signature): 06/20/2019 11:31 amBasic Metabolic [id number] 11:18:29 Test Item Value Reference Range Interpretation [...] = 8.9 mg/dL 8.3-10.5 Calcium Level) Magnesium Rrwxv9266-28-85 11:18:29 Test Item Value Reference Range Interpretation Comments Magnesium Level (test code = 1.9 mg/dL 1.7-2.5 Magnesium Level) Basic Metabolic Dlbgk4415-70-09 11:18:29 Test Item Value Reference Range Interpretation [...] the National Kidney Foundation, http://nkdep.ni h.gov Phosphorus Zlghw0642-32-41 11:18:29 Test Item Value Reference Range Interpretation Comments Phosphorus Level (test code = 3.10 mg/dL 2.70-4.50 Phosphorus Level) Valproic Acid Pegbx2739-45-57 11:18:29 Test Item Value Reference Range Interpretation Comments Valproic Acid Level (test code 59.1 ug/mL(g) 50.0-100.0 = Valproic Acid Level) Basic Metabolic Ktxkn0056-00-85 11:18:29 Test Item Value Reference Range Interpretation [...] ag e have not been validated by [facility] MDRD study and should be [...] ag e have not been validated by [facility] MDRD study and should be interpreted wit h caution. eGFR R esult Interpretation: eGFR > or = 60 is in the Normal RangeeGF R < 60 may mean kid joce diseaseeGFR < 1 5 may mean kidney failure Rang es recommended by the National Kidney Foundation, http://nkdep.ni h.gov Complete Blood Count with Dtctoflzblsk0747-52-19 10:46:00 Test Item Value Reference Range Interpretation [...] code = IPF) 0 % N Automated Idtcdsomgfie5940-33-05 10:46:00 Test Item Value Reference Range Interpretation Comments Neutro Auto (test code = Neutro 56.1 % 36.0-70.0 Auto) Lymph Auto (test code = Lymph Auto) 27.8 % 12.0-44.0 [place] Auto (test code = [place] Auto) 10.2 % 0.0-11.0 Eos, Auto (test code = Eos, Auto) 2.8 % 0.0-7.0 Basophil Auto (test code = Basophil 0.6 % 0.0-2.0 Auto) Neutro Absolute (test code = Neutro 3.0 x10 1.6-7.4 Absolute) Lymph Absolute (test code = Lymph 1.47 x10 .50-4.60 Absolute) [place] Absolute (test code = [place] .54 x10 .00-1.20 Absolute) Eos Absolute (test code = Eos 0.15 x10 0.00-0.74 Absolute) Baso Absolute (test code = Baso 0.03 x10 0.00-0.21 Absolute) IG [id number] 10:46:00 Test Item Value Reference Range Interpretation Comments IG (test code = IG) 2.5 % 0.0-5.0 IG Abs (test code = IG Abs) 0 x10 N POC [id number] 07:48:18 Test Item Value Reference Range Interpretation Comments Glucose POC (test 87 mg/dL 70-115 If you con manager hematology your code = Glucose POC) patient critically ill, the [place]-Accu Check Infrom II meter should not be used for Glucose determination. Draw a venous Glucose and send to the main Lab for analysis. XR Elbow 2 Views [id number] 20:32:39Patient: DOUGLAS SYLVESTER Date/Time06/19/2019 19:45 CDTReason for ExamFall;InjuryReport Dictation location O26Yajvl elbow 3 viewsHISTORY: Pain following injury.COMMENT: No comparison. A metallic plate an multiple screws are seen along the olecranon and proximal ulna. There is no acute fracture or dislocation and no focal lesion or destructive process seen. There is no obvious hemarthrosis .IMPRESSION:1. Hardware in the proximal ulna.2. Otherwise no acute bony or soft tissue abnormality. Final Dictated by: MD Padron Phebe CDictated DT/TM: 06/19/2019 8:30 pmSigned by: MD Padron Phebe CSigned (Electronic Signature): 06/19/2019 8:32 pmValproic Acid [id number] 08:43:37 Test Item Value Reference Range Interpretation Comments Valproic Acid Level (test code 72.9 ug/mL(g) 50.0-100.0 = Valproic Acid Level) Valproic Acid [id number] 07:22:12 Test Item Value Reference Range Interpretation Comments Valproic Acid Level (test code 23.3 ug/mL(g) 50.0-100.0 L = Valproic Acid Level) Acute Hepatitis [id number] 10:44:23 Test Item Value Reference Range Interpretation Comments Hep A IgM (test code = Hep A IgM) Nonreactive Non Reactive Hep B Core Ab IgM (test code = Nonreactive Non Reactive Hep B Core Ab IgM) Hep Bs Ag (test code = Hep Bs Ag) Nonreactive Non Reactive Hep C Ab (test code = Hep C Ab) Nonreactive Non Reactive RPR [id number] 12:12:35 Test Item Value Reference Range Interpretation Comments RPR Qual (test code = RPR Qual) Non-Reactive Non-Reactive Reactive Control (test code = Reactive Reactive Control) Weak Reactive Control (test Weak Reactive code = Weak Reactive Control) Non-Reactive Control (test code Non-Reactive = Non-Reactive Control) Lot # (test code = Lot #) [id number] N Expiration Dt (test code = 20 N Expiration Dt) Lipid [id number] 04:13:36 Test Item Value Reference Range Interpretation Comments Cholesterol Total 288 mg/dL 0-200 H RISK OF HE ART (test code = DISEASEPublishe d by Cholesterol Total) [place] [employer] Rayna lyte Optimal Borderl ine Increased RiskC HOL <200 200-239 >240TRI G <150 150-199 >200HDL Male >60 <40HDL Fema le >60 <50LDL <100 130 -159 >160LDL Near op timal is 100-129 Triglycerides (test 561 mg/dL 9-200 [...] Triglyceride is greater than 400. Thyroid Stimulating [id number] 04:13:36 Test Item Value Reference Range Interpretation Comments TSH (test code = TSH) 2.600 mIU/mL 0.270-4.200 Urine Drug [id number] 22:38:32 Test Item Value Reference Range Interpretation [...] matory test if desired . Comprehensive Metabolic [id number] 22:31:18 Test Item Value Reference Range Interpretation [...] A/G 1.6 ratio N Ratio) Comprehensive Metabolic [id number] 22:31:18 Test Item Value Reference Range Interpretation [...] the National Kidney Foundation, http://nkdep.ni h.gov Alcohol [id number] 22:31:18 Test Item Value Reference Range Interpretation Comments Ethanol Level (test <0.00 g/dL 0.00-0.01 Intoxica rosa 0.080 g/dL code = Ethanol or more Level) Ethanol Inst (test <0 N code = Ethanol Inst) Comprehensive Metabolic [id number] 22:31:18 Test Item Value Reference Range Interpretation [...] ag e have not been validated by [facility] MDRD study and should be [...] account, if the information is provided. If [facility] race is not provided, and t he patient is -Caryn n, multiply by 1.2 12. If sex is not provided, and t he patient is fema le, multiply by 0.7 42. Results for pat ients <18 years of ag e have not been validated by [facility] MDRD study and should be interpreted wit h caution. eGFR R esult Interpretation: eGFR > or = 60 is in the Normal RangeeGF R < 60 may mean kid joce diseaseeGFR < 1 5 may mean kidney failure Rang es recommended by the National Kidney Foundation, http://nkdep.ni h.gov Urinalysis with Culture, if [id number] 22:23:40 Test Item Value Reference Range Interpretation [...] Indicated Micro Ind?) Complete Blood Count with [id number] 22:22:09 Test Item Value Reference Range Interpretation [...] code = IPF) 0 % N Automated [id number] 22:22:09 Test Item Value Reference Range Interpretation Comments Neutro Auto (test code = Neutro 50.2 % 36.0-70.0 Auto) Lymph Auto (test code = Lymph Auto) 35.5 % 12.0-44.0 [place] Auto (test code = [place] Auto) 8.0 % 0.0-11.0 Eos, Auto (test code = Eos, Auto) 4.3 % 0.0-7.0 Basophil Auto (test code = Basophil 0.5 % 0.0-2.0 Auto) Neutro Absolute (test code = Neutro 3.3 x10 1.6-7.4 Absolute) Lymph Absolute (test code = Lymph 2.32 x10 .50-4.60 Absolute) [place] Absolute (test code = [place] .52 x10 .00-1.20 Absolute) Eos Absolute (test code = Eos 0.28 x10 0.00-0.74 Absolute) Baso Absolute (test code = Baso 0.03 x10 0.00-0.21 Absolute) IG [id number] 22:22:09 Test Item Value Reference Range Interpretation Comments IG (test code = IG) 1.5 % 0.0-5.0 IG Abs (test code = IG Abs) 0 x10 N VALPROIC ACID (DEPAKENE)2019-06-06 23:38:00 Test Item Value Reference Range Interpretation Comments VALPROIC ACID <3.0 mcg/dL 50-100 L The physicia n must (DEPAKENE) (test determine t he code = VALP) appropriate therapeutic r samantha for each patien t. DRUGS OF ABUSE SCREEN [id number] 21:10:00 Test Item Value Reference Range Interpretation Comments URN COCAINE (test code NEGATIVE NEGATIVE Cocai ne cut-off = COCAURN) concentration: 300 ng/mL URN CANNABINOIDS (test NEGATIVE NEGATIVE Canna binoids cut-off code = CANNABURN) concentrat ion: 50 ng/mL URN AMPHETAMINE (test NEGATIVE NEGATIVE Amphet amine cut-off code = AMPHETURN) concentrat ion: 1000 ng/mL URN BARBITURATE (test NEGATIVE NEGATIVE Barbit urate cut-off code = BARBITURN) concentrat ion: 200 ng/mL URN BENZODIAZEPINE NEGATIVE NEGATIVE Benzodiaz epine cut-off (test code = BENZOURN) leila ntration: 200 ng/mL URN OPIATES (test code NEGATIVE NEGATIVE Opiat es cut-off = OPIATURN) concentration: 200 ng/mL URN PHENCYCLIDINE (PCP) NEGATIVE NEGATIVE Phen cyclidine(PCP) (test code = PHENCURN) cut-o ff concentration: 25 ng/ml URN METHADONE (test NEGATIVE NEGATIVE Methadon e cut-off code = METHAURN) concentrati on: 300 ng/mL [id number] 20:34:00 Test Item Value Reference Range Interpretation Comments ACETAMINOPHEN (test <2.0 mcg/ml 10.0-30.0 L Result i s in code = ACET) Microgram per milliliter. [id number] 20:34:00 Test Item Value Reference Range Interpretation Comments SALICYLATE (test code = SIMONE) 0.8 mg/dl 2.8-20.0 L [id number] 20:34:00 Test Item Value Reference Range Interpretation Comments ALCOHOL (test code 0.00 gm/dL 0.00-0.00 N ETHYL ALC OHOL VALUES - = ALC) INTERPRETATION: 0.050 GM/DL - NOT INT OXICATED 0.100 GM/DL - INTOXICATED 0.3 50-0.450 GM/DL - SEVEREL Y INTOXICATED 0.5 50 GM/DL- FATAL INTOXICAT ION COMPREHENSIVE METABOLIC [id number] 19:19:00 Test Item Value Reference Range Interpretation Comments SODIUM (test code = NA) 139 mmol/l 134.0-147.0 N POTASSIUM (test code = K) 4.0 mmol/L 3.6-5.2 N CHLORIDE (test code = CL) 103 mmol/l 98.0-107.0 N CARBON DIOXIDE (test code = CO2) 29.5 mmol/l 21.0-33.0 N ANION GAP (test code = GAP) 10.5 0-20 N GLUCOSE (test code = GLU) 98 mg/dl 70.0-110.0 N BLOOD UREA NITROGEN (test code = 11 mg/dl 7.0-18.0 N BUN) CREATININE (test code = CREAT) 0.78 mg/dL 0.60-1.30 N GFR NON BLACK (test code = 128 mL/min 110-120 H GFRNONBLACK) GFR BLACK (test code = GFRBLACK) 155 mL/min 133-145 H TOTAL PROTEIN (test code = PROT) 7.3 gm/dL 6.4-8.2 N ALBUMIN (test code = ALB) 3.7 gm/dl 3.2-4.7 N CALCIUM (test code = CA) 8.4 mg/dl 8.0-10.5 N BILIRUBIN TOTAL (test code = 0.2 mg/dl 0.0-1.0 N BILT) SGOT/AST (test code = AST) 88 Units/L 15.0-37.0 H SGPT/ALT (test code = ALT) 187 Units/L 12.0-78.0 H ALKALINE PHOSPHATASE TOTAL (test 128 Units/L 50.0-136.0 N code = ALKP) COMPREHENSIVE METABOLIC [id number] 19:12:00 Test Item Value Reference Range Interpretation Comments SODIUM (test code = NA) 139 mmol/l 134.0-147.0 N POTASSIUM (test code = K) 4.0 mmol/L 3.6-5.2 N CHLORIDE (test code = CL) 103 mmol/l 98.0-107.0 N CARBON DIOXIDE (test code = CO2) 29.5 mmol/l 21.0-33.0 N ANION GAP (test code = GAP) 10.5 0-20 N GLUCOSE (test code = GLU) mg/dl 70.0-110.0 BLOOD UREA NITROGEN (test code = mg/dl 7.0-18.0 BUN) CREATININE (test code = CREAT) mg/dL 0.60-1.30 GFR NON BLACK (test code = mL/min 110-120 GFRNONBLACK) GFR BLACK (test code = GFRBLACK) mL/min 133-145 TOTAL PROTEIN (test code = PROT) gm/dL 6.4-8.2 ALBUMIN (test code = ALB) gm/dl 3.2-4.7 CALCIUM (test code = CA) mg/dl 8.0-10.5 BILIRUBIN TOTAL (test code = mg/dl 0.0-1.0 BILT) SGOT/AST (test code = AST) Units/L 15.0-37.0 SGPT/ALT (test code = ALT) Units/L 12.0-78.0 ALKALINE PHOSPHATASE TOTAL (test Units/L 50.0-136.0 code = ALKP) CBC W/AUTO [id number] 19:06:00 Test Item Value Reference Range Interpretation Comments WHITE BLOOD CELL (test code = 6.8 K/mm3 4.5-11.0 N WBC) RED BLOOD CELL (test code = 4.98 M/mm3 4.40-5.90 N RBC) HEMOGLOBIN (test code = HGB) 15.1 gm/dL 13.0-17.0 N HEMATOCRIT (test code = HCT) 45.1 % 36.0-48.0 N MEAN CELL VOLUME (test code = 90.6 UM3 80.0-94.0 N MCV) MEAN CELL HGB (test code = MCH) 30.3 UUG 25.5-32.5 N MEAN CELL HGB CONCETRATION 33.5 gm/dL 29.0-35.5 N (test code = MCHC) RED CELL DISTRIBUTION WIDTH 12.5 % 11.5-15.0 N (test code = RDW) RED CELL DISTRIBUTION WIDTH SD 40.9 fL 34.8-50.2 N (test code = RDW-SD) PLATELET COUNT (test code = 202 K/mm3 150-400 N PLT) MEAN PLATELET VOLUME (test code 10.6 fl 7.4-10.4 H = MPV) NEUTROPHIL % (test code = NT%) 52.7 % 49.0-76.0 N IMMATURE GRANULOCYTE % (test 2.4 % 0.0-0.4 H code = IG%) LYMPHOCYTE % (test code = LY%) 32.6 % 23.0-38.0 N MONOCYTE % (test code = MO%) 8.4 % 1.0-10.0 N EOSINOPHIL % (test code = EO%) 3.2 % 1.0-5.0 N BASOPHIL % (test code = BA%) 0.7 % 0.0-1.0 N NEUTROPHIL # (test code = NT#) 3.6 K/mm3 2.4-6.3 N IMMATURE GRANULOCYTE # (test 0.16 x10 3/uL 0.00-0.07 H code = IG#) LYMPHOCYTE # (test code = LY#) 2.2 K/mm3 1.2-4.0 N MONOCYTE # (test code = MO#) 0.6 K/mm3 0.0-0.6 N EOSINOPHIL # (test code = EO#) 0.2 K/MM3 0.0-0.7 N BASOPHIL # (test code = BA#) 0.1 K/mm3 0.0-0.2 N XR ELBOW RIGHT COMPLETE 3 [id number] 19:16:48LOCATION: [id number]: 23-year-old male who presents with right elbow [...] Noacute findings seen.XR ELBOW RIGHT COMPLETE 3 [id number] 01:27:53 LOCATION: L50PGDTCZB: 23-year-old male who presents with a trauma [...] one day ago.XR ELBOW RIGHT COMPLETE 3 [id number] 11:19:03EXAMINATION: XR ELBOW RIGHT COMPLETE 3 VIEWS.LOCATION: D4.HISTORY: R elbow s/p fracture.COMPARISON: None.TECHNIQUE: AP, lateral, and oblique views of the right elbow were obtained.FINDINGS:There is an acute nondisplaced fracture of the olecranon with extension to thehumeroulnar joint. Soft tissue structures appear intact.IMPRESSION:Acute nondisplaced fracture of the olecranon with extension to the humeroulnarjoint.XR shoulder BI min 2V [facility] [address] [place] [address] Patient Name: Douglas Sylvester Medical Record#: [id number] Address: Homeless City/State/Zip: [place] [address]: Td Galicia MD Insurance: Self Pay /Age/Sex: 1995/28/M Admit/Reg Date: 12/25/[address]: Adam Stafford MD Location: [place] [address].SI-A PCP: PcpMd CAITLIN Paredes Date of Service: 12/27/21 Order (s): XR shoulder BI min 2V CPT Code: 30293 Report Number: [id number] Reason for Exam: Shoulder pain after fall X-ray rightshoulder. Location Code: B2 INDICATION: Pain, fall. FINDINGS: No priors. No evidence of an acute fracture or dislocation. Bones are well mineralized and joint spaces well maintained. Soft tissues are unremarkable IMPRESSION: 1. No acute osseous abnormality. X-ray left shoulder. Location Code: B2 INDICATION: Pain, fall. FINDINGS: No priors. No evidence of an acute fracture or dislocation. Bones are well mineralized and joint spaces well maintained. Soft tissues are unremarkable IMPRESSION: 1. No acute osseous abnormality. Electronically signed by: Yanick Jack MD 12/28/2021 7:58 AM CDT Dictated By: Yanick Jack MD 12/28/21727 Signed By: Yanick Jack MD 12/28/21799 TD/TT: 12/28/21727 Tech: [id number] cc: [email or web address]; PCPNO* Adam Stafford MD; PcpMd Reggie MDCT head/brain wo contrast [facility] [address] [place] [address] Patient Name: Douglas Sylvester Medical Record#: [id number] Address: [facility] City/State/Zip: [place] [address]: Td Galicia MD Insurance: Self Pay /Age/Sex: 1995/28/M Admit/Reg Date: 12/25/[address]: Adam Stafford MD Location: [place] [address].SI-A PCP: Md CAITLIN Merrill Date of Service: 12/27/21 Order (s): CT head/brain wo contrast CPT Code: 27516 Report Number: [id number] Reason for Exam: fall Location code: B2 HISTORY: Fall, closed head injury. COMMENT: Axial imaging of the patient's brain was obtained without IV contrast. Soft tissue and bone window images were provided. Comparison to 12/24/2021 Dose lowering technique with automatic exposure control utilized. There is no evidence for acute mass effect, midline shift, hemorrhage, or herniation. The ventricles, sulci, and cisterns within normal limits. No intra or extra-axial fluid collections. The bone-windowing examination demonstrates no focal bony abnormalities.No abnormality within the sinuses. IMPRESSION: Unremarkable head CT examination without IV contrast. Electronically signed by: Yanick Jack MD 12/27/2021 9:54 PM CDT - [id number] Dictated By: Yanick Jack MD 12/27/212147 Signed By: Yanick Jack MD 12/27/212155 TD/TT: 12/27/212147 Tech: [facility]: [id number]; PCPNO* Adam Stafford MD; Md Desirae MDMR head/brain wo/w contrast [address] [address] Patient Name: Douglas Sylvester Medical Record#: [id number] Address: Homeless City/State/Zip: [place] [address]: Ian Kim MD Insurance: Self Pay /Age/Sex: 1995/26[birth year]M Admit/Reg Date: 12/20/[address]: Alexandrea Muhammad DO Location: [id number]/XS846-E PCP: Md CAITLIN Merrill Date of Service: 12/21/21 Order (s): MR head/brain wo/w contrast CPT Code: 43968 Report Number: [id number] Reason for Exam: Seizure EXAM: MRI of the Brain without and with contrast Location code:J9 HISTORY: Headache. Seizure COMPARISON: None available. TECHNIQUE:Sagittal T1, axial T1,T2, FLAIR, T2 GRE, Diffusion with ADC mapping, coronal T2 and post contrast axial andcoronal T1 weighted images of the brain before and after contrast were obtained. Intravenous contrast administered: Magnevist, 20 mL FINDINGS: No diffusion abnormalities are identified to suggest acuteischemic infarction. No signal abnormalities are identified on T2 GRE images to suggest acute or chronic hemorrhagic products. There are no foci of abnormal parenchymal or leptomeningeal enhancement. The brain parenchymal volume and ventricular caliber are within normal limits. No mass lesions or extra-axial fluid collections are seen. Normal brain signal. The midline structures including the corpus callosum, pituitary gland and sella, brainstem and craniocervical junction are normal. The posterior cranial fossa structures are normal. Normal signal voids are identified in the intracranial arterial vasculature and dural venous sinuses. The paranasal sinuses, mastoid air cells and orbits are within n ormal limits. IMPRESSION: Unremarkable exam. No abnormal enhancement Electronically signed by: Yusuf TUCKER 12/21/2021 3:51 PM CDT - [id number] Dictated By: William Vinson MD 12/21/21 1520 Signed By: William Vinson MD 12/21/21 1554 TD/TT: 12/21/21 1520 Tech: [facility] cc: BRIDGET; PCPNO* Alexandrea stewart DO; PcpMd Reggie MDXR chest 1V [facility] [address] [place] [address] Patient Name: Douglas Sylvester Medical Record#: [id number] Address: Homeless City/State/Zip: [place] [address]: Alexandrea Muhammad DO Insurance: Self PayDOB/Age/Sex: 1995//M Admit/Reg Date: 12/20/[address]: Taras Costa MD Location: [place] [address] PCP: Md CAITLIN Merrill Date of Service: 12/20/21 Order (s): XR chest 1V CPT Code: 30705 Report Number: [id number] Reason for Exam: Seizure STUDY: Chest radiograph HISTORY: Seizure LOCATION: [facility] COMPARISON: 06/24/2019 TECHNIQUE: Frontal view of the chest. FINDINGS: The cardiac silhouette is unremarkable. The pulmonary arteries again appear enlarged suggesting pulmonary arterial hyperten raúl. There is mild central pulmonary congestion. There is no pleural effusion, pneumothorax or focal consolidation. No acute osseous abnormalities are identified. IMPRESSION: Mild central pulmonary vascular congestion. Electronically signed by: Tomy Boothe MD 12/20/2021 5:06 AM CDT Dictated By: Tomy Boothe MD 12/20/21 0454 Signed By: Tomy Boothe MD 12/20/21 0508 TD/TT:12/20/21 0454 Tech: [id number] cc: ADÁN; STEF* Taras Costa MD; PcpMd Reggie MDCT head/brain wo contrast [facility] [address] [place] [address] Patient Name: Douglas Sylvester Medical Record#: [id number] Address: Homeless City/State/Zip: [place] [address]: Alexandrea Muhammad DO Insurance: Self PayDOB/Age/Sex: 1995//M Admit/Reg Date: 12/20/[address]: Taras Costa MD Location: [address]-A PCP: Md CAITLIN Merrill Date of Service: 12/20/21 Order (s): CT head/brain wo contrast CPT Code:06057 Report Number: [id number] Reason for Exam: Fall in waiting room secondary to seizure Exam:CT of the brain without contrast. History: Fall Location: H19 Technique: Contiguous axial CT images were obtained from the skull base through the vertex without contrast. One or more of the following dose reduction techniques were used: Automated exposure control, adjustment of the mA and/or kV according to patient size, and/or utilization of iterative reconstruction technique. Comparison: 12/19/2021Findings: The ventricles and sulci are age appropriate. The basal cisterns are patent. There is no mass effect or midline shift. There is no evidence for acute territorial infarction. There are no extra-axial fluid collections. The paranasal sinuses and mastoid air cells are clear. Impression: No CT evidence of an acute intracranial abnormality. Electronically signed by: Tomy Boothe MD 12/20/2021 5:40 AM CDT Dictated By: Tomy Boothe MD 12/20/21526 Signed By: Tomy Boothe MD 12/20/2142 TD/TT: 12/20/21526 Tech: OMO01 cc: ADÁN; STEF* Taras Costa MD; PcpMd Reggie MDCT head/brain wo contrast [facility] [address] [place] [address] Patient Name: Douglas Sylvester Medical Record#: [id number] Address: [address] City/State/Zip: [place] [address]: Taras Costa MD Insurance: Self Pay /Age/Sex: 1995//M Admit/Reg Date: 12/19/[address]: Taras Costa MD Location: [facility]/ PCP: Pcp-Md CAITLIN Batres Date of Service: 12/19/21 Order (s): CT head/brain wo contrast CPT Code: 75864 Report Number: [id number] Reason for Exam: Possible fall LOCATION: Q15 HISTORY:26-year-old male suffered a fall. COMMENT: Axial imaging of the patient's brain was obtained withoutIV contrast. Soft tissue and bone window images were provided. Coronal and sagittal reconstructions were included. An older examination of October 08, 2019 is available for comparison. The current study was obtained within 24 hours of the patient's arrival to this facility. One or more of the following dose reduction techniques were used: Automated exposure control, adjustment of the mA and/or kV according to patient size, and/or utilization of iterative reconstruction technique. DLP: 876.1 mGy-cm CONTRAST: None. FINDINGS: There is no evidence of acute mass effect, midline shift, hemorrhage, or herniation. The ventricles, sulci, and cisterns are within normal limits. There is no CT evidence of an acute infarct. The skeleton is intact. The visualized paranasal sinuses and air cells are clear. The soft tissues are unremarkable. IMPRESSION: Unremarkable noncontrast head CT examination. Electronically signed by: Tomy Harry MD 12/19/2021 11:13 PM CDT Dictated By: Tomy Harry MD 12/19/212301 Signed By: Tomy Harry MD 12/19/212314 TD/TT: 12/19/212301 Tech: OMO01 cc: PCPJANE; THELA* Taras Costa MD; Pcp-Md Medardo MDCT facial bones wo contrast [facility] [address] [place] [address] Patient Name: Douglas Sylvester Medical Record#: [id number] Address: [address] City/State/Zip: [place] [address]: Taras Costa MD Insurance: Self Pay /Age/Sex: 1995//M Admit/Reg Date: 12/19/[address]: Taras Costa MD Location: [facility]/ PCP: Pcp-Md CAITLIN Batres Date of Service: 12/19/21 Order (s): CT facial bones wo contrast CPT Code: 03456 Report Number: [id number] Reason for Exam: Left jaw pain LOCATION: Q15 HISTORY: 26-year-old male who suffered a fall and complains of pain on the left side of his jaw. COMMENT: Axial CT imaging of this patient's mid face was obtained. Soft tissue and bone images were submitted. Coronal and sagittal reconstructions were included. A three-dimensional reconstruction with surface shaded display was obtained at a remote workstation and submitted in a spin set. One or more of the following dose reduction techniques were used: Automated exposure control, adjustment of the mA and/or kV according the patient size, and/or utilization of iterative reconstruction technique. CONTRAST: None FINDINGS: The mid face skeleton is intact. There is orthopedic hardware overlying the patient's mandible just left of midline. The visualized paranasal sinuses and air cells are clear. The orbits are unremarkable and the soft tissue anatomy is unremarkable. There is no evidence of adenopathy. The visualized parotid glands and submandibular glands are unremarkable. IMPRESSION: Unremarkable maxillofacial CT examination. Electronically signed by: Tomy Harry MD 12/20/2021 12:07 AM CDT Dictated By: Tomy Harry MD 12/19/212302 Signed By: Tomy Harry MD 12/20/21 0009 TD/TT: 12/19/212302 Tech: OMO01 cc: PCPNO; THELA* Taras Costa MD; Pcp-Md CAITLIN Batres
[2021-12-31] MEDS ORDERED: NA CHLORIDE 0.9% 1,000 ML ONE ×3 (14:27→17:21)
[2021-12-31] MEDS ORDERED: LORazepam 2 MG/ML VIAL ONE (14:27)
[2021-12-31 14:30] LABS: Absolute Lymphocytes (CBC) 1.4 K/uL (0.7-4.9); Hematocrit 49.4 % (39.6-49.0); Lymphocytes % 8.6 % (15.3-44.8); MCV 86.8 fL (80-100); RBC Red Blood Cell Count 5.69 M/uL (4.33-5.43)
[2021-12-31] MEDS ORDERED: levETIRAcetam 1,000 MG in NA CHLORIDE 0.9% 100 ML IV ONE (14:30)
[2021-12-31] MEDS ORDERED: ALBUTEROL 2.5 MG/3 ML NEB SOL ONE (14:52)
[2021-12-31 14:53] LABS: Potassium 3.9 mmol/L (3.5-5.1)
--- NOTE | 2021-12-31 15:20 | RAD REPORT ---
EXAM DESCRIPTION: CT - Head C Spine Mpr Wo Con - 12/31/2021 3:00 pm CLINICAL HISTORY: Seizure. Head and neck injury status post fall. Head and neck pain COMPARISON: 2020 TECHNIQUE: Computed axial tomography of the head and cervical spine was obtained. Sagittal and coronal reconstruction was performed. All CT scans are performed using dose optimization technique as appropriate and may include automated exposure control or mA/KV adjustment according to patient size. FINDINGS: An intracranial bleed is not seen. The ventricles are normal in caliber. An extra-axial fl uid collection is not noted.Fluid within the visualized sinuses and mastoids is not seen A cervical fracture is not visualized. No dislocation is noted. IMPRESSION: No acute intracranial abnormality is seen. A cervical fracture is not visualized. If the patient continues to have symptoms to suggest intracra nial /spinal cord pathology then MRI would be recommended
[2021-12-31 15:21] LABS: Albumin 4.5 g/dL (3.4-5.0); Bilirubin Direct 0.2 mg/dL (0-0.2); Bilirubin Total 0.9 mg/dL (0.2-1.0); Protein, Total 8.8 g/dL (6.4-8.2)
--- NOTE | 2021-12-31 15:38 | RAD REPORT ---
EXAM DESCRIPTION: Hannah Single View12/31/2021 3:32 pm CLINICAL HISTORY: Seizure COMPARISON: 2019 FINDINGS: The lungs appear clear of acute infiltrate. The heart is normal size IMPRESSION: No acute abnormalities displayed
[2021-12-31 16:21] LABS: Urine Blood Trace-intact (Negative); Urine Glucose Negative (Negative); Urine Protein Negative (Negative); Urine pH 5.5 (5.0-7.0)
[2021-12-31 16:27] LABS: SARS-CoV-2 Antigen Rapid Res Negative (Negative)
[2021-12-31 17:09] LABS: Barbiturates NEGATIVE (NEGATIVE); Benzodiazepines POSITIVE (NEGATIVE); Cocaine NEGATIVE (NEGATIVE); METHAMPHETAM POSITIVE (NEGATIVE); Methadone NEGATIVE (NEGATIVE); Opiates NEGATIVE (NEGATIVE); Phencyclidine NEGATIVE (NEGATIVE); THC Cannibis NEGATIVE (NEGATIVE)
--- NOTE | 2021-12-31 18:23 | ER ---
Nurse's Notes [facility] Name: Douglas Aguirre Age: 26 yrs Sex: Male : 1995 Arrival Date: 12/31/2021 Time: 13:49 Bed 15 Private MD: Diagnosis: Other seizures Presentation: 12/31 13:54 Chief complaint: Patient states: pt states he "drank a homemade energy drink from a tw2 homeless robby yesterday then it made me feel weird so i took a trazodone", provider at bedside at this time. EMS states: pt was just released from [facility] for seizures. this time he woke up and was on the ground and felt like he had a seizure. then around the corner from the hospital he had another seizure. does have a hx of seizures. 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 vs stable except HR 131. Coronavirus screen: At this time, the client does not indicate any symptoms associated with coronavirus-19. Ebola Screen: Patient denies travel to an Ebola-affected area in the 21 days before illness onset. Initial Sepsis Screen: Does the patient meet any 2 criteria? HR > 90 bpm. No. Patient's initial sepsis screen is negative. Does the patient have a suspected source of infection? No. Patient's initial sepsis screen is negative. Risk Assessment: Do you want to hurt yourself or someone else? Patient reports no desire to harm self or others. Onset of symptoms was December 31, 2021. 13:54 Method Of Arrival: EMS: [facility] tw2 13:54 Acuity: MARCELO 3 tw2 Triage Assessment: 13:54 General: Appears uncomfortable, ill, Behavior is cooperative, listless. Pain: Denies tw2 pain. Neuro: Galvez Agitation-Sedation Scale (RASS): 0 - Alert and Calm. Cardiovascular: Capillary refill. Respiratory: Airway is patent Respiratory effort is even, unlabored, Respiratory pattern is regular, symmetrical. GI: No signs and/or symptoms were reported involving the gastrointestinal system. : No signs and/or symptoms were reported regarding the genitourinary system. Derm: Skin is diaphoretic, dry. Musculoskeletal: Range of motion: intact in all extremities. Historical: - Allergies: 15:20 No Known Drug Allergies; tw2 - Home Meds: 15:20 Adderall XR Oral [Active]; Depakote Oral [Active]; Seroquel Oral [Active]; tw2 - PMHx: 15:20 Seizures; tw2 - Immunization history:: Adult Immunizations. - Social history:: Smoking status: . Screenin:19 Abuse screen: Denies threats or abuse. Nutritional screening: No deficits noted. tw2 Tuberculosis screening: No symptoms or risk factors identified. Fall Risk None identified. Assessment: 13:53 Reassessment: provider at bedside at this time. tw2 17:10 Reassessment: Patient appears in no apparent distress at this time. Patient and/or tw2 family updated on plan of care and expected duration. Pain level reassessed. Patient is alert, oriented x 3, equal unlabored respirations, skin warm/dry/pink. Patient states feeling better. 17:28 Reassessment: provider at bedside going over results and poc at this time. tw2 18:12 Reassessment: Patient appears in no apparent distress at this time. Patient and/or tw2 family updated on plan of care and expected duration. Pain level reassessed. Patient is alert, oriented x 3, equal unlabored respirations, skin warm/dry/pink. 18:45 Reassessment: Patient appears in no apparent distress at this time. Patient and/or tw2 family updated on plan of care and expected duration. Pain level reassessed. Patient is alert, oriented x 3, equal unlabored respirations, skin warm/dry/pink. Patient states feeling better. Vital Signs: 13:54 BP 131 / 95; Pulse 122; Resp 18; Temp 100.1(O); Pulse Ox 88% on R/A; tw2 15:10 BP 129 / 91; Pulse 121; Resp 19; Pulse Ox 95% on Nebulizer Mask; tw2 15:56 BP 124 / 94; Pulse 129; Resp 30; Pulse Ox 97% on R/A; tw2 16:06 BP 143 / 92; Pulse 116; Resp 24; Temp 98.8(O); Pulse Ox 95% on R/A; tw2 17:10 BP 97 / 79; Pulse 119; Resp 21; Pulse Ox 95% on R/A; tw2 18:13 BP 124 / 92; Pulse 117; Resp 22; Pulse Ox 96% on R/A; tw2 13:54 pt placed on 2L at this time. will continue to monitor. tw2 Yenny Coma Score: 13:54 Eye Response: spontaneous(4). Verbal Response: oriented(5). Motor Response: obeys tw2 commands(6). Total: 15. ED Course: 13:49 Patient arrived in ED. tw2 13:51 [facility] F[facility] jh7 13:51 William Mcneil MD is Attending Physician. jh7 13:53 Arm band placed on. tw2 13:54 Laura Joyce, JIMI is Primary Nurse. tw2 13:54 Seizure precautions initiated. tw2 14:01 Triage completed. tw2 14:28 CBC with Diff Sent. tw2 14:28 BMP Sent. tw2 14:53 Inserted saline lock: 22 gauge in left wrist, using aseptic technique. ,using aseptic tw2 technique. MICHAEL Dockery tech Blood collected. 15:01 CT Head C Spine In Process Unspecified. EDMS 15:34 XRAY Chest (1 view) In Process Unspecified. EDMS 16:00 [facility] role handed off by Danae Melchor FNP jl9 16:00 Jacob Falcon [facility]. jl9 18:51 No provider procedures requiring assistance completed. IV discontinued, intact, tw2 bleeding controlled, No redness/swelling at site. Pressure dressing applied. Administered Medications: 14:50 Not Given (Physician Discretion): Ativan (LORazepam) 1 mg IVP once jh7 15:09 Drug: Albuterol 2.5 mg Route: Inhalation; tw2 15:10 Drug: Keppra (levETIRAcetam) 1000 mg Route: IV; Rate: 1 calculated rate; Site: left tw2 wrist; 15:25 Follow up: IV Status: Completed infusion; IV Intake: 100ml tw2 15:10 Drug: NS 0.9% 1000 ml Route: IV; Rate: 1 bolus; Site: left wrist; tw2 16:23 Follow up: Response: No adverse reaction; IV Status: Completed infusion; IV Intake: tw2 1000ml 15:18 Drug: Albuterol 2.5 mg Route: Inhalation; tw2 15:18 Drug: Albuterol 2.5 mg Route: Inhalation; tw2 16:05 Drug: NS 0.9% 1000 ml Route: IV; Rate: 1 bolus; Site: left wrist; tw2 18:14 Follow up: Response: No adverse reaction; IV Status: Completed infusion; IV Intake: tw2 1000ml 17:20 Drug: NS 0.9% 1000 ml Route: IV; Rate: 1000 ml; Site: left wrist; tw2 18:45 Follow up: Response: No adverse reaction; IV Status: Completed infusion; IV Intake: tw2 1000ml Medication: 15:20 VIS not applicable for this client. tw2 Intake: 15:25 IV: 100ml; Total: 100ml. tw2 16:23 IV: 1000ml; Total: 1100ml. tw2 18:14 IV: 1000ml; Total: 2100ml. tw2 18:45 IV: 1000ml; Total: 3100ml. tw2 Outcome: 18:23 Discharge ordered by . christian 18:51 Discharged to home ambulatory. tw2 18:51 Condition: stable 18:51 Discharge instructions given to patient, Instructed on discharge instructions, follow up and referral plans. Demonstrated understanding of instructions, follow-up care, Prescriptions given X 1. 18:52 Patient left the ED. tw2 Signatures: Dispatcher [employer] EDLaura Bain RN RN tw2 Danae Melchor FNP FNP jh7 Linares, John jl9
--- NOTE | 2021-12-31 18:23 | EDPHYS ---
Physician Documentation [facility] Name: Douglas Aguirre Age: 26 yrs Sex: Male : 1995 Arrival Date: 12/31/2021 Time: 13:49 Bed 15 Private MD: ED Physician William Mcneil HPI: 12/31 13:55 This 26 yrs old Male presents to ER via EMS with complaints of Seizure. jh7 13:55 The patient presents with a history of multiple seizures, a total of 2, with the most jh7 recent occurring 30 minute(s) ago, the episode(s) was witnessed, by EMS personnel. Character of seizure(s): Loss of consciousness: the patient experienced loss of consciousness, Motor activity: generalized, Apnea: the patient did not experience apnea, Circulation: the patient did not experience evidence of pulse disturbance. Seizure onset: this morning. Seizure Hx: Seizure medications: Keppra. Patient reports that he was discharged from [facility] yesterday. States that he was prescribed Keppra, but has not filled his medication yet. Reports that states that he drank an energy drink this morning given to him by a homeless man. He states that it made him feel jittery so he took a trazodone. Reports that he woke up on the ground and realized that he had a seizure. Complains of neck pain. EMS reports that the patient had a seizure en route to the hospital.. Historical: - Allergies: 15:20 No Known Drug Allergies; tw2 - Home Meds: 15:20 Adderall XR Oral [Active]; Depakote Oral [Active]; Seroquel Oral [Active]; tw2 - PMHx: 15:20 Seizures; tw2 - Immunization history:: Adult Immunizations. - Social history:: Smoking status: . ROS: 13:55 Eyes: Negative for injury, pain, redness, and discharge, ENT: Negative for injury, jh7 pain, and discharge, Cardiovascular: Negative for chest pain, palpitations, and edema, Respiratory: Negative for shortness of breath, cough, wheezing, and pleuritic chest pain, Back: Negative for injury and pain, MS/Extremity: Negative for injury and deformity, Skin: Negative for injury, rash, and discoloration. 13:55 Constitutional: Positive for fever. 13:55 Neck: Positive for pain at rest, Negative for injury or acute deformity, tenderness. 13:55 Neuro: Positive for seizure activity, Negative for altered mental status, numbness, tingling, visual changes. 13:55 All other systems are negative. Exam: 13:55 Head/Face: Normocephalic, atraumatic. Eyes: Pupils equal round and reactive to light, jh7 extra-ocular motions intact. Lids and lashes normal. Conjunctiva and sclera are non-icteric and not injected. Cornea within normal limits. Periorbital areas with no swelling, redness, or edema. ENT: Nares patent. No nasal discharge, no septal abnormalities noted. Tympanic membranes are normal and external auditory canals are clear. Oropharynx with no redness, swelling, or masses, exudates, or evidence of obstruction, uvula midline. Mucous membranes moist. Neck: Trachea midline, no thyromegaly or masses palpated, and no cervical lymphadenopathy. Supple, full range of motion without nuchal rigidity, or vertebral point tenderness. No Meningismus. Cardiovascular: Regular rate and rhythm with a normal S1 and S2. No gallops, murmurs, or rubs. Normal PMI, no JVD. No pulse deficits. Respiratory: Lungs have equal breath sounds bilaterally, clear to auscultation and percussion. No rales, rhonchi or wheezes noted. No increased work of breathing, no retractions or nasal flaring. Abdomen/GI: Soft, non-tender, with normal bowel sounds. No distension or tympany. No guarding or rebound. No evidence of tenderness throughout. Back: No spinal tenderness. No costovertebral tenderness. Full range of motion. Skin: Warm, dry with normal turgor. Normal color with no rashes, no lesions, and no evidence of cellulitis. MS/ Extremity: Pulses equal, no cyanosis. Neurovascular intact. Full, normal range of motion. Neuro: Awake and alert, GCS 15, oriented to person, place, time, and situation. Cranial nerves II-XII grossly intact. Motor strength 5/5 in all extremities. Sensory grossly intact. Cerebellar exam normal. Normal gait. 13:55 Constitutional: The patient appears restless. 13:55 Neuro: Orientation: to person, place, time \T\ situation. Mentation: sleepy, Memory: is normal, Motor: is normal, Sensation: is normal. Vital Signs: 13:54 BP 131 / 95; Pulse 122; Resp 18; Temp 100.1(O); Pulse Ox 88% on R/A; tw2 15:10 BP 129 / 91; Pulse 121; Resp 19; Pulse Ox 95% on Nebulizer Mask; tw2 15:56 BP 124 / 94; Pulse 129; Resp 30; Pulse Ox 97% on R/A; tw2 16:06 BP 143 / 92; Pulse 116; Resp 24; Temp 98.8(O); Pulse Ox 95% on R/A; tw2 17:10 BP 97 / 79; Pulse 119; Resp 21; Pulse Ox 95% on R/A; tw2 18:13 BP 124 / 92; Pulse 117; Resp 22; Pulse Ox 96% on R/A; tw2 13:54 pt placed on 2L at this time. will continue to monitor. tw2 Kite Coma Score: 13:54 Eye Response: spontaneous(4). Verbal Response: oriented(5). Motor Response: obeys tw2 commands(6). Total: 15. MDM: 13:51 Patient medically screened. [facility] 15:46 Medication response:. Response to treatment: the patient's symptoms have markedly jh7 improved after treatment, The patient's O2 sat increased to 97% on room air. He denies any shortness of breath at this time.. 16:01 Transition of care: After a detail discussion of the patient's case, care is jh7 transferred to Jacob Falcon. ED course: Patient denies shortness of breath but is still tachypneic after nebs. Will give another liter of fluid, test for flu and COVID, and run a UDS. Obs versus discharge.. 18:22 Data reviewed: vital signs, nurses notes, lab test result(s), radiologic studies. jl9 Counseling: I had a detailed discussion with the patient and/or guardian regarding: the historical points, exam findings, and any diagnostic results supporting the discharge/admit diagnosis, lab results, radiology results, the need for outpatient follow up, to return to the emergency department if symptoms worsen or persist or if there are any questions or concerns that arise at home. 18:24 ED course: Assumed care of patient by Robert Melchor NP. Patient improved and asymptomatic. jl9 Patient agrees to get his Keppra filled and start taking it as prescribed. . 12/31 13:59 Order name: BMP; Complete Time: 15:06 [facility] 12/31 13:59 Order name: CBC with Diff; Complete Time: 14:39 [facility] 12/31 14:43 Order name: Lactate; Complete Time: 15:19 [facility] 12/31 14:44 Order name: LFT's; Complete Time: 15:29 [facility] 12/31 15:19 Order name: Blood Culture Adult (2) [facility] 12/31 13:59 Order name: CT Head C Spine; Complete Time: 15:29 [facility] 12/31 14:40 Order name: XRAY Chest (1 view); Complete Time: 15:43 [facility] 12/31 15:43 Order name: Flu; Complete Time: 17:11 [facility] 12/31 15:43 Order name: SARS RAPID; Complete Time: 17:11 [facility] 12/31 15:59 Order name: Urine Drug Screen; Complete Time: 17:11 [facility] 12/31 16:21 Order name: Urine Dipstick-Ancillary; Complete Time: 16:27 [facility] 12/31 14:03 Order name: IV Start; Complete Time: 15:14 [facility] 12/31 15:59 Order name: Urine Dipstick-Ancillary (obtain specimen); Complete Time: 16:23 [facility] Administered Medications: 14:50 Not Given (Physician Discretion): Ativan (LORazepam) 1 mg IVP once 7 15:09 Drug: Albuterol 2.5 mg Route: Inhalation; tw2 15:10 Drug: Keppra (levETIRAcetam) 1000 mg Route: IV; Rate: 1 calculated rate; Site: left tw2 wrist; 15:25 Follow up: IV Status: Completed infusion; IV Intake: 100ml tw2 15:10 Drug: NS 0.9% 1000 ml Route: IV; Rate: 1 bolus; Site: left wrist; tw2 16:23 Follow up: Response: No adverse reaction; IV Status: Completed infusion; IV Intake: tw2 1000ml 15:18 Drug: Albuterol 2.5 mg Route: Inhalation; tw2 15:18 Drug: Albuterol 2.5 mg Route: Inhalation; tw2 16:05 Drug: NS 0.9% 1000 ml Route: IV; Rate: 1 bolus; Site: left wrist; tw2 18:14 Follow up: Response: No adverse reaction; IV Status: Completed infusion; IV Intake: tw2 1000ml 17:20 Drug: NS 0.9% 1000 ml Route: IV; Rate: 1000 ml; Site: left wrist; tw2 18:45 Follow up: Response: No adverse reaction; IV Status: Completed infusion; IV Intake: tw2 1000ml Disposition Summary: 12/31/21 18:23 Discharge Ordered Location: Home jl9 Condition: Stable jl9 Diagnosis - Other seizures jl9 Followup: jl9 - With: Private Physician - When: 1 - 2 days - Reason: Recheck today's complaints, Continuance of care, Re-evaluation by your physician Discharge Instructions: - Discharge Summary Sheet jl9 - Seizure, Adult, [id number] jl9 - Illegal Drug Use Information, Adult jl9 Forms: - Medication Reconciliation Form jl9 - Thank You Letter jl9 - Antibiotic Education jl9 - Prescription Opioid Use jl9 Addendum: 01/03/2022 07:03 Co-signature as Attending Physician, William Mcneil MD. r n Signatures: Dispatcher [employer] EDNH William Mcneil MD MD rn Wise, Tara RN RN tw2 Danae Melchor, LPN CMA LPN CMA 7 Jacob Falcon jl9 Corrections: (The following items were deleted from the chart) 12/31 14:29 14:13 KEPPRA (LEVETIRACETAM) ordered. [facility] 15:24 13:55 Patient reports that he was discharged from [facility] yesterday. States that jh7 he was prescribed Keppra, but has not filled his medication yet. States that this morning he woke up on the ground and realized that he had a seizure. Complains of neck pain. EMS reports that the patient had a seizure en route to the hospital.. jh7
[2021-12-31 20:35] VITALS: TEMP 98.8
[2021-12-31 20:38] VITALS: BP 124/92; O2SAT 96
== END 2021-12-31 18:52 | disposition home or self-care (01) ==
LOC: ER 13:47
DX: G40.89 Other seizures (principal); Z20.822 Contact with and (suspected) exposure to COVID-19
CPT/HCPCS: 36415; 70450; 71045; 72125; 80048; 80076; 80307; 81003; 83605; 85025; 87040; 87804; 87811; 96361; 96374; 99284; J1953; J7030

== ENCOUNTER 2023-06-09 14:04 | Emergency (ER) | payer OTHER, SELFPAY ==
[2023-06-09 15:18] LABS: Arterial Blood Carboxyhemoglob 0.9 % (0-1.5); Blood Gas Oxyhemoglobin 85.9 % (94-97); Blood Gas THB 19.1 g/dl (12-18); Blood O2 Saturation 88.1 % (92-98.5)
[2023-06-09 15:25] LABS: Absolute Basophils 0.1 K/uL (0-0.5); Absolute Eosinophils 0.2 K/uL (0-0.5); Absolute Lymphocytes (CBC) 1.6 K/uL (0.7-4.9); Absolute Monocytes 0.4 K/uL (0.1-1.3); Absolute Neutrophil 3.2 K/uL (1.8-8.0); Basophils % 1.1 % (0-1.3); Eosinophils % 3.5 % (0-4.4); Hematocrit 53.3 % (39.6-49.0); Hemoglobin 18.3 g/dL (13.6-17.9); Lymphocytes % 29.8 % (15.3-44.8); MCH 29.8 pg (27.0-35.0); MCHC 34.3 g/dL (32.0-36.0); MCV 86.7 fL (80-100); MPV 9.7 fL (7.6-11.3); Neutrophils % 57.6 % (41.7-73.7); Nucleated Red Blood Cells % 0.2 % (0-0); Platelets 215 thou/uL (152-406); RBC Red Blood Cell Count 6.14 M/uL (4.33-5.43); Red Cell Distribution Width 15.1 % (12.1-15.2)
[2023-06-09 15:42] LABS: Anion Gap 11.1 mEq/L (5.0-15.0); Bilirubin Direct 0.1 mg/dL (0-0.2); Bilirubin Indirect, Calculated 0.5 mg/dL (0.2-0.8); Bilirubin Total 0.6 mg/dL (0.2-1.0); Magnesium 2.1 mg/dL (1.6-2.4); Potassium 4.1 mEq/L (3.5-5.1); Troponin High Sensitivity 8.4 pg/mL (<58.9)
[2023-06-09] MEDS ORDERED: HEPARIN/D5W 25,000 UNIT/500 ML BAG IV ONE (16:12)
[2023-06-09 16:34] LABS: PT Prothrombin Time 11.9 SECONDS (9.5-12.5); Protime INR 1.08
[2023-06-09 16:35] LABS: PTT, Activated Partial Thromb 34.8 SECONDS (24.3-36.9)
[2023-06-09 16:41] LABS: D-Dimer < 215 FEUng/mL (<500)
--- NOTE | 2023-06-09 16:52 | RAD REPORT ---
EXAM DESCRIPTION: Hannah Single View06/09/2023 3:38 pm CLINICAL HISTORY: Chest pain COMPARISON: 2021 FINDINGS: Lungs appear clear of acute infiltrate Heart is normal size Central pulmonary arteries are prominent. This has developed since the prior exam IMPRESSION: Central pulmonary arteries are prominent which may indicate pulmonary arterial hypertens ion
--- NOTE | 2023-06-09 16:53 | RAD REPORT ---
EXAM DESCRIPTION: CT - Chest Angio - 06/09/2023 4:37 pm CLINICAL HISTORY: Chest pain COMPARISON: 2018 TECHNIQUE: Dynamically enhanced axial 3 mm thick images of the chest were obtained during administra tion of 100 mL Isovue 370 IV contrast. Coronal and oblique reconstruction images were generated and r eviewed. Exam utilizes a protocol for optimal evaluation of pulmonary arterial tree. Maximum intensity projections 3D imaging was utilized All CT scans are performed using dose optimization technique as appropriate and may include automated exposure control or mA/KV adjustment according to patient size. FINDINGS: A pulmonary embolus is not seen. Marked dilatation of central pulmonary arteries. This has progressed since the prior exam A thoracic aortic aneurysm is not noted. A pleural effusion is not seen. A pericardial effusion is not seen. A lung consolidation is not present. Fatty liver IMPRESSION: Negative for a pulmonary embolism. Heart dilatation of central pulmonary arteries may indicate pulmonary arterial hypertension
--- NOTE | 2023-06-09 17:36 | ER ---
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 Coronavirus screen: Vaccine status: Patient reports receiving the 2nd dose of the covid vaccine. Ebola Screen: No symptoms or risks identified at this time. Initial Sepsis Screen: Does the patient meet any 2 criteria? No. Patient's initial sepsis screen is negative. Does the patient have a suspected source of infection? No. Patient's initial sepsis screen is negative. Risk Assessment: Do you want to hurt yourself or someone else? Patient reports no desire to harm self or others. Onset of symptoms was June 09, 2023. 14:31 Method Of Arrival: Ambulatory ph 14:31 Acuity: MARCELO 2 ph 14:35 Note pt taken to exam room 15, placed on 6L NC w/ minimal improvement in Spo2, ERP ph aware, RT notified for ABGs and possible bi-pap. Triage Assessment: 14:34 General: Appears in no apparent distress. uncomfortable, Behavior is calm, cooperative, ph Denies fever. Pain: Complains of pain in anterior aspect of left upper chest, mid-sternal area and left breast. Neuro: Level of Consciousness is awake, alert, obeys commands, Oriented to person, place, time, situation. Respiratory: Reports shortness of breath at rest on exertion Onset: The symptoms/episode began/occurred gradually. Derm: Skin is dry, Skin is pale. 19:00 Respiratory: the patient has moderate shortness of breath. pf1 Historical: - Allergies: 14:23 No Known Drug Allergies; ph - PMHx: 14:23 Seizures; ph - Immunization history:: Adult Immunizations up to date. - Infectious Disease History:: Denies. - Social history:: Smoking status: unknown. Screenin:12 [facility] ED Fall Risk Assessment (Adult) History of falling in the last 3 months, rs5 including since admission No falls in past 3 months (0 pts) Confusion or Disorientation No (0 pts) Intoxicated or Sedated No (0 pts) Impaired Gait No (0 pts) Mobility Assist Device Used No (0 pt) Altered Elimination No (0 pt) Score/Fall Risk Level 0 - 2 = Low Risk Oriented to surroundings, Maintained a safe environment. Abuse screen: Denies threats or abuse. Nutritional screening: No deficits noted. Tuberculosis screening: No symptoms or risk factors identified. Assessment: 14:11 General: Appears distressed, uncomfortable, Behavior is cooperative, anxious. Pain: rs5 Denies pain. 14:11 Neuro: Level of Consciousness is awake, alert, obeys commands, Oriented to person, rs5 place, time, situation. Cardiovascular: Patient's skin is warm and dry. Rhythm is sinus tachycardia. Respiratory: Airway is patent Respiratory effort is labored, Respiratory pattern is tachypnea GI: Abdomen is round non-distended, Abd is soft and non tender X 4 quads. : No signs and/or symptoms were reported regarding the genitourinary system. EENT: No signs and/or symptoms were reported regarding the EENT system. Derm: Skin is intact, Skin is dry, Skin is normal, Skin temperature is warm. Musculoskeletal: Range of motion: intact in all extremities. 14:19 Reassessment: Respiratory at bedside. rs5 15:12 Reassessment: Patient and/or family updated on plan of care and expected duration. Pain rs5 level reassessed. Patient is alert, oriented x 3, equal unlabored respirations, skin warm/dry/pink. Patient denies pain at this time. Patient states feeling better. Patient states symptoms have improved. 15:12 Respiratory: Airway Respiratory effort is even, labored, Respiratory pattern is regular.rs5 19:00 General: Appears in no apparent distress. uncomfortable, well groomed, well developed, pf1 Behavior is calm, cooperative, appropriate for age, quiet. 19:00 Pain: Complains of pain in chest Pain currently is 6 out of 10 on a pain scale. Neuro: pf1 No deficits noted. Level of Consciousness is awake, alert, obeys commands, Oriented to person, place, time, situation. Cardiovascular: Reports chest pain, shortness of breath, Capillary refill < 3 seconds Patient's skin is warm and dry. Rhythm is sinus tachycardia. Respiratory: Airway is patent Respiratory effort is even, labored, Respiratory pattern is symmetrical, tachypnea Breath sounds are clear bilaterally. Respiratory: Reports shortness of breath. Respiratory: Ventilator assessment: patient currently on BIPAP. GI: No deficits noted. Abdomen is round non-distended, Bowel sounds present X 4 quads. Abd is soft and non tender X 4 quads. : No deficits noted. No signs and/or symptoms were reported regarding the genitourinary system. EENT: No deficits noted. No signs and/or symptoms were reported regarding the EENT system. Derm: No deficits noted. No signs and/or symptoms reported regarding the dermatologic system. Musculoskeletal: No deficits noted. No signs and/or symptoms reported regarding the musculoskeletal system. Circulation, motion, and sensation intact. Capillary refill < 3 seconds, Range of motion: intact in all extremities. 20:00 Reassessment: Patient appears in no apparent distress at this time. No changes from pf1 previously documented assessment. Patient and/or family updated on plan of care and expected duration. Pain level reassessed. 20:14 Reassessment: Patient pending acceptance for transfer. pf1 21:07 Reassessment: Patient appears in no apparent distress at this time. No changes from pf1 previously documented assessment. Patient and/or family updated on plan of care and expected duration. Pain level reassessed. 22:00 Reassessment: Patient appears in no apparent distress at this time. No changes from pf1 previously documented assessment. Patient and/or family updated on plan of care and expected duration. Pain level reassessed. Patient updated on transfer.. 23:48 Reassessment: Patient report given to Navjot Rodriguez stained glass joiner with EMS. Patient pf1 report given to JIMI Bee at [facility]. Vital Signs: 14:31 BP 147 / 103; Pulse 115; Resp 22; Temp 97.8; Pulse Ox 84% on R/A; Weight 96.62 kg; ph Height 5 ft. 9 in. ; 17:39 BP 121 / 88; Pulse 101; Pulse Ox 94% ; ec2 19:00 BP 129 / 105; Pulse 105; Resp 22; Temp 97.9; Pulse Ox 93% on BiPAP; Pain 6/10; pf1 20:00 BP 127 / 101; Pulse 110; Resp 20; Pulse Ox 94% on BiPAP; Pain 6/10; pf1 21:00 BP 111 / 99; Pulse 107; Resp 20; Pulse Ox 94% on BiPAP; pf1 22:00 BP 124 / 89; Pulse 101; Resp 23; Pulse Ox 93% on BiPAP; Pain 3/10; pf1 23:00 BP 114 / 93; Pulse 92; Resp 18; Temp 96.7; Pulse Ox 94% on BiPAP; pf1 04 00:00 BP 124 / 100; Pulse 92; Resp 17; Temp 97.5; Pulse Ox 94% on BiPAP; Pain 4/10; pf1 06/08 14:31 Body Mass Index 31.45 (96.62 kg, 175.26 cm) ph 19:00 Pain Scale: Adult pf1 20:00 Pain Scale: Adult pf1 22:00 Pain Scale: Adult pf1 06/09 00:00 Pain Scale: Adult pf1 ED Course: 06/08 14:08 Patient arrived in ED. rg4 14:09 Allison Peters PA-C is PHCP. sb4 14:09 Colby Aguirre MD is Attending Physician. sb4 14:12 Patient has correct armband on for positive identification. Placed in gown. Bed in low rs5 position. Call light in reach. Side rails up X2. 14:12 No provider procedures requiring assistance completed. rs5 14:22 Arm band placed on Patient placed in an exam room, on a stretcher. ph 14:34 Triage completed. ph 14:48 Efra Dos Santos, RN is Primary Nurse. rs5 15:40 XRAY CXR (1 view) In Process Unspecified. EDMS 15:46 EKG done, by ED staff, reviewed by Allison Peters PA-C. ll1 16:[address] In Process Unspecified. EDMS 17:38 INITIATED TRANSFER WITH [facility].. SPOKE WITH TRANSFER [facility] COORDINATOR COLTON.. 17:57 Colton [facility] wardrobe coordinator returned call to initiate doc to doc with [facility] their personal property assessor and Jody Peters. 18:18 Colton returned call in regard to bed placement stated pt will have a bed after shift [facility] change \T\1900 .. will call back then with acceptance. 19:00 Inserted saline lock: 20 gauge in right antecubital area, using aseptic technique. pf1 ,using aseptic technique. inserted on days Blood collected. 19:00 Inserted saline lock: 24 gauge in left hand, using aseptic technique. ,using aseptic pf1 technique. inserted on . 20:04 Called [facility] to get an update regarding bed assignment, spoke with Jose Martinez, he wm stated that they were still waiting. 22:28 Called [facility] to get an update regarding bed assignment, spoke with Mesfin Martinez, still wm waiting. 22:30 Pt accepted for transfer to [facility] CCU Rm: [id number] Solano \T\ 1800 per [facility] Arian. 23:15 [facility] will transport with an ETA \T\ 0000. wm 06/09 00:10 Provided Education on: need for transfer. pf1 00:10 Patient transferred, IV remains in place. pf1 Administered Medications: 06/08 17:30 Discontinued: Heparin (DVT/PE Drip) - ([id number] units, b5e415 ml) 18 units/kg/hr IV sb4 at calculated rate Per protocol; Max initial rate 1800 units/hr 15:56 Drug: Heparin (DVT/PE Drip) 18 units/kg/hr - ([place] [address] units, D5W IV 500 ml) IV rs5 at calculated rate Per protocol; Max initial rate 1800 units/hr {Co-Signature: mali (Sanna You RN).} Route: IV; Rate: calculated rate; Site: left forearm; 17:35 Drug: Furosemide IVP 40 mg IVP once; give over 2 minutes Route: IVP; Site: left rs5 antecubital; Medication: 17:01 VIS not applicable for this client. rs5 Outcome: 17:36 ER care complete, transfer ordered by sbClau 06/09 00:10 Transferred by ground EMS to [facility], Transfer form completed. pf1 X-rays sent w/ patient. Condition: stable Instructed on the need for transfer, Demonstrated understanding of instructions, 00:18 Patient left the ED. pf1 Signatures: Dispatcher [employer] EDMS Anya Lopez RN RN ph Garcia, Rubi 4 Sanna You RN RN Felicita Landis Sophia, PA-C PARoberto sb4 Katherine Macedo RN RN pf1 Efra Dos Santos RN RN rs5 Opal Hernandez jr12 Sanna You RN ll1 Corrections: (The following items were deleted from the chart) 06/08 23:57 20:00 Reassessment: Patient appears in no apparent distress at this time. No changes pf1 from previously documented assessment. Patient and/or family updated on plan of care and expected duration. Pain level reassessed. Patient is alert, oriented x 3, equal unlabored respirations, skin warm/dry/pink. pf1 23:57 21:07 Reassessment: Patient appears in no apparent distress at this time. No changes pf1 from previously documented assessment. Patient and/or family updated on plan of care and expected duration. Pain level reassessed. Patient is alert, oriented x 3, equal unlabored respirations, skin warm/dry/pink. pf1 23:57 22:00 Reassessment: Patient appears in no apparent distress at this time. No changes pf1 from previously documented assessment. Patient and/or family updated on plan of care and expected duration. Pain level reassessed. Patient is alert, oriented x 3, equal unlabored respirations, skin warm/dry/pink. Patient updated on transfer.. pf1
--- NOTE | 2023-06-09 17:36 | EDPHYS ---
Physician Documentation [facility] Name: Douglas Aguirre Age: 28 yrs Sex: Male : 1995 Arrival Date: 06/09/2023 Time: 14:04 Bed 15 Private MD: ED Physician Colby Aguirre HPI: 06/08 14:28 This 28 yrs old Male presents to ER via Unassigned with complaints of sb4 Shortness Of Breath. 14:28 Patient states that he has been feeling short of breath for about 2 months now, sb4 especially on exertion. He was referred to a marketing technology specialist, Dr. Martin, who he saw today. He was noted to be hypoxic and sent here for further evaluation. He is 86% on room air during triage in mild respiratory distress. He does complain of some chest discomfort but has no other associated signs and symptoms. No recent travel, hemoptysis, infections, fevers. Historical: - Allergies: 14:23 No Known Drug Allergies; ph - PMHx: 14:23 Seizures; ph - Immunization history:: Adult Immunizations up to date. - Infectious Disease History:: Denies. - Social history:: Smoking status: unknown. ROS: 14:28 Constitutional: Negative for fever, chills, and weight loss, sb4 14:28 Respiratory: Positive for dyspnea on exertion, orthopnea, shortness of breath, 14:28 All other systems are negative, Exam: 14:28 Head/Face: Normocephalic, atraumatic. Eyes: Extra-ocular motions intact. Periorbital sb4 areas with no swelling, redness, or edema. ENT: Mucous membranes moist. Cardiovascular: Regular rate and rhythm with a normal S1 and S2. Abdomen/GI: Soft, non-tender, no distension. Skin: Warm, dry with normal turgor. Normal color with no rashes, no lesions, and no evidence of cellulitis. MS/ Extremity: Pulses equal, no cyanosis. Neurovascular intact. Full, normal range of motion. Neuro: Awake and alert, GCS 15, oriented to person, place, time, and situation. Motor strength 5/5 in all extremities. Sensory grossly intact. 14:28 Constitutional: The patient appears alert, awake, in obvious distress, mildly distressed, 14:28 Respiratory: mild respiratory distress is noted, Respirations: normal, Breath sounds: are clear throughout, Vital Signs: 14:31 BP 147 / 103; Pulse 115; Resp 22; Temp 97.8; Pulse Ox 84% on R/A; Weight 96.62 kg; ph Height 5 ft. 9 in. ; 17:39 BP 121 / 88; Pulse 101; Pulse Ox 94% ; ec2 19:00 BP 129 / 105; Pulse 105; Resp 22; Temp 97.9; Pulse Ox 93% on BiPAP; Pain 6/10; pf1 20:00 BP 127 / 101; Pulse 110; Resp 20; Pulse Ox 94% on BiPAP; Pain 6/10; pf1 21:00 BP 111 / 99; Pulse 107; Resp 20; Pulse Ox 94% on BiPAP; pf1 22:00 BP 124 / 89; Pulse 101; Resp 23; Pulse Ox 93% on BiPAP; Pain 3/10; pf1 23:00 BP 114 / 93; Pulse 92; Resp 18; Temp 96.7; Pulse Ox 94% on BiPAP; pf1 04 00:00 BP 124 / 100; Pulse 92; Resp 17; Temp 97.5; Pulse Ox 94% on BiPAP; Pain 4/10; pf1 04 14:31 Body Mass Index 31.45 (96.62 kg, 175.26 cm) ph 19:00 Pain Scale: Adult pf1 20:00 Pain Scale: Adult pf1 22:00 Pain Scale: Adult pf1 06/09 00:00 Pain Scale: Adult pf1 MDM: 06/08 14:16 Patient medically screened. sb4 14:28 Differential diagnosis: Anemia pneumonia, pulmonary edema, Pulmonary Embolism. sb4 14:39 Data interpreted:. The patient's pulmonary embolism risk score was calculated as sb4 follows: No Risks (0 Pts) the patients heart rate is greater than 100 beats per minute (1.5 Pts) Total Score: 0-2 points. This patient was found to be at low risk for a pulmonary embolism by using the Well's assessment criteria. 17:34 Data reviewed: vital signs, nurses notes, lab test result(s), EKG, radiologic studies, sb4 I have discussed the patient's presentation/case with the attending Emergency Department Physician;. Counseling: I had a detailed discussion with the patient and/or guardian regarding the historical points, exam findings, and any diagnostic results supporting the discharge/admit diagnosis, the presence of at least one elevated blood pressure reading (>120/80) during this emergency department visit, lab results, radiology results, the need to transfer to another facility, for higher level of care. 17:37 ED course: Discussed case with Dr. Henry who recommended stat bedside echo. Dr. valerie Adams came in and performed, expressed concern for right heart strain and right ventricular failure. Ultimately, Dr. Henry recommended transfer for higher level of care. 06/08 14:28 Order name: BMP; Complete Time: 15:43 06/08 14:28 Order name: Blood Culture Adult (2) 06/08 14:28 Order name: CBC with Diff; Complete Time: 15:29 sb06/08 14:28 Order name: D-Dimer; Complete Time: 16:51 06/08 14:28 Order name: Hepatic Function; Complete Time: 15:43 06/08 14:28 Order name: Lipase; Complete Time: 15:43 06/08 14:28 Order name: Magnesium; Complete Time: 15:43 06/08 14:28 Order name: NT PRO-BNP; Complete Time: 15:43 06/08 14:28 Order name: PT-INR; Complete Time: 16:51 06/08 14:28 Order name: Ptt, Activated; Complete Time: 16:51 06/08 14:28 Order name: Troponin HS; Complete Time: 15:43 06/08 14:28 Order name: Lactate w/ 2H reflex if indic.; Complete Time: 15:42 06/08 14:40 Order name: ABG 06/08 14:28 Order name: XRAY CXR (1 view); Complete Time: 16:55 4 06/08 14:28 Order name: Chest Angio CT; Complete Time: 16:55 sb06/08 14:28 Order name: Cardiac monitoring; Complete Time: 15:46 06/08 14:28 Order name: EKG - Nurse/Tech; Complete Time: 15:46 06/08 14:28 Order name: IV Saline Lock; Complete Time: 15:17 06/08 14:28 Order name: Labs collected and sent; Complete Time: 15:17 06/08 14:28 Order name: O2 Per Protocol; Complete Time: 15:17 sb4 06/08 14:28 Order name: O2 Sat Monitoring; Complete Time: 15:17 sb4 Administered Medications: 17:30 Discontinued: Heparin (DVT/PE Drip) - ([id number] units, v1y046 ml) 18 units/kg/hr IV sb4 at calculated rate Per protocol; Max initial rate 1800 units/hr 15:56 Drug: Heparin (DVT/PE Drip) 18 units/kg/hr - ([place] [address] units, D5W IV 500 ml) IV rs5 at calculated rate Per protocol; Max initial rate 1800 units/hr {Co-Signature: ll1 (Sanna You RN).} Route: IV; Rate: calculated rate; Site: left forearm; 17:35 Drug: Furosemide IVP 40 mg IVP once; give over 2 minutes Route: IVP; Site: left rs5 antecubital; Disposition: 17:29 I agree with the assessment and plan of care. I reviewed the patient's care provided by ec2 Advanced Practice Provider \T\ agree w/ the diagnosis \T\ care plan. I personally saw the pt \T\ performed a substantive portion of the visit, incldng all aspects of the (History/Exam/Medical Decision Making). Patient arrives today with tachycardia as well as shortness of breath noted to be hypoxic requiring BiPAP administration. Patient with improvement in saturations. Initially with concern for possible PE given the patient's clinical history, empirically started him on anticoagulation. CT scan showed pulmonary arterial hypertension, bedside ultrasound performed by cardiology with concern for right heart strain and dilation, recommendation from pulmonology to transfer for continued cardiac and pulmonary management.. 17:36 Critical Care:. sb4 Disposition Summary: 06/09/23 17:36 Transfer Ordered Notes: Transfer Location: [facility] sb4 Reason: Higher level of care sb4 Condition: Serious sb4 Problem: new sb4 Symptoms: are unchanged sb4 Accepting Physician: vivek(06/10/23 00:18) pf1 Diagnosis - pulmonary arterial hypertension / right heart strain / RV failure sb4 Forms: - Medication Reconciliation Form sb4 - SBAR form sb4 Critical care time excluding procedures: 17:36 Critical care time: Bedside Care: 10 minutes, Consultation: 20 minutes, Family sb4 Intervention: 10 minutes. Total time: 40 minutes Signatures: Dispatcher [employer] EDMS Anya Lopez, JIMI RN Allison Mora, PAElyC PA-C sb4 Katherine Macedo, JIMI RN pf1 Efra Dos Santos, RN RN rs5 Colby Aguirre MD MD ec2 Sanna You RN ll1 Corrections: (The following items were deleted from the chart) 14:29 14:29 BASIC METABOLIC PANEL+C.LAB.BRZ ordered. EDMS EDMS 14:29 14:29 BLOOD CULTURE*+BA.LAB.BRZ ordered. EDMS EDMS 14:29 14:29 CBC+H.LAB.BRZ ordered. EDMS EDMS 14:29 14:29 D-DIMER+COAG.LAB.BRZ ordered. EDMS EDMS 14:29 14:29 HEPATIC FUNCTION+C.LAB.BRZ ordered. EDMS EDMS 14:29 14:29 LIPASE+C.LAB.BRZ ordered. EDMS EDMS 14:29 14:29 MAGNESIUM+C.LAB.BRZ ordered. EDMS EDMS 14:29 14:29 PROBNP+C.LAB.BRZ ordered. EDMS EDMS 14:29 14:29 PROTIME (+INR)+COAG.LAB.BRZ ordered. EDMS EDMS 14:29 14:29 PTT, ACTIVATED+COAG.LAB.BRZ ordered. EDMS EDMS 14:29 14:29 Troponin High Sensitivity+C.LAB.BRZ ordered. EDMS EDMS 14:29 14:29 LACTATE+C.LAB.BRZ ordered. EDMS EDMS 14:29 14:29 Chest Angio+CT.RAD.BRZ ordered. EDMS EDMS 17:41 14:28 Patient states that he has been feeling short of breath for some time now, sb4 especially on exertion. He was referred to a marketing technology specialist, Dr. Henry, who he saw today. He was noted to be hypoxic and sent here for further evaluation. He is 86% on room air during triage in mild respiratory distress. He does complain of some chest discomfort but has no other associated signs and symptoms. sb4 06/09 00:18 06/08 17:36 pulm sb4 pf1
[2023-06-09] MEDS ORDERED: FUROSEMIDE 40 MG/4 ML VIAL ONE (17:45)
[2023-06-10 09:45] VITALS: BP 114/93; TEMP 96.7; O2SAT 94
--- NOTE | 2023-06-10 13:30 | EKG ---
Test Date: 2023-06-09 Test Time: 15:32:49 Sheriff Sergeant: [place] MEASUREMENT RESULTS: Intervals: Rate: 109 SC: 130 QRSD: 108 QT: 378 QTc: 509 [place]: P: 59 SC: 130 QRS: -51 T: 88 INTERPRETIVE STATEMENTS: Sinus tachycardia Left axis deviation Inferior-posterior infarct, possibly acute ST & T wave abnormality, consider lateral ischemia ACUTE DE / STEMI Consider right ventricular involvement in acute inferior infarct Abnormal ECG Compared to ECG 05/02/2019 00:30:03 Left-axis deviation now present Myocardial infarct finding now present ST (T wave) deviation now present Possible ischemia now present Sinus rhythm no longer present Electronically Signed On 06-10-23 13:28:00 CDT by Carlos Dee
== END 2023-06-10 00:18 | disposition short-term general hospital (02) ==
LOC: ER 14:04
DX: I27.20 Pulmonary hypertension, unspecified (principal); I50.810 Right heart failure, unspecified
CPT/HCPCS: 93005; 87040 ×2; 85025; 80048; 36415; 83735; 85610; 85379; 80076; 83605; 85730; 84484; 83690; 83880; 71275; 71045; 82805; 99285; 36600; 94660; Q9967; J1940

== ENCOUNTER 2023-09-01 09:09 | Emergency (ER) | payer OTHER ==
[2023-09-01 10:37] LABS: Absolute Eosinophils 0.1 K/uL (0-0.5); Absolute Lymphocytes (CBC) 1.5 K/uL (0.7-4.9); Absolute Monocytes 0.7 K/uL (0.1-1.3); Absolute Neutrophil 6.4 K/uL (1.8-8.0); Basophils % 0.5 % (0-1.3); Eosinophils % 1.4 % (0-4.4); Hematocrit 41.6 % (39.6-49.0); Hemoglobin 13.8 g/dL (13.6-17.9); Lymphocytes % 16.8 % (15.3-44.8); MCH 28.5 pg (27.0-35.0); MCHC 33.2 g/dL (32.0-36.0); MCV 85.9 fL (80-100); Monocytes % 7.9 % (3.3-12.3); Neutrophils % 73.4 % (41.7-73.7); Platelets 217 thou/uL (152-406); RBC Red Blood Cell Count 4.84 M/uL (4.33-5.43)
--- NOTE | 2023-09-01 11:23 | RAD REPORT ---
EXAM DESCRIPTION: RADChest Single View09/01/2023 10:03 am CLINICAL HISTORY: CHEST PAIN COMPARISON: Chest Single View dated 06/09/2023; Chest Single View dated 12/31/2021; Chest Single View dated 05/02/2019 TECHNIQUE: Portable AP view of the chest. FINDINGS: The lungs are clear. No pneumothorax or effusion. The cardiomediastinal contours are unch anged, again with prominence of the central pulmonary arterial vasculature. IMPRESSION: No acute cardiopulmonary process. Stable findings as above.
[2023-09-01 11:27] LABS: PTT, Activated Partial Thromb 27.3 SECONDS (24.3-36.9)
[2023-09-01 11:28] LABS: PT Prothrombin Time 12.5 SECONDS (9.4-12.5); Protime INR 1.14
[2023-09-01 11:43] LABS: Albumin 3.9 g/dL (3.4-5.0); Anion Gap 10.3 mEq/L (5.0-15.0); Bilirubin Total 0.8 mg/dL (0.2-1.0); Potassium 3.3 mEq/L (3.5-5.1); Protein, Total 7.9 g/dL (6.4-8.2); Troponin High Sensitivity 4.4 pg/mL (<58.9)
[2023-09-01 11:49] LABS: Specific Gravity > 1.030 (1.005-1.030); Sqamous Epithelial <5 /HPF (None Seen); Urine Bacteria None Seen /HPF (<20); Urine Bilirubin NEGATIVE (Negative); Urine Blood Negative (Negative); Urine Clarity Turbid (Clear); Urine Color Yellow (Yellow); Urine Culture Reflex Order NOT NEEDED; Urine Glucose NEGATIVE (Negative); Urine Ketones 2+ (Negative); Urine Microscopic Reflex YN ORDER UMIC; Urine Mucus Slight /HPF (None Seen); Urine Nitrite NEGATIVE (Negative); Urine Protein TRACE (Negative); Urine RBC <5 /HPF (None Seen); Urine Urobilinogen Normal (Normal); Urine WBC <5 /HPF (<5); Urine pH 5.5 (5.0-7.0)
[2023-09-01 12:11] LABS: Barbiturates NEGATIVE (NEGATIVE); Benzodiazepines NEGATIVE (NEGATIVE); Cocaine NEGATIVE (NEGATIVE); METHAMPHETAM POSITIVE (NEGATIVE); Methadone NEGATIVE (NEGATIVE); Opiates NEGATIVE (NEGATIVE); Phencyclidine NEGATIVE (NEGATIVE); THC Cannibis POSITIVE (NEGATIVE)
--- NOTE | 2023-09-01 12:36 | RAD REPORT ---
EXAM DESCRIPTION: CT - Head Brain Wo Cont - 09/01/2023 12:01 pm CLINICAL HISTORY: WEAKNESS COMPARISON: Maxillofacial Wo Con dated 12/03/2017; Head C Spine Mpr Wo Con dated 12/31/2021 TECHNIQUE: Noncontrast head CT images were obtained without IV contrast. Multiplanar reformats were generated and reviewed. All CT scans are performed using dose optimization technique as appropriate and may include automated exposure control or mA/KV adjustment according to patient size. FINDINGS: No intracranial hemorrhage, mass, or edema. Midline structures are unremarkable. Normal ventricular caliber for age. Gil-white matter differentiation is preserved, without evidence of acute infarct. No abnormal extra- axial fluid collections. Mastoid air cells and visualized portions of the paranasal sinuses are clear. No acute bony findings. IMPRESSION: No evidence of an acute intracranial process.
--- NOTE | 2023-09-01 13:02 | EDPHYS ---
Physician Documentation [facility] Name: Douglas Aguirre Age: 28 yrs Sex: Male : 1995 Arrival Date: 09/01/2023 Time: 09:09 Bed 17 Private MD: ED Physician William Mcneil HPI: 08/31 09:17 This 28 yrs old Male presents to ER via EMS with complaints of weakness. sb4 09:19 patient presents with via EMS with complaints of generalized weakness x 2 weeks. he has sb4 a history of pulmonary arterial hypertension and epilepsy. does not take medication for epilepsy, is unsure if he has had a seizure. denies any chest pain, sob, nausea, vomiting. Historical: - Allergies: 09:17 No Known Allergies; rs5 - PMHx: 09:17 Seizures; Heart murmur; rs5 09:18 pulmonary arterial hypertension; sb4 - PSHx: 09:17 open heart surgery (Seizures); rs5 - Immunization history:: Adult Immunizations up to date. - Infectious Disease History:: Denies. - Social history:: Smoking status: Patient denies any tobacco usage or history of. ROS: 09:19 Constitutional: Negative for fever, chills, and weight loss, sb4 09:19 Neuro: Positive for weakness, 09:19 All other systems are negative, Exam: 09:19 Head/Face: Normocephalic, atraumatic. Eyes: Extra-ocular motions intact. Periorbital sb4 areas with no swelling, redness, or edema. ENT: Mucous membranes moist. Cardiovascular: Regular rate and rhythm with a normal S1 and S2. Respiratory: Lungs have equal breath sounds bilaterally, clear to auscultation and percussion. No rales, rhonchi or wheezes noted. No increased work of breathing, no retractions or nasal flaring. Abdomen/GI: Soft, non-tender, no distension. MS/ Extremity: Pulses equal, no cyanosis. Neurovascular intact. Full, normal range of motion. 09:19 Constitutional: The patient appears awake, lethargic, Vital Signs: 09:15 BP 133 / 77; Pulse 93; Resp 17; Temp 98.2(O); Pulse Ox 98% on R/A; rs5 11:43 BP 126 / 72; Pulse 95; Resp 18; Pulse Ox 98% on R/A; ph 12:01 BP 122 / 84; Pulse 87; Resp 14; Pulse Ox 97% on R/A; me1 13:04 BP 121 / 76; Pulse 86; Resp 13; Pulse Ox 100% ; me1 MDM: 09:14 Patient medically screened. 4 13:01 Data reviewed: vital signs, nurses notes, EMS record, lab test result(s), EKG, sb4 radiologic studies, and as a result, I will discharge patient. Consideration of Admission/Observation Escalation of care including admission/observation considered. Counseling: I had a detailed discussion with the patient and/or guardian regarding the historical points, exam findings, and any diagnostic results supporting the discharge/admit diagnosis, lab results, radiology results, to return to the emergency department if symptoms worsen or persist or if there are any questions or concerns that arise at home. 08/31 09:15 Order name: Blood Culture Adult (2) [facility] 08/31 09:15 Order name: CBC with Diff; Complete Time: 10:50 [facility] 08/31 09:15 Order name: CMP; Complete Time: 11:46 08/31 09:15 Order name: Lactate w/ 2H reflex if indic.; Complete Time: 11:37 08/31 09:15 Order name: Protime (+inr); Complete Time: 11:28 08/31 09:15 Order name: Ptt, Activated; Complete Time: 11:28 08/31 09:15 Order name: Urinalysis w/ reflexes; Complete Time: 11:50 [facility] 08/31 09:15 Order name: NT PRO-BNP; Complete Time: 11:46 08/31 09:15 Order name: Troponin HS; Complete Time: 11:46 08/31 11:03 Order name: UDS; Complete Time: 12:12 4 08/31 12:02 Order name: Flu; Complete Time: 12:51 08/31 12:23 Order name: SARS-COV-2 RT PCR; Complete Time: 12:59 EDMS 08/31 09:15 Order name: Chest Single View XRAY; Complete Time: 11:24 4 08/31 11:47 Order name: Head Brain Wo Cont CT; Complete Time: 12:36 08/31 09:15 Order name: EKG; Complete Time: 09:16 sb4 08/31 09:15 Order name: Accucheck; Complete Time: 10:47 sb4 08/31 09:15 Order name: Cardiac monitoring; Complete Time: 09:29 sb4 08/31 09:15 Order name: EKG - Nurse/Tech; Complete Time: 09:29 sb4 08/31 09:15 Order name: IV Saline Lock - Large Bore; Complete Time: 10:46 sb4 08/31 09:15 Order name: Labs collected and sent; Complete Time: 10:46 sb4 08/31 09:15 Order name: O2 Per Protocol; Complete Time: 10:33 sb4 08/31 09:15 Order name: O2 Sat Monitoring; Complete Time: 10:33 sb4 08/31 09:15 Order name: Vital Signs; Complete Time: 09:29 sb4 08/31 10:43 Order name: Misc. Order: recollect all labs :) per spring; Complete Time: 11:11 sb4 EC:31 Rate is 90 beats/min. Rhythm is regular, Normal Sinus Rhythm. DC interval is normal at sb4 136 msec. QRS interval is normal at 112 msec. QT interval is prolonged at 428 msec. No Q waves. T waves are Normal. No ST changes noted. Clinical impression: Normal ECG and Prolonged QT. Interpreted by me. Reviewed by me. Administered Medications: No medications were administered Disposition: 20:43 Co-signature as Attending Physician, William Mcneil MD I reviewed the patient's care rn provided by the Advanced Practice Provider and agree with the diagnosis and treatment plan. Disposition Summary: 09/01/23 13:01 Discharge Ordered Notes: Location: Home sb4 Problem: an ongoing problem sb4 Symptoms: have improved sb4 Condition: Stable sb4 Diagnosis - Adverse effect of other drugs, medicaments and biological substances sb4 Followup: sb4 - With: Emergency Department - When: As needed - Reason: Trouble breathing, Worsening of condition Discharge Instructions: - Discharge Summary Sheet sb4 Forms: - Patient Portal Instructions sb4 - Leadership Thank You Letter sb4 Signatures: Dispatcher [employer] William Zuñiga MD MD rn Brown, Sophia, PA-C PA-C sb4 Efra Dos Santos RN RN rs5 Corrections: (The following items were deleted from the chart) 12:24 12:02 SARS-COV-2 Antigen Rapid+I.LAB.BRZ ordered. EDMS EDMS
--- NOTE | 2023-09-01 13:02 | EKG ---
Test Date: 2023-09-01 Test Time: 09:26:08 Museum Preparator: CARMELA MEASUREMENT RESULTS: Intervals: Rate: 90 MT: 136 QRSD: 112 QT: 428 QTc: 523 Young: P: 32 MT: 136 QRS: 46 T: 76 INTERPRETIVE STATEMENTS: Normal sinus rhythm Prolonged QT Abnormal ECG Compared to ECG 06/09/2023 15:32:49 Prolonged QT interval now present Sinus tachycardia no longer present Left-axis deviation no longer present Myocardial infarct finding no longer present ST (T wave) deviation no longer present Possible ischemia no longer present Electronically Signed On 09-01-23 13:01:26 CDT by Carlos Dee
--- NOTE | 2023-09-01 13:02 | ER ---
Nurse's Notes [facility] Name: Douglas Aguirre Age: 28 yrs Sex: Male : 1995 Arrival Date: 09/01/2023 Time: 09:09 Bed 17 Private MD: Diagnosis: Adverse effect of other drugs, medicaments and biological substances Presentation: 08/31 09:15 Chief complaint: EMS states: Pt reports general weakness and fatigue x2-3 days. rs5 Coronavirus screen: At this time, the client does not indicate any symptoms associated with coronavirus-19. Ebola Screen: No symptoms or risks identified at this time. Initial Sepsis Screen: Does the patient meet any 2 criteria? No. Patient's initial sepsis screen is negative. Does the patient have a suspected source of infection? No. Patient's initial sepsis screen is negative. Risk Assessment: Do you want to hurt yourself or someone else? Patient reports no desire to harm self or others. Onset of symptoms was September 01, 2023. 09:15 Method Of Arrival: EMS: [facility] rs5 09:15 Acuity: MARCELO 3 rs5 Historical: - Allergies: 09:17 No Known Allergies; rs5 - PMHx: 09:17 Seizures; Heart murmur; rs5 09:18 pulmonary arterial hypertension; sb4 - PSHx: 09:17 open heart surgery (Seizures); rs5 - Immunization history:: Adult Immunizations up to date. - Infectious Disease History:: Denies. - Social history:: Smoking status: Patient denies any tobacco usage or history of. Screenin:12 [facility] ED Fall Risk Assessment (Adult) History of falling in the last 3 months, ph including since admission No falls in past 3 months (0 pts) Confusion or Disorientation Yes (5 pts) Intoxicated or Sedated No (0 pts) Impaired Gait No (0 pts) Mobility Assist Device Used No (0 pt) Altered Elimination No (0 pt) Score/Fall Risk Level 3 or more points = High Risk Oriented to surroundings, Maintained a safe environment, Used ambulatory aids as needed (educated on \T\ assisted with). Abuse screen: Denies threats or abuse. Denies injuries from another. Nutritional screening: No deficits noted. Tuberculosis screening: No symptoms or risk factors identified. Assessment: 10:00 General: Appears in no apparent distress. comfortable, Behavior is cooperative, drowsy, ph quiet. Pain: Denies pain. Neuro: Level of Consciousness is lethargic, Oriented to person, place, situation, Speech is slurred. Cardiovascular: Capillary refill < 3 seconds in bilateral fingers Patient's skin is warm and dry. Respiratory: Airway is patent Respiratory effort is even, unlabored. GI: Abdomen is round non-distended, Patient currently denies abdominal pain, diarrhea, nausea, vomiting. Derm: Skin is pink, warm \T\ dry. 11:01 Reassessment: Patient and/or family updated on plan of care and expected duration. Pain rs5 level reassessed. Patient is alert, oriented x 3, equal unlabored respirations, skin warm/dry/pink. 12:05 General: Appears comfortable, ill, well groomed, well developed, well nourished, me1 Behavior is cooperative, appropriate for age, drowsy, quiet. Pain: Denies pain. Neuro: Level of Consciousness is obeys commands, lethargic, Oriented to person, place, situation, Speech is slurred. Cardiovascular: Capillary refill < 3 seconds Patient's skin is warm and dry. Respiratory: Airway is patent Respiratory effort is even, unlabored, Respiratory pattern is regular, symmetrical. GI: Abdomen is round non-distended, Patient currently denies abdominal pain, diarrhea, nausea, vomiting. : No signs and/or symptoms were reported regarding the genitourinary system. EENT: No signs and/or symptoms were reported regarding the EENT system. Derm: Skin is intact, is healthy with good turgor, Skin is pink, warm \T\ dry. Musculoskeletal: No signs and/or symptoms reported regarding the musculoskeletal system. 12:50 Reassessment: No changes from previously documented assessment. rs5 Vital Signs: 09:15 BP 133 / 77; Pulse 93; Resp 17; Temp 98.2(O); Pulse Ox 98% on R/A; rs5 11:43 BP 126 / 72; Pulse 95; Resp 18; Pulse Ox 98% on R/A; ph 12:01 BP 122 / 84; Pulse 87; Resp 14; Pulse Ox 97% on R/A; me1 13:04 BP 121 / 76; Pulse 86; Resp 13; Pulse Ox 100% ; me1 ED Course: 09:14 Patient arrived in ED. sb4 09:14 Allison Peters PA-C is PHCP. sb4 09:14 William Mcneil MD is Attending Physician. sb4 09:15 Efra Dos Santos, RN is Primary Nurse. rs5 09:17 Triage completed. rs5 10:04 Missed attempt(s): 22 gauge in right antecubital area. Bleeding controlled, band aid ph applied, catheter tip intact. Missed attempt(s): 22 gauge in left hand. Bleeding controlled, band aid applied, catheter tip intact. 10:05 Chest Single View XRAY In Process Unspecified. EDMS 10:31 Initial lab(s) drawn, by me, sent to lab. Inserted saline lock: 24 gauge in left hand, ap3 using aseptic technique. Blood collected. 11:11 Arm band placed on Patient placed in an exam room, on a stretcher, on case monitor, ph on pulse oximetry. EKG completed in triage. Results shown to MD. 11:13 Patient has correct armband on for positive identification. Bed in low position. Call ph light in reach. Side rails up X2. Pulse ox on. NIBP on. 11:43 UDS Sent. ph 11:43 Urine collected: clean catch specimen, reji colored. ph 12:03 Head Brain Wo Cont CT In Process Unspecified. EDMS 12:18 Flu Sent. me1 12:18 COVID swab sent to lab. Flu and/or RSV swab sent to lab. me1 13:11 No provider procedures requiring assistance completed. IV discontinued, intact, me1 bleeding controlled, No redness/swelling at site. Pressure dressing applied. 13:11 Provided Education on: POC. Verbalized understanding. . me1 Administered Medications: No medications were administered Medication: 11:13 VIS not applicable for this client. ph Outcome: 13:01 Discharge ordered by MD. sb4 13:11 Discharged to home ambulatory, me1 13:11 Condition: stable 13:11 Discharge instructions given to patient, Instructed on discharge instructions, follow up and referral plans. Demonstrated understanding of instructions, follow-up care, 13:11 Patient left the ED. me1 Signatures: Dispatcher [employer] EDIA Anya Lopez RN RN Janice Soni RN RN ap3 Allison Peters PA-C PA-C sb4 Efra Dos Santos, JIMI KRAUSE rs5 Eddleman, Viviane, RN RN me1 Corrections: (The following items were deleted from the chart) 12:24 12:18 SARS-COV-2 Antigen Rapid+I.LAB.BRZ drawn and sent. me1 EDMS
[2023-09-01 20:01] VITALS: BP 121/76; TEMP 98.2; O2SAT 100
== END 2023-09-01 13:11 | disposition home or self-care (01) ==
LOC: ER 09:09
DX: R53.1 Weakness (principal); T50.995A Adverse effect of other drugs, medicaments and biological substances, initial encounter; Z11.52 Encounter for screening for COVID-19
CPT/HCPCS: 36415; 70450; 71045; 80053; 80307; 81001; 83605; 83880; 84484; 85025; 85610; 85730; 87040; 87635; 87804; 93005

== ENCOUNTER 2023-09-01 13:25 | Emergency (ER) | payer OTHER ==
--- NOTE | 2023-09-01 13:33 | EDPHYS ---
Physician Documentation [facility] Name: Douglas Aguirre Age: 28 yrs Sex: Male : 1995 Arrival Date: 09/01/2023 Time: 13:25 Bed 13 Private MD: ED Physician Yair Cantrell HPI: 08/31 13:35 This 28 yrs old Male presents to ER via Unassigned with complaints of Suicidal sb4 Ideation. 13:35 Patient presents with complaints of suicidal and homicidal ideations. He was just sb4 discharged from this ED 1 hour ago after full cardiac and septic workup with his prior complaint being generalized weakness. He was found to have unremarkable blood work, EKG, chest xray head CT, swabs, UA but positive for methamphetamines and THC.. Historical: - Allergies: 14:09 No Known Allergies; rs5 - PMHx: 14:09 Heart Murmur; Pulmonary Arterial Hypertension; Seizures; rs5 - PSHx: 14:09 open heart surgery (es); rs5 - Immunization history:: Adult Immunizations unknown. - Infectious Disease History:: Denies. - Social history:: Smoking status: Patient denies any tobacco usage or history of. ROS: 13:35 Constitutional: Negative for fever, chills, and weight loss, sb4 13:35 Psych: Positive for homicidal ideation, suicidal ideation, 13:35 All other systems are negative, Exam: 13:35 Constitutional: This is a well developed, well nourished patient who is awake, alert, sb4 and in no acute distress. Head/Face: Normocephalic, atraumatic. Eyes: Extra-ocular motions intact. Periorbital areas with no swelling, redness, or edema. ENT: Mucous membranes moist. Skin: Warm, dry with normal turgor. Normal color with no rashes, no lesions, and no evidence of cellulitis. 13:35 Psych: Behavior/mood is suicidal, Affect is flat, Patient having thoughts of suicide. Patient having thoughts of homicide. Vital Signs: 14:07 BP 147 / 81; Pulse 71; Resp 17; Temp 97.8(O); Pulse Ox 99% on R/A; rs5 17:59 BP 141 / 77; Pulse 74; Resp 18; Pulse Ox 99% on R/A; rs5 22:30 BP 117 / 67; Pulse 80; Resp 16; Temp 97.1; Pulse Ox 99% on R/A; lg3 MDM: 13:32 Patient medically screened. sb4 13:38 Data reviewed: vital signs, nurses notes, lab test result(s), EKG, radiologic studies. sb4 Counseling: I had a detailed discussion with the patient and/or guardian regarding the historical points, exam findings, and any diagnostic results supporting the discharge/admit diagnosis, lab results, radiology results, the need to transfer to another facility, [facility] does not immediately have the required specialist. Administered Medications: 21:41 Drug: Potassium Chloride PO 40 mEq PO once Route: PO; cm10 21:49 Follow up: Response: No adverse reaction cm10 Disposition: 18:22 Co-signature as Attending Physician, Yair Cantrell MD I reviewed the patient's care rt provided by the Advanced Practice Provider and agree with the diagnosis and treatment plan. Disposition Summary: 09/01/23 13:33 Transfer Ordered Notes: Transfer Location: Psych Facility sb4 Reason: Higher level of care sb4 Condition: Fair sb4 Problem: new sb4 Symptoms: are unchanged sb4 Accepting Physician: psych(09/01/23 22:52) cm10 Diagnosis - Homicidal and suicidal ideations sb4 Forms: - Medication Reconciliation Form sb4 - SBAR form sb4 Signatures: Allison Peters PA-C PA-C sb4 Yair Cantrell MD MD rt Efra Dos Santos RN RN rs5 Raisa Owens RN RN cm10 Colby Aguirre MD MD ec2 Corrections: (The following items were deleted from the chart) 22:52 13:33 psych sb4 cm10
[2023-09-01] MEDS ORDERED: POTASSIUM CL SA 10 MEQ TAB PO ONE (21:39)
--- NOTE | 2023-09-01 22:53 | ER ---
Nurse's Notes [facility] Name: Douglas Aguirre Age: 28 yrs Sex: Male : 1995 Arrival Date: 09/01/2023 Time: 13:25 Bed 13 Private MD: Diagnosis: Homicidal and suicidal ideations Presentation: 08/31 14:07 Chief complaint: Patient states: "I'm just so tired of living, I just want to hurt rs5 myself and other people ". Coronavirus screen: At this time, the client does not indicate any symptoms associated with coronavirus-19. Ebola Screen: No symptoms or risks identified at this time. Initial Sepsis Screen: Does the patient meet any 2 criteria? No. Patient's initial sepsis screen is negative. Does the patient have a suspected source of infection? No. Patient's initial sepsis screen is negative. Risk Assessment: Do you want to hurt yourself or someone else? Patient reports desire/thoughts of hurting themselves or someone else. Provider notified. Onset of symptoms was September 01, 2023. 14:07 Method Of Arrival: Ambulatory rs5 14:07 Acuity: MARCELO 2 rs5 Triage Assessment: 14:09 General: Appears in no apparent distress. uncomfortable, Behavior is cooperative, rs5 agitated. Pain: Denies pain. Historical: - Allergies: 14:09 No Known Allergies; rs5 - PMHx: 14:09 Heart Murmur; Pulmonary Arterial Hypertension; Seizures; rs5 - PSHx: 14:09 open heart surgery (es); rs5 - Immunization history:: Adult Immunizations unknown. - Infectious Disease History:: Denies. - Social history:: Smoking status: Patient denies any tobacco usage or history of. Screenin:33 [facility] ED Fall Risk Assessment (Adult) History of falling in the last 3 months, rs5 including since admission No falls in past 3 months (0 pts) Confusion or Disorientation No (0 pts) Intoxicated or Sedated No (0 pts) Impaired Gait No (0 pts) Mobility Assist Device Used No (0 pt) Altered Elimination No (0 pt) Score/Fall Risk Level 0 - 2 = Low Risk Oriented to surroundings, Maintained a safe environment. Abuse screen: Denies threats or abuse. Nutritional screening: No deficits noted. Tuberculosis screening: No symptoms or risk factors identified. Assessment: 13:35 General: Appears in no apparent distress. Behavior is cooperative, agitated, anxious. rs5 Pain: Denies pain. Neuro: Level of Consciousness is awake, alert, obeys commands, Oriented to person, place, time, situation. Cardiovascular: Patient's skin is warm and dry. Rhythm is regular. Respiratory: Airway is patent Respiratory effort is even, unlabored, Respiratory pattern is regular, symmetrical. GI: Abdomen is round non-distended, Abd is soft and non tender X 4 quads. : No signs and/or symptoms were reported regarding the genitourinary system. EENT: No signs and/or symptoms were reported regarding the EENT system. Derm: Skin is intact, Skin is dry, Skin is normal, Skin temperature is warm. Musculoskeletal: Range of motion: intact in all extremities. 13:36 Reassessment: to bedside for C-SSRS screening, pt states "I'm just tired of living, I rs5 feel like hurting myself and other people. I don't know how I would do it but that's just how I feel" provider notified. Sitter at bedside. 14:41 Reassessment: Patient and/or family updated on plan of care and expected duration. Pain rs5 level reassessed. Patient is alert, oriented x 3, equal unlabored respirations, skin warm/dry/pink. 15:06 Reassessment: Patient and/or family updated on plan of care and expected duration. Pain rs5 level reassessed. Patient is alert, oriented x 3, equal unlabored respirations, skin warm/dry/pink. 16:01 Reassessment: No changes from previously documented assessment. rs5 17:09 Reassessment: Patient and/or family updated on plan of care and expected duration. Pain rs5 level reassessed. Patient is alert, oriented x 3, equal unlabored respirations, skin warm/dry/pink. sitter remains at bedside. 17:59 Reassessment: No changes from previously documented assessment. rs5 19:00 General: Assumed care of patient at this time. Pt resting on stretcher, respirations cm10 even and unlabored. Pt states that he is still having thoughts of wanting to kill himself. Pt denies a plan at this time. Sitter remains at bedside.. 20:00 Reassessment: Patient appears in no apparent distress at this time. No changes from cm10 previously documented assessment. Patient and/or family updated on plan of care and expected duration. Pain level reassessed. Patient is alert, oriented x 3, equal unlabored respirations, skin warm/dry/pink. 21:00 Reassessment: Patient appears in no apparent distress at this time. No changes from cm10 previously documented assessment. Patient and/or family updated on plan of care and expected duration. Pain level reassessed. Patient is alert, oriented x 3, equal unlabored respirations, skin warm/dry/pink. 22:00 Reassessment: Patient appears in no apparent distress at this time. No changes from cm10 previously documented assessment. Patient and/or family updated on plan of care and expected duration. Pain level reassessed. Patient is alert, oriented x 3, equal unlabored respirations, skin warm/dry/pink. Pt eating at this time. Sitter remains at bedside. 22:45 Reassessment: Pt using phone at this time. cm10 Psych: 13:33 [place] Suicide Severity Screening: In the past month, have you wished you were rs5 or wished you could go to sleep and not wake up? Patient responds "yes." Based off the client's responses additional C-SSRS screening is required. "In the past month, have you actually had any thoughts of killing yourself?" Patient responds "yes." Based off the client's response additional [place] suicide severity screening questions to be further documented on paper forms. [place] Suicide Severity Screening: "In your lifetime, have you ever done anything, started to do anything, or prepared to do anything to end your life?" Patient responds "no.". Subjective: Patient's mood is irritable. Subjective: Delusions are denied, Hallucinations are denied Having thoughts of suicide. Denies suicidal plan. Objective: Patient is cooperative, Speech is normal, Affect is appropriate. Interventions: Removed personal items and placed in bag. Patient placed in hospital gown. Searched person for dangerous items. Belonging list filled out. Patient reassessed during use of restraints. Patient is physically safe. Patient assessed for signs of distress. Patient remains reasonably comfortable at this time. 13:33 Safety Checks: Personal items have been removed. Door is open. No visitors are present rs5 at this time. Pt denies substance abuse. Commitment: Patient will be a voluntary commitment. Vital Signs: 14:07 BP 147 / 81; Pulse 71; Resp 17; Temp 97.8(O); Pulse Ox 99% on R/A; rs5 17:59 BP 141 / 77; Pulse 74; Resp 18; Pulse Ox 99% on R/A; rs5 22:30 BP 117 / 67; Pulse 80; Resp 16; Temp 97.1; Pulse Ox 99% on R/A; lg3 ED Course: 13:28 Patient arrived in ED. mr 13:31 Allison Peters PA-C is PHCP. sb4 13:31 Yair Cantrell MD is Attending Physician. sb4 13:33 Patient has correct armband on for positive identification. Placed in gown. Bed in low rs5 position. Call light in reach. Side rails up X2. 13:33 No provider procedures requiring assistance completed. rs5 14:06 Efra Dos Santos, RN is Primary Nurse. rs5 14:09 Triage completed. rs5 19:00 Safety Checks: Personal items have been removed. The door is not opened, nor is patient cm10 placed in a hallway bed/chair. due to or because: Door closed but curtain open. Sitter in view of patient at all times. There are no family/friend visitors at this time Sitter present at this time. 20:08 Primary Nurse role handed off by Efra Dos Santos, RN cm10 20:08 Raisa Owens, RN is Primary Nurse. cm10 21:34 Nurse to Nurse done with Misa at [facility]. Per misa they will be accepting cm10 patient. 21:35 pt was accepted to [facility] by Janice Hopkins \\T\\ [id number]. Accept[address] Dr. Bonner lupillo Mccray \\[id number]\\[id number]. [facility] to transfer pt. 22:00 Patient did not have IV access during this emergency room visit. cm10 22:50 Provided Education on: Need for transport. Report given to Jd with [facility]. cm10 22:52 Arm band placed on. cm10 Administered Medications: 21:41 Drug: Potassium Chloride PO 40 mEq PO once Route: PO; cm10 21:49 Follow up: Response: No adverse reaction cm10 Medication: 15:08 VIS not applicable for this client. rs5 Outcome: 13:33 ER care complete, transfer ordered by MD. padilla 22:50 Transferred by ground [facility] [place] . to other acute care facility: [address] 22:50 Condition: good 22:50 Instructed on the need for transfer, 22:52 Patient left the ED. cm10 Signatures: Maile Ayala, Reg Reg mr Gumaro, Samantha, RN RN lg3 Allison Peters, ISAAK PARoberto sb4 Efra Dos Santos RN RN rs5 Raisa Owens RN RN cm10 Elizabeth Mariee [facility] Corrections: (The following items were deleted from the chart) 23:45 21:49 BP 117 / 67; Pulse 80bpm; Resp 16bpm; Pulse Ox 99% RA; Temp 97.1F; cm10 lg3
[2023-09-02 05:57] VITALS: BP 117/67; TEMP 97.1; O2SAT 99
== END 2023-09-01 22:52 ==
LOC: ER 13:25
DX: R45.851 Suicidal ideations (principal); R45.850 Homicidal ideations